=== PATIENT | male | born 1960 | race Caucasian/White ===

== ENCOUNTER → 2024-02-09 | Outpatient (CLI) | payer MEDICARE, BC, SELFPAY ==
[2024-02-09 08:21] LABS: Collection Type, Urine Clean Catch; Squamous Epithelial Cell,Urine 0 /hpf (0-5)
[2024-02-09 08:41] LABS: Basophils % (Auto) 1 % (0-2.5); Eosinophils # (Auto) 0.1 Thou/mm3 (0.0-0.5); Eosinophils % (Auto) 2 % (0-10); Hematocrit 38.4 % (41.0-53.0); Hemoglobin 12.5 g/dL (13.5-16.0); Immature Granulocytes % (Auto) 0 % (0-0); Immature Granulocytes Auto 0.02 Thou/mm3 (0.00-0.00); Lymphocytes # (Auto) 0.6 Thou/mm3 (1.0-4.8); Lymphocytes % (Auto) 11 % (10-50); Mean Corpuscular HGB Conc 32.6 g/dl (31.0-37.0); Mean Corpuscular Hemoglobin 35.8 pg (25.0-35.0); Mean Corpuscular Volume 110 fL (80-100); Monocytes # (Auto) 0.5 Thou/mm3 (0.0-0.8); Monocytes % (Auto) 11 % (0-12); Neutrophils # (Auto) 3.7 Thou/mm3 (1.8-7.7); Neutrophils % (Auto) 75 % (37-80); Nucleated Red Blood Cell % 0 /100 WBC (0); Platelet Count 157 Thou/mm3 (140-440); RDW Standard Deviation 62.5 fL (35.1-43.9); Red Blood Count 3.49 Miln/mm3 (4.50-5.90); White Blood Count 4.9 Thou/mm3 (3.8-10.6)
[2024-02-09 08:43] LABS: Bacteria,Urine Rare; Bilirubin,Urine Negative (Negative); Blood,Urine Trace (Negative); Clarity,Urine Clear (Clear/Hazy); Color,Urine Lt-Yellow (Lt Yel-Yel); Glucose, Urine Negative (Negative); Ketones,Urine Negative (Negative); Leukocyte Esterase,Urine Negative (Negative); Nitrite,Urine Negative (Negative); Protein,Urine 1+ (Neg - Trace); RBC,Urine 2 /hpf (0-3); Specific Gravity,Urine 1.011 (1.001-1.035); Urobilinogen,Urine Negative mg/dL (0.0-1.0); WBC,Urine 1 /hpf (0-5)
[2024-02-09 08:48] LABS: Creatinine,Random Urine 49 mg/dL (30-125); Protein Total, Random Urine 36 mg/dL (1-14)
[2024-02-09 08:52] LABS: Parathyroid Hormone Intact 153.7 pg/ml (18.5-88.0)
[2024-02-09 08:55] LABS: Alanine Aminotransferase 51 U/L (10-49); Albumin/Globulin Ratio 1.7 (1.2-2.2); Alkaline Phosphatase 257 U/L (46-116); Anion Gap 6 (7-16); Aspartate Amino Transferase 35 U/L (0-34); BUN/Creatinine Ratio 29 Ratio (12-20); Bilirubin,Total 1.1 mg/dL (0.3-1.2); Blood Urea Nitrogen 60 mg/dL (9-23); Carbon Dioxide 29.7 mMol/L (20.0-31.0); Cardiac Risk Estimate 2.7 RATIO (4.0-6.7); Chloride 104 mMol/L (98-107); Cholesterol 95 mg/dL (132-200); Creatinine (Component) 2.1 mg/dL (0.6-1.3); Globulin 2.3 gm/dL (2.3-3.5); Glucose 97 mg/dL (74-106); HDL Cholesterol 35 mg/dL (40-60); LDL Cholesterol,Calculated 49 mg/dL (0-130); Osmolality,Calculated 296 (275-295); Potassium 4.7 mMol/L (3.4-5.1); Sodium 140 mMol/L (136-145); Thyroid Stimulating Hormone 7.84 uIU/mL (0.55-4.78); Total Protein 6.3 gm/dL (5.7-8.2); Triglycerides 57 mg/dL (30-150); eGFR 35 See Note
== END | disposition home or self-care (01) ==
PROVIDERS: PCP Internal Medicine; Referring Provider Internal Medicine; Visit Provider Internal Medicine
DX: I12.9 Hypertensive chronic kidney disease with stage 1 through stage 4 chronic kidney disease, or unspecified chronic kidney disease (principal); N18.30 Chronic kidney disease, stage 3 unspecified; E78.5 Hyperlipidemia, unspecified; D57.1 Sickle-cell disease without crisis; E03.9 Hypothyroidism, unspecified
CPT/HCPCS: 36415; 80053; 80061; 81001; 82570; 83036; 83970; 84156; 84443; 85025

== ENCOUNTER → 2024-05-16 | Outpatient (CLI) | payer MEDICARE, BC, SELFPAY ==
[2024-05-16 14:06] LABS: Parathyroid Hormone Intact 154.2 pg/ml (18.5-88.0)
[2024-05-16 14:36] LABS: Albumin, Serum 3.7 gm/dL (3.4-4.8); Anion Gap 10 (7-16); BUN/Creatinine Ratio 30 Ratio (12-20); Blood Urea Nitrogen 70 mg/dL (9-23); Calcium (Corrected) 8.2 mg/dL (8.5-10.1); Carbon Dioxide 27.9 mMol/L (20.0-31.0); Chloride 104 mMol/L (98-107); Creatinine (Component) 2.3 mg/dL (0.6-1.3); Glucose 140 mg/dL (74-106); Osmolality,Calculated 305 (275-295); Phosphorous 3.7 mg/dL (2.4-5.1); Potassium 4.5 mMol/L (3.4-5.1); Sodium 142 mMol/L (136-145); eGFR 31 See Note
== END | disposition home or self-care (01) ==
PROVIDERS: PCP Internal Medicine; Referring Provider Internal Medicine; Visit Provider Internal Medicine
DX: N18.30 Chronic kidney disease, stage 3 unspecified (principal); N25.81 Secondary hyperparathyroidism of renal origin
CPT/HCPCS: 36415; 80069; 83970

== ENCOUNTER 2024-07-18 10:13 | Day surgery (SDC) | payer MEDICARE, BC, SELFPAY ==
--- NOTE | 2024-07-17 09:45 | EKG_ITS ---
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 : 1960 Requested By: Niall Ac Order Number: [id number] Reading MD: Niall Ac Measurements Intervals [place] Rate: 79 P: MI: QRS: 130 QRSD: 118 T: -45 QT: 363 QTc: 418 Interpretive Statements ATRIAL FIBRILLATION MARKED RIGHT AXIS DEVIATION [QRS AXIS > 100] LOW QRS VOLTAGE IN PRECORDIAL LEADS [QRS DEFLECTION < 1.0 mV IN CHEST LEADS] SEPTAL MYOCARDIAL INFARCTION , PROBABLY OLD [40+ ms Q WAVE IN V1/V2] Compared to ECG 04/05/2023 13:39:26 Right-axis deviation now present Myocardial infarct finding now present Indeterminate axis no longer present Intraventricular conduction delay no longer present /store/S0/[id number]
[2024-07-17 10:47] LABS: Basophils % (Auto) 1 % (0-2.5); Eosinophils # (Auto) 0.1 Thou/mm3 (0.0-0.5); Eosinophils % (Auto) 2 % (0-10); Hemoglobin 12.9 g/dL (13.5-16.0); Immature Granulocytes % (Auto) 1 % (0-0); Immature Granulocytes Auto 0.02 Thou/mm3 (0.00-0.00); Lymphocytes # (Auto) 0.5 Thou/mm3 (1.0-4.8); Lymphocytes % (Auto) 12 % (10-50); Mean Corpuscular HGB Conc 33.9 g/dl (31.0-37.0); Mean Corpuscular Hemoglobin 36.6 pg (25.0-35.0); Mean Corpuscular Volume 108 fL (80-100); Monocytes # (Auto) 0.5 Thou/mm3 (0.0-0.8); Monocytes % (Auto) 12 % (0-12); Neutrophils # (Auto) 2.9 Thou/mm3 (1.8-7.7); Neutrophils % (Auto) 72 % (37-80); Nucleated Red Blood Cell % 0 /100 WBC (0); Platelet Count 81 Thou/mm3 (140-440); RDW Standard Deviation 61.3 fL (35.1-43.9); Red Blood Count 3.52 Miln/mm3 (4.50-5.90)
[2024-07-17 10:48] LABS: INR 1.2 (0.9-1.3); Partial Thromboplastin Time 29.3 Seconds (22.0-36.0); Prothrombin Time 13.2 Seconds (9.0-12.2)
[2024-07-17 10:49] LABS: Anion Gap 6 (7-16); BUN/Creatinine Ratio 28 Ratio (12-20); Blood Urea Nitrogen 64 mg/dL (9-23); Calcium 10.4 mg/dL (8.3-10.6); Chloride 107 mMol/L (98-107); Creatinine (Component) 2.3 mg/dL (0.6-1.3); Glucose 127 mg/dL (74-106); Osmolality,Calculated 303 (275-295); Potassium 4.4 mMol/L (3.4-5.1); Sodium 142 mMol/L (136-145); eGFR 31 See Note
[2024-07-18] VITALS (16 sets, daily range): BP systolic 108–127; BP diastolic 65–97; PULSE 60–86; RESP 13–23; TEMP 36.1–36.9; O2SAT 92–98; BMI 32.5
--- NOTE | 2024-07-18 17:22 | ESOP_ITS ---
RE: ROXANNE DICKENS : 1960 DATE OF OPERATION: 07/18/2024 PROCEDURE PERFORMED: 1. Diagnostic left heart cardiac catheterization, selective coronary angiogram, left ventricular angiogram, CPT 69307. 2. Conscious sedation, 1 hour duration. 3. Ultrasound-guided access, right femoral artery. 4. PCI, PTCA stent placement of the distal right coronary artery, placement of drug-eluting stent 3.0 x 26 mm Ry Medtronic drug-eluted stent, preprocedure stenosis 99%, postprocedure stenosis 0%. Preprocedure ABDIEL flow 2, post procedure ABDIEL flow 3, high complexity, CPT 77582. 5. Iliofemoral angiogram followed by AngioSeal deployment. DIAGNOSES: Coronary artery disease, crescendo and class IV angina pectoris, and abnormal nuclear scan. HISTORY AND INDICATIONS: The patient is a 63-year-old male with a history of hypertension, hypercholesterolemia, thrombocytopenia, multiple medical problems, right heart failure, tricuspid valve absent with regurgitation. PCI stent to the LAD more than a year ago, he has recurrent episodes of severe chest pain and minimal activity. Nuclear scan stress test showed inferolateral ischemia. Coronary angiogram was recommended to assess patency of stent and possible stent placement of the right coronary artery. DESCRIPTION OF PROCEDURE: The patient was brought to cardiac catheterization laboratory. He was given 2 mg of Versed and 100 mcg fentanyl for sedation. Right femoral approach was taken. Right femoral artery was cannulated with micropuncture technique. A 6-German sheath was introduced. Subsequently, there was extreme tortuously, change to 6-German destination sheath and long sheath and went on to have coronary angiogram. Right coronary angiogram was performed by FR4 diagnostic catheter. Left heart catheterization was performed by FR4 diagnostic catheter. Left ventricular pressures were measured. Pullback pressure measured LV angiogram performed. Subsequently, a 6-German JL5 diagnostic catheter was used to perform left coronary angiogram. Diagnostic procedure showed following findings: Right coronary artery large and dominant showed proximal segment. Distal right coronary artery showed 99% stenosis with ABDIEL II flow, long lesion. Left coronary system. Left main coronary artery is normal, left anterior descending artery showed a stent in the proximal LAD. Distal left anterior descending artery showed a discrete 90% stenosis unchanged from previous angiogram. Circumflex artery is nondominant, obtuse marginal branch is normal. Distal circumflex artery is 2.5 mm vessel showed diffuse 25 mm length, 80% stenosis. Left ventricular pressure is recorded to be 110/10, aortic pressure of 110/80. No gradient across the aortic valve. Left ventricular angiogram showed evidence of mild global hypokinesia, ejection fraction 45%. Following diagnostic procedure, intervention was undertaken. PCI of the right coronary artery was performed. The patient was given a total of 9000 units of heparin with ACT of 310 to proceed with a PCI. A 6-German FR4 guiding catheter was used to cannulate the right coronary artery. A 0.014 Runthrough guidewire were used to cross the lesion successfully. Predilation lesion performed by 2 mm and 2.5 mm Euphora compliant balloon catheter. Subsequently, stent placement performed by 3.0 x 26 mm Ry Radisys drug-eluted stent was deployed, two inflation was performed at atmospheric pressure. Final angiogram showed widely patent right coronary artery with no residual stenosis. Subsequently, iliofemoral angiogram performed and AngioSeal was deployed successfully. SUMMARY OF FINDINGS: 1. Widely patent stent involving the left anterior descending artery. 2. A 99% stenosis of the right coronary artery, distal RCA underwent successful PCI stent placement with excellent angiographic results. 3. Moderate stenosis of the circumflex artery, distal vessel. 4. Severe stenosis of the distal 90% stenosis. RECOMMENDATIONS: Continue medical management, aspirin and Plavix. The patient was given loading dose of Plavix 300 mg of Keflex, has a low platelet count of 91,000, which will be closely monitored. If he has significant angina pectoris, we may consider a stent placement in the circumflex artery and distal LAD later. DT: 15:01:50 TT: 16:40:00 Ref: [id number] - TID: [id number] MTDD
== END 2024-07-18 17:09 | disposition home or self-care (01) ==
PROVIDERS: PCP Internal Medicine; Referring Provider Internal Medicine Cardiovascular Disease; Visit Provider Internal Medicine Cardiovascular Disease
PROC: (CPT 93458; principal; 2024-07-18 11:30)
DX: I25.118 Atherosclerotic heart disease of native coronary artery with other forms of angina pectoris (principal); E78.00 Pure hypercholesterolemia, unspecified; I11.0 Hypertensive heart disease with heart failure; I50.810 Right heart failure, unspecified; Z01.810 Encounter for preprocedural cardiovascular examination
CPT/HCPCS: 93458; C9600; G0278; 36415; 80048; 85025; 85347; 85610; 85730; 93005; 99152; 99153; A4649; C1725; C1760; C1769; C1874; C1887; C1894; J0171; J0461; J1643; J2250; J2310; J2371; J3010; J3490; Q9967; A9270

== ENCOUNTER → 2024-08-01 | Outpatient (CLI) | payer MEDICARE, BC, SELFPAY ==
--- NOTE | 2024-08-01 09:45 | XR_ITS ---
Examination: CT abdomen and pelvis without contrast. Coronal 3-D reconstructions. Sagittal 2-D reconstructions. Date and time of exam:August 01, 2024 1012 hours Comparison 12/15/2020 INDICATIONS: Generalized abdominal pain beginning one month ago CTDI: vol (mGy): 12.6 DLP: (mGycm): 844 Technique: Axial images of the abdomen have been obtained, 3 mm slice thickness Intravenous contrast material has not been administered. Low dose protocols were performed. One or more of the following dose reduction techniques were used; automated exposure control, adjustment of the mA and/or KV according to patient size, use of iterative reconstruction technique. Findings: Moderate enlargement cardiac contour Trace pericardial effusion Calcified granuloma right lower lobe Cirrhosis, liver nodular in contour Suspicious for 20 mm posterior right lobe liver lesion image 79 Significant splenomegaly No gallstones No pancreatic mass Dilated inferior vena cava Atrophic kidneys with renal parenchymal scar formation Abdominal aortic calcification no aneurysmal dilatation Normal appendix Colonic diverticulosis Transverse prostate dimension 5.1 cm Right hip bipolar hemiarthroplasty Moderate narrowing left hip joint IMPRESSION: Moderate enlargement cardiac contour Cirrhosis Recommend MRI abdomen liver follow-up pre and postcontrast to confirm 20 mm posterior right lobe liver lesion Significant splenomegaly Atrophic kidneys Normal appendix Moderate prostatomegaly
[2024-08-01 11:06] LABS: Collection Type, Urine Clean Catch
[2024-08-01 11:28] LABS: Basophils % (Auto) 1 % (0-2.5); Eosinophils # (Auto) 0.1 Thou/mm3 (0.0-0.5); Eosinophils % (Auto) 2 % (0-10); Hematocrit 39.2 % (41.0-53.0); Hemoglobin 13.1 g/dL (13.5-16.0); Immature Granulocytes % (Auto) 0 % (0-0); Immature Granulocytes Auto 0.01 Thou/mm3 (0.00-0.00); Lymphocytes # (Auto) 0.5 Thou/mm3 (1.0-4.8); Lymphocytes % (Auto) 12 % (10-50); Mean Corpuscular HGB Conc 33.4 g/dl (31.0-37.0); Mean Corpuscular Hemoglobin 36.5 pg (25.0-35.0); Mean Corpuscular Volume 109 fL (80-100); Monocytes # (Auto) 0.5 Thou/mm3 (0.0-0.8); Monocytes % (Auto) 12 % (0-12); Neutrophils # (Auto) 3.3 Thou/mm3 (1.8-7.7); Neutrophils % (Auto) 73 % (37-80); Nucleated Red Blood Cell % 0 /100 WBC (0); Platelet Count 81 Thou/mm3 (140-440); RDW Standard Deviation 59.7 fL (35.1-43.9); Red Blood Count 3.59 Miln/mm3 (4.50-5.90); White Blood Count 4.5 Thou/mm3 (3.8-10.6)
[2024-08-01 11:32] LABS: Bilirubin,Urine Negative (Negative); Blood,Urine Negative (Negative); Clarity,Urine Clear (Clear/Hazy); Color,Urine Lt-Yellow (Lt Yel-Yel); Glucose, Urine Negative (Negative); Ketones,Urine Negative (Negative); Leukocyte Esterase,Urine Negative (Negative); Nitrite,Urine Negative (Negative); Protein,Urine 1+ (Neg - Trace); RBC,Urine 2 /hpf (0-3); Specific Gravity,Urine 1.013 (1.001-1.035); Squamous Epithelial Cell,Urine < 1 /hpf (0-5); Urobilinogen,Urine Negative mg/dL (0.0-1.0); WBC,Urine 1 /hpf (0-5)
[2024-08-01 11:49] LABS: Parathyroid Hormone Intact 124.3 pg/ml (18.5-88.0)
[2024-08-01 11:54] LABS: Alanine Aminotransferase 33 U/L (10-49); Albumin, Serum 4.3 gm/dL (3.4-4.8); Albumin/Globulin Ratio 1.7 (1.2-2.2); Alkaline Phosphatase 180 U/L (46-116); Anion Gap 6 (7-16); Aspartate Amino Transferase 30 U/L (0-34); BUN/Creatinine Ratio 27 Ratio (12-20); Bilirubin,Total 1.8 mg/dL (0.3-1.2); Blood Urea Nitrogen 64 mg/dL (9-23); Calcium 10.6 mg/dL (8.3-10.6); Calcium (Corrected) 10.6 mg/dL (8.5-10.1); Carbon Dioxide 30.3 mMol/L (20.0-31.0); Cardiac Risk Estimate 2.6 RATIO (4.0-6.7); Chloride 105 mMol/L (98-107); Cholesterol 97 mg/dL (132-200); Creatinine (Component) 2.4 mg/dL (0.6-1.3); Free T4 (Free Thyroxine) 1.06 ng/dL (0.89-1.76); Globulin 2.6 gm/dL (2.3-3.5); Glucose 97 mg/dL (74-106); HDL Cholesterol 37 mg/dL (40-60); LDL Cholesterol,Calculated 46 mg/dL (0-130); Osmolality,Calculated 299 (275-295); Phosphorous 3.5 mg/dL (2.4-5.1); Potassium 4.8 mMol/L (3.4-5.1); Sodium 141 mMol/L (136-145); Thyroid Stimulating Hormone 9.55 uIU/mL (0.55-4.78); Total Protein 6.9 gm/dL (5.7-8.2); Triglycerides 71 mg/dL (30-150); Uric Acid 4.4 mg/dL (3.7-9.2); eGFR 29 See Note
[2024-08-01 11:58] LABS: Vitamin B12 584 pg/mL (211-911); Vitamin D 25 Hydroxy Total 31.6 ng/mL (7.3-40.2)
[2024-08-01 12:21] LABS: Creatinine MALB Rnd Ur 71 mg/dL (30-125); Microalbumin Creat Ratio 383 mg/gCrea (<30); Microalbumin, Random Urine 272 mg/L (0-300)
== END | disposition home or self-care (01) ==
LOC: COPL 09:16
PROVIDERS: PCP Internal Medicine Cardiovascular Disease; Referring Provider Internal Medicine; Visit Provider Radiology Diagnostic Radiology
DX: I51.7 Cardiomegaly (principal); K74.60 Unspecified cirrhosis of liver; R16.1 Splenomegaly, not elsewhere classified; K76.9 Liver disease, unspecified; I12.9 Hypertensive chronic kidney disease with stage 1 through stage 4 chronic kidney disease, or unspecified chronic kidney disease; N18.30 Chronic kidney disease, stage 3 unspecified; E78.5 Hyperlipidemia, unspecified; I48.91 Unspecified atrial fibrillation; D75.1 Secondary polycythemia; E03.9 Hypothyroidism, unspecified; N25.81 Secondary hyperparathyroidism of renal origin; D51.9 Vitamin B12 deficiency anemia, unspecified; E55.9 Vitamin D deficiency, unspecified; I25.118 Atherosclerotic heart disease of native coronary artery with other forms of angina pectoris
CPT/HCPCS: 36415; 74176; 80053; 80061; 81001; 82043; 82306; 82570; 82607; 83036; 83970; 84100; 84153; 84439; 84443; 84550; 85025

== ENCOUNTER 2024-08-03 18:46 | Inpatient (IN) | payer MEDICARE, BC, SELFPAY ==
[2024-08-03 19:19] VITALS: PULSE 92; RESP 16; O2SAT 88; BMI 31.4
--- NOTE | 2024-08-03 19:32 | PD.EDSOB ---
ED SOB =RME/HPI General Chief Complaint: Shortness of Breath/Dyspnea Stated Complaint: COUGHING BLOOD Time Seen by Provider: 08/03/24 19:20 Arrival date/time: 08/03/24 18:46 RME / HPI RME / HPI Narrative: Dr. Milner?s Main ED Evaluation: 63yo male with a history of CHF, COPD on 2L/NC PRN, HTN, aFib, recent stent placement [address] Pacheco, on Plavix BIBA from home presents to the ED for a chief complaint of hemoptysis. Patient states he started coughing up dark blood 2 hours ago and his was concerned, so they called 911 to bring him in for evaluation. Patient reports having chronic shortness of breath that is not worse than usual, cough, and congestion. Patient denies any fever, chills, abdominal pain, N/V or any other associated symptoms. He is a former tobacco smoker. He is not on any inhalers or nebulizers at home. He is not on any steroids. Patient is currently on cephalexin for cellulitis to his legs. Related Data Home Medications ?Medication ?Instructions ?Recorded ?Confirmed simvastatin 40 mg tablet 40 mg PO HS ##90 02/11/15 07/18/24 bmhdwa-[id number]-qzvsssc 1 cap PO TID 09/29/18 07/18/24 12,000-38,000-60,000 unit capsule,delayed rel (Creon) allopurinol 300 mg tablet 300 mg PO HS 01/25/20 07/18/24 aspirin 81 mg tablet,delayed 81 mg PO QDAY 01/25/20 07/18/24 release furosemide 40 mg tablet 40 mg PO QDAY 01/25/20 07/18/24 labetalol 200 mg tablet 200 mg PO BID 01/25/20 07/18/24 latanoprost 0.005 % eye drops 1 drp ophthalmic (eye) HS 01/25/20 07/18/24 cinacalcet 90 mg tablet 90 mg PO QDAY 04/06/23 07/18/24 finasteride 5 mg tablet 5 mg PO QDAY 04/06/23 07/18/24 losartan 50 mg tablet 25 mg PO QDAY 04/06/23 07/18/24 thyroid 30 mg tablet 30 mg PO QDAY 04/06/23 07/18/24 calcitriol 0.5 mcg capsule 0.5 mcg PO QDAY 07/18/24 07/18/24 triamcinolone acetonide 0.1 % 1 applic topical BID 07/18/24 07/18/24 topical ointment Previous Rx's ?Medication ?Instructions ?Recorded clopidogrel 75 mg tablet (Plavix) 75 mg PO QDAY #30 tabs 07/18/24 Allergies Allergy/AdvReac Type Severity Reaction Status Date / Time Penicillins Allergy Mild Rash Verified 11/09/23 13:18 Review of Systems Review of Systems Systems Reviewed: All systems reviewed, normal except as documented Past Medical History Past Medical History NEUROLOGIC: Positive Neurological Disorders, Cerebrovascular Accident and Transient Ischemic Attacks (TIA); Negative Seizures CARDIAC: Positive Cardiac Disorders, Atrial Fibrillation, Hypercholesterolemia, Congestive Heart Failure, Edema and Hypertension RESPIRATORY: Positive Chronic Obstructive Pulmonary Disease (COPD), Asthma, Emphysema and Sleep Apnea GASTROINTESTINAL: Positive Gastrointestinal Disorders, Hepatitis, Cirrhosis, Gastrointestinal Bleed and Gastroesophageal Reflux Disease; Negative Colorectal Cancer GENITOURINARY: Positive Genitourinary Disorders and Renal Disease; Negative Prostate Cancer REPRODUCTIVE: Negative Breast Cancer or Testicular Cancer MUSCULOSKELETAL: Positive Musculoskeletal Disorders, Arthritis and Gout; Negative Bone Cancer or Carpal Tunnel Syndrome ENT: Positive Cataracts and Retinal Detachment ENDOCRINE: Positive Hyperthyroidism; Negative Endocrine Disorders, Diabetes Mellitus Type 1 or Diabetes Mellitus Type 2 HEMATOLOGIC: Negative Blood Disorders or Sickle Cell Disease OTHER HISTORY: Positive Hospitalization, Falls, Chicken Pox, Measles and Mumps; Negative Autoimmune Disease, Down Syndrome, Developmental Delay, Shingles, Blood Transfusions, Blood Transfusion Reaction, Anesthesia Reactions, Organ Transplant, Chemotherapy, Radiation Therapy, Hyperbaric Therapy, MRSA, VRSA, Vancomycin-Resistant Enterococci, Human Immunodeficiency Virus (HIV), Rubella (Irish Measles), Pertussis, Clostridium Difficile, Cancer, Breast Cancer, Cervical Cancer, Colorectal Cancer, Lung Cancer, Ovarian Cancer, Prostate Cancer or Testicular Cancer Family History FAMILY HISTORY: Positive Family Psychiatric Problems, Family Cardiac Disorders, Family Cancer and Family Surgery; Negative Family Anesthesia Reaction Surgical History SURGICAL: Positive Coronary Stent (2023), Angiogram (2023), Eye Surgery, Tonsillectomy, Joint Replacement, Open Reduction Internal Fixation and Arthroscopy; Negative Cardiac Surgery, Open Heart Surgery, Coronary Artery Bypass Graft, Valve Replacement, Vascular Surgery, Cardiac Catheterization, Pacemaker, Auto Implanted Cardiovert Defib, Carotid Endarterectomy, Endocrine Surgery, Thyroidectomy, Ear Surgery, Tympanostomy Tube, Nose Surgery, Oral Surgery, Adenoidectomy, Cochlear Implant, Corneal Transplant, Throat Surgery, Abdominal Surgery, Gastric Bypass Surgery, Gastrostomy, Bowel Surgery, Nephrectomy, Transurethral Resection, Amputation, Neurologic Surgery, Brain Shunt, Mastectomy, Lumpectomy, Hysterectomy, Tubal Ligation, Section, Vasectomy or Organ Transplant Social History SMOKING STATUS: Former smoker ED Exam Narrative Physical exam: GENERAL APPEARANCE: AxOx4, generally well-appearing, palmar sized quantity of dark maroon hemoptysis noted in the emesis bag, no acute distress. HEENT: NC, AT. MMM. EOMI, clear conjunctiva, oropharynx clear. NECK: Supple without lymphadenopathy. No stiffness or restricted ROM. HEART: Normal rate and regular rhythm, normal S1/S1, no m/r/g LUNGS: Coarse rhonchi bilaterally. No crackles or wheezes are heard. ABDOMEN: Soft, nontender, nondistended with good bowel sounds heard. BACK: No midline C/T/L spine pain or deformity, No CVAT, no obvious deformity. EXTREMITIES: Without cyanosis, clubbing or edema. MUSCULOSKELETAL: FROM of all major joints, no chest tenderness NEUROLOGICAL: Grossly nonfocal. Alert and oriented, moving all 4 extremities. CN not formally tested but appear grossly intact. Skin: Warm and dry without any rash. Scattered ecchymosis to his BUE. Course Course Course Narrative: CXR is ordered for determining the etiology of hemoptysis. 2045: CTA chest cancelled due to the patient's creatinine being 2.4. CT chest without contrast ordered. 6: Attempted to get ahold of Dr. Santiago without any success. I left him a message. Quality Measures none Orders Category Date Time Status CT Screening NOW Care 08/03/24 19:36 Active EKG (ED ONLY) *Do not use* NOW Care 08/03/24 19:[address] chest wo con Stat Exams 08/03/24 20:46 Completed EKG (ED Only) Stat Exams 08/03/24 19:36 Ordered XR chest 1V Stat Exams 08/03/24 19:36 Completed CBC Stat Lab 08/03/24 19:46 Completed CMP [Comprehensive Metabolic Panel] Stat Lab 08/03/24 19:46 Completed Hemoglobin and Hematocrit Stat Lab 08/03/24 23:18 Completed Partial Thromboplastin Time Stat Lab 08/03/24 19:46 Completed Prothrombin Time with INR Stat Lab 08/03/24 19:46 Completed Sodium Chloride 0.9% 1000 ml [Ns] 1,000 ml Med 08/03/24 19:32 Discontinued IV 999 mls/hr cefTRIAXone/D5w 1gm IV premix [Rocephin/D5w 1gm IV Med 08/03/24 23:00 Discontinued premix] 1 gm in 50 ml IV X1 Vital Signs Vital signs: Vital Signs Temperature 99.5 F 08/03/24 19:35 Blood Pressure 131/89 H 08/03/24 19:35 Pulse Oximetry (%) 91 L 08/03/24 19:35 Shortness of Breath / Dyspnea MDM Narrative MDM Narrative:: Scribe Attestation: 08/03/24 Tabatha Berg am scribing for and in the presence of Dr. Milner. Patient data External records reviewed:: [facility] previous records (Per chart review, patient was seen here on 11/09/23 for epistaxis.) Clinical information provided by:: patient Social determinants that could affect healthcare access:: substance use (former tobacco smoker) Patient has the following chronic illnesses:: CHF, COPD, HTN, aFib How is presenting disease/condition affected by chronic disease/condition?: exacerbated by Evaluation data The following diagnostics were reviewed and interpreted by me:: lab results, radiology exam(s) and EKG tracing(s) Lab and/or radiology exams considered but not ordered:: none Interpretation Summary: WBC count is normal, HnH is 11.6/33.1 (which is decreased from previous which was 13.1/39.2 2 days ago), PT is 1.5, INR and PTT are normal, Creatinine is 2.4 (which is chronic), according to my interpretation. Repeat HnH is 12.0/35.8. EKG done at 1960, aFib, rate of 86, normal intervals, no acute ST or T wave changes, according to my interpretation. [place] [facility] Report Signed Patient: ROXANNE DICKENS [facility]. Record#: [id number] Birthdate: 1960 Age/Sex: 63 / M Location: [facility] Attending Dr: Ordering Physician: Joshua Milner MD Date of Service: 08/03/24 Procedure(s): XR chest 1V Accession Number(s): [id number] cc: Joshua Milner MD; Jay Collado MD~ Examination: AP chest single view TECHNIQUE: AP portable upright chest single view Date time:: August 03, 2024 1953 hours INDICATIONS: Chest pain beginning 2 days ago. FINDINGS: Early CHF Moderate enlargement left ventricle. Prominent vascular congestion with early septal edema in the lung robledo Moderate osteopenia IMPRESSION: Early CHF Dictated By: Jay Collado MD Signed By: <Electronically signed by Jay Collado MD in OV> 08/03/242002 [place] [facility] Report Signed Patient: ROXANNE DICKENS Record#: [id number] Birthdate: 1960 Age/Sex: 63 / M Location: [facility] Attending Dr: Ordering Physician: Joshua Milner MD Date of Service: 08/03/24 Procedure(s): CT chest wo con Accession Number(s): [id number] cc: Joshua Milner MD; Jay Collado MD~ Examination: CT chest, without intravenous contrast. Sagittal and coronal 2-D reconstructions. Exam date and time: August 03, 2024 2132 hours Comparison 12/15/2020 INDICATIONS: Hemoptysis today CTDI:vol (mGy) 19.2 DLP: (mGycm) 772 Technique: Multiple 3.0 mm axial sections of the chest to been obtained. Bone and lung density settings are obtained. Sagittal and coronal 2-D reconstructions have been obtained. Low dose protocols were performed. One or more of the following dose reduction techniques were used; automated exposure control, adjustment of the mA and/or KV according to patient size, use of iterative reconstruction technique. Findings: No thoracic aortic aneurysmal dilatation Moderate enlargement cardiac contour with small pericardial effusion no more normal Soft opacities throughout the right upper lobe consistent with pneumonia with small nodular densities Soft nodular opacities also in the right mid and lower lung zone as well as left base No pulmonary edema although moderate vascular congestion Cirrhosis, mildly prominent spleen Contracted gallbladder No pancreatic mass Dilated inferior vena cava IMPRESSION: Fairly diffuse right lung and left base pneumonia Mild heart failure with significant enlargement in cardiac contour Cirrhosis Prominently dilated inferior vena cava seen with heart failure Dictated By: Jay Collado MD Signed By: <Electronically signed by Jay Collado MD in OV> 08/03/24 9761 Medications / Prescriptions Medications or Prescriptions considered but not ordered:: none Medication administrations:: Medication Administration History Discontinued Medications Sodium Chloride (Ns) 1,000 mls @ 999 mls/hr IV .Q1H1M ONE Stop: 08/03/24 20:32 Last Infusion: 08/03/24 20:55 Dose: Infused Documented By: Admin: 08/03/24 19:54 Dose: 999 mls/hr Documented By: DT Ceftriaxone Sodium/Dextrose (Rocephin/D5w 1gm Iv Premix) 1 gm in 50 mls @ 100 mls/hr IV X1 ONE Stop: 08/03/24 23:29 Last Infusion: 08/03/24 23:45 Dose: Infused Documented By: Admin: 08/03/24 23:11 Dose: 100 mls/hr Documented By: DT see above Consultations Consultation(s) initiated? (list below): Yes Consultation #1 (Physician, Specialty, Details): Discussed case with Dr. Mota from cardiology regarding consultation. Discussed patients ED course, exam findings, labs, and radiology results. States to admit the patient for observation. Time: 01:41 Consultation #2 (Physician, Specialty, Details): Discussed case with Dr. Rosenbaum from Hospitalist service regarding admission. Discussed patients ED course, exam findings, labs, and radiology results. The Hospitalist agrees to accept the patient for admission. Time: 01:47 Diagnosis Shortness of Breath Differential Diagnosis: pulmonary embolism and other (hemoptysis, pulmonary malignancy) Most likely diagnosis given after review of the tests above:: see clinical impression below Admission Indicated Admission indicated?: indicated Admission Request Was there a request for admission?: Yes Admission Attestation Admission request attestation: Discussed case with [] from Hospitalist service regarding admission. Discussed patients ED course, exam findings, labs, and radiology results. The Hospitalist [agrees,declines] to accept the patient for admission. Disposition Plan Disposition Plan: Admit Discharge Plan Plan Patient Disposition: Admit Acute Care w/in Hospital Prescriptions/Referrals Prescriptions/Med Rec: No Action simvastatin 40 MG tablet 40 mg PO HS Qty: 90 Creon 12,000-38,000 -60,000 unit Capsule,Delayed Release(Dr/Ec) 1 cap PO TID furosemide 40 mg tablet 40 mg PO QDAY latanoprost 0.005 % drops 1 drp OPHTHALMIC (EYE) HS Rx Instructions: Right eye at bedtime labetalol 200 mg tablet 200 mg PO BID Patient Comments: TK 1 T PO BID aspirin 81 mg Tablet,Delayed Release (Dr/Ec) 81 mg PO QDAY allopurinol 300 mg tablet 300 mg PO HS Patient Comments: TK 1 T PO QD IN THE MORNING losartan 50 mg Tablet 25 mg PO QDAY thyroid 30 mg Tablet 30 mg PO QDAY finasteride 5 mg Tablet 5 mg PO QDAY cinacalcet 90 mg Tablet 90 mg PO QDAY triamcinolone acetonide 0.1 % ointment 1 applic TOPICAL BID Patient Comments: APPLY TOPICALLY TO THE SKIN TWICE DAILY NEEDED calcitriol 0.5 mcg capsule 0.5 mcg PO QDAY clopidogrel [Plavix] 75 mg tablet 75 mg PO QDAY Qty: 30 5RF Referrals: Dorie Abraham MD [Primary Care Provider] - In 1 week Problem List Clinical Impression: Hemoptysis Patient/Caregiver Discharge Instructions Print Language: Bulgarian Stand Alone Forms: Jenn Award Info., Patient Portal Info Letter
[2024-08-03 19:35] VITALS: BP 131/89; TEMP 37.5; O2SAT 91
--- NOTE | 2024-08-03 19:36 | XR_ITS ---
Examination: AP chest single view TECHNIQUE: AP portable upright chest single view Date time:: August 03, 2024 1953 hours INDICATIONS: Chest pain beginning 2 days ago. FINDINGS: Early CHF Moderate enlargement left ventricle. Prominent vascular congestion with early septal edema in the lung robledo Moderate osteopenia IMPRESSION: Early CHF
--- NOTE | 2024-08-03 19:36 | EKG_ITS ---
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: : 1960 Requested By: Joshua Milner Order Number: [id number] Reading MD: Joshua Milner Measurements Intervals [place] Rate: 86 P: TN: QRS: 139 QRSD: 112 T: -13 QT: 338 QTc: 405 Interpretive Statements ATRIAL FIBRILLATION WITH ABERRANT CONDUCTION OR VENTRICULAR PREMATURE COMPLEXES PATTERN CONSISTENT WITH PULMONARY DISEASE INCOMPLETE RIGHT BUNDLE BRANCH BLOCK [90+ ms QRS DURATION, TERMINAL R IN V1/V2, 40+ ms S IN I/aVL/V4/V5/V6] POSSIBLE RIGHT VENTRICULAR HYPERTROPHY [SOME/ALL OF: PROMINENT R IN V1, LATE TRANSITION, RAD, ALFONSO, SSS] SEPTAL MYOCARDIAL INFARCTION , OF INDETERMINATE AGE [40+ ms Q WAVE IN V1/V2] Compared to ECG 07/17/2024 10:15:27 Ventricular premature complex(es) now present Aberrant conduction of supraventricular beat(s) now present Incomplete right bundle-branch block now present Right-axis deviation no longer present Myocardial infarct finding still present /store/S0/[id number]/ecg/[id number].pdf
[2024-08-03 19:53] LABS: Basophils % (Auto) 1 % (0-2.5); Eosinophils # (Auto) 0.1 Thou/mm3 (0.0-0.5); Eosinophils % (Auto) 3 % (0-10); Hematocrit 33.1 % (41.0-53.0); Hemoglobin 11.6 g/dL (13.5-16.0); Immature Granulocytes % (Auto) 0 % (0-0); Immature Granulocytes Auto 0.01 Thou/mm3 (0.00-0.00); Lymphocytes # (Auto) 0.6 Thou/mm3 (1.0-4.8); Lymphocytes % (Auto) 12 % (10-50); Mean Corpuscular Hemoglobin 37.1 pg (25.0-35.0); Mean Corpuscular Volume 106 fL (80-100); Monocytes # (Auto) 0.7 Thou/mm3 (0.0-0.8); Monocytes % (Auto) 15 % (0-12); Neutrophils # (Auto) 3.1 Thou/mm3 (1.8-7.7); Neutrophils % (Auto) 70 % (37-80); Nucleated Red Blood Cell % 0 /100 WBC (0); Platelet Count 84 Thou/mm3 (140-440); RDW Standard Deviation 59.1 fL (35.1-43.9); Red Blood Count 3.13 Miln/mm3 (4.50-5.90); White Blood Count 4.5 Thou/mm3 (3.8-10.6)
[2024-08-03] MEDS: SODIUM CHLORIDE 0.9% 1000 ML 1,000 ML 999 ML IV (19:54)
[2024-08-03 20:07] LABS: INR 1.3 (0.9-1.3); Partial Thromboplastin Time 27.6 Seconds (22.0-36.0); Prothrombin Time 13.5 Seconds (9.0-12.2)
[2024-08-03 20:11] LABS: Alanine Aminotransferase 39 U/L (10-49); Albumin/Globulin Ratio 1.7 (1.2-2.2); Alkaline Phosphatase 170 U/L (46-116); Anion Gap 8 (7-16); Aspartate Amino Transferase 43 U/L (0-34); BUN/Creatinine Ratio 26 Ratio (12-20); Blood Urea Nitrogen 62 mg/dL (9-23); Calcium 10.2 mg/dL (8.3-10.6); Calcium (Corrected) 10.2 mg/dL (8.5-10.1); Carbon Dioxide 25.7 mMol/L (20.0-31.0); Chloride 105 mMol/L (98-107); Creatinine (Component) 2.4 mg/dL (0.6-1.3); Estimated Creatinine Clearance 41.2 mL/min (>60); Globulin 2.3 gm/dL (2.3-3.5); Glucose 115 mg/dL (74-106); Osmolality,Calculated 296 (275-295); Potassium 4.7 mMol/L (3.4-5.1); Sodium 139 mMol/L (136-145); Total Protein 6.3 gm/dL (5.7-8.2); eGFR 29 See Note
--- NOTE | 2024-08-03 20:46 | XR_ITS ---
Examination: CT chest, without intravenous contrast. Sagittal and coronal 2-D reconstructions. Exam date and time: August 03, 2024 2132 hours Comparison 12/15/2020 INDICATIONS: Hemoptysis today CTDI:vol (mGy) 19.2 DLP: (mGycm) 772 Technique: Multiple 3.0 mm axial sections of the chest to been obtained. Bone and lung density settings are obtained. Sagittal and coronal 2-D reconstructions have been obtained. Low dose protocols were performed. One or more of the following dose reduction techniques were used; automated exposure control, adjustment of the mA and/or KV according to patient size, use of iterative reconstruction technique. Findings: No thoracic aortic aneurysmal dilatation Moderate enlargement cardiac contour with small pericardial effusion no more normal Soft opacities throughout the right upper lobe consistent with pneumonia with small nodular densities Soft nodular opacities also in the right mid and lower lung zone as well as left base No pulmonary edema although moderate vascular congestion Cirrhosis, mildly prominent spleen Contracted gallbladder No pancreatic mass Dilated inferior vena cava IMPRESSION: Fairly diffuse right lung and left base pneumonia Mild heart failure with significant enlargement in cardiac contour Cirrhosis Prominently dilated inferior vena cava seen with heart failure
[2024-08-03 22:11] VITALS: BP 140/80; PULSE 70; RESP 27; TEMP 37.2; O2SAT 94
[2024-08-03] MEDS: cefTRIAXone/D5w 1gm IV premix 1 GM/50 ML BAG IV (23:11)
[2024-08-03 23:45] LABS: Hematocrit 35.8 % (41.0-53.0)
[2024-08-03 23:54] VITALS: BP 141/99; PULSE 76; RESP 21; O2SAT 96
[2024-08-04] VITALS (18 sets, daily range): BP systolic 102–150; BP diastolic 71–99; PULSE 73–90; RESP 16–30; TEMP 36.7–37.2; O2SAT 90–96
--- NOTE | 2024-08-04 02:02 | PD.HHHP ---
Documentation for date of: 08/04/24 HPI - Hospitalist History of Present Illness History of Present Illness: Hemoptysis History of present illness: A 63-year-old male presented to the ER with the chief complaint of coughing up blood. The patient described sudden onset of hemoptysis that began this afternoon. He stated the blood was fresh and red. He also c/o chronic baseline shortness of breath due to COPD (uses oxygen as needed), but no acute worsening. Patient denied chest pain, fever, nausea, vomiting. He reported a stent placement on July 18 without post-procedural complications and last took Plavix and aspirin on night. He has not taken any of his home medications since then. He came to the ER due to concern over new onset of coughing blood. The patient has a history of HTN, hepatitis C, hyperlipidemia, glaucoma, hypothyroidism, A-fib (s/p Watchman), CVA, COPD, and cirrhosis. Surgical history includes tonsillectomy, bilateral ankle surgeries, RLE embolectomy, meniscus surgery, cataract and retina repairs, Watchman device placement, and total hip replacement. Current medications include Triamcinolone, Clopidogrel, [place] Thyroid, Calcitriol, Aspirin, Creon, Cinacalcet, Latanoprost, Magnesium, Losartan, Lasix, Simvastatin, Allopurinol, and Labetalol. Social history includes former tobacco use and no alcohol consumption. Functional status: ambulatory, uses home oxygen. In the ER, vital signs recorded as temp 99.5 F, HR 70 bpm, RR 27, BP 131/89 mmHg. Labs revealed WBC 4.5, hemoglobin 11.6->12 (previously 13.1), platelets 84, INR 1.3, Na 139, K 4.7, Cl 105, BUN 62, creatinine 2.4, glucose 115. CT demonstrated fairly diffuse right lung and left base pneumonia, mild heart failure with significant cardiac enlargement, cirrhosis, and a prominently dilated IVC consistent with heart failure. Admit for observation. Review of Systems Review of Systems Narrative Review of Systems: A 14 point review of systems was assessed and negative except for that per HPI Past Medical History Past Medical History NEUROLOGIC: Positive Neurological Disorders, Cerebrovascular Accident and Transient Ischemic Attacks (TIA); Negative Seizures CARDIAC: Positive Cardiac Disorders (heart failure, afib, stent), Atrial Fibrillation, Hypercholesterolemia, Congestive Heart Failure, Edema and Hypertension RESPIRATORY: Positive Chronic Obstructive Pulmonary Disease (COPD), Asthma (COPD), Emphysema and Sleep Apnea GASTROINTESTINAL: Positive Gastrointestinal Disorders, Hepatitis, Cirrhosis, Gastrointestinal Bleed and Gastroesophageal Reflux Disease; Negative Colorectal Cancer GENITOURINARY: Positive Genitourinary Disorders and Renal Disease; Negative Prostate Cancer REPRODUCTIVE: Negative Breast Cancer or Testicular Cancer MUSCULOSKELETAL: Positive Musculoskeletal Disorders, Arthritis and Gout; Negative Bone Cancer or Carpal Tunnel Syndrome ENT: Positive Cataracts and Retinal Detachment ENDOCRINE: Positive Hyperthyroidism; Negative Endocrine Disorders, Diabetes Mellitus Type 1 or Diabetes Mellitus Type 2 HEMATOLOGIC: Negative Blood Disorders or Sickle Cell Disease OTHER HISTORY: Positive Hospitalization, Falls, Chicken Pox, Measles and Mumps; Negative Autoimmune Disease, Down Syndrome, Developmental Delay, Shingles, Blood Transfusions, Blood Transfusion Reaction, Anesthesia Reactions, Organ Transplant, Chemotherapy, Radiation Therapy, Hyperbaric Therapy, MRSA, VRSA, Vancomycin-Resistant Enterococci, Human Immunodeficiency Virus (HIV), Rubella ([place] Measles), Pertussis, Clostridium Difficile, Cancer, Breast Cancer, Cervical Cancer, Colorectal Cancer, Lung Cancer, Ovarian Cancer, Prostate Cancer or Testicular Cancer Family History FAMILY HISTORY: Positive Family Psychiatric Problems, Family Cardiac Disorders, Family Cancer and Family Surgery; Negative Family Anesthesia Reaction Surgical History SURGICAL: Positive Coronary Stent (2023), Angiogram (2023), Eye Surgery, Tonsillectomy, Joint Replacement, Open Reduction Internal Fixation and Arthroscopy; Negative Cardiac Surgery, Open Heart Surgery, Coronary Artery Bypass Graft, Valve Replacement, Vascular Surgery, Cardiac Catheterization, Pacemaker, Auto Implanted Cardiovert Defib, Carotid Endarterectomy, Endocrine Surgery, Thyroidectomy, Ear Surgery, Tympanostomy Tube, Nose Surgery, Oral Surgery, Adenoidectomy, Cochlear Implant, Corneal Transplant, Throat Surgery, Abdominal Surgery, Gastric Bypass Surgery, Gastrostomy, Bowel Surgery, Nephrectomy, Transurethral Resection, Amputation, Neurologic Surgery, Brain Shunt, Mastectomy, Lumpectomy, Hysterectomy, Tubal Ligation, Section, Vasectomy or Organ Transplant Social History SMOKING STATUS: Former smoker Meds Home Medications and Allergies Home Medications ?Medication ?Instructions ?Recorded ?Confirmed ?Type simvastatin 40 mg tablet 40 mg PO HS ##90 02/11/15 07/18/24 History cxegwp-cnsugpcq-hsgjpmy 1 cap PO TID 09/29/18 07/18/24 History 12,000-38,000-60,000 unit capsule,delayed rel (Creon) allopurinol 300 mg tablet 300 mg PO HS 01/25/20 07/18/24 History aspirin 81 mg tablet,delayed 81 mg PO QDAY 01/25/20 07/18/24 History release furosemide 40 mg tablet 40 mg PO QDAY 01/25/20 07/18/24 History labetalol 200 mg tablet 200 mg PO BID 01/25/20 07/18/24 History latanoprost 0.005 % eye drops 1 drp ophthalmic (eye) HS 01/25/20 07/18/24 History cinacalcet 90 mg tablet 90 mg PO QDAY 04/06/23 07/18/24 History finasteride 5 mg tablet 5 mg PO QDAY 04/06/23 07/18/24 History losartan 50 mg tablet 25 mg PO QDAY 04/06/23 07/18/24 History thyroid 30 mg tablet 30 mg PO QDAY 04/06/23 07/18/24 History calcitriol 0.5 mcg capsule 0.5 mcg PO QDAY 07/18/24 07/18/24 History triamcinolone acetonide 0.1 % 1 applic topical BID 07/18/24 07/18/24 History topical ointment Allergies Allergy/AdvReac Type Severity Reaction Status Date / Time Penicillins Allergy Mild Rash Verified 11/09/23 13:18 Exam Vital Signs Temp Pulse Resp BP Pulse Ox O2 Del Method 98.9 F 76 21 H 141/99 H 96 Nasal Cannula 08/03/24 22:11 08/03/24 23:54 08/03/24 23:54 08/03/24 23:54 08/03/24 23:54 08/03/24 23:54 Narrative Constitutional: Male, in no apparent distress. Eyes: Extraocular movements intact. No ptosis. PERRL. Neck: Supple, trachea midline. No thyromegaly. Lungs: Clear and good breath sounds equally. No wheezing. No rhonchi. CV: S1, S2. Irregular rate and rhythm. GI: Soft, nontender. No HSM. Musculoskeletal: No cyanosis, clubbing. BLE swelling. Neuro: No focal deficit. No sensory deficit. Alert and oriented x3. Psychiatric: In a good mood. No signs of depression and is nonfocal. Skin: Warm and dry. No acute lesions. Results - Hospitalist Labs Diagrams: 08/03/24 23:18 08/03/24 19:46 Labs: Short CBC 08/03/24 08/03/24 Range/Units 19:46 23:18 WBC 4.5 (3.8-10.6) Thou/mm3 Hgb 11.6 L 12.0 L (13.5-16.0) g/dL Hct 33.1 L 35.8 L (41.0-53.0) % Plt Count 84 L (140-440) Thou/mm3 BMP 08/03/24 19:46 Sodium 139 Potassium 4.7 Chloride 105 Carbon Dioxide 25.7 BUN 62 H Creatinine 2.4 H Glucose 115 H Calcium 10.2 Liver Function 08/03/24 Range/Units 19:46 Total Bilirubin 1.0 D (0.3-1.2) mg/dL AST 43 H (0-34) U/L ALT 39 (10-49) U/L Alkaline Phosphatase 170 H (46-116) U/L Albumin 4.0 (3.4-4.8) gm/dL Assessment & Plan -Hospitalist Additional Assessment #Acute Hemoptysis Assessment: New onset hemoptysis; described as bright red blood. CT chest shows bilateral pneumonia, history of antiplatelet use (Plavix, ASA); thrombocytopenia (Plt 84); INR 1.3; no evidence of malignancy or PE on imaging; stable hemoglobin (11.6 ->12) Plan: - Hold antiplatelet agents (Clopidogrel, ASA) now, await cardiology recommendation - Monitor hemoglobin - Serial vitals and respiratory assessments for clinical stability - Continue supplemental oxygen as needed #Pneumonia Assessment: CT chest showing diffuse right lung and left base consolidation; no fever; mildly elevated RR; WBC within normal limits; immunocompromised host (cirrhosis, recent stent placement) Plan: - Initiate empiric IV antibiotics: ceftriaxone + azithromycin - Continue oxygen therapy to maintain SpO2 > 92% #Thrombocytopenia Assessment: Platelets 84; likely multifactorial ? chronic liver disease (cirrhosis), medication effect (ASA/Plavix), possible infection-related Plan: - Monitor platelet count - Hold ASA and Plavix temporarily #Heart Failure, EF 45% Assessment: CT showing significant cardiomegaly and dilated IVC; history of CVA, Watchman placement; likely chronic with mild pulmonary congestion Plan: - Continue home Lasix - Monitor daily weights, I/Os - Sodium-restricted diet #Cirrhosis Assessment: Known history; imaging confirms cirrhotic morphology; associated thrombocytopenia; elevated BUN/Cr concerning for hepatorenal physiology Plan: - Monitor LFTs, ammonia, INR, and renal function #Chronic Kidney Disease (around Stage G3B->4) Assessment: Cr 2.4 (baseline), BUN 62; possibly volume responsive vs hepatorenal; not on SGLT2 inhibitor Plan: - Monitor renal function daily - Hold nephrotoxic agents - Calcitriol - PCP is Dr. Abraham #Atrial Fibrillation (s/p Watchman) Assessment: History of AF with left atrial appendage occlusion; not currently anticoagulated Plan: - No current indication for anticoagulation post-Watchman unless additional thromboembolic risk factors present - Monitor for arrhythmias during hospitalization - Continue rate control meds as indicated #Hypothyroidism Assessment: TSH 9.55, free T4 1.06 Plan: - Continue thyroid pill #Hyperparathyroidism Assessment: Secondary Plan: - Sensipar Quality Measures Quality Measures none
[2024-08-04] MEDS: AZITHROMYCIN INJ 500 MG in SODIUM CHLORIDE 0.9% 250 ML 250 ML 250 MG IV ×2 (03:00→20:24)
[2024-08-04] MEDS: ZOLPIDEM 5 MG TABLET PO (04:01)
[2024-08-04 05:26] LABS: Basophils % (Auto) 0 % (0-2.5); Eosinophils # (Auto) 0.1 Thou/mm3 (0.0-0.5); Eosinophils % (Auto) 1 % (0-10); Hemoglobin 11.9 g/dL (13.5-16.0); Immature Granulocytes % (Auto) 0 % (0-0); Immature Granulocytes Auto 0.03 Thou/mm3 (0.00-0.00); Lymphocytes # (Auto) 0.4 Thou/mm3 (1.0-4.8); Lymphocytes % (Auto) 6 % (10-50); Mean Corpuscular Hemoglobin 36.4 pg (25.0-35.0); Mean Corpuscular Volume 107 fL (80-100); Monocytes # (Auto) 0.8 Thou/mm3 (0.0-0.8); Monocytes % (Auto) 10 % (0-12); Neutrophils # (Auto) 6.4 Thou/mm3 (1.8-7.7); Neutrophils % (Auto) 82 % (37-80); Nucleated Red Blood Cell % 0 /100 WBC (0); Platelet Count 83 Thou/mm3 (140-440); RDW Standard Deviation 57.5 fL (35.1-43.9); Red Blood Count 3.27 Miln/mm3 (4.50-5.90); White Blood Count 7.8 Thou/mm3 (3.8-10.6)
[2024-08-04 05:34] LABS: Anion Gap 10 (7-16); BUN/Creatinine Ratio 29 Ratio (12-20); Blood Urea Nitrogen 66 mg/dL (9-23); Calcium 9.6 mg/dL (8.3-10.6); Carbon Dioxide 24.5 mMol/L (20.0-31.0); Chloride 107 mMol/L (98-107); Creatinine (Component) 2.3 mg/dL (0.6-1.3); Glucose 97 mg/dL (74-106); Osmolality,Calculated 300 (275-295); Potassium 4.1 mMol/L (3.4-5.1); Sodium 141 mMol/L (136-145); eGFR 31 See Note
[2024-08-04] MEDS: Furosemide 40 MG TABLET PO (09:38)
[2024-08-04] MEDS: LOSARTAN POTASSIUM 25 MG TABLET PO (09:38)
[2024-08-04] MEDS: CINACALCET HCL 30 MG TABLET (NON-FORM) 90 MG PO (09:39)
[2024-08-04] MEDS: CALCITRIOL 0.25 mCg CAPSULE 0.5 MCG PO (09:40)
[2024-08-04] MEDS: FINASTERIDE 5 MG TABLET PO (09:41)
[2024-08-04] MEDS: cefTRIAXone/D5w 1gm IV premix 1 GM/50 ML BAG IV (09:42)
[2024-08-04] MEDS: LABETALOL 100 MG TABLET 200 MG PO (09:53)
--- NOTE | 2024-08-04 10:28 | PC.NURSE ---
PATIENT WITH NO COMPLAINTS AT THIS TIME. PATIENT REQUESTING TO REST WITH LIGHT OFF. CALL LIGHT WITHIN REACH.
--- NOTE | 2024-08-04 10:44 | ESPR_ITS ---
Documentation for date of: 08/04/24 Subjective Subjective Interval history: Overnight admission, no acute events noted. Seen and examined at bedside in ED and patient continues to have episodes of hemoptysis but hemoglobin has remained stable, denies hematemesis, blood in stools, hematuria, epistaxis but does endorse some gum bleeding after brushing teeth. Spoke to cardiology and given that patient is at high risk for stent thrombosis recommended to restart aspirin and plavix with close monitoring of hemoglobin and can hold if concern for significant bleeding. Otherwise, blood pressure and heart rate stable, on 1 L NC saturating 92%. Denies fever, chills, sore throat, worsening cough, sick contacts. Exam Vital Signs Temp Pulse Resp BP Pulse Ox O2 Del Method O2 Flow Rate 98.6 F 90 16 144/90 H 96 Room Air 1 08/04/24 05:59 08/04/24 09:55 08/04/24 09:55 08/04/24 09:55 08/04/24 09:55 08/04/24 09:55 08/04/24 05:59 FiO2 96 08/04/24 09:55 Narrative Exam General: AOx3, no acute distress, able to speak full sentences HEENT: bloody mucous on chin, NC/AT, mucous membranes moist, bilateral sclera anicteric Cardiovascular: regular rate and rhythm, S1/S2 present, no murmurs appreciated Pulmonary: clear to auscultation bilaterally, no rales/rhonchi/wheezes Abdominal: soft, non-tender, non-distended, no rebound/guarding, normal bowel sounds present Musculoskeletal: normal ROM, no peripheral edema Skin: chronic venous stasis changes, trace bilateral lower extremity edema Neuro: CN II-XII intact, no focal deficits Objective Labs 08/04/24 04:36 08/04/24 04:36 Labs: Laboratory Results - last 24 hr 08/03/24 08/03/24 08/04/24 19:46 23:18 04:36 WBC 4.5 7.8 D RBC 3.13 L 3.27 L Hgb 11.6 L 12.0 L 11.9 L Hct 33.1 L 35.8 L 35.0 L MCV 106 H 107 H MCH 37.1 H 36.4 H MCHC 35.0 34.0 RDW Std Deviation 59.1 H 57.5 H Plt Count 84 L 83 L Neut % (Auto) 70 82 H Lymph % (Auto) 12 6 L [place] % (Auto) 15 H 10 Eos % (Auto) 3 1 Baso % (Auto) 1 0 Neut # (Auto) 3.1 6.4 Lymph # (Auto) 0.6 L 0.4 L [place] # (Auto) 0.7 0.8 Eos # (Auto) 0.1 0.1 Baso # (Auto) 0.0 0.0 Immature Gran # (Auto) 0.01 H 0.03 H Absolute Nucleated RBC 0.00 0.00 Immature Gran % 0 0 Nucleated RBC % 0 0 PT 13.5 H INR 1.3 APTT 27.6 Sodium 139 141 Potassium 4.7 4.1 D Chloride 105 107 Carbon Dioxide 25.7 24.5 Anion Gap 8 10 BUN 62 H 66 H Creatinine 2.4 H 2.3 H Estim Creat Clear Calc 41.2 L 43.0 L eGFR 29 L 31 L BUN/Creatinine Ratio 26 H 29 H Glucose 115 H 97 Calculated Osmolality 296 H 300 H Calcium 10.2 9.6 Corrected Calcium 10.2 H Total Bilirubin 1.0 D AST 43 H ALT 39 Alkaline Phosphatase 170 H Total Protein 6.3 Albumin 4.0 Globulin 2.3 Albumin/Globulin Ratio 1.7 Quality Measures Quality Measures none Assessment & Plan Assessment Current Active Medications: Generic Name Dose Route Start Last Admin Trade Name Freq PRN Reason Stop Dose Admin Aspirin 81 mg 08/04/24 10:45 Aspirin Ec 81 Mg [place] PO 09/03/24 10:44 QDAY JM Atorvastatin Calcium 20 mg 08/04/24 21:00 Atorvastatin Calcium 20 Mg Tablet PO 09/03/24 20:59 [facility] Protocol Calcitriol 0.5 mcg 08/04/24 09:00 08/04/24 09:40 Calcitriol 0.25 Mcg Capsule PO 09/03/24 08:59 0.5 mcg QDAY JM Administration Cinacalcet 90 mg 08/04/24 09:00 08/04/24 09:39 Cinacalcet Hcl 30 Mg Tablet (Non-Form) PO 09/03/24 08:59 90 mg QDAY JM Administration Clopidogrel Bisulfate 75 mg 08/04/24 10:45 Clopidogrel Bisulfate 75 Mg Tablet PO 09/03/24 10:44 QDAY JM Finasteride 5 mg 08/04/24 09:00 08/04/24 09:41 Finasteride 5 Mg Tablet PO 09/03/24 08:59 5 mg QDAY JM Administration Furosemide 40 mg 08/04/24 09:00 08/04/24 09:38 Furosemide 40 Mg Tablet PO 09/03/24 08:59 40 mg QDAY JM Administration Ceftriaxone Sodium/Dextrose 1 gm in 50 mls @ 100 mls/hr 08/04/24 09:00 08/04/24 10:18 Rocephin/D5w 1gm Iv Premix IV 08/11/24 08:59 Infused QDAY JM Infusion Azithromycin 500 mg/ Sodium 250 mls @ 250 mls/hr 08/04/24 02:15 Chloride IV 08/11/24 02:14 QDAY JM Labetalol HCl 200 mg 08/04/24 09:00 08/04/24 09:53 Labetalol 100 Mg Tablet PO 09/03/24 08:59 200 mg QDAY JM Administration Losartan Potassium 25 mg 08/04/24 09:00 08/04/24 09:38 Losartan Potassium 25 Mg Tablet PO 09/03/24 08:59 25 mg QDAY JM Administration Ondansetron HCl 4 mg 08/04/24 03:47 Ondansetron Inj 2 Mg/Ml Inj 2 Ml IV 09/03/24 03:46 Q6HR PRN NAUSEA OR VOMITING Protocol Thyroid 30 mg 08/04/24 09:00 Thyroid 30 Mg Tablet PO 09/03/24 08:59 QDAY JM Plan Augustin Rodarte is a 63-year-old male with a past medical history of A-fib status post Watchman device, CAD status post stents (06/2024), CHF, CVA, COPD, cirrhosis, history of HCV, hypothyroidism, hypertension, hyperlipidemia, and glaucoma who presented on 08/04 for acute onset hemoptysis s/p CAD a few weeks ago on aspirin and Plavix. #Hemoptysis likely secondary to pneumonia in the setting of aspirin and Plavix use #Pneumonia likely secondary to gram-negative organisms as demonstrated on CT chest #CAD s/p stent 06/2024 on aspirin and plavix Acute onset hemoptysis. Patient has also had stents placed couple years ago and was on Plavix at that time and was noted to have complications related to bleeding as well. States he coughed up about 2 tablespoons of blood but denies blood in stool, hematuria, hematemesis, epistaxis but does endorse some bleeding in gums when brushing teeth. Otherwise, hemoglobin stable at 11.9, platelets 83, INR 1.3. ? Cardiology consulted, appreciate recommendations ? Restarted aspirin and Plavix per recommendations given risk of stent thrombosis ? Monitor hemoglobin and other signs of significant bleeding, otherwise continue as above - Continue ceftriaxone and azithromycin #Thrombocytopenia Platelets 84; likely multifactorial ? chronic liver disease (cirrhosis), medication effect (ASA/Plavix), possible infection-related ? Monitor platelet count #History of CHF CT showing significant cardiomegaly and dilated IVC; history of CVA, Watchman placement; likely chronic with mild pulmonary congestion No recent echo on file. ? Continue home Lasix 40 mg p.o. daily ? Monitor daily weights, I/Os ? Sodium-restricted diet #Cirrhosis Known history; imaging confirms cirrhotic morphology; associated thrombocytopenia; elevated BUN/Cr concerning for hepatorenal physiology ? Monitor LFTs, ammonia, INR, and renal function #Chronic kidney disease (around Stage G3B->4) Cr 2.3 (baseline 2.0-2.1), BUN 62; possibly volume responsive vs hepatorenal; not on SGLT2 inhibitor ? Monitor renal function daily ? Hold nephrotoxic agents ? Calcitriol ? PCP is Dr. Abraham #Atrial Fibrillation (s/p Watchman) History of AF with left atrial appendage occlusion; not currently anticoagulated ? No current indication for anticoagulation post-Watchman unless additional thromboembolic risk factors present ? Monitor for arrhythmias during hospitalization ? Continue rate control meds as indicated #Hypothyroidism TSH 9.55, free T4 1.06 ? Continue thyroid pill #Hyperparathyroidism Secondary ? Cinacalcet 90 mg p.o. daily Hospital management: Disposition: hemoptysis on ASA and plavix Diet: cardiac Lines: PIV DVT prophylaxis: plavix CODE STATUS: full code ----- Plan discussed with attending physician Dr. Florencio Carreno MD PGY-1 Internal Medicine Attending Provider Attestation/Addendum I have discussed and was present for the essential components of the history, physical examination, diagnosis, and treatment plan with the resident. I agree with the patient's care as documented by the resident and amended herein by me. Coy Matias DO. Patient seen and evaluated this AM. Vital signs stable, patient afebrile in the emergency department. No further episodes of hemoptysis noted. Hemoglobin has been stable, cardiology consulted, will restart aspirin and Plavix as well as other home medications as appropriate. Patient will also be continued on ceftriaxone azithromycin for likely Pneumonia with gram-negative organisms, will also order CPAP nightly. Continue to monitor closely [place]. Although this document has been carefully reviewed, there may still be some phonetic and other typographical errors. These errors are purely grammatical due to imperfections in the software program and should not be construed in any way to compromise the substance of the patient's medical care during this visit.
[2024-08-04] MEDS: CLOPIDOGREL BISULFATE 75 MG TABLET PO (11:55)
[2024-08-04] MEDS: THYROID 30 MG TABLET PO (11:55)
[2024-08-04] MEDS: ASPIRIN EC 81 MG TABEC PO (11:55)
--- NOTE | 2024-08-04 12:03 | PD.RESCONSUL ---
HPI Data of Consult Requesting Physician: Sanya Rosenbaum MD Admitting Provider: Sanya Rosenbaum MD Attending Provider: Sanya Rosenbaum MD Primary Care Provider: Dorie Abraham MD Consult Narrative History of present illness: This is a 63-year-old male with PMHx of HTN, HLD, CAD s/p PCI 07/18/24, A-fib s/p watchman, thrombocytopenia, CHF, tricuspid valve absent with regurg hypothyroidism, CVA, COPD, cirrhosis, hepatitis C, presenting to ED with complaint of coughing up blood. Reports acute episode of coughing up about 1 cup of fresh/right red blood that started the afternoon, prior to admission. States he felt like he needed to clear his throat but suddenly felt need to cough something from his throat. Denies severe cough prior, nausea, vomiting or retching, prior or after the episode. Has not coughed since that incident. Denies REDDY, fall, trauma, worsening dizziness, lightheadeness, productive cough, vomiting, or dark stool or hematuria. Denies fever, chills, or chest pain, abdominal pain, N/V/D/C, or urinary symptoms. He uses oxygen at home PRN for sob due to severely damaged tricuspid valve, CHF, and COPD. Denies needing more oxygen over the last few days. States he has been told he is not a candidate for valve replacement. Additionally, he had TIA followed by CVA in 2019 with residual gait disturbance, dizziness and slurred speech. States he mostly ambulates independently, without using a cane. On 07/18/2024 he underwent successful PCI stent placement for 99% stenosed RCA and 90% and has been on ASPIRIN and PLAVIX since. Estimated EF 45% from 07/18/2024. He had previous PCI sten ini . At that time, he complained of chest pain which appeared to have resolved after stenting. Currently asymptomatic without chest pain or shortness of breath. States he is taking his ASPIRIN and PLAVIX daily, as prescribed. On ED arrival he was afebrile, HR 70, BP 131/89, RR 27. Initial labs showed WBC 4.5, Hgb 11.6 >12 (baseline 13), PLT 84 (baseline around 100). Coag panel showed INR 1.3, PT 13.5, PTT 27.5. CHEM panel significant for CR 2.4 (baseline 2.1), BUN 62, GFR 29, corrected calcium 10.2, ALP 170, normal electrolytes. Abdominal CT showed moderate enlarged cardiac silhouette, cirrhosis, splenomegaly, atrophic kidneys, moderate prostamegaly. CXR suggested early CHF with moderate osteopenia. Chest CT showed diffuse right/left lung base pneumonia, mild CHF, cirrhosis, prominently dilated IVC with heart failure. He was started on CEFTRIAXONE, home statin, ASPIRIN, and PLAVIX. Patient also continued on FUROSEMIDE 40 mg daily and LABETALOL 200 mg daily. PMHx: as above. PSHx: PIC Stent 07/18/24 and 03/2023, Hip replacement 03/2022, Willem retina 03/2023, tonsillectomy, bilateral ankle surgeries, RLE embolectomy, meniscus surgery, cataract and retina repairs, Watchman device placement, and total hip replacement. Meds: Triamcinolone, Clopidogrel, [place] Thyroid, Calcitriol, Aspirin, Creon, Cinacalcet, Latanoprost, Magnesium, Losartan, Lasix, Simvastatin, Allopurinol, and Labetalol ALL: Penicillins rash FHx: cardiac disease in father. SHx: former smoker, denies alcohol or drug use. At this time, low suspicion for sever bleed. Hgb and PLT relatively stable, no significant coag abnormalities, vitals are stable as well. Given recent PCI stent, recommended continue ASPIRIN and PLAVIX, transfuse if hemoglobin declined. Will consider holding ANTICOAGULANTS if hemoglobin declines drastically. However at this time, the risk of clotting from discontinuing ANTICOAGULANT is higher than the risk of severe bleed. Recommended further workup for hemoptysis. cc:: cc: Sanya Rosenbaum MD Review of Systems Review of Systems Narrative Review of Systems: 12 point system review negative except for above mentioned. Exam Vital Signs Temp Pulse Resp BP Pulse Ox O2 Del Method O2 Flow Rate 98.6 F 90 16 121/79 92 L Room Air 1 08/04/24 05:59 08/04/24 11:06 08/04/24 11:06 08/04/24 11:06 08/04/24 11:06 08/04/24 11:06 08/04/24 05:59 FiO2 96 08/04/24 09:55 Narrative Exam GENERAL Normal appearing adult male, NAD, satting well on 2L NC HEENT NCAT.?MEGAN. Oral mucosa is moist. Patent Nares NECK Supple, nontender, no thyromegaly, no meningismus, no JVD, no step offs CHEST RRR, no m/g/r CTAB, no w/r/r. Symmetrical chest rise. No intercostal subcostal retraction Atraumatic, nontender, no crepitus, symmetrical expansion. ABDOMEN Soft, flat, nontender. No guarding/rebound tenderness/masses. Bowel sounds presents EXTREMITIES 2+ eugenia LE edema with chronic venous statis dermitis No popliteal tenderness eugenia, or assymetrical LE swelling on exam. SKIN Warm and dry, no jaundice/rashes. NEUROMUSCULAR No lumbar or midline, no CVA, no paraspinal muscle spasm or tenderness. Moves all 4 extremities well, with full ROM and good CSM. CHEATHAM x4, CN II-XII grossly intact. No focal neurologic deficits. PSYCHIATRY Normal mood and affect, cooperative, no SI or HI or hallucinations. Results Labs 08/06/24 05:07 08/06/24 05:07 Labs: Short CBC 08/03/24 08/03/24 08/04/24 Range/Units 19:46 23:18 04:36 WBC 4.5 7.8 D (3.8-10.6) Thou/mm3 Hgb 11.6 L 12.0 L 11.9 L (13.5-16.0) g/dL Hct 33.1 L 35.8 L 35.0 L (41.0-53.0) % Plt Count 84 L 83 L (140-440) Thou/mm3 BMP 08/03/24 08/04/24 19:46 04:36 Sodium 139 141 Potassium 4.7 4.1 D Chloride 105 107 Carbon Dioxide 25.7 24.5 BUN 62 H 66 H Creatinine 2.4 H 2.3 H Glucose 115 H 97 Calcium 10.2 9.6 Liver Function 08/03/24 Range/Units 19:46 Total Bilirubin 1.0 D (0.3-1.2) mg/dL AST 43 H (0-34) U/L ALT 39 (10-49) U/L Alkaline Phosphatase 170 H (46-116) U/L Albumin 4.0 (3.4-4.8) gm/dL Quality Measures Quality Measures none Medications Home Medications and Allergies Home Medications ?Medication ?Instructions ?Recorded ?Confirmed ?Type simvastatin 40 mg tablet 40 mg PO HS ##90 02/11/15 07/18/24 History nvcspj-gjftikue-eovlvum 1 cap PO TID 09/29/18 07/18/24 History 12,000-38,000-60,000 unit capsule,delayed rel (Creon) allopurinol 300 mg tablet 300 mg PO HS 01/25/20 07/18/24 History aspirin 81 mg tablet,delayed 81 mg PO QDAY 01/25/20 07/18/24 History release furosemide 40 mg tablet 40 mg PO QDAY 01/25/20 07/18/24 History labetalol 200 mg tablet 200 mg PO BID 01/25/20 07/18/24 History latanoprost 0.005 % eye drops 1 drp ophthalmic (eye) HS 01/25/20 07/18/24 History cinacalcet 90 mg tablet 90 mg PO QDAY 04/06/23 07/18/24 History finasteride 5 mg tablet 5 mg PO QDAY 04/06/23 07/18/24 History losartan 50 mg tablet 25 mg PO QDAY 04/06/23 07/18/24 History thyroid 30 mg tablet 30 mg PO QDAY 04/06/23 07/18/24 History calcitriol 0.5 mcg capsule 0.5 mcg PO QDAY 07/18/24 07/18/24 History triamcinolone acetonide 0.1 % 1 applic topical BID 07/18/24 07/18/24 History topical ointment Allergies Allergy/AdvReac Type Severity Reaction Status Date / Time Penicillins Allergy Mild Rash Verified 11/09/23 13:18 Visit Medications Aspirin (Aspirin Ec 81 Mg Tabec) 81 mg PO QDAY [facility] Stop: 09/03/24 10:44 Last Admin: 08/04/24 11:55 Dose: 81 mg Atorvastatin Calcium (Atorvastatin Calcium 20 Mg Tablet) 20 mg PO [facility]; Protocol Stop: 09/03/24 20:59 Calcitriol (Calcitriol 0.25 Mcg Capsule) 0.5 mcg PO QDAY [facility] Stop: 09/03/24 08:59 Last Admin: 08/04/24 09:40 Dose: 0.5 mcg Cinacalcet (Cinacalcet Hcl 30 Mg Tablet (Non-Form)) 90 mg PO QDAY [facility] Stop: 09/03/24 08:59 Last Admin: 08/04/24 09:39 Dose: 90 mg Clopidogrel Bisulfate (Clopidogrel Bisulfate 75 Mg Tablet) 75 mg PO QDAY JM Stop: 09/03/24 10:44 Last Admin: 08/04/24 11:55 Dose: 75 mg Finasteride (Finasteride 5 Mg Tablet) 5 mg PO QDAY JM Stop: 09/03/24 08:59 Last Admin: 08/04/24 09:41 Dose: 5 mg Furosemide (Furosemide 40 Mg Tablet) 40 mg PO QDAY JM Stop: 09/03/24 08:59 Last Admin: 08/04/24 09:38 Dose: 40 mg Ceftriaxone Sodium/Dextrose (Rocephin/D5w 1gm Iv Premix) 1 gm in 50 mls @ 100 mls/hr IV QDAY JM Stop: 08/11/24 08:59 Last Infusion: 08/04/24 10:18 Dose: Infused Azithromycin 500 mg/ Sodium (Chloride) 250 mls @ 250 mls/hr IV QDAY JM Stop: 08/11/24 02:14 Labetalol HCl (Labetalol 100 Mg Tablet) 200 mg PO QDAY [facility] Stop: 09/03/24 08:59 Last Admin: 08/04/24 09:53 Dose: 200 mg Losartan Potassium (Losartan Potassium 25 Mg Tablet) 25 mg PO QDAY JM Stop: 09/03/24 08:59 Last Admin: 08/04/24 09:38 Dose: 25 mg Ondansetron HCl (Ondansetron Inj 2 Mg/Ml Inj 2 Ml) 4 mg IV Q6HR PRN; Protocol PRN Reason: NAUSEA OR VOMITING Stop: 09/03/24 03:46 Thyroid (Thyroid 30 Mg Tablet) 30 mg PO QDAY [facility] Stop: 09/03/24 08:59 Last Admin: 08/04/24 11:55 Dose: 30 mg Discontinued Medications Sodium Chloride (Ns) 1,000 mls @ 999 mls/hr IV .Q1H1M ONE Stop: 08/03/24 20:32 Last Infusion: 08/03/24 20:55 Dose: Infused Ceftriaxone Sodium/Dextrose (Rocephin/D5w 1gm Iv Premix) 1 gm in 50 mls @ 100 mls/hr IV X1 ONE Stop: 08/03/24 23:29 Last Infusion: 08/03/24 23:45 Dose: Infused Azithromycin 500 mg/ Sodium (Chloride) 250 mls @ 250 mls/hr IV X1 ONE Stop: 08/04/24 03:29 Last Infusion: 08/04/24 04:00 Dose: Infused Zolpidem Tartrate (Zolpidem 5 Mg Tablet) 5 mg PO X1 ONE Stop: 08/04/24 03:48 Last Admin: 08/04/24 04:01 Dose: 5 mg Assessment & Plan Plan This is a 63-year-old male with PMHx of HTN, HLD, CAD s/p PCI 07/18/24, A-fib s/p watchman, thrombocytopenia, CHF, tricuspid valve absent with regurg hypothyroidism, CVA, COPD, cirrhosis, hepatitis C, presenting to ED with complaint of coughing up blood. Acute Hemoptysis CAD, PCI stent 06/2024 and 03/2023 Chronic thrombocytopenea Chronic anemia Cardiology consulted for continuing PLAVIX/ASA therapy. At this time, hemoptysis appears to be resolved, Hgb stable, PLT at baseline. No evidence of severe bleed. High risk for stent clotting given recent PCI stent. Denies chest pain, sob, active bleed. ? Recommended continuing PLAVIX/ASA ? Transfuse if Hgb continues to decline ? Will consider holding anticoag if Hgb drastically declines, below 9 or bleeding uncontrolled. ? Workup for hemoptysis per primary team. Atrial Fibrillation (s/p Watchman) S/p left Hypothyroidism HTN, HLD Severe tricuspid valve degeneration COPD HR 90, TSH 9.55, free T4 1.06, TG 97, LDL 46, HDL 37 On home 2-3L oxygen PRN for chronic tricuspid degeneration, CHF and COPD Reports no increase in oxygen demand. No obvious source of bleed including GI bleed. Low suspension for PE, HR wnl, no increase in oxygen demand, no signs of DVT on exam Asymptomatic without chest pain or shortness of breath or dizziness. ? Continue LABETALOL 200 mg QD ? Continue LOSARTAN 25 mg q. day ? Continue ATORVASTATIN 20 mg HS ? Continue thyroid 30 mg QDAY ? Consider PFT to r/o PE if hemoptysis persists, tachycardic or dyspnic, avoid contrast CT in setting of CKD. CHF Most recent EF 45% from 06/2024 during cath labs. ? Continue home LASIX 40 mg Pneumonia Thrombocytopenia Heart Failure, EF 45% Cirrhosis Chronic Kidney Disease (around Stage G3B->4) Hyperparathyroidism Management of rest of the medical conditions as per primary team and other consultants. Thank you for the consult and allowing me to participate in the care of the patient. Cardiology will continue to follow. Thank you for the opportunity to participate in the patient's care. Case was discussed with attending, Dr. Jiménez. Valerie Mar DO PGYI Attending Provider Attestation/Addendum I have personally seen and examined the patient separately on the above date of service and discussed the plan of care with the resident. I reviewed the resident Dr. Valerie Mar consultation progress note and agree with the resident findings and plan in the note above and have also edited the documentation to reflect my findings and plan. 63-year-old male with a past medical history of CAD status post PCI to LAD in March 2023 - 3.5 x 20 mm JAVIER stent in proximal LAD, recent PCI to RCA with 3.0 x 26 mm [place] JAVIER stent, history of paroxysmal atrial fibrillation status post watchman device secondary to his increased risk of bleeding, CKD stage III, essential hypertension, hyperlipidemia, cirrhosis with history of hepatitis C thrombocytopenia, degenerated tricuspid valve with severe open TR, right heart failure along with at least moderate PAH presented to the emergency department for further evaluation of hemoptysis or coughing up of blood. Patient recently had a PCI as noted above to the RCA with a 3.0 x 20 mm Ry JAVIER stent for severe CAD and he already had history of LAD stent in March 2023. He is on dual antiplatelet started on aspirin 81 mg once daily and Plavix 75 mg once daily. Patient does have a history of bleeding with dual antiplatelets or any kind of anticoagulation is apparently very sensitive. Patient did have and recent PCI on 07/18/2024 and is less than 1 month since the stent placement. Cardiac the GI team was consulted for further recommendations regarding dual antiplatelets. Assessment and plan: 1. Hemoptysis 2. CAD s/p PCI to LAD and RCA with last stent in July 18, 2024 3. Atrial fibrillation status post Watchman 4. Degenerated tricuspid valve with severe open TR 5. Right heart failure 6. Increase tendency to bleed 7. Essential hypertension 8. Hyperlipidemia 9. Thrombocytopenia 10. Degenerative tricuspid valve with severe open TR 11. Moderate PAH 12. Cirrhosis and history of hepatitis C. Patient presented with possible hemoptysis and cardiology was consulted for further recommendation regarding the dual antiplatelet therapy patient is on aspirin and Plavix and these increased risk of bleeding. Discussed with the primary team and the patient's PCI was only performed on 07/18/2024 to the RCA and recommend him not to stop any antiplatelets including aspirin and Plavix and the hemoglobin appears to be stable at baseline between 11 and 11.5. No new episodes of hemoptysis since arrival. There is no evidence of any severe bleeding and hemoglobin continues to be stable in the last 2-3 blood draws. There is a high incidence of was stent thrombosis if antiplatelet to be stopped for patient and hence recommend to continue it. If the hemoglobin drops close to 3 g and Hb is less than 9 then will need to aggressively transfuse the patient and then discontinue that dual antiplatelets at that point of time. Patient does have a history of severe open tricuspid regurgitation mostly secondary to tricuspid valve degeneration as noted in the previous chart by his primary associate professor of archaeology Dr. Mayer. Patient does have pulmonary hypertension at least with moderate. Echo was reordered to evaluate LV function as well as the RV function as has any regional wall motion abnormalities in the also the PAH. Continue home dose of Lasix for now. Strict input output Daily weights and 2 g sodium diet. Patient does have history of paroxysmal atrial fibrillation for which he is not on anticoagulation because of the severe anemia and bleeding risk. Chads Vascor is elevated indicated here. EF slightly low at 45% on the last echocardiogram but patient does have right heart failure. Continue with diuresis for now. Will Patient also has some shortness of breath and is being treated with for possible pneumonia. Kb Jiménez M.D. Interventional Cardiology
--- NOTE | 2024-08-04 17:30 | PC.NURSE ---
PATIENT RESTING WITH NO COMPLAINTS AT THIS TIME. FAMILY AT BEDSIDE.
[2024-08-04] MEDS: ATORVASTATIN CALCIUM 20 MG TABLET PO (20:23)
--- NOTE | 2024-08-04 23:32 | PC.NURSE ---
Report given to floor RN Valdez.
[2024-08-05] VITALS (12 sets, daily range): BP systolic 125–129; BP diastolic 73–89; PULSE 64–124; RESP 19–26; TEMP 36.2–36.8; O2SAT 92–94; BMI 30.4
[2024-08-05 06:10] LABS: Basophils % (Auto) 0 % (0-2.5); Eosinophils # (Auto) 0.1 Thou/mm3 (0.0-0.5); Eosinophils % (Auto) 1 % (0-10); Hematocrit 34.6 % (41.0-53.0); Hemoglobin 11.7 g/dL (13.5-16.0); Immature Granulocytes % (Auto) 1 % (0-0); Immature Granulocytes Auto 0.07 Thou/mm3 (0.00-0.00); Lymphocytes # (Auto) 0.5 Thou/mm3 (1.0-4.8); Lymphocytes % (Auto) 4 % (10-50); Mean Corpuscular HGB Conc 33.8 g/dl (31.0-37.0); Mean Corpuscular Hemoglobin 36.8 pg (25.0-35.0); Mean Corpuscular Volume 109 fL (80-100); Monocytes # (Auto) 1.1 Thou/mm3 (0.0-0.8); Monocytes % (Auto) 10 % (0-12); Neutrophils # (Auto) 9.8 Thou/mm3 (1.8-7.7); Neutrophils % (Auto) 85 % (37-80); Nucleated Red Blood Cell % 0 /100 WBC (0); RDW Standard Deviation 60.9 fL (35.1-43.9); Red Blood Count 3.18 Miln/mm3 (4.50-5.90); White Blood Count 11.6 Thou/mm3 (3.8-10.6)
[2024-08-05 06:12] LABS: Platelet Count 72 Thou/mm3 (140-440)
[2024-08-05 06:39] LABS: Anion Gap 10 (7-16); BUN/Creatinine Ratio 30 Ratio (12-20); Blood Urea Nitrogen 64 mg/dL (9-23); Calcium 9.7 mg/dL (8.3-10.6); Carbon Dioxide 23.2 mMol/L (20.0-31.0); Chloride 105 mMol/L (98-107); Creatinine (Component) 2.1 mg/dL (0.6-1.3); Estimated Creatinine Clearance 46.4 mL/min (>60); Glucose 108 mg/dL (74-106); Magnesium 1.6 mg/dL (1.6-2.6); Osmolality,Calculated 294 (275-295); Phosphorous 3.8 mg/dL (2.4-5.1); Potassium 4.3 mMol/L (3.4-5.1); Sodium 138 mMol/L (136-145); eGFR 35 See Note
[2024-08-05 06:57] LABS: Slide Review Platelets confirmed
[2024-08-05] MEDS: ONDANSETRON INJ 2 MG/ML INJ 2 ML 4 MG IV (09:54)
[2024-08-05] MEDS: LABETALOL 100 MG TABLET 200 MG PO (09:55)
[2024-08-05] MEDS: THYROID 30 MG TABLET PO (09:55)
[2024-08-05] MEDS: CINACALCET HCL 30 MG TABLET (NON-FORM) 90 MG PO (09:55)
[2024-08-05] MEDS: ASPIRIN EC 81 MG TABEC PO (09:55)
[2024-08-05] MEDS: CLOPIDOGREL BISULFATE 75 MG TABLET PO (09:55)
[2024-08-05] MEDS: FINASTERIDE 5 MG TABLET PO (09:55)
[2024-08-05] MEDS: Furosemide 40 MG TABLET PO (09:55)
[2024-08-05] MEDS: cefTRIAXone/D5w 1gm IV premix 1 GM/50 ML BAG IV (09:56)
[2024-08-05] MEDS: LOSARTAN POTASSIUM 25 MG TABLET PO (09:56)
[2024-08-05] MEDS: CALCITRIOL 0.25 mCg CAPSULE 0.5 MCG PO (11:25)
--- NOTE | 2024-08-05 13:21 | PD.RESPRO ---
Documentation for date of: 08/05/24 Subjective Subjective Interval history: Overnight, no acute events reported. Patient states that he has not had an appetite. She also is very nauseous, and sick to his stomach, and something coughing. However, patient denies any hemoptysis. Patient states that he generally has a low tolerance for blood thinners, but Plavix is the best hold other blood thinners that he has tried. Patient recently had a stent 2 weeks ago and is important that patient stays on dual platelet therapy. Patient's white count slightly elevated at 11.6, however creatinine is improving, last creatinine this morning was 2.1. Continue to wear CPAP at night and monitor patient's H&H. Exam Vital Signs Temp Pulse Resp BP Pulse Ox O2 Del Method O2 Flow Rate 97.2 F 82 20 127/73 93 L Nasal Cannula 2 08/05/24 04:00 08/05/24 09:56 08/05/24 04:00 08/05/24 09:56 08/05/24 04:00 08/05/24 04:00 08/05/24 04:00 FiO2 96 08/04/24 09:55 Narrative Exam General Appearance: Pt in mild acute distress laying in bed. HEENT: NC/AT, no scleral icterus, no conjunctival pallor, MMM Lungs: CTAB, no wheezes or crackles appreciated CVS: RRR, S1/S2 heard, no murmurs or rubs appreciated ABD: Soft, non-tender, non-distended, BS + in all 4 quadrants EXT: no deformity/edema/lesions/cyanosis/clubbing, radial pulses 2+ BL, DP pulses 2 + BL SKIN: Chronic venous stasis changes, trace bilateral lower extremity edema Neuro: A&O x 3. No gross neurological deficits. Motor and sensory grossly intact in B/L UL and LL. Psych: Appropriate mood and affect Objective Labs 08/05/24 04:20 08/05/24 04:20 Labs: Laboratory Results - last 24 hr 08/05/24 04:20 WBC 11.6 H D RBC 3.18 L Hgb 11.7 L Hct 34.6 L MCV 109 H MCH 36.8 H MCHC 33.8 RDW Std Deviation 60.9 H Plt Count 72 L Neut % (Auto) 85 H Lymph % (Auto) 4 L [place]er % (Auto) 10 Eos % (Auto) 1 Baso % (Auto) 0 Neut # (Auto) 9.8 H Lymph # (Auto) 0.5 L [place] # (Auto) 1.1 H Eos # (Auto) 0.1 Baso # (Auto) 0.0 Immature Gran # (Auto) 0.07 H Absolute Nucleated RBC 0.00 Immature Gran % 1 H Nucleated RBC % 0 Sodium 138 Potassium 4.3 Chloride 105 Carbon Dioxide 23.2 Anion Gap 10 BUN 64 H Creatinine 2.1 H Estim Creat Clear Calc 46.4 L eGFR 35 L BUN/Creatinine Ratio 30 H Glucose 108 H Calculated Osmolality 294 Calcium 9.7 Phosphorus 3.8 Magnesium 1.6 Misc Test Result Platelets confirmed Quality Measures Quality Measures none Assessment & Plan Assessment Current Active Medications: Generic Name Dose Route Start Last Admin Trade Name Freq PRN Reason Stop Dose Admin Aspirin 81 mg 08/04/24 10:45 08/05/24 09:55 Aspirin Ec 81 Mg Tabec PO 09/03/24 10:44 81 mg QDAY JM Administration Atorvastatin Calcium 20 mg 08/04/24 21:00 08/04/24 20:23 Atorvastatin Calcium 20 Mg Tablet PO 09/03/24 20:59 20 mg HS JM Administration Protocol Calcitriol 0.5 mcg 08/04/24 09:00 08/05/24 11:25 Calcitriol 0.25 Mcg Capsule PO 09/03/24 08:59 0.5 mcg QDAY JM Administration Cinacalcet 90 mg 08/04/24 09:00 08/05/24 09:55 Cinacalcet Hcl 30 Mg Tablet (Non-Form) PO 09/03/24 08:59 90 mg QDAY JM Administration Clopidogrel Bisulfate 75 mg 08/04/24 10:45 08/05/24 09:55 Clopidogrel Bisulfate 75 Mg Tablet PO 09/03/24 10:44 75 mg QDAY JM Administration Finasteride 5 mg 08/04/24 09:00 08/05/24 09:55 Finasteride 5 Mg Tablet PO 09/03/24 08:59 5 mg QDAY JM Administration Furosemide 40 mg 08/04/24 09:00 08/05/24 09:55 Furosemide 40 Mg Tablet PO 09/03/24 08:59 40 mg QDAY JM Administration Ceftriaxone Sodium/Dextrose 1 gm in 50 mls @ 100 mls/hr 08/04/24 09:00 08/05/24 09:56 Rocephin/D5w 1gm Iv Premix IV 08/11/24 08:59 100 mls/hr QDAY JM Administration Azithromycin 500 mg/ Sodium 250 mls @ 250 mls/hr 08/05/24 21:00 Chloride IV 08/12/24 20:59 HS JM Labetalol HCl 200 mg 08/04/24 09:00 08/05/24 09:55 Labetalol 100 Mg Tablet PO 09/03/24 08:59 200 mg QDAY JM Administration Losartan Potassium 25 mg 08/04/24 09:00 08/05/24 09:56 Losartan Potassium 25 Mg Tablet PO 09/03/24 08:59 25 mg QDAY JM Administration Ondansetron HCl 4 mg 08/04/24 03:47 08/05/24 09:54 Ondansetron Inj 2 Mg/Ml Inj 2 Ml IV 09/03/24 03:46 4 mg Q6HR PRN Administration NAUSEA OR VOMITING Protocol Thyroid 30 mg 08/04/24 09:00 08/05/24 09:55 Thyroid 30 Mg Tablet PO 09/03/24 08:59 30 mg QDAY JM Administration Plan Augustin Rodarte is a 63-year-old male with a past medical history of A-fib status post Watchman device, CAD status post stents (06/2024), CHF, CVA, COPD, cirrhosis, history of HCV, hypothyroidism, hypertension, hyperlipidemia, and glaucoma who presented on 08/04 for acute onset hemoptysis s/p CAD a few weeks ago on aspirin and Plavix. #Hemoptysis likely secondary to pneumonia in the setting of aspirin and Plavix use #Pneumonia likely secondary to gram-negative organisms as demonstrated on CT chest #CAD s/p stent 06/2024 on aspirin and plavix Acute onset hemoptysis. Patient has also had stents placed couple years ago and was on Plavix at that time and was noted to have complications related to bleeding as well. States he coughed up about 2 tablespoons of blood but denies blood in stool, hematuria, hematemesis, epistaxis but does endorse some bleeding in gums when brushing teeth. Otherwise, hemoglobin stable at 11.9, platelets 83, INR 1.3. ? Cardiology consulted, appreciate recommendations ? Restarted aspirin and Plavix per recommendations given risk of stent thrombosis ? Monitor hemoglobin and other signs of significant bleeding, otherwise continue as above - Continue ceftriaxone and azithromycin #Thrombocytopenia Platelets 84; likely multifactorial ? chronic liver disease (cirrhosis), medication effect (ASA/Plavix), possible infection-related ? Monitor platelet count #History of CHF CT showing significant cardiomegaly and dilated IVC; history of CVA, Watchman placement; likely chronic with mild pulmonary congestion No recent echo on file. ? Continue home Lasix 40 mg p.o. daily ? Monitor daily weights, I/Os ? Sodium-restricted diet - CPAP at night #Cirrhosis Known history; imaging confirms cirrhotic morphology; associated thrombocytopenia; elevated BUN/Cr concerning for hepatorenal physiology ? Monitor LFTs, ammonia, INR, and renal function #Chronic kidney disease (around Stage G3B->4)?stable Cr 2.3 (baseline 2.0-2.1), BUN 62; possibly volume responsive vs hepatorenal; not on SGLT2 inhibitor ? Monitor renal function daily ? Hold nephrotoxic agents ? Calcitriol ? PCP is Dr. Abraham #Atrial Fibrillation (s/p Watchman) History of AF with left atrial appendage occlusion; not currently anticoagulated ? No current indication for anticoagulation post-Watchman unless additional thromboembolic risk factors present ? Monitor for arrhythmias during hospitalization ? Continue rate control meds as indicated #Hypothyroidism TSH 9.55, free T4 1.06 ? Continue thyroid pill #Hyperparathyroidism Secondary ? Cinacalcet 90 mg p.o. daily Hospital management: Disposition: hemoptysis on ASA and plavix Diet: cardiac Lines: PIV DVT prophylaxis: plavix CODE STATUS: full code Patient's plan and care discussed with my attending, Dr. Florencio Balbuena MD PGY-2 Attending Provider Attestation/Addendum I have discussed and was present for the essential components of the history, physical examination, diagnosis, and treatment plan with the resident. I agree with the patient's care as documented by the resident and amended herein by me. Coy Matias DO. Patient seen and evaluated this AM. No acute events overnight, vital signs stable, patient afebrile, patient on 2 L nasal cannula, SpO2 93%. I/O 420/500. WBC increased to 11 today, platelets noted to be 7 to, hemoglobin 12, BUN 64 and creatinine has down trended to 2.1 which is just above the patient's baseline. No more episodes of hemoptysis since admission, hemoptysis likely secondary to pulmonary infection in setting of aspirin and Plavix use due to recent stent placement which will he will need to be on for approximately 90 more days per cardiology. Patient also has thrombocytopenia likely secondary to liver cirrhosis however we will continue to monitor. Will continue the patient's p.o. Lasix, BP medications as his blood pressure can tolerate, aspirin and Plavix was continued, patient also on broad-spectrum antibiotics, ceftriaxone and azithromycin for pneumonia, will continue to monitor closely, cardiology consulted appreciate recommendations. Although this document has been carefully reviewed, there may still be some phonetic and other typographical errors. These errors are purely grammatical due to imperfections in the software program and should not be construed in any way to compromise the substance of the patient's medical care during this visit.
[2024-08-05] MEDS: ATORVASTATIN CALCIUM 20 MG TABLET PO (21:01)
[2024-08-05] MEDS: AZITHROMYCIN INJ 500 MG in SODIUM CHLORIDE 0.9% 250 ML 250 ML 250 MG IV (21:01)
[2024-08-06] VITALS (22 sets, daily range): BP systolic 113–136; BP diastolic 73–90; PULSE 86–139; RESP 9–31; TEMP 36.5–36.7; O2SAT 89–95
[2024-08-06 06:56] LABS: Basophils % (Auto) 0 % (0-2.5); Eosinophils # (Auto) 0.1 Thou/mm3 (0.0-0.5); Eosinophils % (Auto) 1 % (0-10); Hematocrit 34.9 % (41.0-53.0); Immature Granulocytes % (Auto) 1 % (0-0); Immature Granulocytes Auto 0.05 Thou/mm3 (0.00-0.00); Lymphocytes # (Auto) 0.6 Thou/mm3 (1.0-4.8); Lymphocytes % (Auto) 6 % (10-50); Mean Corpuscular HGB Conc 34.4 g/dl (31.0-37.0); Mean Corpuscular Hemoglobin 36.7 pg (25.0-35.0); Mean Corpuscular Volume 107 fL (80-100); Monocytes # (Auto) 0.9 Thou/mm3 (0.0-0.8); Monocytes % (Auto) 9 % (0-12); Neutrophils # (Auto) 8.4 Thou/mm3 (1.8-7.7); Neutrophils % (Auto) 83 % (37-80); Nucleated Red Blood Cell % 0 /100 WBC (0); RDW Standard Deviation 59.9 fL (35.1-43.9); Red Blood Count 3.27 Miln/mm3 (4.50-5.90); White Blood Count 10.1 Thou/mm3 (3.8-10.6)
[2024-08-06 06:57] LABS: Platelet Count 74 Thou/mm3 (140-440)
[2024-08-06 07:03] LABS: Anion Gap 9 (7-16); BUN/Creatinine Ratio 31 Ratio (12-20); Blood Urea Nitrogen 74 mg/dL (9-23); Calcium 9.9 mg/dL (8.3-10.6); Chloride 102 mMol/L (98-107); Creatinine (Component) 2.4 mg/dL (0.6-1.3); Estimated Creatinine Clearance 40.6 mL/min (>60); Glucose 97 mg/dL (74-106); Magnesium 1.7 mg/dL (1.6-2.6); Osmolality,Calculated 293 (275-295); Phosphorous 4.7 mg/dL (2.4-5.1); Potassium 4.7 mMol/L (3.4-5.1); Sodium 136 mMol/L (136-145); eGFR 29 See Note
[2024-08-06 08:20] LABS: Slide Review Platelets confirmed
--- NOTE | 2024-08-06 08:44 | ECHO_ITS ---
Transthoracic Echo Report Ht (in): 74 Wt (lb): 237 Exam Location: Echo Lab Status: Inpatient Engineering Geologist: Catrina Boles Indications: Procedure Performed: BP: 127 / 85 HR: 86 Technical Quality: Very technically difficult study MEASUREMENTS (Male / Female) Normal Values 2D ECHO LV Diastolic Diameter PLAX 4.3 cm 4.2 - 5.9 / 3.9 - 5.3 cm LV Systolic Diameter PLAX 3.4 cm IVS Diastolic Thickness 1.0 cm 0.6 - 1.0 / 0.6 - 0.9 cm LVPW Diastolic Thickness 1.2 cm 0.6 - 1.0 / 0.6 - 0.9 cm LV Relative Wall Thickness 0.5 LVOT Diameter 1.9 cm Aortic Root Diameter 3.5 cm LA Systolic Diameter LX 4.0 cm 3.0 - 4.0 / 2.7 - 3.8 cm DOPPLER AV Peak Velocity 174.5 cm/s AV Peak Gradient 12.2 mmHg AV Mean Gradient 7.0 mmHg AV Velocity Time Integral 40.9 cm LVOT Peak Velocity 121.5 cm/s LVOT Peak Gradient 5.9 mmHg LVOT Velocity Time Integral 26.4 cm LVOT Cardiac Index 2690.2 cm?/min?m? AV Area Cont Eq vti 1.8 cm? AV Area Cont Eq pk 2.0 cm? MV Area PHT 6.3 cm? MR Peak Velocity 271.0 cm/s MR Peak Gradient 29.4 mmHg Mitral E Point Velocity 93.6 cm/s LV E' Lateral Velocity 9.9 cm/s Mitral E to LV E' Lateral Ratio 9.5 LV E' Septal Velocity 7.5 cm/s Mitral E to LV E' Septal Ratio 12.5 TR Peak Velocity 279.3 cm/s TR Peak Gradient 31.2 mmHg PV Peak Velocity 88.2 cm/s PV Peak Gradient 3.1 mmHg FINDINGS Left Ventricle Normal left ventricular size and systolic function with no obvious regional wall motion abnormalities. Mild LVH. The ejection fraction is visually estimated at 55-60%. Right Ventricle The right ventricular systolic function is severely decreased. The estimated right ventricular systolic pressure, 55 mmHg. RAP 15. Left Atrium The left atrium is normal by two-dimensional, color flow and Doppler imaging with no structural abnormalities, no thrombus formation present. Right Atrium The right atrial cavity size is severely increased. Atrial Septum The interatrial septum appears flattened in systole and diastole consistent with right ventricular pressure and volume overload. Aorta The aorta is normal by two-dimensional, color flow and Doppler interrogation. Mitral Valve The mitral valve is normal by two-dimensional, color flow and Doppler interrogation. There is mild mitral valve regurgitation, stenosis or prolapse. Aortic Valve The aortic valve is trileaflet and normal by two-dimensional, color flow and Doppler interrogation. There is no significant aortic valve regurgitation. Tricuspid Valve Mild thickening of the tricuspid valve leaflets. There is moderate tricuspid regurgitation. Pulmonic Valve Mild pulmonic valve regurgitation. Vessels Dilated inferior vena cava with poor inspiration collapse consistent with elevated right atrial pressure. Pericardium There is small pericardial effusion. CONCLUSIONS Indication: CHF. Normal LV function with estimated EF of 35 to 60%. LV size appears to be smaller due to the dilated RV. Severe open TR with massive right atrial dilatation which impinges on the left atrium too. Dilated RV with moderate to severe RV systolic dysfunction. Estimated RVSP 55 mmHg.. RVSP underestimated because of severe open TR and patient mostly has severe PAH. Etiology unclear Flat septum in both systole and diastole consistent with right ventricular pressure and volume overload. Dilated IVC with poor inspiration collapse consistent with elevated right atrial pressure. There is small pericardial effusion without tamponade. Mild MR. Mild thickening of the TV. Mild PI. Kb Jiménez (Electronically Signed) Final Date: 06 Aug 2024 18:58
[2024-08-06] MEDS: LABETALOL 100 MG TABLET 200 MG PO (09:02)
[2024-08-06] MEDS: FUROSEMIDE INJ 10 MG/ML 4ML VIAL 40 MG IVP (09:02)
[2024-08-06] MEDS: CLOPIDOGREL BISULFATE 75 MG TABLET PO (09:02)
[2024-08-06] MEDS: LOSARTAN POTASSIUM 25 MG TABLET PO (09:02)
[2024-08-06] MEDS: FINASTERIDE 5 MG TABLET PO (09:02)
[2024-08-06] MEDS: CALCITRIOL 0.25 mCg CAPSULE 0.5 MCG PO (09:02)
[2024-08-06] MEDS: ASPIRIN EC 81 MG TABEC PO (09:02)
[2024-08-06] MEDS: cefTRIAXone/D5w 1gm IV premix 1 GM/50 ML BAG IV (09:03)
--- NOTE | 2024-08-06 09:28 | PC.SS ---
Patient Augustin Mcduffie is a 63 Year old male admitted for Hemoptysis. SS met with patient at bedside to discuss discharge plan and verify demographic information. Patient reports he lives at home with his , Xochitl Mcduffie who he reports is his surrogate decision maker [phone]. Patient reports he utilizes home 02 as needed on 2L. Patient utilizes a cane as needed as well as has a FWW. Patient's PCP is Venkat Oshea. 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 Choice of pharmacy is [facility] At time of discharge patient reports he will return back home. patient's will provide transportation. Next of kin: , Xochitl Mcduffie Discharge plan: Home
[2024-08-06] MEDS: THYROID 30 MG TABLET PO (10:18)
[2024-08-06] MEDS: CINACALCET HCL 30 MG TABLET (NON-FORM) 90 MG PO (10:18)
--- NOTE | 2024-08-06 10:34 | PC.SS ---
SS follow up note; Patient is on 4L of 02. Creatinine being monitored. Patient will discharge home when medically cleared.
[2024-08-06 14:43] LABS: Cocci Serology, IgM Negative (Negative)
--- NOTE | 2024-08-06 16:52 | PD.RESPRO ---
Documentation for date of: 08/06/24 Subjective Subjective Interval history: Patient continues to have slight hemoptysis and sputum culture Gram stain was sent. Patient continues to be on 4 L oxygen and may need oxygen at discharge. Patient requested to be able to shower and get up from his chair. Creatinine did worsen to 2.4 today. We will continue with Lasix IV 40 daily and antibiotics and dual antiplatelet therapy. Otherwise all other labs unremarkable, and vital signs are stable. All questions asked and answered. Exam Vital Signs Temp Pulse Resp BP Pulse Ox O2 Del Method O2 Flow Rate 98.1 F 86 20 127/87 H 94 L Nasal Cannula 5 08/06/24 12:00 08/06/24 12:00 08/06/24 12:00 08/06/24 12:00 08/06/24 12:00 08/06/24 12:00 08/06/24 12:00 FiO2 30 08/05/24 23:29 Narrative Exam General Appearance: Pt in mild acute distress laying in bed. HEENT: NC/AT, no scleral icterus, no conjunctival pallor, MMM Lungs: CTAB, no wheezes or crackles appreciated CVS: RRR, S1/S2 heard, no murmurs or rubs appreciated ABD: Soft, non-tender, non-distended, BS + in all 4 quadrants EXT: no deformity/edema/lesions/cyanosis/clubbing, radial pulses 2+ BL, DP pulses 2 + BL SKIN: Chronic venous stasis changes, trace bilateral lower extremity edema Neuro: A&O x 3. No gross neurological deficits. Motor and sensory grossly intact in B/L UL and LL. Psych: Appropriate mood and affect Objective Labs 08/06/24 05:07 08/06/24 05:07 Labs: Laboratory Results - last 24 hr 08/06/24 08/06/24 05:07 11:07 WBC 10.1 RBC 3.27 L Hgb 12.0 L Hct 34.9 L MCV 107 H MCH 36.7 H MCHC 34.4 RDW Std Deviation 59.9 H Plt Count 74 L Neut % (Auto) 83 H Lymph % (Auto) 6 L King[place]isher % (Auto) 9 Eos % (Auto) 1 Baso % (Auto) 0 Neut # (Auto) 8.4 H Lymph # (Auto) 0.6 L [place]isher # (Auto) 0.9 H Eos # (Auto) 0.1 Baso # (Auto) 0.0 Immature Gran # (Auto) 0.05 H Absolute Nucleated RBC 0.00 Immature Gran % 1 H Nucleated RBC % 0 Sodium 136 Potassium 4.7 Chloride 102 Carbon Dioxide 25.0 Anion Gap 9 BUN 74 H Creatinine 2.4 H Estim Creat Clear Calc 40.6 L eGFR 29 L BUN/Creatinine Ratio 31 H Glucose 97 Calculated Osmolality 293 Calcium 9.9 Phosphorus 4.7 Magnesium 1.7 Coccidioides IgM Ab Negative Misc Test Result Platelets confirmed Quality Measures Quality Measures none Assessment & Plan Assessment Current Active Medications: Generic Name Dose Route Start Last Admin Trade Name Freq PRN Reason Stop Dose Admin Aspirin 81 mg 08/04/24 10:45 08/06/24 09:02 Aspirin Ec 81 Mg Tabec PO 09/03/24 10:44 81 mg QDAY JM Administration Atorvastatin Calcium 20 mg 08/04/24 21:00 08/05/24 21:01 Atorvastatin Calcium 20 Mg Tablet PO 09/03/24 20:59 20 mg HS JM Administration Protocol Calcitriol 0.5 mcg 08/04/24 09:00 08/06/24 09:02 Calcitriol 0.25 Mcg Capsule PO 09/03/24 08:59 0.5 mcg QDAY JM Administration Cinacalcet 90 mg 08/04/24 09:00 08/06/24 10:18 Cinacalcet Hcl 30 Mg Tablet (Non-Form) PO 09/03/24 08:59 90 mg QDAY JM Administration Clopidogrel Bisulfate 75 mg 08/04/24 10:45 08/06/24 09:02 Clopidogrel Bisulfate 75 Mg Tablet PO 09/03/24 10:44 75 mg QDAY JM Administration Finasteride 5 mg 08/04/24 09:00 08/06/24 09:02 Finasteride 5 Mg Tablet PO 09/03/24 08:59 5 mg QDAY JM Administration Furosemide 40 mg 08/06/24 09:00 08/06/24 09:02 Furosemide Inj 10 Mg/Ml 4ml Vial IVP 09/05/24 08:59 40 mg QDAY JM Administration Ceftriaxone Sodium/Dextrose 1 gm in 50 mls @ 100 mls/hr 08/04/24 09:00 08/06/24 09:03 Rocephin/D5w 1gm Iv Premix IV 08/11/24 08:59 100 mls/hr QDAY JM Administration Azithromycin 500 mg/ Sodium 250 mls @ 250 mls/hr 08/05/24 21:00 08/05/24 21:01 Chloride IV 08/12/24 20:59 250 mls/hr HS JM Administration Labetalol HCl 200 mg 08/04/24 09:00 08/06/24 09:02 Labetalol 100 Mg Tablet PO 09/03/24 08:59 200 mg QDAY JM Administration Losartan Potassium 25 mg 08/04/24 09:00 08/06/24 09:02 Losartan Potassium 25 Mg Tablet PO 09/03/24 08:59 25 mg QDAY JM Administration Ondansetron HCl 4 mg 08/04/24 03:47 08/05/24 09:54 Ondansetron Inj 2 Mg/Ml Inj 2 Ml IV 09/03/24 03:46 4 mg Q6HR PRN Administration NAUSEA OR VOMITING Protocol Thyroid 30 mg 08/04/24 09:00 08/06/24 10:18 Thyroid 30 Mg Tablet PO 09/03/24 08:59 30 mg QDAY JM Administration Plan Augustin Rodarte is a 63-year-old male with a past medical history of A-fib status post Watchman device, CAD status post stents (06/2024), CHF, CVA, COPD, cirrhosis, history of HCV, hypothyroidism, hypertension, hyperlipidemia, and glaucoma who presented on 08/04 for acute onset hemoptysis s/p CAD a few weeks ago on aspirin and Plavix. #Hemoptysis likely secondary to pneumonia in the setting of aspirin and Plavix use #Pneumonia likely secondary to gram-negative organisms as demonstrated on CT chest #CAD s/p stent 06/2024 on aspirin and plavix Acute onset hemoptysis. Patient has also had stents placed couple years ago and was on Plavix at that time and was noted to have complications related to bleeding as well. States he coughed up about 2 tablespoons of blood but denies blood in stool, hematuria, hematemesis, epistaxis but does endorse some bleeding in gums when brushing teeth. Otherwise, hemoglobin stable at 11.9, platelets 83, INR 1.3. ? Cardiology consulted, appreciate recommendations ? Restarted aspirin and Plavix per recommendations given risk of stent thrombosis ? Monitor hemoglobin and other signs of significant bleeding, otherwise continue as above - Continue ceftriaxone and azithromycin #Thrombocytopenia Platelets 84; likely multifactorial ? chronic liver disease (cirrhosis), medication effect (ASA/Plavix), possible infection-related ? Monitor platelet count #History of CHF CT showing significant cardiomegaly and dilated IVC; history of CVA, Watchman placement; likely chronic with mild pulmonary congestion No recent echo on file. ? Will increase patient's home Lasix 40 mg p.o. daily to IV Lasix ? Monitor daily weights, I/Os ? Sodium-restricted diet - CPAP at night #Cirrhosis Known history; imaging confirms cirrhotic morphology; associated thrombocytopenia; elevated BUN/Cr concerning for hepatorenal physiology ? Monitor LFTs, ammonia, INR, and renal function #Chronic kidney disease (around Stage G3B->4)?worsening Cr 2.3 (baseline 2.0-2.1), BUN 62; possibly volume responsive vs hepatorenal; not on SGLT2 inhibitor ? Monitor renal function daily ? Hold nephrotoxic agents ? Calcitriol ? PCP is Dr. Abraham #Atrial Fibrillation (s/p Watchman) History of AF with left atrial appendage occlusion; not currently anticoagulated ? No current indication for anticoagulation post-Watchman unless additional thromboembolic risk factors present ? Monitor for arrhythmias during hospitalization ? Continue rate control meds as indicated #Hypothyroidism TSH 9.55, free T4 1.06 ? Continue thyroid pill #Hyperparathyroidism Secondary ? Cinacalcet 90 mg p.o. daily Hospital management: Disposition: hemoptysis on ASA and plavix Diet: cardiac Lines: PIV DVT prophylaxis: plavix CODE STATUS: full code Patient's plan and care discussed with my attending, Dr. Florencio Balbuena MD PGY-2 Attending Provider Attestation/Addendum I have discussed and was present for the essential components of the history, physical examination, diagnosis, and treatment plan with the resident. I agree with the patient's care as documented by the resident and amended herein by me. Coy Matias DO. Although this document has been carefully reviewed, there may still be some phonetic and other typographical errors. These errors are purely grammatical due to imperfections in the software program and should not be construed in any way to compromise the substance of the patient's medical care during this visit.
--- NOTE | 2024-08-06 17:55 | ESPR_ITS ---
Documentation for date of: 08/06/24 Subjective Subjective Interval history: No acute overnight events. Examined at bedside. Complains of generalized body ache. Denies fever, chills, headaches, chest pain, sob, cough, GI or urinary symptoms. Afebrile, HR 99, BP 136/73, RR 22. Hgb 12.0 and stable, PLT 74 and relatively stable, no leukocytosis. As such, bump in CR 2.4, BUN 74. Will continue with LASIX 40 mg and anticoagulations given low risk of active bleed at this time. Exam Vital Signs Temp Pulse Resp BP Pulse Ox O2 Del Method O2 Flow Rate 97.9 F 99 22 H 136/73 H 93 L Nasal Cannula 5 08/06/24 16:00 08/06/24 16:00 08/06/24 16:00 08/06/24 16:00 08/06/24 16:00 08/06/24 16:00 08/06/24 16:00 FiO2 30 08/06/24 16:00 Narrative Exam GENERAL * Normal appearing adult male, NAD, satting well on 2L NCHEENT * NCAT.?MEGAN. Oral mucosa is moist. Patent Nares NECK * Supple, nontender, no thyromegaly, no meningismus, no JVD, no step offs CHEST * RRR, no m/g/r * CTAB, no w/r/r. Symmetrical chest rise. No intercostal subcostal retraction * Atraumatic, nontender, no crepitus, symmetrical expansion. ABDOMEN * Soft, flat, nontender. No guarding/rebound tenderness/masses. * Bowel sounds presents EXTREMITIES * 1+ eugenia LE edema with chronic venous statis dermitis * No popliteal tenderness eugenia, or assymetrical LE swelling on exam. SKIN * Warm and dry, no jaundice/rashes. NEUROMUSCULAR * No lumbar or midline, no CVA, no paraspinal muscle spasm or tenderness. * Moves all 4 extremities well, with full ROM and good CSM. * CHEATHAM x4, CN II-XII grossly intact. * No focal neurologic deficits. PSYCHIATRY * Normal mood and affect, cooperative, no SI or HI or hallucinations. Objective Labs 08/06/24 05:07 08/06/24 05:07 Labs: Laboratory Results - last 24 hr 08/06/24 08/06/24 05:07 11:07 WBC 10.1 RBC 3.27 L Hgb 12.0 L Hct 34.9 L MCV 107 H MCH 36.7 H MCHC 34.4 RDW Std Deviation 59.9 H Plt Count 74 L Neut % (Auto) 83 H Lymph % (Auto) 6 L [place]ster % (Auto) 9 Eos % (Auto) 1 Baso % (Auto) 0 Neut # (Auto) 8.4 H Lymph # (Auto) 0.6 L [place] # (Auto) 0.9 H Eos # (Auto) 0.1 Baso # (Auto) 0.0 Immature Gran # (Auto) 0.05 H Absolute Nucleated RBC 0.00 Immature Gran % 1 H Nucleated RBC % 0 Sodium 136 Potassium 4.7 Chloride 102 Carbon Dioxide 25.0 Anion Gap 9 BUN 74 H Creatinine 2.4 H Estim Creat Clear Calc 40.6 L eGFR 29 L BUN/Creatinine Ratio 31 H Glucose 97 Calculated Osmolality 293 Calcium 9.9 Phosphorus 4.7 Magnesium 1.7 Coccidioides IgM Ab Negative Misc Test Result Platelets confirmed Quality Measures Quality Measures none Assessment & Plan Assessment Current Active Medications: Generic Name Dose Route Start Last Admin Trade Name Freq PRN Reason Stop Dose Admin Aspirin 81 mg 08/04/24 10:45 08/06/24 09:02 Aspirin Ec 81 Mg Tabec PO 09/03/24 10:44 81 mg QDAY JM Administration Atorvastatin Calcium 20 mg 08/04/24 21:00 08/05/24 21:01 Atorvastatin Calcium 20 Mg Tablet PO 09/03/24 20:59 20 mg HS JM Administration Protocol Calcitriol 0.5 mcg 08/04/24 09:00 08/06/24 09:02 Calcitriol 0.25 Mcg Capsule PO 09/03/24 08:59 0.5 mcg QDAY JM Administration Cinacalcet 90 mg 08/04/24 09:00 08/06/24 10:18 Cinacalcet Hcl 30 Mg Tablet (Non-Form) PO 09/03/24 08:59 90 mg QDAY JM Administration Clopidogrel Bisulfate 75 mg 08/04/24 10:45 08/06/24 09:02 Clopidogrel Bisulfate 75 Mg Tablet PO 09/03/24 10:44 75 mg QDAY JM Administration Finasteride 5 mg 08/04/24 09:00 08/06/24 09:02 Finasteride 5 Mg Tablet PO 09/03/24 08:59 5 mg QDAY JM Administration Furosemide 40 mg 08/06/24 09:00 08/06/24 09:02 Furosemide Inj 10 Mg/Ml 4ml Vial IVP 09/05/24 08:59 40 mg QDAY JM Administration Ceftriaxone Sodium/Dextrose 1 gm in 50 mls @ 100 mls/hr 08/04/24 09:00 08/06/24 09:03 Rocephin/D5w 1gm Iv Premix IV 08/11/24 08:59 100 mls/hr QDAY JM Administration Azithromycin 500 mg/ Sodium 250 mls @ 250 mls/hr 08/05/24 21:00 08/05/24 21:01 Chloride IV 08/12/24 20:59 250 mls/hr HS JM Administration Labetalol HCl 200 mg 08/04/24 09:00 08/06/24 09:02 Labetalol 100 Mg Tablet PO 09/03/24 08:59 200 mg QDAY JM Administration Losartan Potassium 25 mg 08/04/24 09:00 08/06/24 09:02 Losartan Potassium 25 Mg Tablet PO 09/03/24 08:59 25 mg QDAY JM Administration Ondansetron HCl 4 mg 08/04/24 03:47 08/05/24 09:54 Ondansetron Inj 2 Mg/Ml Inj 2 Ml IV 09/03/24 03:46 4 mg Q6HR PRN Administration NAUSEA OR VOMITING Protocol Thyroid 30 mg 08/04/24 09:00 08/06/24 10:18 Thyroid 30 Mg Tablet PO 09/03/24 08:59 30 mg QDAY JM Administration Plan This is a 63-year-old male with PMHx of HTN, HLD, CAD s/p PCI 07/18/24, A-fib s/p watchman, thrombocytopenia, CHF, tricuspid valve absent with regurg hypothyroidism, CVA, COPD, cirrhosis, hepatitis C, presenting to ED with complaint of coughing up blood. Acute Hemoptysis CAD, PCI stent 06/2024 and 03/2023 Chronic thrombocytopenea Chronic anemia Cardiology consulted for continuing PLAVIX/ASA therapy. At this time, hemoptysis appears to be resolved, Hgb stable, PLT at baseline. No evidence of severe bleed. High risk for stent clotting given recent PCI stent. Denies chest pain, sob, active bleed. ? Recommended continuing PLAVIX/ASA ? Transfuse if Hgb continues to decline ? Will consider holding anticoag if Hgb drastically declines, below 9 or bleeding uncontrolled. ? Workup for hemoptysis per primary team. CHF CXR and CT showed severe cardiomegaly. ECHO Findings: * Normal LV function with estimated EF of 55 to 60%. LV size appears to be smaller due to the dilated RV. * Severe open TR with massive right atrial dilatation which impinges on the left atrium too. * Dilated RV with moderate to severe RV systolic dysfunction. Estimated RVSP 55 mmHg. * RVSP underestimated because of severe open TR and patient mostly has severe PAH. Etiology unclear * Flat septum in both systole and diastole consistent with right ventricular pressure and volume overload. * Dilated IVC with poor inspiration collapse consistent with elevated right atrial pressure. * There is small pericardial effusion without tamponade. Mild MR. Mild thickening of the TV. Mild PI. ? Continue home LASIX 40 mg Atrial Fibrillation (s/p Watchman) S/p left Hypothyroidism HTN, HLD Severe tricuspid valve degeneration COPD HR 90, TSH 9.55, free T4 1.06, TG 97, LDL 46, HDL 37 On home 2-3L oxygen PRN for chronic tricuspid degeneration, CHF and COPD Reports no increase in oxygen demand. No obvious source of bleed including GI bleed. Low suspension for PE, HR wnl, no increase in oxygen demand, no signs of DVT on exam Asymptomatic without chest pain or shortness of breath or dizziness. ? Continue LABETALOL 200 mg QD ? Continue LOSARTAN 25 mg q. day ? Continue ATORVASTATIN 20 mg HS ? Continue thyroid 30 mg QDAY ? Consider PFT to r/o PE if hemoptysis persists, tachycardic or dyspnic, avoid contrast CT in setting of CKD. Pneumonia Thrombocytopenia Heart Failure, EF 45% Cirrhosis Chronic Kidney Disease (around Stage G3B->4) Hyperparathyroidism ? Cocci IgM negative, pending IgG Management of rest of the medical conditions as per primary team and other consultants. Thank you for the consult and allowing me to participate in the care of the patient. Cardiology will continue to follow. Case was discussed with attending, Dr. Jiménez. Valerie Mar, DO PGYI Attending Provider Attestation/Addendum I have personally seen and examined the patient separately on the above date of service and discussed the plan of care with the resident. I reviewed the resident Dr. Valerie Mar consultation progress note and agree with the resident findings and plan in the note above and have also edited the documentation to reflect my findings and plan. 63-year-old male with a past medical history of CAD status post PCI to LAD in March 2023 - 3.5 x 20 mm JAVIER stent in proximal LAD, recent PCI to RCA with 3.0 x 26 mm Ry JAVIER stent, history of paroxysmal atrial fibrillation status post watchman device secondary to his increased risk of bleeding, CKD stage III, essential hypertension, hyperlipidemia, cirrhosis with history of hepatitis C thrombocytopenia, degenerated tricuspid valve with severe open TR, right heart failure along with at least moderate PAH presented to the emergency department for further evaluation of hemoptysis or coughing up of blood. Patient recently had a PCI as noted above to the RCA with a 3.0 x 20 mm Ry JAVIER stent for severe CAD and he already had history of LAD stent in March 2023. He is on dual antiplatelet started on aspirin 81 mg once daily and Plavix 75 mg once daily. Patient does have a history of bleeding with dual antiplatelets or any kind of anticoagulation is apparently very sensitive. Patient did have and recent PCI on 07/18/2024 and is less than 1 month since the stent placement. Cardiac the GI team was consulted for further recommendations regarding dual antiplatelets. Assessment and plan: 1. Hemoptysis 2. CAD s/p PCI to LAD and RCA with last stent in July 18, 2024 3. Atrial fibrillation status post Watchman 4. Degenerated tricuspid valve with severe open TR 5. Right heart failure 6. Increase tendency to bleed 7. Essential hypertension 8. Hyperlipidemia 9. Thrombocytopenia 10. Degenerative tricuspid valve with severe open TR 11. Moderate PAH 12. Cirrhosis and history of hepatitis C. Patient presented with possible hemoptysis and cardiology was consulted for further recommendation regarding the dual antiplatelet therapy patient is on aspirin and Plavix and these increased risk of bleeding. Discussed with the primary team and the patient's PCI was only performed on 07/18/2024 to the RCA and recommend him not to stop any antiplatelets including aspirin and Plavix and the hemoglobin appears to be stable at baseline between 11 and 11.5. No new episodes of hemoptysis since arrival. There is no evidence of any severe bleeding and hemoglobin continues to be stable in the last 2-3 blood draws. There is a high incidence of was stent thrombosis if antiplatelet to be stopped for patient and hence recommend to continue it. If the hemoglobin drops close to 3 g and Hb is less than 9 then will need to aggressively transfuse the patient and then discontinue that dual antiplatelets at that point of time. -08/07/24 - patient hemoglobin continues to be stable around 12. Continue aspirin and Plavix for now for at least 1 month of dual antiplatelets and can be switched to Plavix only later point of time patient still continues to have any more procedures change in hemoglobin level. Echocardiogram is ordered?still awaiting the results. Mild recent BUN/creatinine of 74 and 2.41 recommend to hold the Lasix for now. 6 improved recommend elevation 2 g sodium diet given his history of heart failure. Continue to monitor renal function. Patient does have a history of severe open tricuspid regurgitation mostly secondary to tricuspid valve degeneration as noted in the previous chart by his primary rodent control worker Dr. Mayer. Patient does have pulmonary hypertension at least with moderate. Echo was reordered to evaluate LV function as well as the RV function as has any regional wall motion abnormalities in the also the PAH. On Lasix at home. Strict input output Daily weights and 2 g sodium diet. Patient does have history of paroxysmal atrial fibrillation for which he is not on anticoagulation because of the severe anemia and bleeding risk. Chads Vascor is elevated indicated here. EF slightly low at 45% on the last echocardiogram but patient does have right heart failure. Continue with diuresis for now. Will Patient also has some shortness of breath and is being treated with for possible pneumonia. Kb Jiménez M.D. Interventional Cardiology.
[2024-08-06] MEDS: AZITHROMYCIN INJ 500 MG in SODIUM CHLORIDE 0.9% 250 ML 250 ML 250 MG IV (20:24)
[2024-08-06] MEDS: ATORVASTATIN CALCIUM 20 MG TABLET PO (20:24)
[2024-08-06] MEDS: MELATONIN 3 MG TABLET 6 MG PO (23:02)
[2024-08-07] VITALS (14 sets, daily range): BP systolic 110–126; BP diastolic 79–96; PULSE 70–148; RESP 16–25; TEMP 36.3–36.6; O2SAT 90–99; BMI 30.2
[2024-08-07] MEDS: IPRATROPIUM RT 0.5 MG/ 2.5 ML NEBU INH ×3 (00:43→22:53)
[2024-08-07] MEDS: METOPROLOL TARTRATE INJ 1 MG/ML AMP 5 ML 2.5 MG IVP ×2 (02:39→06:12)
[2024-08-07 06:33] LABS: Magnesium 1.8 mg/dL (1.6-2.6)
[2024-08-07 08:10] LABS: Basophils % (Auto) 0 % (0-2.5); Eosinophils # (Auto) 0.1 Thou/mm3 (0.0-0.5); Eosinophils % (Auto) 2 % (0-10); Hematocrit 33.4 % (41.0-53.0); Hemoglobin 11.5 g/dL (13.5-16.0); Immature Granulocytes % (Auto) 0 % (0-0); Immature Granulocytes Auto 0.02 Thou/mm3 (0.00-0.00); Lymphocytes # (Auto) 0.3 Thou/mm3 (1.0-4.8); Lymphocytes % (Auto) 4 % (10-50); Mean Corpuscular HGB Conc 34.4 g/dl (31.0-37.0); Mean Corpuscular Hemoglobin 36.6 pg (25.0-35.0); Mean Corpuscular Volume 106 fL (80-100); Monocytes % (Auto) 14 % (0-12); Neutrophils # (Auto) 6.1 Thou/mm3 (1.8-7.7); Neutrophils % (Auto) 80 % (37-80); Nucleated Red Blood Cell % 0 /100 WBC (0); Platelet Count 86 Thou/mm3 (140-440); RDW Standard Deviation 59.1 fL (35.1-43.9); Red Blood Count 3.14 Miln/mm3 (4.50-5.90); White Blood Count 7.6 Thou/mm3 (3.8-10.6)
[2024-08-07] MEDS: LABETALOL 100 MG TABLET 200 MG PO (08:10)
[2024-08-07] MEDS: LOSARTAN POTASSIUM 25 MG TABLET PO (08:11)
[2024-08-07] MEDS: CALCITRIOL 0.25 mCg CAPSULE 0.5 MCG PO (08:11)
[2024-08-07] MEDS: CINACALCET HCL 30 MG TABLET (NON-FORM) 90 MG PO (08:12)
[2024-08-07] MEDS: cefTRIAXone/D5w 1gm IV premix 1 GM/50 ML BAG IV (08:13)
[2024-08-07] MEDS: FINASTERIDE 5 MG TABLET PO (08:14)
[2024-08-07] MEDS: FUROSEMIDE INJ 10 MG/ML 4ML VIAL 40 MG IVP (08:14)
[2024-08-07 08:48] LABS: Alanine Aminotransferase 40 U/L (10-49); Albumin, Serum 3.7 gm/dL (3.4-4.8); Albumin/Globulin Ratio 1.5 (1.2-2.2); Alkaline Phosphatase 181 U/L (46-116); Anion Gap 13 (7-16); Aspartate Amino Transferase 33 U/L (0-34); BUN/Creatinine Ratio 32 Ratio (12-20); Bilirubin,Total 1.5 mg/dL (0.3-1.2); Blood Urea Nitrogen 89 mg/dL (9-23); Calcium 9.8 mg/dL (8.3-10.6); Carbon Dioxide 20.6 mMol/L (20.0-31.0); Chloride 101 mMol/L (98-107); Creatinine (Component) 2.8 mg/dL (0.6-1.3); Estimated Creatinine Clearance 34.7 mL/min (>60); Globulin 2.5 gm/dL (2.3-3.5); Glucose 103 mg/dL (74-106); Osmolality,Calculated 297 (275-295); Potassium 5.1 mMol/L (3.4-5.1); Sodium 135 mMol/L (136-145); Total Protein 6.2 gm/dL (5.7-8.2); eGFR 24 See Note
[2024-08-07] MEDS: Magnesium Sulfate 4 GM Ivpb 4 GM/50 ML BAG IV (09:18)
[2024-08-07] MEDS: THYROID 30 MG TABLET PO (09:18)
[2024-08-07] MEDS: ASPIRIN EC 81 MG TABEC PO (09:19)
--- NOTE | 2024-08-07 10:15 | EKG_ITS ---
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 : 1960 Requested By: Rony Ku Order Number: [id number] Reading MD: Rony Ku Measurements Intervals [place] Rate: 90 P: 70 CT: 221 QRS: 134 QRSD: 126 T: 101 QT: 331 QTc: 407 Interpretive Statements SINUS RHYTHM WITH FIRST DEGREE AV BLOCK WITH FREQUENT SUPRAVENTRICULAR PREMATURE COMPLEXES MARKED RIGHT AXIS DEVIATION SEPTAL MYOCARDIAL INFARCTION , PROBABLY OLD Compared to ECG 08/03/2024 19:59:24 First degree AV block now present Right-axis deviation now present Atrial fibrillation no longer present Ventricular premature complex(es) no longer present Aberrant conduction of supraventricular beat(s) no longer present Incomplete right bundle-branch block no longer present Myocardial infarct finding still present /store/S0/[id number]
--- NOTE | 2024-08-07 10:27 | XR_ITS ---
Examination: CT left lower extremity, without contrast. 2-D sagittal reconstructions. 2-D coronal reconstructions. 3-D reconstructions. Date and time of exam:August 08, 2019 5:11 AM INDICATIONS: Left leg swelling and pain redness today CTDI: vol (mGy):9.71 DLP: (mGycm):779 Technique: Multiple 1.25 mm axial sections of the left lower extremity without intravenous contrast have been obtained. 2-D sagittal and coronal reconstructions have been obtained. 3-D reconstructions have been obtained. Low dose protocols were performed. One or more of the following dose reduction techniques were used; automated exposure control, adjustment of the mA and/or KV according to patient size, use of iterative reconstruction technique. Findings: Advanced knee tricompartment osteoarthritis Large complex knee effusion No radha cortical bone destruction Edema and fluid in the subcutaneous tissues surrounding the lower leg although no localized abscess No cortical bone destruction IMPRESSION: Large complex knee effusion, consider septic arthritis The knee joint is amenable to fluoroscopically guided aspiration for culture and sensitivity as clinically warranted
[2024-08-07 11:18] LABS: Uric Acid 5.3 mg/dL (3.7-9.2)
--- NOTE | 2024-08-07 11:18 | ESPR_ITS ---
<Statement entered by Jerilyn Balbuena MD - 08/07/24 16:56> Patient seen and examined at bedside. Overnight, patient's heart rate noted to be elevated in the 140s, with concern of A-fib with RVR and endorsed heart palpitations throughout the night. EKG showed heart rate of 90 and a rhythm of sinus versus bundle branch block. Patient's creatinine also increased from 2.4- 2.8. In addition, patient was complaining of tenderness to left knee, and warm to touch. A CT of left lower extremity showed large complex effusion, and will order IR guided aspiration to rule out septic arthritis. Patient will continue to be on aspirin Plavix, and Lasix twice daily. Will also order PT. I discussed with and supervised the internal medicine specialist physician who took care of this patient. I personally saw and examined the patient and discussed the assessment and plan with the entire medicine team, including my attending Dr. Matias, I agree with most of the assessment and plan as documented below Jerilyn Balbuena M.D. PGY-2 Disclaimer: Despite multiple revisions, due to the dictation software being used, the document bellow may not be free of grammatical errors including phonetic/typographic errors. However, this does not deter from our commitment to providing health care in the patient's best interest in mind. Documentation for date of: 08/07/24 Subjective Subjective Interval history: No acute overnight events noted but heart rate noted to be elevated in the 130s and EKG showed HR 90 and appears to be sinus vs bundle branch block pattern and endorses palpitations. However, already noted to have Watchman device. States that he now has acute onset, significant left knee pain and CT showed a large, complex effusion for which order placed for IR-guided aspiration. Uric acid negative. Restarted home latanoprost. Otherwise, other vital signs stable, hemoglobin stable (denies additional episodes of hemoptysis), creatinine increased from 2.4 to 2.8, total bilirubin 1.5. Spoke to patient regarding risks and benefits of clopidogrel given recent stent placement as he was refusing clopidogrel during the day. He agreed to continue with taking clopidogrel and will continue to monitor for major signs fo bleeding. Will also order physical therapy given LLE has made it difficult to ambulate. Exam Vital Signs Temp Pulse Resp BP Pulse Ox O2 Del Method O2 Flow Rate 97.7 F 120 H 19 113/83 91 L Nasal Cannula 5 08/07/24 08:00 08/07/24 08:14 08/07/24 08:00 08/07/24 08:14 08/07/24 08:00 08/07/24 08:00 08/07/24 08:00 FiO2 30 08/06/24 20:00 Narrative Exam General: AOx3, mild distress, able to speak full sentences HEENT: NC/AT, mucous membranes moist, bilateral sclera anicteric Cardiovascular: regular rate and rhythm, S1/S2 present, no murmurs appreciated Pulmonary: clear to auscultation bilaterally, no rales/rhonchi/wheezes Abdominal: soft, non-tender, non-distended, no rebound/guarding, normal bowel sounds present Musculoskeletal: limited ROM of LLE, LLE warmer to touch than RLE Skin: warm and dry, intact, no rashes Neuro: CN II-XII intact, no focal deficits Objective Labs 08/07/24 05:28 08/07/24 05:18 Labs: Laboratory Results - last 24 hr 08/06/24 08/07/24 08/07/24 11:07 05:18 05:28 WBC 7.6 RBC 3.14 L Hgb 11.5 L Hct 33.4 L MCV 106 H MCH 36.6 H MCHC 34.4 RDW Std Deviation 59.1 H Plt Count 86 L Neut % (Auto) 80 Lymph % (Auto) 4 L Will % (Auto) 14 H Eos % (Auto) 2 Baso % (Auto) 0 Neut # (Auto) 6.1 Lymph # (Auto) 0.3 L Will # (Auto) 1.0 H Eos # (Auto) 0.1 Baso # (Auto) 0.0 Immature Gran # (Auto) 0.02 H Absolute Nucleated RBC 0.00 Immature Gran % 0 Nucleated RBC % 0 Sodium 135 L Potassium 5.1 Chloride 101 Carbon Dioxide 20.6 Anion Gap 13 BUN 89 H Creatinine 2.8 H Estim Creat Clear Calc 34.7 L eGFR 24 L BUN/Creatinine Ratio 32 H Glucose 103 Calculated Osmolality 297 H Uric Acid 5.3 Calcium 9.8 Corrected Calcium 10.0 Phosphorus 5.0 Magnesium 1.8 Total Bilirubin 1.5 H AST 33 ALT 40 Alkaline Phosphatase 181 H Total Protein 6.2 Albumin 3.7 Globulin 2.5 Albumin/Globulin Ratio 1.5 Coccidioides IgM Ab Negative Quality Measures Quality Measures none Assessment & Plan Assessment Current Active Medications: Generic Name Dose Route Start Last Admin Trade Name Surya PRN Reason Stop Dose Admin Aspirin 81 mg 08/04/24 10:45 08/07/24 09:19 Aspirin Ec 81 Mg Tabec PO 09/03/24 10:44 81 mg QDAY JM Administration Atorvastatin Calcium 20 mg 08/04/24 21:00 08/06/24 20:24 Atorvastatin Calcium 20 Mg Tablet PO 09/03/24 20:59 20 mg HS JM Administration Protocol Calcitriol 0.5 mcg 08/04/24 09:00 08/07/24 08:11 Calcitriol 0.25 Mcg Capsule PO 09/03/24 08:59 0.5 mcg QDAY JM Administration Cinacalcet 90 mg 08/04/24 09:00 08/07/24 08:12 Cinacalcet Hcl 30 Mg Tablet (Non-Form) PO 09/03/24 08:59 90 mg QDAY JM Administration Clopidogrel Bisulfate 75 mg 08/04/24 10:45 08/06/24 09:02 Clopidogrel Bisulfate 75 Mg Tablet PO 09/03/24 10:44 75 mg QDAY JM Administration Finasteride 5 mg 08/04/24 09:00 08/07/24 08:14 Finasteride 5 Mg Tablet PO 09/03/24 08:59 5 mg QDAY JM Administration Furosemide 40 mg 08/07/24 09:00 08/07/24 08:33 Furosemide Inj 10 Mg/Ml 4ml Vial IVP 09/06/24 08:59 Not Given BID JM Ceftriaxone Sodium/Dextrose 1 gm in 50 mls @ 100 mls/hr 08/04/24 09:00 08/07/24 08:13 Rocephin/D5w 1gm Iv Premix IV 08/11/24 08:59 100 mls/hr QDAY JM Administration Azithromycin 500 mg/ Sodium 250 mls @ 250 mls/hr 08/05/24 21:00 08/06/24 20:24 Chloride IV 08/12/24 20:59 250 mls/hr HS JM Administration Magnesium Sulfate 4 gm in 50 mls @ 12.5 mls/hr 08/07/24 08:24 08/07/24 09:18 Magnesium Sulfate Ivpb IV 08/07/24 12:23 12.5 mls/hr X1 ONE Administration Ipratropium [place] 0.5 mg 08/07/24 06:19 08/07/24 07:14 Ipratropium Rt 0.5 Mg/ 2.5 Ml Nebu INH 09/06/24 06:18 0.5 mg Q6HR PRN Administration SHORTNESS OF BREATH Labetalol HCl 200 mg 08/04/24 09:00 08/07/24 08:10 Labetalol 100 Mg Tablet PO 09/03/24 08:59 200 mg QDAY JM Administration Losartan Potassium 25 mg 08/04/24 09:00 08/07/24 08:11 Losartan Potassium 25 Mg Tablet PO 09/03/24 08:59 25 mg QDAY JM Administration Melatonin 6 mg 08/06/24 22:44 08/06/24 23:02 Melatonin 3 Mg Tablet PO 09/06/24 20:59 6 mg HS PRN Administration insomnia Ondansetron HCl 4 mg 08/04/24 03:47 08/05/24 09:54 Ondansetron Inj 2 Mg/Ml Inj 2 Ml IV 09/03/24 03:46 4 mg Q6HR PRN Administration NAUSEA OR VOMITING Protocol Thyroid 30 mg 08/04/24 09:00 08/07/24 09:18 Thyroid 30 Mg Tablet PO 09/03/24 08:59 30 mg QDAY JM Administration Plan Augustin Rodarte is a 63-year-old male with a past medical history of A-fib status post Watchman device, CAD status post stents (06/2024), CHF, CVA, COPD, cirrhosis, history of HCV, hypothyroidism, hypertension, hyperlipidemia, and glaucoma who presented on 08/04 for acute onset hemoptysis s/p CAD a few weeks ago on aspirin and Plavix. #Hemoptysis likely secondary to pneumonia in the setting of aspirin and Plavix use #Pneumonia likely secondary to gram-negative organisms as demonstrated on CT chest #CAD s/p stent 06/2024 on aspirin and plavix Acute onset hemoptysis. Patient has also had stents placed couple years ago and was on Plavix at that time and was noted to have complications related to bleeding as well. States he coughed up about 2 tablespoons of blood but denies blood in stool, hematuria, hematemesis, epistaxis but does endorse some bleeding in gums when brushing teeth. Otherwise, hemoglobin stable at 11.9, platelets 83, INR 1.3. ? Cardiology consulted, appreciate recommendations ? Restarted aspirin and Plavix per recommendations given risk of stent thrombosis ? Monitor hemoglobin and other signs of significant bleeding, otherwise continue as above ? Continue ceftriaxone and azithromycin #Left lower extremity pain #Complex effusion, hemarthrosis vs septic joint CT left lower extremity showed large complex knee effusion No fevers, chills, or leukocytosis so septic joint unlikely. Has been on ASA and plavix and previously on eliquis, with known complications with Plavix and suspect hemarthrosis. ? IR-guided joint aspiration ordered ? Physical therapy ordered as pain affecting ambulation #Thrombocytopenia Platelets 84; likely multifactorial ? chronic liver disease (cirrhosis), medication effect (ASA/Plavix), possible infection-related ? Monitor platelet count #History of CHF #? Cardiorenal syndrome Given imaging and echo findings of congestion, suspect possible cardiorenal syndrome and was net fluid positive overnight CT showing significant cardiomegaly and dilated IVC; history of CVA, Watchman placement; likely chronic with mild pulmonary congestion Echo 08/06/2024: EF 55-60%, severe open TR with massive right atrial dilatation impinging on left atrium Dilated RV with moderate to severe RV systolic dysfunction, RVSP 55 mmHg (may be underestimated due to severe TR) Flat septum during systole and diastole Dilated IVC with poor inspiration collapse, small pericardial effusion without tamponade ? Will increase patient's home Lasix 40 mg p.o. daily to IV Lasix BID ? Monitor daily weights, I/Os ? Sodium-restricted diet ? CPAP at night #Chronic kidney disease (around Stage G3B -> 4), worsening Cr 2.3 (baseline 2.0-2.1), BUN 62; possibly volume responsive vs hepatorenal; not on SGLT2 inhibitor ? Monitor renal function daily ? Hold nephrotoxic agents ? Calcitriol ? PCP is Dr. Abraham #Atrial fibrillation (s/p Watchman) History of AF with left atrial appendage occlusion; not currently anticoagulated. Noted to have HR 130s overnight 08/07. ? No current indication for anticoagulation post-Watchman unless additional thromboembolic risk factors present ? Monitor for arrhythmias during hospitalization ? Continue rate control meds as indicated #Cirrhosis Known history; imaging confirms cirrhotic morphology; associated thrombocytopenia; elevated BUN/Cr concerning for hepatorenal physiology ? Monitor LFTs, ammonia, INR, and renal function #Hypothyroidism TSH 9.55, free T4 1.06 ? Continue thyroid pill #Hyperparathyroidism ? Cinacalcet 90 mg p.o. daily #Glaucoma ? Latanoprost eye drops Hospital management: Disposition: hemoptysis on ASA and plavix Diet: cardiac Lines: PIV DVT prophylaxis: plavix CODE STATUS: full code ----- Plan discussed with attending physician Dr. Matias and senior resident physician Dr. Sree Carreno MD PGY-1 Internal Medicine Attending Provider Attestation/Addendum I have discussed and was present for the essential components of the history, physical examination, diagnosis, and treatment plan with the resident. I agree with the patient's care as documented by the resident and amended herein by me. Coy Matias, DO. Patient seen and evaluated this AM. No acute events overnight, patient a bit tachycardia this morning with a pulse of 120 however did improve, patient on nasal cannula 2 L, SpO2 99%, I/O20 100/900, patient's 106 kg today. Subjectively the patient states he feels awful mostly revolving around his left knee pain which he states always hurts with a dose of Plavix. Significant labs included potassium 5.1, creatinine did uptrend today to 2.8. Demonstrating normal LV function with estimated EF of 55 to 60% with severe open TR with massive right atrial dilation, dilated RV with moderate to severe RV systolic dysfunction. Estimated RVSP 55 which is likely underestimated because of severe open TR, patient most likely has severe PAH per report. The patient also stated this morning he will be refusing his Plavix Patient 8 patient admitted for pneumonia and KIMBERLY, will continue ceftriaxone and azithromycin for now, replete electrolytes as needed, I will also double up on the patient's Lasix today, 40 mg IV twice daily considering the patient was net positive overnight on his UOP. Cardiology is consulted, appreciate recommendations. Although this document has been carefully reviewed, there may still be some phonetic and other typographical errors. These errors are purely grammatical due to imperfections in the software program and should not be construed in any way to compromise the substance of the patient's medical care during this visit.
[2024-08-07] MEDS: CLOPIDOGREL BISULFATE 75 MG TABLET PO (12:35)
[2024-08-07] MEDS: ONDANSETRON INJ 2 MG/ML INJ 2 ML 4 MG IV (12:38)
[2024-08-07 14:11] LABS: Cocci Serology, IgG Negative (Negative)
--- NOTE | 2024-08-07 15:59 | ESPR_ITS ---
<Statement entered by Niall Mayer MD - 08/10/24 07:52> Patient examined evaluated patient has known to have history of CAD stent placement recently will require aspirin Plavix though has had some mopped assist we can reduce the dosage for a few days but cannot stop completely he developed prerenal azotemia we will continue to hold the diuretics for now monitor renal function closely might have to hydrate him as well. Evaluate the patient with PGY [address]. Khoury agree with the treatment plan recommendation as documented. Documentation for date of: 08/07/24 Subjective Subjective Interval history: patient was examined bedside this mornig , no acute overnight events . he needs to continue plavix and aspirin for first 30 days , then he can do plavix ever other day for 90 days then he can be switched to Aspirin only. continue losartan and DC lasis . once discharged he can start his oral home lasix. Exam Vital Signs Temp Pulse Resp BP Pulse Ox O2 Del Method O2 Flow Rate 97.5 F 90 17 110/79 92 L Nasal Cannula 5 08/07/24 12:00 08/07/24 12:00 08/07/24 12:00 08/07/24 12:00 08/07/24 12:00 08/07/24 12:00 08/07/24 12:00 FiO2 30 08/06/24 20:00 Narrative Exam GENERAL: Comfortable adult seen resting comfortably in hospital bed, no acute distress, on 6L of O2 via NC HEENT: Normocephalic, atraumatic. Pupils are equal and reactive. Oral mucosa is moist. NECK: Supple, nontender, no JVD CHEST: Symmetrical, atraumatic and with equal expansion ,Nontender on palpation CARDIOVASCULAR: Heart regular rhythm & rate. S1/S2. no murmur or gallop rub or extra beats. LUNGS: Clear to auscultation bilaterally with symmetrical chest rise. No laboring tachypnea or wheezing. No intercostal subcostal retraction. No rales and no rhonchi. ABDOMEN: Soft, flat, nontender to palpation, no guarding or rebound tenderness. Active and normal bowel sounds. EXTREMITIES:Moves all 4 extremities,1+ eugenia LE edema with chronic venous statis dermitis SKIN: Warm and dry, no jaundice or rashes noted. NEURO: Patient is AO x 3, Cranial nerves II through XII grossly intact. There is no focal neurologic deficits noted. PSYCHIATRIC: Patient is in normal mood, cooperative, no SI or HI or hallucinations. Objective Labs 08/07/24 05:28 08/07/24 05:18 Labs: Laboratory Results - last 24 hr 08/06/24 08/07/24 08/07/24 11:07 05:18 05:28 WBC 7.6 RBC 3.14 L Hgb 11.5 L Hct 33.4 L MCV 106 H MCH 36.6 H MCHC 34.4 RDW Std Deviation 59.1 H Plt Count 86 L Neut % (Auto) 80 Lymph % (Auto) 4 L [place] % (Auto) 14 H Eos % (Auto) 2 Baso % (Auto) 0 Neut # (Auto) 6.1 Lymph # (Auto) 0.3 L [place] # (Auto) 1.0 H Eos # (Auto) 0.1 Baso # (Auto) 0.0 Immature Gran # (Auto) 0.02 H Absolute Nucleated RBC 0.00 Immature Gran % 0 Nucleated RBC % 0 Sodium 135 L Potassium 5.1 Chloride 101 Carbon Dioxide 20.6 Anion Gap 13 BUN 89 H Creatinine 2.8 H Estim Creat Clear Calc 34.7 L eGFR 24 L BUN/Creatinine Ratio 32 H Glucose 103 Calculated Osmolality 297 H Uric Acid 5.3 Calcium 9.8 Corrected Calcium 10.0 Phosphorus 5.0 Magnesium 1.8 Total Bilirubin 1.5 H AST 33 ALT 40 Alkaline Phosphatase 181 H Total Protein 6.2 Albumin 3.7 Globulin 2.5 Albumin/Globulin Ratio 1.5 Coccidioides IgG Ab Negative Quality Measures Quality Measures none Assessment & Plan Assessment Current Active Medications: Generic Name Dose Route Start Last Admin Trade Name Surya PRN Reason Stop Dose Admin Aspirin 81 mg 08/04/24 10:45 08/07/24 09:19 Aspirin Ec 81 Mg Tabec PO 09/03/24 10:44 81 mg QDAY JM Administration Atorvastatin Calcium 20 mg 08/04/24 21:00 08/06/24 20:24 Atorvastatin Calcium 20 Mg Tablet PO 09/03/24 20:59 20 mg HS JM Administration Protocol Calcitriol 0.5 mcg 08/04/24 09:00 08/07/24 08:11 Calcitriol 0.25 Mcg Capsule PO 09/03/24 08:59 0.5 mcg QDAY JM Administration Cinacalcet 90 mg 08/04/24 09:00 08/07/24 08:12 Cinacalcet Hcl 30 Mg Tablet (Non-Form) PO 09/03/24 08:59 90 mg QDAY JM Administration Clopidogrel Bisulfate 75 mg 08/04/24 10:45 08/07/24 12:35 Clopidogrel Bisulfate 75 Mg Tablet PO 09/03/24 10:44 75 mg QDAY JM Administration Finasteride 5 mg 08/04/24 09:00 08/07/24 08:14 Finasteride 5 Mg Tablet PO 09/03/24 08:59 5 mg QDAY JM Administration Furosemide 40 mg 08/07/24 09:00 08/07/24 08:33 Furosemide Inj 10 Mg/Ml 4ml Vial IVP 09/06/24 08:59 Not Given BID JM Ceftriaxone Sodium/Dextrose 1 gm in 50 mls @ 100 mls/hr 08/04/24 09:00 08/07/24 08:13 Rocephin/D5w 1gm Iv Premix IV 08/11/24 08:59 100 mls/hr QDAY JM Administration Azithromycin 500 mg/ Sodium 250 mls @ 250 mls/hr 08/05/24 21:00 08/06/24 20:24 Chloride IV 08/12/24 20:59 250 mls/hr HS JM Administration Ipratropium [place] 0.5 mg 08/07/24 06:19 08/07/24 07:14 Ipratropium Rt 0.5 Mg/ 2.5 Ml Nebu INH 09/06/24 06:18 0.5 mg Q6HR PRN Administration SHORTNESS OF BREATH Labetalol HCl 200 mg 08/04/24 09:00 08/07/24 08:10 Labetalol 100 Mg Tablet PO 09/03/24 08:59 200 mg QDAY JM Administration Losartan Potassium 25 mg 08/04/24 09:00 08/07/24 08:11 Losartan Potassium 25 Mg Tablet PO 09/03/24 08:59 25 mg QDAY JM Administration Melatonin 6 mg 08/06/24 22:44 08/06/24 23:02 Melatonin 3 Mg Tablet PO 09/06/24 20:59 6 mg HS PRN Administration insomnia Ondansetron HCl 4 mg 08/04/24 03:47 08/07/24 12:38 Ondansetron Inj 2 Mg/Ml Inj 2 Ml IV 09/03/24 03:46 4 mg Q6HR PRN Administration NAUSEA OR VOMITING Protocol Thyroid 30 mg 08/04/24 09:00 08/07/24 09:18 Thyroid 30 Mg Tablet PO 09/03/24 08:59 30 mg QDAY JM Administration Plan This is a 63-year-old male with PMHx of HTN, HLD, CAD s/p PCI 07/18/24, A-fib s/p watchman, thrombocytopenia, CHF, tricuspid valve absent with regurg hypothyroidism, CVA, COPD, cirrhosis, hepatitis C, presenting to ED with complaint of coughing up blood. He is on dual antiplatelet started on aspirin 81 mg once daily and Plavix 75 mg once daily. Patient does have a history of bleeding with dual antiplatelets or any kind of anticoagulation is apparently very sensitive. Patient did have and recent PCI on 07/18/2024 and is less than 1 month since the stent placement. Cardiology consulted for recommendation for dual anti platelet . Acute Hemoptysis CAD, PCI stent 06/2024 and 03/2023 Chronic thrombocytopenea Chronic anemia Cardiology consulted for continuing PLAVIX/ASA therapy. At this time, hemoptysis appears to be resolved, Hgb stable, PLT at baseline. No evidence of severe bleed. High risk for stent clotting given recent PCI stent. Denies chest pain, sob, active bleed. ? Recommended continuing PLAVIX/ASA ? Transfuse if Hgb continues to decline ? Will consider holding anticoag if Hgb drastically declines, below 9 or bleeding uncontrolled. ? Workup for hemoptysis per primary team. -08/07/24 - patient hemoglobin continues to be stable around 11- 12. no acute overnight events . he needs to continue plavix and aspirin for first 30 days , then he can do plavix ever other day for 90 days then he can be switched to Aspirin only. CHF (55 to 60%.) CXR and CT showed severe cardiomegaly. ECHO Findings: Normal LV function with estimated EF of 55 to 60%. LV size appears to be smaller due to the dilated RV.Severe open TR with massive right atrial dilatation which impinges on the left atrium too,Dilated RV with moderate to severe RV systolic dysfunction. Estimated RVSP 55 mmHg,RVSP underestimated because of severe open TR and patient mostly has severe PAH. Etiology unclear,Flat septum in both systole and diastole consistent with right ventricular pressure and volume overload,Dilated IVC with poor inspiration collapse consistent with elevated right atrial pressure. There is small pericardial effusion without tamponade. Mild MR. Mild thickening of the TV. Mild PI. 08/07/2024-Discontinue lasix 40 iv BID . continue losartan , once discharged he can start his oral home lasix. Atrial Fibrillation (s/p Watchman) S/p left Hypothyroidism HTN, HLD Severe tricuspid valve degeneration COPD HR 90, TSH 9.55, free T4 1.06, TG 97, LDL 46, HDL 37 On home 2-3L oxygen PRN for chronic tricuspid degeneration, CHF and COPD Reports no increase in oxygen demand. No obvious source of bleed including GI bleed. Low suspension for PE, HR wnl, no increase in oxygen demand, no signs of DVT on exam Asymptomatic without chest pain or shortness of breath or dizziness. ? Continue LABETALOL 200 mg QD ? Continue LOSARTAN 25 mg q. day ? Continue ATORVASTATIN 20 mg HS ? Continue thyroid 30 mg QDAY ? Consider PFT to r/o PE if hemoptysis persists, tachycardic or dyspnic, avoid contrast CT in setting of CKD. Management of rest of the medical conditions as per primary team Pneumonia Thrombocytopenia Cirrhosis Chronic Kidney Disease (around Stage G3B->4) Hyperparathyroidism ? Cocci IgM negative, pending IgG Case was discussed with attending, Dr. Moreno Khoury MD, PGY-3
--- NOTE | 2024-08-07 20:55 | PC.NURSE ---
Contacted Dr Richter to let her know that the patient called me into the room because he coughed up about a quarter size mucus ball that is mixed with mucus and bright red. The patient also requested to have something to help him break up the stuff in his chest. Cough medication order given. Will continue to monitor.
[2024-08-07] MEDS: guaiFENesin ER 600 MG TABCR PO (21:59)
[2024-08-07] MEDS: MELATONIN 3 MG TABLET 6 MG PO (21:59)
[2024-08-07] MEDS: ATORVASTATIN CALCIUM 20 MG TABLET PO (21:59)
[2024-08-07] MEDS: AZITHROMYCIN INJ 500 MG in SODIUM CHLORIDE 0.9% 250 ML 250 ML 250 MG IV (21:59)
--- NOTE | 2024-08-07 22:58 | PC.NURSE ---
spoke to RT Cristiane that pt was wheezing that you could here from the door. RT stated that she was going to give a breathing tx.
[2024-08-08] VITALS (17 sets, daily range): BP systolic 110–155; BP diastolic 72–88; PULSE 65–141; RESP 19–31; TEMP 36.4–36.9; O2SAT 87–96; BMI 31.8
--- NOTE | 2024-08-08 | XR_ITS ---
Examination: IR fluoroscopically guided left knee joint aspiration with imaging guidance Fluoroscopy AP left knee single view INDICATIONS: Swelling redness and pain involving the knee 5 days. Exam date and time: August 08, 2024 1204 hours Informed consent provided. Technique: A timeout was completed verifying correct patient, procedure, site, positioning. The patient was placed in supine position appropriate for the steroid injection The patient's site was prepped and draped in sterile fashion 5 cc 1% lidocaine administered locally for anesthesia. Sterile drape applied, maximum barrier sterile technique. Utilizing fluoroscopic guidance, 23-gauge needle placed in the knee joint 5 cc turbid yellowish fluid withdrawn The patient was in satisfactory and stable condition on completion of the procedure Attending radiologist was present for the entire procedure Estimated blood loss 0 cc. Impression: Successful fluoroscopically guided left knee joint aspiration with imaging guidance Fluoroscopy 0.1 minute Radiation dose 0.13 milligray 1 spot fluoroscopic AP left knee films .
[2024-08-08] MEDS: LEVALBUTEROL RT 1.25 MG/0.5 ML NEBU INH ×3 (02:13→19:43)
[2024-08-08] MEDS: SODIUM CHLORIDE RT SOL 0.9% 3 ML NEBU INH ×3 (02:13→19:43)
--- NOTE | 2024-08-08 02:14 | EKG_ITS ---
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 : 1960 Requested By: Kim Richter Order Number: [id number] Reading MD: Kim Richter Measurements Intervals [place] Rate: 133 P: [place]: QRS: 131 QRSD: 117 T: -30 QT: 299 QTc: 445 Interpretive Statements ATRIAL FIBRILLATION WITH RAPID VENTRICULAR RESPONSE WITH ABERRANT CONDUCTION OR VENTRICULAR PREMATURE COMPLEXES PATTERN CONSISTENT WITH PULMONARY DISEASE INCOMPLETE RIGHT BUNDLE BRANCH BLOCK POSSIBLE RIGHT VENTRICULAR HYPERTROPHY SEPTAL MYOCARDIAL INFARCTION , OF INDETERMINATE AGE Compared to ECG 08/07/2024 10:32:30 Ventricular premature complex(es) now present Aberrant conduction of supraventricular beat(s) now present Incomplete right bundle-branch block now present Sinus rhythm no longer present First degree AV block no longer present Right-axis deviation no longer present Myocardial infarct finding still present /store/S0/[id number].pdf
--- NOTE | 2024-08-08 02:14 | XR_ITS ---
Examination: AP chest single view TECHNIQUE: AP portable upright chest single view Date and time: August 08, 2024 0232 hours Comparison August 03, 2024 INDICATIONS: Shortness of breath today. FINDINGS: Significant bibasilar pneumonia Mild enlargement cardiac contour with prominent vascular congestion including central vascular engorgement IMPRESSION: Bibasilar pneumonia Mild heart failure
[2024-08-08 02:25] LABS: Lactate (Lactic Acid) 0.7 mMol/L (0.4-2.0)
[2024-08-08 02:29] LABS: Basophils % (Auto) 0 % (0-2.5); Eosinophils # (Auto) 0.2 Thou/mm3 (0.0-0.5); Eosinophils % (Auto) 3 % (0-10); Hematocrit 33.9 % (41.0-53.0); Hemoglobin 11.5 g/dL (13.5-16.0); Immature Granulocytes % (Auto) 1 % (0-0); Immature Granulocytes Auto 0.03 Thou/mm3 (0.00-0.00); Lymphocytes # (Auto) 0.3 Thou/mm3 (1.0-4.8); Lymphocytes % (Auto) 5 % (10-50); Mean Corpuscular HGB Conc 33.9 g/dl (31.0-37.0); Mean Corpuscular Hemoglobin 36.4 pg (25.0-35.0); Mean Corpuscular Volume 107 fL (80-100); Monocytes % (Auto) 15 % (0-12); Neutrophils # (Auto) 4.8 Thou/mm3 (1.8-7.7); Neutrophils % (Auto) 75 % (37-80); Nucleated Red Blood Cell % 0 /100 WBC (0); Platelet Count 96 Thou/mm3 (140-440); RDW Standard Deviation 59.6 fL (35.1-43.9); Red Blood Count 3.16 Miln/mm3 (4.50-5.90); White Blood Count 6.3 Thou/mm3 (3.8-10.6)
--- NOTE | 2024-08-08 02:33 | PD.RESEVENT ---
Documentation for date of: 08/08/24 Event Note Event Note: Rapid Response Room: 273 Time: 2:00 AM Reason for Call: Desaturating to 88% oxygen on NC Patient presentation: Sitting in bed, coughing, agitated, short of breath, AOx3. Complained of anxiety, generalized pain, worsening cough. Assessment: RR called after patient desaturated to 88% on 5 L nasal cannula. At bedside blood pressure 117/82, tachycardia 121, tachypneic 29, afebrile. Sepsis alert was also called. Patient was transitioned to oxy mask at 7 L. Due to history of COPD, saturation goal kept between 88 to 92%. He was saturating at 92% on 7 L oxy mask by the end of the rapid. On physical exam, lungs were clear to auscultation with no wheezing. RT at bedside stated that he had just received breathing treatment approximately 2 hours ago which had resolved the wheezing. Normal S1-S2, tachycardic rate, regular rhythm on CVS exam. No lower extremity edema. No chest pain. Stat EKG showed patient to be in A-fib with rate 133, QTc 445. AHRF secondary to COPD exacerbation versus PE--follow-up on chest x-ray, continue DuoNebs, IV methylprednisone 40 mg. D-dimer ordered to rule out PE. Patient was given IV metoprolol 2.5 mg after EKG showed A-fib with rate of 133. New orders: CBC, CMP, blood cultures, chest x-ray, scheduled DuoNebs, IV metoprolol 2.5 mg, lactic acid, D-dimer, IV methylprednisone 40 mg x 1. Patient was discussed with the attending, Dr. Thompson. Kim Richter, PGY-1
[2024-08-08] MEDS: MethylPREDNISolone SOD SUCC 62.5 MG/ML 2ML VIAL 40 MG IVP (02:39)
[2024-08-08] MEDS: ZOLPIDEM 5 MG TABLET 2.5 MG PO (02:40)
[2024-08-08] MEDS: METOPROLOL TARTRATE INJ 1 MG/ML AMP 5 ML 2.5 MG IVP (02:42)
[2024-08-08 02:53] LABS: D-Dimer 692 ng/mL (<600)
[2024-08-08 03:07] LABS: Alanine Aminotransferase 48 U/L (10-49); Albumin, Serum 3.7 gm/dL (3.4-4.8); Albumin/Globulin Ratio 1.4 (1.2-2.2); Alkaline Phosphatase 191 U/L (46-116); Anion Gap 10 (7-16); Aspartate Amino Transferase 41 U/L (0-34); BUN/Creatinine Ratio 34 Ratio (12-20); Bilirubin,Total 1.3 mg/dL (0.3-1.2); Blood Urea Nitrogen 100 mg/dL (9-23); Calcium 10.2 mg/dL (8.3-10.6); Calcium (Corrected) 10.4 mg/dL (8.5-10.1); Chloride 100 mMol/L (98-107); Creatinine (Component) 2.9 mg/dL (0.6-1.3); Estimated Creatinine Clearance 33.5 mL/min (>60); Globulin 2.7 gm/dL (2.3-3.5); Glucose 108 mg/dL (74-106); Magnesium 2.3 mg/dL (1.6-2.6); Osmolality,Calculated 300 (275-295); Potassium 5.4 mMol/L (3.4-5.1); Sodium 134 mMol/L (136-145); Total Protein 6.4 gm/dL (5.7-8.2); eGFR 23 See Note
--- NOTE | 2024-08-08 05:31 | XR_ITS ---
Examination: Nuclear medicine ventilatory and perfusion scan Date and time: August 08, 2024, 1359 hours INDICATIONS: Coughing up blood chest pain shortness of breath today TECHNIQUE AND FINDINGS: Ventilation scan 44 mCi technetium 99m DTPA aerosol Perfusion study 4.0 mCi technetium 99m MAA administered intravenously Markedly heterogeneous abnormal ventilation No pulmonary perfusion mismatch IMPRESSION: Low probability pulmonary artery emboli
[2024-08-08] MEDS: SOD POLYSTYRENE SULFON SUSP 15 GM/60 ML BTL 30 GM PO ×2 (07:17→21:32)
[2024-08-08] MEDS: DEXTROSE 50%-WATER INJ 50 ML SYRINGE IV ×2 (07:39→15:35)
[2024-08-08] MEDS: INSULIN HUM REGULAR 1 UNIT/0.01 ML (PER UNIT) 5 UNIT IV (07:39)
[2024-08-08] MEDS: CINACALCET HCL 30 MG TABLET (NON-FORM) 90 MG PO (09:14)
[2024-08-08] MEDS: CALCITRIOL 0.25 mCg CAPSULE 0.5 MCG PO (09:14)
--- NOTE | 2024-08-08 09:14 | XR_ITS ---
Examination: Retroperitoneal ultrasound, complete Technique: Multiple high resolution grayscale images of the retroperitoneum obtained, including kidneys and bladder. Exam date and time:August 08, 2024 0935 hours INDICATIONS: Bilateral flank pain beginning one week ago FINDINGS: Right kidney 10.3 cm cortex 2.2 cm 23 mm upper pole cyst 14 mm midpole cyst Left kidney 13.2 cm cortex 1.9 cm Moderate bilateral renal parenchymal scar formation No bladder mass or bladder calculi Bladder prevoid volume 282 cc IMPRESSION: Benign right renal cyst Moderate bilateral renal parenchymal scar formation No hydronephrosis
[2024-08-08] MEDS: PATIROMER CALCIUM 8.4 GM PACKET (NON-FORM) PO ×2 (09:15→15:47)
[2024-08-08] MEDS: cefTRIAXone/D5w 1gm IV premix 1 GM/50 ML BAG IV (09:15)
[2024-08-08] MEDS: LABETALOL 100 MG TABLET 200 MG PO (09:15)
[2024-08-08] MEDS: CLOPIDOGREL BISULFATE 75 MG TABLET PO (09:15)
[2024-08-08] MEDS: FINASTERIDE 5 MG TABLET PO (09:15)
[2024-08-08] MEDS: ENOXAPARIN SOD INJ 40 MG/0.4 ML SYRINGE SC (09:21)
[2024-08-08] MEDS: ASPIRIN EC 81 MG TABEC PO (09:57)
[2024-08-08] MEDS: METOPROLOL TARTRATE INJ 1 MG/ML AMP 5 ML 5 MG IVP (09:58)
[2024-08-08] MEDS: THYROID 30 MG TABLET PO (10:07)
--- NOTE | 2024-08-08 10:08 | ESPR_ITS ---
Documentation for date of: 08/08/24 Subjective Subjective Interval history: Overnight patient noted to experience shortness of breath and tachycardic and EKG again obtained and showed atrial fibrillation with RVR with HR 130s. He was given metoprolol tartrate 2.5 mg IV x1 and another dose of 5 mg IV x1. D-dimer elevated at 700 and V/Q scan ordered. Seen and examined at bedside and patient endorses feeling more short of breath compared to prior and palpitations. Left lower extremity pain remains but has not worsened, pending IR arthrocentesis. Given insulin and dextrose as well as Kayexalate and Veltassa for K 5.4, nephrology consulted given worsening renal function. Exam Vital Signs Temp Pulse Resp BP Pulse Ox O2 Del Method O2 Flow Rate 97.9 F 121 H 23 H 119/88 H 95 BiPAP 5 08/08/24 08:00 08/08/24 09:58 08/08/24 08:00 08/08/24 09:58 08/08/24 08:00 08/08/24 08:00 08/08/24 06:32 FiO2 60 08/08/24 04:36 Narrative Exam General: AOx3, mild distress, able to speak full sentences HEENT: NC/AT, mucous membranes moist, bilateral sclera anicteric Cardiovascular: regular rate and rhythm, S1/S2 present, no murmurs appreciated Pulmonary: clear to auscultation bilaterally, no rales/rhonchi/wheezes Abdominal: soft, non-tender, non-distended, no rebound/guarding, normal bowel sounds present Musculoskeletal: limited ROM of LLE, LLE warmer to touch than RLE Skin: warm and dry, intact, no rashes Neuro: CN II-XII intact, no focal deficits Objective Labs 08/09/24 05:21 08/09/24 05:21 Labs: Laboratory Results - last 24 hr 08/06/24 08/07/24 08/08/24 11:07 05:18 02:16 WBC 6.3 RBC 3.16 L Hgb 11.5 L Hct 33.9 L MCV 107 H MCH 36.4 H MCHC 33.9 RDW Std Deviation 59.6 H Plt Count 96 L Neut % (Auto) 75 Lymph % (Auto) 5 L [place]eman % (Auto) 15 H Eos % (Auto) 3 Baso % (Auto) 0 Neut # (Auto) 4.8 Lymph # (Auto) 0.3 L [place]eman # (Auto) 1.0 H Eos # (Auto) 0.2 Baso # (Auto) 0.0 Immature Gran # (Auto) 0.03 H Absolute Nucleated RBC 0.00 Immature Gran % 1 H Nucleated RBC % 0 D-Dimer 692 H Sodium 134 L Potassium 5.4 H Chloride 100 Carbon Dioxide 24.0 Anion Gap 10 BUN 100 H Creatinine 2.9 H Estim Creat Clear Calc 33.5 L eGFR 23 L BUN/Creatinine Ratio 34 H Glucose 108 H Calculated Osmolality 300 H Lactic Acid 0.7 Uric Acid 5.3 Calcium 10.2 Corrected Calcium 10.4 H Magnesium 2.3 Total Bilirubin 1.3 H AST 41 H ALT 48 Alkaline Phosphatase 191 H Total Protein 6.4 Albumin 3.7 Globulin 2.7 Albumin/Globulin Ratio 1.4 Coccidioides IgG Ab Negative Quality Measures Quality Measures none Assessment & Plan Assessment Current Active Medications: Generic Name Dose Route Start Last Admin Trade Name Freq PRN Reason Stop Dose Admin Aspirin 81 mg 08/04/24 10:45 08/08/24 09:57 Aspirin Ec 81 Mg Tabec PO 09/03/24 10:44 81 mg QDAY JM Administration Atorvastatin Calcium 20 mg 08/04/24 21:00 08/07/24 21:59 Atorvastatin Calcium 20 Mg Tablet PO 09/03/24 20:59 20 mg HS JM Administration Protocol Calcitriol 0.5 mcg 08/04/24 09:00 08/08/24 09:14 Calcitriol 0.25 Mcg Capsule PO 09/03/24 08:59 0.5 mcg QDAY JM Administration Cinacalcet 90 mg 08/04/24 09:00 08/08/24 09:14 Cinacalcet Hcl 30 Mg Tablet (Non-Form) PO 09/03/24 08:59 90 mg QDAY JM Administration Clopidogrel Bisulfate 75 mg 08/04/24 10:45 08/08/24 09:15 Clopidogrel Bisulfate 75 Mg Tablet PO 09/03/24 10:44 75 mg QDAY JM Administration Dextrose 25 ml 08/08/24 05:29 Dextrose 50%-Water Inj 50 Ml Syringe IV 09/07/24 05:28 Q15MIN PRN BG 50-70 responsive npo pt Dextrose 50 ml 08/08/24 05:29 Dextrose 50%-Water Inj 50 Ml Syringe IV 09/07/24 05:28 Q15MIN PRN BG <50 OR BG <70 & pt unresponsive Enoxaparin Sodium 40 mg 08/08/24 09:00 08/08/24 09:21 Enoxaparin Sod Inj 40 Mg/0.4 Ml Syringe SC 08/22/24 08:59 40 mg QDAY JM Administration Finasteride 5 mg 08/04/24 09:00 08/08/24 09:15 Finasteride 5 Mg Tablet PO 09/03/24 08:59 5 mg QDAY JM Administration Glucagon 1 mg 08/08/24 05:29 Glucagon Inj 1 Mg Vial IM Q15MIN PRN BG <70, and no IV access Guaifenesin 600 mg 08/07/24 20:55 08/07/24 21:59 Guaifenesin Er 600 Mg Tabcr PO 09/06/24 20:59 600 mg BID PRN Administration COUGH OR CONGESTION Ceftriaxone Sodium/Dextrose 1 gm in 50 mls @ 100 mls/hr 08/04/24 09:00 08/08/24 09:15 Rocephin/D5w 1gm Iv Premix IV 08/11/24 08:59 100 mls/hr QDAY JM Administration Azithromycin 500 mg/ Sodium 250 mls @ 250 mls/hr 08/05/24 21:00 08/07/24 21:59 Chloride IV 08/12/24 20:59 250 mls/hr HS JM Administration Ipratropium Hay 0.5 mg 08/07/24 06:19 08/07/24 22:53 Ipratropium Rt 0.5 Mg/ 2.5 Ml Nebu INH 09/06/24 06:18 0.5 mg Q6HR PRN Administration SHORTNESS OF BREATH Labetalol HCl 200 mg 08/04/24 09:00 08/08/24 09:15 Labetalol 100 Mg Tablet PO 09/03/24 08:59 200 mg QDAY JM Administration Latanoprost 1 drop 08/07/24 21:00 08/08/24 06:44 Latanoprost Op Marilyn 0.005% 2.5 Ml Btl RIGHT EYE 09/06/24 20:59 Not Given HS JM Levalbuterol HCl 1.25 mg 08/08/24 10:00 Levalbuterol Rt 1.25 Mg/0.5 Ml Nebu INH 09/07/24 09:59 Q6H JM Losartan Potassium 25 mg 08/04/24 09:00 08/08/24 09:18 Losartan Potassium 25 Mg Tablet PO 09/03/24 08:59 Not Given QDAY JM Melatonin 6 mg 08/06/24 22:44 08/07/24 21:59 Melatonin 3 Mg Tablet PO 09/06/24 20:59 6 mg HS PRN Administration insomnia Ondansetron HCl 4 mg 08/04/24 03:47 08/07/24 12:38 Ondansetron Inj 2 Mg/Ml Inj 2 Ml IV 09/03/24 03:46 4 mg Q6HR PRN Administration NAUSEA OR VOMITING Protocol Sodium Chloride 3 ml 08/08/24 02:11 Sodium Chloride Rt Marilyn 0.9% 3 Ml Nebu INH 09/07/24 02:10 PRN PRN SOLN Thyroid 30 mg 08/08/24 09:15 08/08/24 10:07 Thyroid 30 Mg Tablet PO 09/07/24 09:14 30 mg DAILY@0630 [facility] Administration Plan Augustin Rodarte is a 63-year-old male with a past medical history of A-fib status post Watchman device, CAD status post stents (06/2024), CHF, CVA, COPD, cirrhosis, history of HCV, hypothyroidism, hypertension, hyperlipidemia, and glaucoma who presented on 08/04 for acute onset hemoptysis s/p CAD a few weeks ago on aspirin and Plavix. #Hemoptysis likely secondary to pneumonia in the setting of aspirin and Plavix use #CAD s/p stent 06/2024 on aspirin and plavix Acute onset hemoptysis. Patient has also had stents placed couple years ago and was on Plavix at that time and was noted to have complications related to bleeding as well. States he coughed up about 2 tablespoons of blood but denies blood in stool, hematuria, hematemesis, epistaxis but does endorse some bleeding in gums when brushing teeth. Otherwise, hemoglobin stable at 11.9, platelets 83, INR 1.3. ? Cardiology consulted, appreciate recommendations ? Restarted aspirin and Plavix per recommendations given risk of stent thrombosis ? Monitor hemoglobin and other signs of significant bleeding, otherwise continue as above #PE rule-out Atrial fibrillation in setting of hemoptysis and shortness of breath. ? Follow-up V/Q scan (given acute on chronic kidney injury/disease) #Acute on chronic kidney disease (around Stage G3B -> 4), worsening #Hyperkalemia, worsening #Hypercalcemia #Hyperphosphatemia Admitted with Cr 2.3 (baseline 2.0-2.1), BUN 62; possibly volume responsive vs hepatorenal; not on SGLT2 inhibitor Renal US 08/08: benign right renal cyst, moderate bilateral parenchymal scarring, no hydronephrosis ? Nephrology consulted, appreciate recommendations ? Received IV insulin with dextrose as well as Veltassa and Kayexalate ? Monitor renal function daily ? Hold nephrotoxic agents ? Calcitriol ? PCP is Dr. Abraham #Atrial fibrillation (s/p Watchman) History of AF with left atrial appendage occlusion; not currently anticoagulated. Noted to have HR 130s overnight 08/07. 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 Suspect component of dehydration due to overdiuresis to be contributor to tachycardia in addition to acute on chronic kidney disease. ? No current indication for anticoagulation post-Watchman unless additional thromboembolic risk factors present ? Metoprolol succinate 50 mg twice daily ? 1 L NS at 100 cc/h ? Discontinued home labetalol ? K > 4 and Mg > 2 #Left lower extremity pain #Complex effusion, hemarthrosis vs septic joint CT left lower extremity showed large complex knee effusion No fevers, chills, or leukocytosis so septic joint unlikely. Has been on ASA and plavix and previously on eliquis, with known complications with Plavix and suspect hemarthrosis. ? IR-guided joint aspiration ordered ? Physical therapy ordered as pain affecting ambulation #Pneumonia likely secondary to gram-negative organisms as demonstrated on CT chest Sputum culture 08/06: negative Blood culture: 08/08: pending ? 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 Cardiorenal syndrome Given imaging and echo findings of congestion, suspect possible cardiorenal syndrome and was net fluid positive overnight CT showing significant cardiomegaly and dilated IVC; history of CVA, Watchman placement; likely chronic with mild pulmonary congestion Echo 08/06/2024: EF 55-60%, severe open TR with massive right atrial dilatation impinging on left atrium Dilated RV with moderate to severe RV systolic dysfunction, RVSP 55 mmHg (may be underestimated due to severe TR) Flat septum during systole and diastole Dilated IVC with poor inspiration collapse, small pericardial effusion without tamponade ? Lasix DC'd, monitor daily weights, I/Os, sodium-restricted diet ? Aspirin 81 mg daily, atorvastatin 20 mg daily ? CPAP at night #Cirrhosis #Thrombocytopenia Known history; imaging confirms cirrhotic morphology; associated thrombocytopenia; elevated BUN/Cr concerning for hepatorenal physiology Platelets 84; likely multifactorial ? chronic liver disease (cirrhosis), medication effect (ASA/Plavix), possible infection-related ? Monitor LFTs, ammonia, INR, and platelet count #History of COPD ? Duonebs discontinued due to tachycardia/a-fib #History of CVA ? Aspirin, plavix, and statin as above #Hypothyroidism TSH 9.55, free T4 1.06 ? Continue thyroid pill #Hyperparathyroidism ? Cinacalcet 90 mg p.o. daily #Glaucoma ? Latanoprost eye drops Hospital management: Disposition: hemoptysis on ASA and plavix Diet: cardiac Lines: PIV DVT prophylaxis: plavix CODE STATUS: full code ----- Plan discussed with attending physician Dr. Heart and senior resident physician Dr. Sree Carreno MD PGY-1 Internal Medicine Attending Provider Attestation/Addendum I reviewed labs, imaging, EKG, home medications and prior available records. Face to face evaluation was performed by me. I have personally examined the patient and discussed assessment and plan with the IM team. I reviewed the resident note and agree with the plan with exceptions as below. Hemoptysis Extensive right-sided pneumonia Coronary artery disease KIMBERLY on CKD Left knee effusion HFpEF Cardiac cirrhosis Hemoptysis is likely in the setting of pneumonia/pulmonary edema on top of use of dual antiplatelet therapy and thrombocytopenia Continue IV ceftriaxone/azithromycin Continue aspirin and Plavix per cardiology recommendations Continue IV Lasix Status post IR guided arthrocentesis of the left knee Monitor kidney function Avoid nephrotoxins. Renally dosed medications
[2024-08-08 10:31] LABS: Sodium,Urine Random < 15.0 mMol/L (20.0-110.0)
--- NOTE | 2024-08-08 11:17 | PC.SS ---
SS follow up note; Renal functions being monitored. Patient will discharge home when medically cleared.
--- NOTE | 2024-08-08 12:22 | PC.PT ---
Per RN, patient has been on and off of BiPAP and is not stable to work with PT today due to patient is desaturating with movement. Will re-attempt PT eval at another time when patient's O2 is more stable.
[2024-08-08 14:06] LABS: Source,Synovial Fluid KNEE
[2024-08-08 14:07] LABS: Synovial Fluid Appearance Hazy; Synovial Fluid Color Yellow; Synovial Fluid Mononuclear 13 %; Synovial Fluid Polynuclear 87 %; Synovial Fluid RBC 2000 /cmm; Synovial Fluid WBC 10120 /cmm
[2024-08-08 14:13] LABS: Albumin, Serum 3.8 gm/dL (3.4-4.8); Anion Gap 10 (7-16); BUN/Creatinine Ratio 39 Ratio (12-20); Calcium 10.2 mg/dL (8.3-10.6); Calcium (Corrected) 10.4 mg/dL (8.5-10.1); Carbon Dioxide 26.2 mMol/L (20.0-31.0); Chloride 99 mMol/L (98-107); Creatinine (Component) 2.8 mg/dL (0.6-1.3); Estimated Creatinine Clearance 35.5 mL/min (>60); Glucose 154 mg/dL (74-106); Osmolality,Calculated 307 (275-295); Phosphorous 6.1 mg/dL (2.4-5.1); Potassium 5.7 mMol/L (3.4-5.1); Sodium 135 mMol/L (136-145); eGFR 24 See Note
[2024-08-08 14:20] LABS: Blood Urea Nitrogen 108 mg/dL (9-23)
--- NOTE | 2024-08-08 14:20 | PD.RESCONSUL ---
HPI Data of Consult Consult date: 08/08/24 Requesting Physician: Torsten Matias DO Admitting Provider: Sanya Rosenbaum MD Attending Provider: Torsten Matias DO Primary Care Provider: Dorie Abraham MD Consult Narrative Reason for consult: Worsening KIMBERLY on CKD History of present illness: 63-year-old male with PMHx significant for history of HTN, hepatitis C, hyperlipidemia, glaucoma, hypothyroidism, A-fib (s/p Watchman), CVA, COPD, and cirrhosis presented to the ER with the chief complaint of coughing up blood. The patient described sudden onset of hemoptysis, the blood was fresh and red. He also c/o chronic baseline shortness of breath due to COPD (uses oxygen as needed), but no acute worsening. Patient denied chest pain, fever, nausea, vomiting. He reported a stent placement on July 18 without post-procedural complications and last took Plavix and aspirin on night. He has not taken any of his home medications since then. He came to the ER due to concern over new onset of coughing blood. In the ER, vital signs recorded as temp 99.5 F, HR 70 bpm, RR 27, BP 131/89 mmHg. Labs revealed WBC 4.5, hemoglobin 11.6->12 (previously 13.1), platelets 84, INR 1.3, Na 139, K 4.7, Cl 105, BUN 62, creatinine 2.4, glucose 115. CT demonstrated fairly diffuse right lung and left base pneumonia, mild heart failure with significant cardiac enlargement, cirrhosis, and a prominently dilated IVC consistent with heart failure. Patient being treated for pneumonia with mopped assist, continuing aspirin and Plavix due to recent stent. During course of hospitalization, patient noted to have KIMBERLY on CKD, which has progressed. Nephrology consulted for management of worsening KIMBERLY on CKD. Sodium 134, potassium 5.4, bicarb 24.0, BUN 100, creatinine 2.9, EGFR 23. Renal ultrasound showed benign right renal cyst, moderate bilateral parenchymal scarring, urine sodium under 15. Microalbumin creatinine ratio 383. Patient seen and examined at bedside, resting comfortably. Endorses some pain in his knee, denies dysuria, urinary retention/frequency, fever, chills, shortness of breath, chest pain. Will monitor closely. cc:: cc: Torsten Matias DO Review of Systems Review of Systems Systems Reviewed: All systems reviewed, normal except as documented Exam Vital Signs Temp Pulse Resp BP Pulse Ox O2 Del Method O2 Flow Rate 97.9 F 121 H 23 H 119/88 H 95 BiPAP 5 08/08/24 08:00 08/08/24 09:58 08/08/24 08:00 08/08/24 09:58 08/08/24 08:00 08/08/24 08:00 08/08/24 06:32 FiO2 60 08/08/24 04:36 Narrative Exam PE: Gen: Well-developed and well-nourished. HEENT: NCAT, PERRLA, EOMI, MMM, anicteric conjunctivae. CVS: normal S1 and S2. RRR. No M/R/G. Resp: CTA B/L. No rhonchi, rales, crackles or wheezing. Abd: soft, non-tender, non-distended. MSK: Good ROM in BUE & BLE. No rash. Left knee mildly swollen, tender. 1+ bilateral lower extremity edema, with stasis dermatitis. Neuro: CN II-XII grossly intact. Strength 5/5 in BUE & BLE. Alert and oriented x3. Psych: appropriate mood and affect. Results Labs 08/12/24 07:52 08/12/24 07:52 Labs: Short CBC 08/08/24 Range/Units 02:16 WBC 6.3 (3.8-10.6) Thou/mm3 Hgb 11.5 L (13.5-16.0) g/dL Hct 33.9 L (41.0-53.0) % Plt Count 96 L (140-440) Thou/mm3 BMP 08/08/24 02:16 Sodium 134 L Potassium 5.4 H Chloride 100 Carbon Dioxide 24.0 BUN 100 H Creatinine 2.9 H Glucose 108 H Calcium 10.2 Liver Function 08/08/24 Range/Units 02:16 Total Bilirubin 1.3 H (0.3-1.2) mg/dL AST 41 H (0-34) U/L ALT 48 (10-49) U/L Alkaline Phosphatase 191 H (46-116) U/L Albumin 3.7 (3.4-4.8) gm/dL Quality Measures Quality Measures VTE prophylaxis Medications Home Medications and Allergies Home Medications ?Medication ?Instructions ?Recorded ?Confirmed ?Type simvastatin 40 mg tablet 40 mg PO HS ##90 02/11/15 08/08/24 History [id number] 1 cap PO TID 09/29/18 08/08/24 History 12,000-38,000-60,000 unit capsule,delayed rel (Creon) allopurinol 300 mg tablet 300 mg PO HS 01/25/20 08/08/24 History aspirin 81 mg tablet,delayed 81 mg PO QDAY 01/25/20 08/08/24 History release furosemide 40 mg tablet 40 mg PO Q12H 01/25/20 08/08/24 History Held on 08/11/24. Instructions: Resume on 08/25/24. labetalol 200 mg tablet 200 mg PO BID 01/25/20 08/08/24 History Held on 08/11/24. Instructions: Resume on 08/25/24. latanoprost 0.005 % eye drops 1 drp Both eyes HS 01/25/20 08/08/24 History cinacalcet 90 mg tablet 90 mg PO QDAY 04/06/23 08/08/24 History losartan 50 mg tablet 25 mg PO QDAY 04/06/23 08/08/24 History thyroid 30 mg tablet 30 mg PO QDAY 04/06/23 08/08/24 History calcitriol 0.5 mcg capsule 0.5 mcg PO QDAY 07/18/24 08/08/24 History Held on 08/11/24. Instructions: Resume on 08/25/24. triamcinolone acetonide 0.1 % 1 applic topical BID 07/18/24 08/08/24 History topical ointment magnesium carb,citrate,oxide 250 mg PO TUTHSA 08/08/24 08/08/24 History (Magnesium Complex) Allergies Allergy/AdvReac Type Severity Reaction Status Date / Time Penicillins Allergy Mild Rash Verified 11/09/23 13:18 Visit Medications Aspirin (Aspirin Ec 81 Mg Tabec) 81 mg PO QDAY JM Stop: 09/03/24 10:44 Last Admin: 08/08/24 09:57 Dose: 81 mg Atorvastatin Calcium (Atorvastatin Calcium 20 Mg Tablet) 20 mg PO HS JM; Protocol Stop: 09/03/24 20:59 Last Admin: 08/07/24 21:59 Dose: 20 mg Calcitriol (Calcitriol 0.25 Mcg Capsule) 0.5 mcg PO QDAY JM Stop: 09/03/24 08:59 Last Admin: 08/08/24 09:14 Dose: 0.5 mcg Cinacalcet (Cinacalcet Hcl 30 Mg Tablet (Non-Form)) 90 mg PO QDAY JM Stop: 09/03/24 08:59 Last Admin: 08/08/24 09:14 Dose: 90 mg Clopidogrel Bisulfate (Clopidogrel Bisulfate 75 Mg Tablet) 75 mg PO QDAY [facility] Stop: 09/03/24 10:44 Last Admin: 08/08/24 09:15 Dose: 75 mg Dextrose (Dextrose 50%-Water Inj 50 Ml Syringe) 25 ml IV Q15MIN PRN PRN Reason: BG 50-70 responsive npo pt Stop: 09/07/24 05:28 Dextrose (Dextrose 50%-Water Inj 50 Ml Syringe) 50 ml IV Q15MIN PRN PRN Reason: BG <50 OR BG <70 & pt unresponsive Stop: 09/07/24 05:28 Enoxaparin Sodium (Enoxaparin Sod Inj 40 Mg/0.4 Ml Syringe) 40 mg SC QDAY [facility] Stop: 08/22/24 08:59 Last Admin: 08/08/24 09:21 Dose: 40 mg Finasteride (Finasteride 5 Mg Tablet) 5 mg PO QDAY [facility] Stop: 09/03/24 08:59 Last Admin: 08/08/24 09:15 Dose: 5 mg Glucagon (Glucagon Inj 1 Mg Vial) 1 mg IM Q15MIN PRN PRN Reason: BG <70, and no IV access Guaifenesin (Guaifenesin Er 600 Mg Tabcr) 600 mg PO BID PRN PRN Reason: COUGH OR CONGESTION Stop: 09/06/24 20:59 Last Admin: 08/07/24 21:59 Dose: 600 mg Ceftriaxone Sodium/Dextrose (Rocephin/D5w 1gm Iv Premix) 1 gm in 50 mls @ 100 mls/hr IV QDAY JM Stop: 08/11/24 08:59 Last Admin: 08/08/24 09:15 Dose: 100 mls/hr Azithromycin 500 mg/ Sodium (Chloride) 250 mls @ 250 mls/hr IV HS [facility] Stop: 08/12/24 20:59 Last Admin: 08/07/24 21:59 Dose: 250 mls/hr Sodium Chloride (Ns) 1,000 mls @ 100 mls/hr IV .Q10H ONE Stop: 08/08/24 23:26 Ipratropium [place] (Ipratropium Rt 0.5 Mg/ 2.5 Ml Nebu) 0.5 mg INH Q6HR PRN PRN Reason: SHORTNESS OF BREATH Stop: 09/06/24 06:18 Last Admin: 08/07/24 22:53 Dose: 0.5 mg Latanoprost (Latanoprost Op Marilyn 0.005% 2.5 Ml Btl) 1 drop RIGHT EYE HS [facility] Stop: 09/06/24 20:59 Last Admin: 08/08/24 06:44 Dose: Not Given Levalbuterol HCl (Levalbuterol Rt 1.25 Mg/0.5 Ml Nebu) 1.25 mg INH Q6HRRT [facility] Stop: 09/07/24 12:59 Losartan Potassium (Losartan Potassium 25 Mg Tablet) 25 mg PO QDAY [facility] Stop: 09/03/24 08:59 Last Admin: 08/08/24 09:18 Dose: Not Given Melatonin (Melatonin 3 Mg Tablet) 6 mg PO HS PRN PRN Reason: insomnia Stop: 09/06/24 20:59 Last Admin: 08/07/24 21:59 Dose: 6 mg Metoprolol Succinate (Metoprolol Succinate Xl 25 Mg Tabcr) 50 mg PO BID [facility] Stop: 09/07/24 20:59 Ondansetron HCl (Ondansetron Inj 2 Mg/Ml Inj 2 Ml) 4 mg IV Q6HR PRN; Protocol PRN Reason: NAUSEA OR VOMITING Stop: 09/03/24 03:46 Last Admin: 08/07/24 12:38 Dose: 4 mg Sodium Chloride (Sodium Chloride Rt Marilyn 0.9% 3 Ml Nebu) 3 ml INH PRN PRN PRN Reason: SOLN Stop: 09/07/24 02:10 Thyroid (Thyroid 30 Mg Tablet) 30 mg PO DAILY@0630 [facility] Stop: 09/07/24 09:14 Last Admin: 08/08/24 10:07 Dose: 30 mg Discontinued Medications Albuterol/Ipratropium (Albuterol/Ipratropium (Duoneb) Rt Marilyn 3 Ml Nebu) 3 ml INH Q4HRRT [facility] Stop: 09/07/24 02:59 Dextrose (Dextrose 50%-Water Inj 50 Ml Syringe) 50 ml IV X1 ONE Stop: 08/08/24 07:27 Last Admin: 08/08/24 07:39 Dose: 50 ml Furosemide (Furosemide 40 Mg Tablet) 40 mg PO QDAY [facility] Stop: 09/03/24 08:59 Last Admin: 08/05/24 09:55 Dose: 40 mg Furosemide (Furosemide Inj 10 Mg/Ml 4ml Vial) 40 mg IVP QDAY JM Stop: 09/05/24 08:59 Last Admin: 08/07/24 08:14 Dose: 40 mg Furosemide (Furosemide Inj 10 Mg/Ml Vial 2 Ml) 20 mg IV X1 ONE Stop: 08/06/24 08:43 Last Admin: 08/06/24 08:56 Dose: Not Given Furosemide (Furosemide Inj 10 Mg/Ml 4ml Vial) 40 mg IVP BID JM Stop: 09/06/24 08:59 Last Admin: 08/07/24 08:33 Dose: Not Given Sodium Chloride (Ns) 1,000 mls @ 999 mls/hr IV .Q1H1M ONE Stop: 08/03/24 20:32 Last Infusion: 08/03/24 20:55 Dose: Infused Ceftriaxone Sodium/Dextrose (Rocephin/D5w 1gm Iv Premix) 1 gm in 50 mls @ 100 mls/hr IV X1 ONE Stop: 08/03/24 23:29 Last Infusion: 08/03/24 23:45 Dose: Infused Azithromycin 500 mg/ Sodium (Chloride) 250 mls @ 250 mls/hr IV X1 ONE Stop: 08/04/24 03:29 Last Infusion: 08/04/24 04:00 Dose: Infused Azithromycin 500 mg/ Sodium (Chloride) 250 mls @ 250 mls/hr IV X1 ONE Stop: 08/04/24 21:59 Last Infusion: 08/04/24 21:24 Dose: Infused Magnesium Sulfate (Magnesium Sulfate Ivpb) 4 gm in 50 mls @ 12.5 mls/hr IV X1 ONE Stop: 08/07/24 12:23 Last Admin: 08/07/24 09:18 Dose: 12.5 mls/hr Insulin Human Regular (Insulin Hum Regular 1 Unit/0.01 Ml (Per Unit)) 5 unit IV X1 ONE Stop: 08/08/24 05:30 Last Admin: 08/08/24 07:39 Dose: 5 unit Ipratropium [place] (Ipratropium Rt 0.5 Mg/ 2.5 Ml Nebu) 0.5 mg INH X1 ONE Stop: 08/06/24 23:59 Last Admin: 08/07/24 00:43 Dose: 0.5 mg Labetalol HCl (Labetalol 100 Mg Tablet) 200 mg PO QDAY JM Stop: 09/03/24 08:59 Last Admin: 08/08/24 09:15 Dose: 200 mg Latanoprost (Latanoprost Op Marilyn 0.005% 2.5 Ml Btl) 0 drop RIGHT EYE X1 ONE Stop: 08/07/24 12:01 Last Admin: 08/07/24 16:25 Dose: Not Given Levalbuterol HCl (Levalbuterol Rt 1.25 Mg/0.5 Ml Nebu) 1.25 mg INH X1 ONE Stop: 08/08/24 02:05 Last Admin: 08/08/24 02:13 Dose: 1.25 mg Levalbuterol HCl (Levalbuterol Rt 1.25 Mg/0.5 Ml Nebu) 1.25 mg INH Q8HRRT [facility] Stop: 09/07/24 02:14 Levalbuterol HCl (Levalbuterol Rt 1.25 Mg/0.5 Ml Nebu) 1.25 mg INH Q4H [facility] Stop: 09/07/24 02:14 Last Admin: 08/08/24 06:29 Dose: 1.25 mg Levalbuterol HCl (Levalbuterol Rt 1.25 Mg/0.5 Ml Nebu) 1.25 mg INH Q6H [facility] Stop: 09/07/24 09:59 Methylprednisolone Sodium Succinate (Methylprednisolone Sod Succ 62.5 Mg/Ml 2ml Vial) 40 mg IVP X1 ONE Stop: 08/08/24 02:11 Last Admin: 08/08/24 02:39 Dose: 40 mg Metoprolol Tartrate (Metoprolol Tartrate Inj 1 Mg/Ml Amp 5 Ml) 2.5 mg IVP X1 ONE Stop: 08/07/24 02:24 Last Admin: 08/07/24 02:39 Dose: 2.5 mg Metoprolol Tartrate (Metoprolol Tartrate Inj 1 Mg/Ml Amp 5 Ml) 2.5 mg IVP X1 ONE Stop: 08/07/24 06:00 Last Admin: 08/07/24 06:12 Dose: 2.5 mg Metoprolol Tartrate (Metoprolol Tartrate Inj 1 Mg/Ml Amp 5 Ml) 5 mg IVP X1 ONE Stop: 08/08/24 02:13 Metoprolol Tartrate (Metoprolol Tartrate Inj 1 Mg/Ml Amp 5 Ml) 2.5 mg IVP X1 ONE Stop: 08/08/24 02:25 Last Admin: 08/08/24 02:42 Dose: 2.5 mg Metoprolol Tartrate (Metoprolol Tartrate Inj 1 Mg/Ml Amp 5 Ml) 5 mg IVP X1 ONE Stop: 08/08/24 09:34 Last Admin: 08/08/24 09:58 Dose: 5 mg Patiromer (Patiromer Calcium 8.4 Gm Packet (Non-Form)) 8.4 gm PO X1 ONE Stop: 08/08/24 08:28 Last Admin: 08/08/24 09:15 Dose: 8.4 gm Sodium Chloride (Sodium Chloride Rt 10% 15 Ml Nebu) 5 ml INH X1 ONE Stop: 08/06/24 08:36 Last Admin: 08/06/24 11:23 Dose: Not Given Sodium Chloride (Sodium Chloride Rt Marilyn 0.9% 3 Ml Nebu) 3 ml INH PRN PRN PRN Reason: SOLN Stop: 09/07/24 02:03 Last Admin: 08/08/24 06:29 Dose: 3 ml Sodium Polystyrene Sulfonate (Sod Polystyrene Sulfon Susp 15 Gm/60 Ml Btl) 30 gm PO X1 ONE Stop: 08/08/24 05:30 Last Admin: 08/08/24 07:17 Dose: 30 gm Thyroid (Thyroid 30 Mg Tablet) 30 mg PO QDAY JM Stop: 09/03/24 08:59 Last Admin: 08/08/24 10:07 Dose: Not Given Zolpidem Tartrate (Zolpidem 5 Mg Tablet) 5 mg PO X1 ONE Stop: 08/04/24 03:48 Last Admin: 08/04/24 04:01 Dose: 5 mg Zolpidem Tartrate (Zolpidem 5 Mg Tablet) 2.5 mg PO HS ONE Stop: 08/08/24 02:23 Last Admin: 08/08/24 02:40 Dose: 2.5 mg Assessment & Plan Plan Augustin Rodarte is a 63-year-old male with a past medical history of A-fib status post Watchman device, CAD status post stents (06/2024), CHF, CVA, COPD, cirrhosis, history of HCV, hypothyroidism, hypertension, hyperlipidemia, and glaucoma who presented on 08/04 for acute onset hemoptysis s/p CAD a few weeks ago on aspirin and Plavix. #Chronic kidney disease (around Stage G3B -> 4), worsening Admitted with Cr 2.3 (baseline 2.0-2.1), BUN 62; possibly volume responsive vs hepatorenal; not on SGLT2 inhibitor. Kidney function has continued to worsen Renal US 08/08: benign right renal cyst, moderate bilateral parenchymal scarring, no hydronephrosis. Urine sodium 115, urine albumin creatinine ratio 383. - Monitor renal function daily - Hold nephrotoxic agents - Calcitriol - Strict I's and O's #Hemoptysis likely secondary to pneumonia in the setting of aspirin and Plavix use #CAD s/p stent 06/2024 on aspirin and plavix #Atrial fibrillation (s/p Watchman) #Left lower extremity pain #Complex effusion, hemarthrosis vs septic joint #Pneumonia likely secondary to gram-negative organisms as demonstrated on CT chest #History of CHF #? Cardiorenal syndrome #Thrombocytopenia #Cirrhosis #Hypothyroidism #Hyperparathyroidism #Glaucoma Management as per the primary team. Diet: cardiac Lines: PIV DVT prophylaxis: plavix CODE STATUS: full code Thank you for allowing us precipitate in the care of this patient. Plan of care discussed with attending Dr. Abraham. Augustin Ramos MD PGY?1 Attending Provider Attestation/Addendum Patient seen and examined with resident physician Dr. Jacobs. Note reviewed, agree with findings and recommendations. patient currently seen in telemetry. Worsened to creatinine. Hold diuretics. Continue with gentle IV fluids. Dr. Serrato will be covering for me. Thank you Dr. Matias for allowing me to participate in the care of Mr. Rodarte
--- NOTE | 2024-08-08 14:52 | ESPR_ITS ---
<Statement entered by Niall Mayer MD - 08/10/24 07:55> I personally examined evaluated the patient in the telemetry floor patient remains renal azotemia dehydration requiring careful hydration monitor renal function no further bleeding episodes will continue the Plavix for now and monitor the patient for any cardiac symptoms. Agree with the treatment plan recommendation as documented with PGY 3 Documentation for date of: 08/08/24 Subjective Subjective Interval history: patient was examined bedside this afternoon ,he had rapid respone at night for hypoxia .started him on Metoprolol 50 BID and 1L of NS @ 100 ml/hr , pending v/q scan . Discontinued his home labatelol Exam Vital Signs Temp Pulse Resp BP Pulse Ox O2 Del Method O2 Flow Rate 97.9 F 121 H 23 H 119/88 H 95 BiPAP 5 08/08/24 08:00 08/08/24 09:58 08/08/24 08:00 08/08/24 09:58 08/08/24 08:00 08/08/24 08:00 08/08/24 06:32 FiO2 60 08/08/24 04:36 Narrative Exam GENERAL: Comfortable adult seen resting comfortably in hospital bed, no acute distress, on 6L of O2 via NC HEENT: Normocephalic, atraumatic. Pupils are equal and reactive. Oral mucosa is moist. NECK: Supple, nontender, no JVD CHEST: Symmetrical, atraumatic and with equal expansion ,Nontender on palpation CARDIOVASCULAR: Heart regular rhythm & rate. S1/S2. no murmur or gallop rub or extra beats. LUNGS: Clear to auscultation bilaterally with symmetrical chest rise. No laboring tachypnea or wheezing. No intercostal subcostal retraction. No rales and no rhonchi. ABDOMEN: Soft, flat, nontender to palpation, no guarding or rebound tenderness. Active and normal bowel sounds. EXTREMITIES:Moves all 4 extremities,1+ eugenia LE edema with chronic venous statis dermitis SKIN: Warm and dry, no jaundice or rashes noted. NEURO: Patient is AO x 3, Cranial nerves II through XII grossly intact. There is no focal neurologic deficits noted. PSYCHIATRIC: Patient is in normal mood, cooperative, no SI or HI or hallucinations. Objective Labs 08/08/24 02:16 08/08/24 13:45 Labs: Laboratory Results - last 24 hr 08/08/24 08/08/24 08/08/24 02:16 10:03 12:51 WBC 6.3 RBC 3.16 L Hgb 11.5 L Hct 33.9 L MCV 107 H MCH 36.4 H MCHC 33.9 RDW Std Deviation 59.6 H Plt Count 96 L Neut % (Auto) 75 Lymph % (Auto) 5 L [facility] % (Auto) 15 H Eos % (Auto) 3 Baso % (Auto) 0 Neut # (Auto) 4.8 Lymph # (Auto) 0.3 L [facility] # (Auto) 1.0 H Eos # (Auto) 0.2 Baso # (Auto) 0.0 Immature Gran # (Auto) 0.03 H Absolute Nucleated RBC 0.00 Immature Gran % 1 H Nucleated RBC % 0 D-Dimer 692 H Sodium 134 L Potassium 5.4 H Chloride 100 Carbon Dioxide 24.0 Anion Gap 10 BUN 100 H Creatinine 2.9 H Estim Creat Clear Calc 33.5 L eGFR 23 L BUN/Creatinine Ratio 34 H Glucose 108 H Calculated Osmolality 300 H Lactic Acid 0.7 Calcium 10.2 Corrected Calcium 10.4 H Phosphorus Magnesium 2.3 Total Bilirubin 1.3 H AST 41 H ALT 48 Alkaline Phosphatase 191 H Total Protein 6.4 Albumin 3.7 Globulin 2.7 Albumin/Globulin Ratio 1.4 Ur Random Sodium < 15.0 L Synovial Source KNEE Synovial Color Yellow Synovial Appearance Hazy Synovial WBC 63006 Synovial RBC 2000 Synov Polynuclear WBCs 87 Synov Mononuclear WBCs 13 08/08/24 13:45 WBC RBC Hgb Hct MCV MCH MCHC RDW Std Deviation Plt Count Neut % (Auto) Lymph % (Auto) [facility] % (Auto) Eos % (Auto) Baso % (Auto) Neut # (Auto) Lymph # (Auto) [facility] # (Auto) Eos # (Auto) Baso # (Auto) Immature Gran # (Auto) Absolute Nucleated RBC Immature Gran % Nucleated RBC % D-Dimer Sodium 135 L Potassium 5.7 H Chloride 99 Carbon Dioxide 26.2 Anion Gap 10 BUN 108 H* Creatinine 2.8 H Estim Creat Clear Calc 35.5 L eGFR 24 L BUN/Creatinine Ratio 39 H Glucose 154 H Calculated Osmolality 307 H Lactic Acid Calcium 10.2 Corrected Calcium 10.4 H Phosphorus 6.1 H Magnesium Total Bilirubin AST ALT Alkaline Phosphatase Total Protein Albumin 3.8 Globulin Albumin/Globulin Ratio Ur Random Sodium Synovial Source Synovial Color Synovial Appearance Synovial WBC Synovial RBC Synov Polynuclear WBCs Synov Mononuclear WBCs Quality Measures Quality Measures VTE prophylaxis Assessment & Plan Assessment Current Active Medications: Generic Name Dose Route Start Last Admin Trade Name Freq PRN Reason Stop Dose Admin Aspirin 81 mg 08/04/24 10:45 08/08/24 09:57 Aspirin Ec 81 Mg Tabec PO 09/03/24 10:44 81 mg QDAY JM Administration Atorvastatin Calcium 20 mg 08/04/24 21:00 08/07/24 21:59 Atorvastatin Calcium 20 Mg Tablet PO 09/03/24 20:59 20 mg HS JM Administration Protocol Calcitriol 0.5 mcg 08/04/24 09:00 08/08/24 09:14 Calcitriol 0.25 Mcg Capsule PO 09/03/24 08:59 0.5 mcg QDAY JM Administration Cinacalcet 90 mg 08/04/24 09:00 08/08/24 09:14 Cinacalcet Hcl 30 Mg Tablet (Non-Form) PO 09/03/24 08:59 90 mg QDAY JM Administration Clopidogrel Bisulfate 75 mg 08/04/24 10:45 08/08/24 09:15 Clopidogrel Bisulfate 75 Mg Tablet PO 09/03/24 10:44 75 mg QDAY JM Administration Dextrose 25 ml 08/08/24 05:29 Dextrose 50%-Water Inj 50 Ml Syringe IV 09/07/24 05:28 Q15MIN PRN BG 50-70 responsive npo pt Dextrose 50 ml 08/08/24 05:29 Dextrose 50%-Water Inj 50 Ml Syringe IV 09/07/24 05:28 Q15MIN PRN BG <50 OR BG <70 & pt unresponsive Enoxaparin Sodium 40 mg 08/08/24 09:00 08/08/24 09:21 Enoxaparin Sod Inj 40 Mg/0.4 Ml Syringe SC 08/22/24 08:59 40 mg QDAY JM Administration Finasteride 5 mg 08/04/24 09:00 08/08/24 09:15 Finasteride 5 Mg Tablet PO 09/03/24 08:59 5 mg QDAY JM Administration Glucagon 1 mg 08/08/24 05:29 Glucagon Inj 1 Mg Vial IM Q15MIN PRN BG <70, and no IV access Guaifenesin 600 mg 08/07/24 20:55 08/07/24 21:59 Guaifenesin Er 600 Mg Tabcr PO 09/06/24 20:59 600 mg BID PRN Administration COUGH OR CONGESTION Ceftriaxone Sodium/Dextrose 1 gm in 50 mls @ 100 mls/hr 08/04/24 09:00 08/08/24 09:15 Rocephin/D5w 1gm Iv Premix IV 08/11/24 08:59 100 mls/hr QDAY JM Administration Azithromycin 500 mg/ Sodium 250 mls @ 250 mls/hr 08/05/24 21:00 08/07/24 21:59 Chloride IV 08/12/24 20:59 250 mls/hr HS MJ Administration Sodium Chloride 1,000 mls @ 100 mls/hr 08/08/24 13:27 Ns IV 08/08/24 23:26 .Q10H ONE Ipratropium [place] 0.5 mg 08/07/24 06:19 08/07/24 22:53 Ipratropium Rt 0.5 Mg/ 2.5 Ml Nebu INH 09/06/24 06:18 0.5 mg Q6HR PRN Administration SHORTNESS OF BREATH Latanoprost 1 drop 08/07/24 21:00 08/08/24 06:44 Latanoprost Op Marilyn 0.005% 2.5 Ml Btl RIGHT EYE 09/06/24 20:59 Not Given HS JM Levalbuterol HCl 1.25 mg 08/08/24 13:00 08/08/24 14:49 Levalbuterol Rt 1.25 Mg/0.5 Ml Nebu INH 09/07/24 12:59 Not Given Q6HRRT JM Losartan Potassium 25 mg 08/04/24 09:00 08/08/24 09:18 Losartan Potassium 25 Mg Tablet PO 09/03/24 08:59 Not Given QDAY JM Melatonin 6 mg 08/06/24 22:44 08/07/24 21:59 Melatonin 3 Mg Tablet PO 09/06/24 20:59 6 mg HS PRN Administration insomnia Metoprolol Succinate 50 mg 08/08/24 21:00 Metoprolol Succinate Xl 25 Mg Tabcr PO 09/07/24 20:59 BID JM Ondansetron HCl 4 mg 08/04/24 03:47 08/07/24 12:38 Ondansetron Inj 2 Mg/Ml Inj 2 Ml IV 09/03/24 03:46 4 mg Q6HR PRN Administration NAUSEA OR VOMITING Protocol Sodium Chloride 3 ml 08/08/24 02:11 Sodium Chloride Rt Marilyn 0.9% 3 Ml Nebu INH 09/07/24 02:10 PRN PRN SOLN Thyroid 30 mg 08/08/24 09:15 08/08/24 10:07 Thyroid 30 Mg Tablet PO 09/07/24 09:14 30 mg DAILY@0630 JM Administration Plan This is a 63-year-old male with PMHx of HTN, HLD, CAD s/p PCI 07/18/24, A-fib s/p watchman, thrombocytopenia, CHF, tricuspid valve absent with regurg hypothyroidism, CVA, COPD, cirrhosis, hepatitis C, presenting to ED with complaint of coughing up blood. He is on dual antiplatelet started on aspirin 81 mg once daily and Plavix 75 mg once daily. Patient does have a history of bleeding with dual antiplatelets or any kind of anticoagulation is apparently very sensitive. Patient did have and recent PCI on 07/18/2024 and is less than 1 month since the stent placement. Cardiology consulted for recommendation for dual anti platelet . Acute Hemoptysis CAD, PCI stent 06/2024 and 03/2023 Chronic thrombocytopenea Chronic anemia Cardiology consulted for continuing PLAVIX/ASA therapy. At this time, hemoptysis appears to be resolved, Hgb stable, PLT at baseline. No evidence of severe bleed. High risk for stent clotting given recent PCI stent. Denies chest pain, sob, active bleed. ? Recommended continuing PLAVIX/ASA ? Transfuse if Hgb continues to decline ? Will consider holding anticoag if Hgb drastically declines, below 9 or bleeding uncontrolled. ? Workup for hemoptysis per primary team. -08/07/24 - patient hemoglobin continues to be stable around 11- 12. no acute overnight events . he needs to continue plavix and aspirin for first 30 days , then he can do plavix ever other day for 90 days then he can be switched to Aspirin only. -08/08/2024: his hemoglobin today is 11.5, discontinued home labetalol and started on metoprolol and 1L of fluids@100 ml/hr , his tachycardia could be secondary to his dehydration . he had V/Q scan today pending results. he needs to continue plavix and aspirin for first 30 days , then he can do plavix ever other day for 90 days then he can be switched to Aspirin only. CHF (55 to 60%.) CXR and CT showed severe cardiomegaly. ECHO Findings: Normal LV function with estimated EF of 55 to 60%. LV size appears to be smaller due to the dilated RV.Severe open TR with massive right atrial dilatation which impinges on the left atrium too,Dilated RV with moderate to severe RV systolic dysfunction. Estimated RVSP 55 mmHg,RVSP underestimated because of severe open TR and patient mostly has severe PAH. Etiology unclear,Flat septum in both systole and diastole consistent with right ventricular pressure and volume overload,Dilated IVC with poor inspiration collapse consistent with elevated right atrial pressure. There is small pericardial effusion without tamponade. Mild MR. Mild thickening of the TV. Mild PI. 08/07/2024-Discontinue lasix 40 iv BID . continue losartan , once discharged he can start his oral home lasix. 08/08/2024: discontinue lasix and labetalol and started on metoprolol. Atrial Fibrillation (s/p Watchman) S/p left Hypothyroidism HTN, HLD Severe tricuspid valve degeneration COPD HR 90, TSH 9.55, free T4 1.06, TG 97, LDL 46, HDL 37 On home 2-3L oxygen PRN for chronic tricuspid degeneration, CHF and COPD Reports no increase in oxygen demand. No obvious source of bleed including GI bleed. Low suspension for PE, HR wnl, no increase in oxygen demand, no signs of DVT on exam Asymptomatic without chest pain or shortness of breath or dizziness. ? Continue LABETALOL 200 mg QD(discontinued ) ? Continue LOSARTAN 25 mg q. day ? Continue ATORVASTATIN 20 mg HS ? Continue thyroid 30 mg QDAY Management of rest of the medical conditions as per primary team Pneumonia Thrombocytopenia Cirrhosis Chronic Kidney Disease (around Stage G3B->4) Hyperparathyroidism Case was discussed with attending, Dr. Moreno Khoury MD, PGY-3
[2024-08-08] MEDS: INSULIN HUM REGULAR 1 UNIT/0.01 ML (PER UNIT) 10 UNIT IV (15:35)
[2024-08-08] MEDS: SODIUM CHLORIDE 0.9% 1000 ML 1,000 ML 100 ML IV (15:47)
[2024-08-08 20:23] LABS: Anion Gap 8 (7-16); BUN/Creatinine Ratio 37 Ratio (12-20); Blood Urea Nitrogen 97 mg/dL (9-23); Calcium 10.6 mg/dL (8.3-10.6); Carbon Dioxide 25.5 mMol/L (20.0-31.0); Chloride 98 mMol/L (98-107); Creatinine (Component) 2.6 mg/dL (0.6-1.3); Estimated Creatinine Clearance 38.2 mL/min (>60); Glucose 170 mg/dL (74-106); Osmolality,Calculated 296 (275-295); Potassium 5.3 mMol/L (3.4-5.1); Sodium 131 mMol/L (136-145); eGFR 27 See Note
[2024-08-08] MEDS: LATANOPROST OP SOL 0.005% 2.5 ML BTL 1 DROP RIGHT EYE (21:00)
[2024-08-08] MEDS: METOPROLOL SUCCINATE XL 25 MG TABCR 50 MG PO (21:33)
[2024-08-08] MEDS: AZITHROMYCIN INJ 500 MG in SODIUM CHLORIDE 0.9% 250 ML 250 ML 250 MG IV (21:33)
[2024-08-08] MEDS: ATORVASTATIN CALCIUM 20 MG TABLET PO (21:33)
--- NOTE | 2024-08-08 23:38 | PC.NURSE ---
MD Richter made aware that patient has not had a BM in 4 days.
[2024-08-09] VITALS (16 sets, daily range): BP systolic 109–138; BP diastolic 73–93; PULSE 62–101; RESP 12–31; TEMP 36.2–36.8; O2SAT 91–99; BMI 32.1
[2024-08-09] MEDS: SENNA TABLET 1 TAB PO ×2 (00:01→09:12)
[2024-08-09] MEDS: THYROID 30 MG TABLET PO (06:08)
[2024-08-09 06:17] LABS: Basophils % (Auto) 0 % (0-2.5); Eosinophils % (Auto) 0 % (0-10); Hemoglobin 10.8 g/dL (13.5-16.0); Immature Granulocytes % (Auto) 1 % (0-0); Immature Granulocytes Auto 0.03 Thou/mm3 (0.00-0.00); Lymphocytes # (Auto) 0.2 Thou/mm3 (1.0-4.8); Lymphocytes % (Auto) 3 % (10-50); Mean Corpuscular HGB Conc 33.8 g/dl (31.0-37.0); Mean Corpuscular Hemoglobin 36.2 pg (25.0-35.0); Mean Corpuscular Volume 107 fL (80-100); Monocytes # (Auto) 0.6 Thou/mm3 (0.0-0.8); Monocytes % (Auto) 11 % (0-12); Neutrophils # (Auto) 4.5 Thou/mm3 (1.8-7.7); Neutrophils % (Auto) 86 % (37-80); Nucleated Red Blood Cell % 0 /100 WBC (0); Platelet Count 108 Thou/mm3 (140-440); RDW Standard Deviation 57.8 fL (35.1-43.9); Red Blood Count 2.98 Miln/mm3 (4.50-5.90); White Blood Count 5.2 Thou/mm3 (3.8-10.6)
[2024-08-09 06:38] LABS: Alanine Aminotransferase 55 U/L (10-49); Albumin, Serum 3.4 gm/dL (3.4-4.8); Albumin/Globulin Ratio 1.4 (1.2-2.2); Alkaline Phosphatase 179 U/L (46-116); Anion Gap 12 (7-16); Aspartate Amino Transferase 49 U/L (0-34); BUN/Creatinine Ratio 45 Ratio (12-20); Bilirubin,Total 0.7 mg/dL (0.3-1.2); Calcium 10.2 mg/dL (8.3-10.6); Calcium (Corrected) 10.7 mg/dL (8.5-10.1); Carbon Dioxide 25.4 mMol/L (20.0-31.0); Chloride 101 mMol/L (98-107); Creatinine (Component) 2.6 mg/dL (0.6-1.3); Estimated Creatinine Clearance 38.4 mL/min (>60); Globulin 2.5 gm/dL (2.3-3.5); Glucose 137 mg/dL (74-106); Magnesium 2.2 mg/dL (1.6-2.6); Osmolality,Calculated 314 (275-295); Phosphorous 6.2 mg/dL (2.4-5.1); Potassium 5.1 mMol/L (3.4-5.1); Sodium 138 mMol/L (136-145); Total Protein 5.9 gm/dL (5.7-8.2); eGFR 27 See Note
[2024-08-09 06:50] LABS: Blood Urea Nitrogen 117 mg/dL (9-23)
[2024-08-09] MEDS: LEVALBUTEROL RT 1.25 MG/0.5 ML NEBU INH ×3 (06:58→18:20)
[2024-08-09] MEDS: SODIUM CHLORIDE RT SOL 0.9% 3 ML NEBU INH ×2 (06:59→13:10)
[2024-08-09] MEDS: ENOXAPARIN SOD INJ 40 MG/0.4 ML SYRINGE SC (09:11)
[2024-08-09] MEDS: cefTRIAXone/D5w 1gm IV premix 1 GM/50 ML BAG IV (09:11)
[2024-08-09] MEDS: METOPROLOL SUCCINATE XL 25 MG TABCR 50 MG PO ×2 (09:11→21:05)
[2024-08-09] MEDS: SODIUM CHLORIDE 0.9% 1000 ML 1,000 ML 100 ML IV (09:11)
[2024-08-09] MEDS: ASPIRIN EC 81 MG TABEC PO (09:12)
[2024-08-09] MEDS: LOSARTAN POTASSIUM 25 MG TABLET PO (09:12)
[2024-08-09] MEDS: CLOPIDOGREL BISULFATE 75 MG TABLET PO (09:13)
[2024-08-09] MEDS: CINACALCET HCL 30 MG TABLET (NON-FORM) 90 MG PO (09:13)
[2024-08-09] MEDS: FINASTERIDE 5 MG TABLET PO (09:13)
--- NOTE | 2024-08-09 09:13 | ESPR_ITS ---
Documentation for date of: 08/09/24 Subjective Subjective Interval history: No acute overnight events noted. Seen and examined at bedside patient states that his left lower extremity pain is improved after arthrocentesis. Heart rate noted to be improved after changes made yesterday, denies any palpitations. However, states that he is slightly short of breath after eating and will continue with supplemental oxygen. States he has not had a bowel movement since 08/04 and will start a regimen for him. Will receive another liter of IVF per nephrology recommendations. Exam Vital Signs Temp Pulse Resp BP Pulse Ox O2 Del Method O2 Flow Rate 97.4 F 62 22 H 109/75 98 Mechanical Ventilation 8 08/09/24 08:00 08/09/24 08:00 08/09/24 08:00 08/09/24 08:00 08/09/24 08:00 08/09/24 08:00 08/09/24 08:00 FiO2 60 08/09/24 08:00 Narrative Exam General: AOx3, mild distress, able to speak full sentences HEENT: NC/AT, mucous membranes moist, bilateral sclera anicteric Cardiovascular: regular rate and rhythm, S1/S2 present, no murmurs appreciated Pulmonary: clear to auscultation bilaterally, no rales/rhonchi/wheezes Abdominal: soft, non-tender, non-distended, no rebound/guarding, normal bowel sounds present Musculoskeletal: limited ROM of LLE, LLE warmer to touch than RLE Skin: warm and dry, intact, no rashes Neuro: CN II-XII intact, no focal deficits Objective Labs 08/10/24 04:28 08/10/24 04:28 Labs: Laboratory Results - last 24 hr 08/08/24 08/08/24 08/08/24 10:03 12:51 13:45 WBC RBC Hgb Hct MCV MCH MCHC RDW Std Deviation Plt Count Neut % (Auto) Lymph % (Auto) [place] % (Auto) Eos % (Auto) Baso % (Auto) Neut # (Auto) Lymph # (Auto) [place] # (Auto) Eos # (Auto) Baso # (Auto) Immature Gran # (Auto) Absolute Nucleated RBC Immature Gran % Nucleated RBC % Sodium 135 L Potassium 5.7 H Chloride 99 Carbon Dioxide 26.2 Anion Gap 10 BUN 108 H* Creatinine 2.8 H Estim Creat Clear Calc 35.5 L eGFR 24 L BUN/Creatinine Ratio 39 H Glucose 154 H Calculated Osmolality 307 H Calcium 10.2 Corrected Calcium 10.4 H Phosphorus 6.1 H Magnesium Total Bilirubin AST ALT Alkaline Phosphatase Total Protein Albumin 3.8 Globulin Albumin/Globulin Ratio Ur Random Sodium < 15.0 L Synovial Source KNEE Synovial Color Yellow Synovial Appearance Hazy Synovial WBC 70392 Synovial RBC 2000 Synov Polynuclear WBCs 87 Synov Mononuclear WBCs 13 08/08/24 08/09/24 19:41 05:21 WBC 5.2 RBC 2.98 L Hgb 10.8 L Hct 32.0 L MCV 107 H MCH 36.2 H MCHC 33.8 RDW Std Deviation 57.8 H Plt Count 108 L Neut % (Auto) 86 H Lymph % (Auto) 3 L [place] % (Auto) 11 Eos % (Auto) 0 Baso % (Auto) 0 Neut # (Auto) 4.5 Lymph # (Auto) 0.2 L [place] # (Auto) 0.6 Eos # (Auto) 0.0 Baso # (Auto) 0.0 Immature Gran # (Auto) 0.03 H Absolute Nucleated RBC 0.00 Immature Gran % 1 H Nucleated RBC % 0 Sodium 131 L 138 Potassium 5.3 H 5.1 Chloride 98 101 Carbon Dioxide 25.5 25.4 Anion Gap 8 12 BUN 97 H 117 H* Creatinine 2.6 H 2.6 H Estim Creat Clear Calc 38.2 L 38.4 L eGFR 27 L 27 L BUN/Creatinine Ratio 37 H 45 H Glucose 170 H 137 H Calculated Osmolality 296 H 314 H Calcium 10.6 10.2 Corrected Calcium 10.7 H Phosphorus 6.2 H Magnesium 2.2 Total Bilirubin 0.7 D AST 49 H ALT 55 H Alkaline Phosphatase 179 H Total Protein 5.9 Albumin 3.4 Globulin 2.5 Albumin/Globulin Ratio 1.4 Ur Random Sodium Synovial Source Synovial Color Synovial Appearance Synovial WBC Synovial RBC Synov Polynuclear WBCs Synov Mononuclear WBCs Quality Measures Quality Measures VTE prophylaxis Assessment & Plan Assessment Current Active Medications: Generic Name Dose Route Start Last Admin Trade Name Freq PRN Reason Stop Dose Admin Aspirin 81 mg 08/04/24 10:45 08/08/24 09:57 Aspirin Ec 81 Mg Tabec PO 09/03/24 10:44 81 mg QDAY JM Administration Atorvastatin Calcium 20 mg 08/04/24 21:00 08/08/24 21:33 Atorvastatin Calcium 20 Mg Tablet PO 09/03/24 20:59 20 mg HS JM Administration Protocol Calcitriol 0.5 mcg 08/04/24 09:00 08/08/24 09:14 Calcitriol 0.25 Mcg Capsule PO 09/03/24 08:59 0.5 mcg QDAY JM Administration Cinacalcet 90 mg 08/04/24 09:00 08/08/24 09:14 Cinacalcet Hcl 30 Mg Tablet (Non-Form) PO 09/03/24 08:59 90 mg QDAY JM Administration Clopidogrel Bisulfate 75 mg 08/04/24 10:45 08/08/24 09:15 Clopidogrel Bisulfate 75 Mg Tablet PO 09/03/24 10:44 75 mg QDAY JM Administration Dextrose 25 ml 08/08/24 05:29 Dextrose 50%-Water Inj 50 Ml Syringe IV 09/07/24 05:28 Q15MIN PRN BG 50-70 responsive npo pt Dextrose 50 ml 08/08/24 05:29 Dextrose 50%-Water Inj 50 Ml Syringe IV 09/07/24 05:28 Q15MIN PRN BG <50 OR BG <70 & pt unresponsive Enoxaparin Sodium 40 mg 08/08/24 09:00 08/08/24 09:21 Enoxaparin Sod Inj 40 Mg/0.4 Ml Syringe SC 08/22/24 08:59 40 mg QDAY JM Administration Finasteride 5 mg 08/04/24 09:00 08/08/24 09:15 Finasteride 5 Mg Tablet PO 09/03/24 08:59 5 mg QDAY JM Administration Glucagon 1 mg 08/08/24 05:29 Glucagon Inj 1 Mg Vial IM Q15MIN PRN BG <70, and no IV access Guaifenesin 600 mg 08/07/24 20:55 08/07/24 21:59 Guaifenesin Er 600 Mg Tabcr PO 09/06/24 20:59 600 mg BID PRN Administration COUGH OR CONGESTION Ceftriaxone Sodium/Dextrose 1 gm in 50 mls @ 100 mls/hr 08/04/24 09:00 08/08/24 09:15 Rocephin/D5w 1gm Iv Premix IV 08/11/24 08:59 100 mls/hr QDAY JM Administration Azithromycin 500 mg/ Sodium 250 mls @ 250 mls/hr 08/05/24 21:00 08/08/24 21:33 Chloride IV 08/12/24 20:59 250 mls/hr HS JM Administration Sodium Chloride 1,000 mls @ 100 mls/hr 08/09/24 09:03 Ns IV 08/09/24 19:02 .Q10H ONE Ipratropium [place] 0.5 mg 08/07/24 06:19 08/07/24 22:53 Ipratropium Rt 0.5 Mg/ 2.5 Ml Nebu INH 09/06/24 06:18 0.5 mg Q6HR PRN Administration SHORTNESS OF BREATH Lactulose 20 gm 08/09/24 09:15 Lactulose Syrup 20 Gm/30 Ml Udc PO 09/08/24 09:14 BID JM Protocol Latanoprost 1 drop 08/07/24 21:00 08/08/24 21:00 Latanoprost Op Marilyn 0.005% 2.5 Ml Btl RIGHT EYE 09/06/24 20:59 1 drop HS JM Administration Levalbuterol HCl 1.25 mg 08/08/24 13:00 08/09/24 06:58 Levalbuterol Rt 1.25 Mg/0.5 Ml Nebu INH 09/07/24 12:59 1.25 mg Q6HRRT JM Administration Losartan Potassium 25 mg 08/04/24 09:00 08/08/24 09:18 Losartan Potassium 25 Mg Tablet PO 09/03/24 08:59 Not Given QDAY JM Melatonin 6 mg 08/06/24 22:44 08/07/24 21:59 Melatonin 3 Mg Tablet PO 09/06/24 20:59 6 mg HS PRN Administration insomnia Metoprolol Succinate 50 mg 08/08/24 21:00 08/08/24 21:33 Metoprolol Succinate Xl 25 Mg Tabcr PO 09/07/24 20:59 50 mg BID JM Administration Ondansetron HCl 4 mg 08/04/24 03:47 08/07/24 12:38 Ondansetron Inj 2 Mg/Ml Inj 2 Ml IV 09/03/24 03:46 4 mg Q6HR PRN Administration NAUSEA OR VOMITING Protocol Sennosides 1 tab 08/08/24 23:40 08/09/24 00:01 Senna Tablet PO 09/07/24 23:39 1 tab QDAY JM Administration Protocol Sodium Chloride 3 ml 08/08/24 02:11 08/09/24 06:59 Sodium Chloride Rt Marilyn 0.9% 3 Ml Nebu INH 09/07/24 02:10 3 ml PRN PRN Administration SOLN Thyroid 30 mg 08/08/24 09:15 08/09/24 06:08 Thyroid 30 Mg Tablet PO 09/07/24 09:14 30 mg DAILY@0630 REPLACED BY [facility] Administration Plan Augustin Rodarte is a 63-year-old male with a past medical history of A-fib status post Watchman device, CAD status post stents (06/2024), CHF, CVA, COPD, cirrhosis, history of HCV, hypothyroidism, hypertension, hyperlipidemia, and glaucoma who presented on 08/04 for acute onset hemoptysis s/p CAD a few weeks ago on aspirin and Plavix. #Hemoptysis likely secondary to pneumonia in the setting of aspirin and Plavix use #CAD s/p stent 06/2024 on aspirin and plavix Acute onset hemoptysis. Patient has also had stents placed couple years ago and was on Plavix at that time and was noted to have complications related to bleeding as well. States he coughed up about 2 tablespoons of blood but denies blood in stool, hematuria, hematemesis, epistaxis but does endorse some bleeding in gums when brushing teeth. Otherwise, hemoglobin stable at 11.9, platelets 83, INR 1.3. ? Cardiology consulted, appreciate recommendations ? Restarted aspirin and Plavix per recommendations given risk of stent thrombosis ? Monitor hemoglobin and other signs of significant bleeding, otherwise continue as above #Acute on chronic kidney disease (around Stage G3B -> 4), worsening #Hyperkalemia, improving #Hypercalcemia #Hyperphosphatemia Admitted with Cr 2.3 (baseline 2.0-2.1), BUN 62; possibly volume responsive vs hepatorenal; not on SGLT2 inhibitor Renal US 08/08: benign right renal cyst, moderate bilateral parenchymal scarring, no hydronephrosis ? Nephrology consulted, appreciate recommendations ? Received IV insulin with dextrose as well as [place] and Kayexalate ? 1 L NS at 100 cc/h ? Hold nephrotoxic agents #Atrial fibrillation (s/p Watchman) History of AF with left atrial appendage occlusion; not currently anticoagulated. Noted to have HR 130s overnight 08/07. Will need to continue aspirin and Plavix daily for 30 days or at least until he can follow-up with his flaker tender outpatient. Suspect component of dehydration due to overdiuresis to be contributor to tachycardia in addition to acute on chronic kidney disease. ? No current indication for anticoagulation post-Watchman unless additional thromboembolic risk factors present ? Metoprolol succinate 50 mg twice daily ? Discontinued home labetalol ? K > 4 and Mg > 2 #Left lower extremity pain #Complex effusion, hemarthrosis vs septic joint CT left lower extremity showed large complex knee effusion No fevers, chills, or leukocytosis so septic joint unlikely. Has been on ASA and plavix and previously on eliquis, with known complications with Plavix and suspect hemarthrosis. Status-post IR-guided joint aspiration: 10,000 WBC, 2000 RBC, hazy yellow color ? 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 Cardiorenal syndrome Given imaging and echo findings of congestion, suspect possible cardiorenal syndrome and was net fluid positive overnight CT showing significant cardiomegaly and dilated IVC; history of CVA, Watchman placement; likely chronic with mild pulmonary congestion Echo 08/06/2024: EF 55-60%, severe open TR with massive right atrial dilatation impinging on left atrium Dilated RV with moderate to severe RV systolic dysfunction, RVSP 55 mmHg (may be underestimated due to severe TR) Flat septum during systole and diastole Dilated IVC with poor inspiration collapse, small pericardial effusion without tamponade ? Lasix DC'd, monitor daily weights, I/Os, sodium-restricted diet ? Aspirin 81 mg daily, atorvastatin 20 mg daily ? CPAP at night #Constipation ? Lactulose 20 g PO BID #Pneumonia likely secondary to gram-negative organisms as demonstrated on CT chest Sputum culture 08/06: negative Blood culture: 08/08: pending ? Continue ceftriaxone (08/04-) and azithromycin (08/04-) #Pulmonary embolism, ruled-out Atrial fibrillation in setting of hemoptysis and shortness of breath. V/Q scan: low probability of PE #Cirrhosis #Thrombocytopenia Known history; imaging confirms cirrhotic morphology; associated thrombocytopenia; elevated BUN/Cr concerning for hepatorenal physiology Platelets 84; likely multifactorial ? chronic liver disease (cirrhosis), medication effect (ASA/Plavix), possible infection-related ? Monitor LFTs, ammonia, INR, and platelet count #History of COPD ? Duonebs discontinued due to tachycardia/a-fib #History of CVA ? Aspirin, plavix, and statin as above #Hypothyroidism TSH 9.55, free T4 1.06 ? Continue thyroid pill #Hyperparathyroidism ? Cinacalcet 90 mg p.o. daily #Glaucoma ? Latanoprost eye drops Hospital management: Disposition: hemoptysis on ASA and plavix, worsening renal function Diet: cardiac Lines: PIV DVT prophylaxis: plavix CODE STATUS: full code ----- Plan discussed with attending physician Dr. Heart and senior resident physician Dr. Sree Carreno MD PGY-1 Internal Medicine Attending Provider Attestation/Addendum I reviewed labs, imaging, EKG, home medications and prior available records. Face to face evaluation was performed by me. I have personally examined the patient and discussed assessment and plan with the IM team. I reviewed the resident note and agree with the plan with exceptions as below. Hemoptysis Extensive right-sided pneumonia Coronary artery disease KIMBERLY on CKD Left knee effusion HFpEF Cardiac cirrhosis Hemoptysis is likely in the setting of pneumonia/pulmonary edema on top of use of dual antiplatelet therapy and thrombocytopenia Continue IV ceftriaxone/azithromycin Continue aspirin and Plavix per cardiology recommendations Held Lasix. Started gentle hydration. Monitor kidney function Status post IR guided arthrocentesis of the left knee: The fluid appears inflammatory in etiology. Follow-up culture Avoid nephrotoxins. Renally dosed medications PT recommended SNF
[2024-08-09] MEDS: LACTULOSE SYRUP 20 GM/30 ML UDC PO (09:15)
[2024-08-09] MEDS: CALCITRIOL 0.25 mCg CAPSULE 0.5 MCG PO (09:15)
--- NOTE | 2024-08-09 13:05 | ESPR_ITS ---
Documentation for date of: 08/09/24 Subjective Subjective Interval history: 63-year-old male with PMHx significant for history of HTN, hepatitis C, hyperlipidemia, glaucoma, hypothyroidism, A-fib (s/p Watchman), CVA, COPD, and cirrhosis presented to the ER with the chief complaint of coughing up blood. The patient described sudden onset of hemoptysis, the blood was fresh and red. He also c/o chronic baseline shortness of breath due to COPD (uses oxygen as needed), but no acute worsening. Patient denied chest pain, fever, nausea, vomiting. He reported a stent placement on July 18 without post-procedural complications and last took Plavix and aspirin on night. He has not taken any of his home medications since then. He came to the ER due to concern over new onset of coughing blood. In the ER, vital signs recorded as temp 99.5 F, HR 70 bpm, RR 27, BP 131/89 mmHg. Labs revealed WBC 4.5, hemoglobin 11.6->12 (previously 13.1), platelets 84, INR 1.3, Na 139, K 4.7, Cl 105, BUN 62, creatinine 2.4, glucose 115. CT demonstrated fairly diffuse right lung and left base pneumonia, mild heart failure with significant cardiac enlargement, cirrhosis, and a prominently dilated IVC consistent with heart failure. Patient being treated for pneumonia with mopped assist, continuing aspirin and Plavix due to recent stent. During course of hospitalization, patient noted to have KIMBERLY on CKD, which has progressed. Nephrology consulted for management of worsening KIMBERLY on CKD. Sodium 134, potassium 5.4, bicarb 24.0, BUN 100, creatinine 2.9, EGFR 23. Renal ultrasound showed benign right renal cyst, moderate bilateral parenchymal scarring, urine sodium under 15. Microalbumin creatinine ratio 383. Patient seen and examined at bedside, resting comfortably. Endorses some pain in his knee, denies dysuria, urinary retention/frequency, fever, chills, shortness of breath, chest pain. Will monitor closely. 08/09/2024: Patient seen examined at bedside, resting comfortably. Patient is wearing BiPAP. Patient reports no difficulty urinating, denies fever, chills, chest pain, nausea, vomiting, hematochezia. WBC 5.2, hemoglobin 10.8, sodium 138, potassium 5.1, bicarb 25.4, BUN 117, creatinine 2.1, EGFR 27. Phosphorus 6.2. In setting of disproportionately high BUN, low hemoglobin with hemoptysis, will get stool guaiac to eval for GI bleed. Patient reports constipation, ordered lactulose. Will give 1 L fluid slowly. Exam Vital Signs Temp Pulse Resp BP Pulse Ox O2 Del Method O2 Flow Rate 97.5 F 89 24 H 109/79 98 Mechanical Ventilation 8 08/09/24 12:00 08/09/24 12:00 08/09/24 12:00 08/09/24 12:00 08/09/24 12:00 08/09/24 12:00 08/09/24 12:00 FiO2 60 08/09/24 12:00 Narrative Exam PE: Gen: Well-developed and well-nourished. HEENT: NCAT, PERRLA, EOMI, MMM, anicteric conjunctivae. CVS: normal S1 and S2. RRR. No M/R/G. Resp: CTA B/L. No rhonchi, rales, crackles or wheezing. Abd: soft, non-tender, non-distended. MSK: Good ROM in BUE & BLE. No rash. Left knee mildly swollen, tender. 1+ bilateral lower extremity edema, with stasis dermatitis. Neuro: CN II-XII grossly intact. Strength 5/5 in BUE & BLE. Alert and oriented x3. Psych: appropriate mood and affect. Objective Labs 08/12/24 07:52 08/12/24 07:52 Labs: Laboratory Results - last 24 hr 08/08/24 08/08/24 08/08/24 12:51 13:45 19:41 WBC RBC Hgb Hct MCV MCH MCHC RDW Std Deviation Plt Count Neut % (Auto) Lymph % (Auto) [place] % (Auto) Eos % (Auto) Baso % (Auto) Neut # (Auto) Lymph # (Auto) [place] # (Auto) Eos # (Auto) Baso # (Auto) Immature Gran # (Auto) Absolute Nucleated RBC Immature Gran % Nucleated RBC % Sodium 135 L 131 L Potassium 5.7 H 5.3 H Chloride 99 98 Carbon Dioxide 26.2 25.5 Anion Gap 10 8 BUN 108 H* 97 H Creatinine 2.8 H 2.6 H Estim Creat Clear Calc 35.5 L 38.2 L eGFR 24 L 27 L BUN/Creatinine Ratio 39 H 37 H Glucose 154 H 170 H Calculated Osmolality 307 H 296 H Calcium 10.2 10.6 Corrected Calcium 10.4 H Phosphorus 6.1 H Magnesium Total Bilirubin AST ALT Alkaline Phosphatase Total Protein Albumin 3.8 Globulin Albumin/Globulin Ratio Synovial Source KNEE Synovial Color Yellow Synovial Appearance Hazy Synovial WBC 57576 Synovial RBC 2000 Synov Polynuclear WBCs 87 Synov Mononuclear WBCs 13 08/09/24 05:21 WBC 5.2 RBC 2.98 L Hgb 10.8 L Hct 32.0 L MCV 107 H MCH 36.2 H MCHC 33.8 RDW Std Deviation 57.8 H Plt Count 108 L Neut % (Auto) 86 H Lymph % (Auto) 3 L [place] % (Auto) 11 Eos % (Auto) 0 Baso % (Auto) 0 Neut # (Auto) 4.5 Lymph # (Auto) 0.2 L [place] # (Auto) 0.6 Eos # (Auto) 0.0 Baso # (Auto) 0.0 Immature Gran # (Auto) 0.03 H Absolute Nucleated RBC 0.00 Immature Gran % 1 H Nucleated RBC % 0 Sodium 138 Potassium 5.1 Chloride 101 Carbon Dioxide 25.4 Anion Gap 12 BUN 117 H* Creatinine 2.6 H Estim Creat Clear Calc 38.4 L eGFR 27 L BUN/Creatinine Ratio 45 H Glucose 137 H Calculated Osmolality 314 H Calcium 10.2 Corrected Calcium 10.7 H Phosphorus 6.2 H Magnesium 2.2 Total Bilirubin 0.7 D AST 49 H ALT 55 H Alkaline Phosphatase 179 H Total Protein 5.9 Albumin 3.4 Globulin 2.5 Albumin/Globulin Ratio 1.4 Synovial Source Synovial Color Synovial Appearance Synovial WBC Synovial RBC Synov Polynuclear WBCs Synov Mononuclear WBCs Quality Measures Quality Measures VTE prophylaxis Assessment & Plan Assessment Current Active Medications: Generic Name Dose Route Start Last Admin Trade Name Freq PRN Reason Stop Dose Admin Aspirin 81 mg 08/04/24 10:45 08/09/24 09:12 Aspirin Ec 81 Mg Tabec PO 09/03/24 10:44 81 mg QDAY JM Administration Atorvastatin Calcium 20 mg 08/04/24 21:00 08/08/24 21:33 Atorvastatin Calcium 20 Mg Tablet PO 09/03/24 20:59 20 mg HS JM Administration Protocol Calcitriol 0.5 mcg 08/04/24 09:00 08/09/24 09:15 Calcitriol 0.25 Mcg Capsule PO 09/03/24 08:59 0.5 mcg QDAY JM Administration Cinacalcet 90 mg 08/04/24 09:00 08/09/24 09:13 Cinacalcet Hcl 30 Mg Tablet (Non-Form) PO 09/03/24 08:59 90 mg QDAY JM Administration Clopidogrel Bisulfate 75 mg 08/04/24 10:45 08/09/24 09:13 Clopidogrel Bisulfate 75 Mg Tablet PO 09/03/24 10:44 75 mg QDAY JM Administration Dextrose 25 ml 08/08/24 05:29 Dextrose 50%-Water Inj 50 Ml Syringe IV 09/07/24 05:28 Q15MIN PRN BG 50-70 responsive npo pt Dextrose 50 ml 08/08/24 05:29 Dextrose 50%-Water Inj 50 Ml Syringe IV 09/07/24 05:28 Q15MIN PRN BG <50 OR BG <70 & pt unresponsive Enoxaparin Sodium 40 mg 08/08/24 09:00 08/09/24 09:11 Enoxaparin Sod Inj 40 Mg/0.4 Ml Syringe SC 08/22/24 08:59 40 mg QDAY JM Administration Finasteride 5 mg 08/04/24 09:00 08/09/24 09:13 Finasteride 5 Mg Tablet PO 09/03/24 08:59 5 mg QDAY JM Administration Glucagon 1 mg 08/08/24 05:29 Glucagon Inj 1 Mg Vial IM Q15MIN PRN BG <70, and no IV access Guaifenesin 600 mg 08/07/24 20:55 08/07/24 21:59 Guaifenesin Er 600 Mg Tabcr PO 09/06/24 20:59 600 mg BID PRN Administration COUGH OR CONGESTION Ceftriaxone Sodium/Dextrose 1 gm in 50 mls @ 100 mls/hr 08/04/24 09:00 08/09/24 09:11 Rocephin/D5w 1gm Iv Premix IV 08/11/24 08:59 100 mls/hr QDAY JM Administration Azithromycin 500 mg/ Sodium 250 mls @ 250 mls/hr 08/05/24 21:00 08/08/24 21:33 Chloride IV 08/12/24 20:59 250 mls/hr HS JM Administration Sodium Chloride 1,000 mls @ 100 mls/hr 08/09/24 09:03 08/09/24 09:11 Ns IV 08/09/24 19:02 100 mls/hr .Q10H ONE Administration Ipratropium [place] 0.5 mg 08/07/24 06:19 08/07/24 22:53 Ipratropium Rt 0.5 Mg/ 2.5 Ml Nebu INH 09/06/24 06:18 0.5 mg Q6HR PRN Administration SHORTNESS OF BREATH Lactulose 20 gm 08/09/24 09:15 08/09/24 09:15 Lactulose Syrup 20 Gm/30 Ml Udc PO 09/08/24 09:14 20 gm BID JM Administration Protocol Latanoprost 1 drop 08/07/24 21:00 08/08/24 21:00 Latanoprost Op Marilyn 0.005% 2.5 Ml Btl RIGHT EYE 09/06/24 20:59 1 drop HS JM Administration Levalbuterol HCl 1.25 mg 08/08/24 13:00 08/09/24 06:58 Levalbuterol Rt 1.25 Mg/0.5 Ml Nebu INH 09/07/24 12:59 1.25 mg Q6HRRT JM Administration Losartan Potassium 25 mg 08/04/24 09:00 08/09/24 09:12 Losartan Potassium 25 Mg Tablet PO 09/03/24 08:59 25 mg QDAY JM Administration Melatonin 6 mg 08/06/24 22:44 08/07/24 21:59 Melatonin 3 Mg Tablet PO 09/06/24 20:59 6 mg HS PRN Administration insomnia Metoprolol Succinate 50 mg 08/08/24 21:00 08/09/24 09:11 Metoprolol Succinate Xl 25 Mg Tabcr PO 09/07/24 20:59 50 mg BID JM Administration Ondansetron HCl 4 mg 08/04/24 03:47 08/07/24 12:38 Ondansetron Inj 2 Mg/Ml Inj 2 Ml IV 09/03/24 03:46 4 mg Q6HR PRN Administration NAUSEA OR VOMITING Protocol Sennosides 1 tab 08/08/24 23:40 08/09/24 09:12 Senna Tablet PO 09/07/24 23:39 1 tab QDAY JM Administration Protocol Sodium Chloride 3 ml 08/08/24 02:11 08/09/24 06:59 Sodium Chloride Rt Marilyn 0.9% 3 Ml Nebu INH 09/07/24 02:10 3 ml PRN PRN Administration SOLN Thyroid 30 mg 08/08/24 09:15 08/09/24 06:08 Thyroid 30 Mg Tablet PO 09/07/24 09:14 30 mg DAILY@0630 [facility] Administration Plan Augustin Rodarte is a 63-year-old male with a past medical history of A-fib status post Watchman device, CAD status post stents (06/2024), CHF, CVA, COPD, cirrhosis, history of HCV, hypothyroidism, hypertension, hyperlipidemia, and glaucoma who presented on 08/04 for acute onset hemoptysis s/p CAD a few weeks ago on aspirin and Plavix. #Chronic kidney disease (around Stage G3B -> 4), worsening Admitted with Cr 2.3 (baseline 2.0-2.1), BUN 62; possibly volume responsive vs hepatorenal; not on SGLT2 inhibitor. Kidney function has continued to worsen Renal US 08/08: benign right renal cyst, moderate bilateral parenchymal scarring, no hydronephrosis. Urine sodium 115, urine albumin creatinine ratio 383. Patient BUN is disproportionately elevated, BUN 117, creatinine 2.1, EGFR 27. Concern for GI bleed. - Monitor renal function daily - Hold nephrotoxic agents - Calcitriol - Strict I's and O's - Stool guaiac ordered, follow-up - IVF: Normal saline at 100 mL/h x 1 L #Constipation Patient reports no bowel movement in several days. - Lactulose 20 mg p.o. twice daily #Hemoptysis likely secondary to pneumonia in the setting of aspirin and Plavix use #CAD s/p stent 06/2024 on aspirin and plavix #Atrial fibrillation (s/p Watchman) #Left lower extremity pain #Complex effusion, hemarthrosis vs septic joint #Pneumonia likely secondary to gram-negative organisms as demonstrated on CT chest #History of CHF #? Cardiorenal syndrome #Thrombocytopenia #Cirrhosis #Hypothyroidism #Hyperparathyroidism #Glaucoma Management as per the primary team. Diet: cardiac Lines: PIV DVT prophylaxis: plavix CODE STATUS: full code Thank you for allowing us precipitate in the care of this patient. Plan of care discussed with attending Dr. Abraham. Augustin Ramos MD PGY?1 Attending Provider Attestation/Addendum Patient seen and examined with resident physician Dr. Jacobs. Note reviewed, agree with findings and recommendations. patient currently seen in telemetry. Still with the BUN and creatinine elevation. Hold off on diuretics. Encourage p.o. fluids. Dr Serrato will be covering for me
--- NOTE | 2024-08-09 13:47 | PC.PT ---
Patient is safe to perform a stand pivot transfer to a bedside commode with a FWW and 1 staff assist. RN made aware.
--- NOTE | 2024-08-09 14:13 | ESPR_ITS ---
<Statement entered by Niall Mayer MD - 08/10/24 07:45> I personally examined the patient evaluate the patient patient appears to be stable however he is having constipation being hydrated BUN is still elevated patient was quite dehydrated prerenal azotemia continue hydration also monitor renal function closely as far as bleeding is concerned appears to be improved not have any significant mopped assist we will continue the Plavix. Evaluated patient with resident physician PGY 3 and agree with the treatment plan recommendation as documented Documentation for date of: 08/09/24 Subjective Subjective Interval history: Patient examined bedside this afternoon. He was complaining of constipation. no acute overnight event . Exam Vital Signs Temp Pulse Resp BP Pulse Ox O2 Del Method O2 Flow Rate 97.5 F 83 26 H 109/79 92 L Mechanical Ventilation 4 08/09/24 12:00 08/09/24 13:13 08/09/24 13:13 08/09/24 12:00 08/09/24 13:13 08/09/24 12:00 08/09/24 13:13 FiO2 60 08/09/24 12:00 Narrative Exam GENERAL: Comfortable adult seen resting comfortably in hospital bed, no acute distress, on 6L of O2 via NC HEENT: Normocephalic, atraumatic. Pupils are equal and reactive. Oral mucosa is moist. NECK: Supple, nontender, no JVD CHEST: Symmetrical, atraumatic and with equal expansion ,Nontender on palpation CARDIOVASCULAR: Heart regular rhythm & rate. S1/S2. no murmur or gallop rub or extra beats. LUNGS: Clear to auscultation bilaterally with symmetrical chest rise. No laboring tachypnea or wheezing. No intercostal subcostal retraction. No rales and no rhonchi. ABDOMEN: Soft, flat, nontender to palpation, no guarding or rebound tenderness. Active and normal bowel sounds. EXTREMITIES:Moves all 4 extremities,1+ eugenia LE edema with chronic venous statis dermitis SKIN: Warm and dry, no jaundice or rashes noted. NEURO: Patient is AO x 3, Cranial nerves II through XII grossly intact. There is no focal neurologic deficits noted. PSYCHIATRIC: Patient is in normal mood, cooperative, no SI or HI or hallucinations. Objective Labs 08/09/24 05:21 08/09/24 05:21 Labs: Laboratory Results - last 24 hr 08/08/24 08/08/24 08/09/24 13:45 19:41 05:21 WBC 5.2 RBC 2.98 L Hgb 10.8 L Hct 32.0 L MCV 107 H MCH 36.2 H MCHC 33.8 RDW Std Deviation 57.8 H Plt Count 108 L Neut % (Auto) 86 H Lymph % (Auto) 3 L [place] % (Auto) 11 Eos % (Auto) 0 Baso % (Auto) 0 Neut # (Auto) 4.5 Lymph # (Auto) 0.2 L [place] # (Auto) 0.6 Eos # (Auto) 0.0 Baso # (Auto) 0.0 Immature Gran # (Auto) 0.03 H Absolute Nucleated RBC 0.00 Immature Gran % 1 H Nucleated RBC % 0 Sodium 135 L 131 L 138 Potassium 5.7 H 5.3 H 5.1 Chloride 99 98 101 Carbon Dioxide 26.2 25.5 25.4 Anion Gap 10 8 12 BUN 108 H* 97 H 117 H* Creatinine 2.8 H 2.6 H 2.6 H Estim Creat Clear Calc 35.5 L 38.2 L 38.4 L eGFR 24 L 27 L 27 L BUN/Creatinine Ratio 39 H 37 H 45 H Glucose 154 H 170 H 137 H Calculated Osmolality 307 H 296 H 314 H Calcium 10.2 10.6 10.2 Corrected Calcium 10.4 H 10.7 H Phosphorus 6.1 H 6.2 H Magnesium 2.2 Total Bilirubin 0.7 D AST 49 H ALT 55 H Alkaline Phosphatase 179 H Total Protein 5.9 Albumin 3.8 3.4 Globulin 2.5 Albumin/Globulin Ratio 1.4 Quality Measures Quality Measures VTE prophylaxis Assessment & Plan Assessment Current Active Medications: Generic Name Dose Route Start Last Admin Trade Name Freq PRN Reason Stop Dose Admin Aspirin 81 mg 08/04/24 10:45 08/09/24 09:12 Aspirin Ec 81 Mg Tabec PO 09/03/24 10:44 81 mg QDAY JM Administration Atorvastatin Calcium 20 mg 08/04/24 21:00 08/08/24 21:33 Atorvastatin Calcium 20 Mg Tablet PO 09/03/24 20:59 20 mg HS JM Administration Protocol Calcitriol 0.5 mcg 08/04/24 09:00 08/09/24 09:15 Calcitriol 0.25 Mcg Capsule PO 09/03/24 08:59 0.5 mcg QDAY JM Administration Cinacalcet 90 mg 08/04/24 09:00 08/09/24 09:13 Cinacalcet Hcl 30 Mg Tablet (Non-Form) PO 09/03/24 08:59 90 mg QDAY JM Administration Clopidogrel Bisulfate 75 mg 08/04/24 10:45 08/09/24 09:13 Clopidogrel Bisulfate 75 Mg Tablet PO 09/03/24 10:44 75 mg QDAY JM Administration Dextrose 25 ml 08/08/24 05:29 Dextrose 50%-Water Inj 50 Ml Syringe IV 09/07/24 05:28 Q15MIN PRN BG 50-70 responsive npo pt Dextrose 50 ml 08/08/24 05:29 Dextrose 50%-Water Inj 50 Ml Syringe IV 09/07/24 05:28 Q15MIN PRN BG <50 OR BG <70 & pt unresponsive Enoxaparin Sodium 40 mg 08/08/24 09:00 08/09/24 09:11 Enoxaparin Sod Inj 40 Mg/0.4 Ml Syringe SC 08/22/24 08:59 40 mg QDAY JM Administration Finasteride 5 mg 08/04/24 09:00 08/09/24 09:13 Finasteride 5 Mg Tablet PO 09/03/24 08:59 5 mg QDAY JM Administration Glucagon 1 mg 08/08/24 05:29 Glucagon Inj 1 Mg Vial IM Q15MIN PRN BG <70, and no IV access Guaifenesin 600 mg 08/07/24 20:55 08/07/24 21:59 Guaifenesin Er 600 Mg Tabcr PO 09/06/24 20:59 600 mg BID PRN Administration COUGH OR CONGESTION Ceftriaxone Sodium/Dextrose 1 gm in 50 mls @ 100 mls/hr 08/04/24 09:00 08/09/24 09:11 Rocephin/D5w 1gm Iv Premix IV 08/11/24 08:59 100 mls/hr QDAY JM Administration Azithromycin 500 mg/ Sodium 250 mls @ 250 mls/hr 08/05/24 21:00 08/08/24 21:33 Chloride IV 08/12/24 20:59 250 mls/hr HS JM Administration Sodium Chloride 1,000 mls @ 100 mls/hr 08/09/24 09:03 08/09/24 09:11 Ns IV 08/09/24 19:02 100 mls/hr .Q10H ONE Administration Ipratropium [place] 0.5 mg 08/07/24 06:19 08/07/24 22:53 Ipratropium Rt 0.5 Mg/ 2.5 Ml Nebu INH 09/06/24 06:18 0.5 mg Q6HR PRN Administration SHORTNESS OF BREATH Lactulose 20 gm 08/09/24 09:15 08/09/24 09:15 Lactulose Syrup 20 Gm/30 Ml Udc PO 09/08/24 09:14 20 gm BID JM Administration Protocol Latanoprost 1 drop 08/07/24 21:00 08/08/24 21:00 Latanoprost Op Marilyn 0.005% 2.5 Ml Btl RIGHT EYE 09/06/24 20:59 1 drop HS JM Administration Levalbuterol HCl 1.25 mg 08/08/24 13:00 08/09/24 13:10 Levalbuterol Rt 1.25 Mg/0.5 Ml Nebu INH 09/07/24 12:59 1.25 mg Q6HRRT JM Administration Losartan Potassium 25 mg 08/04/24 09:00 08/09/24 09:12 Losartan Potassium 25 Mg Tablet PO 09/03/24 08:59 25 mg QDAY JM Administration Melatonin 6 mg 08/06/24 22:44 08/07/24 21:59 Melatonin 3 Mg Tablet PO 09/06/24 20:59 6 mg HS PRN Administration insomnia Metoprolol Succinate 50 mg 08/08/24 21:00 08/09/24 09:11 Metoprolol Succinate Xl 25 Mg Tabcr PO 09/07/24 20:59 50 mg BID JM Administration Ondansetron HCl 4 mg 08/04/24 03:47 08/07/24 12:38 Ondansetron Inj 2 Mg/Ml Inj 2 Ml IV 09/03/24 03:46 4 mg Q6HR PRN Administration NAUSEA OR VOMITING Protocol Sennosides 1 tab 08/08/24 23:40 08/09/24 09:12 Senna Tablet PO 09/07/24 23:39 1 tab QDAY JM Administration Protocol Sodium Chloride 3 ml 08/08/24 02:11 08/09/24 13:10 Sodium Chloride Rt Marilyn 0.9% 3 Ml Nebu INH 09/07/24 02:10 3 ml PRN PRN Administration SOLN Thyroid 30 mg 08/08/24 09:15 08/09/24 06:08 Thyroid 30 Mg Tablet PO 09/07/24 09:14 30 mg DAILY@0630 [facility] Administration Plan This is a 63-year-old male with PMHx of HTN, HLD, CAD s/p PCI 07/18/24, A-fib s/p watchman, thrombocytopenia, CHF, tricuspid valve absent with regurg hypothyroidism, CVA, COPD, cirrhosis, hepatitis C, presenting to ED with complaint of coughing up blood. He is on dual antiplatelet started on aspirin 81 mg once daily and Plavix 75 mg once daily. Patient does have a history of bleeding with dual antiplatelets or any kind of anticoagulation is apparently very sensitive. Patient did have and recent PCI on 07/18/2024 and is less than 1 month since the stent placement. Cardiology consulted for recommendation for dual anti platelet . Acute Hemoptysis CAD, PCI stent 06/2024 and 03/2023 Chronic thrombocytopenea Chronic anemia Cardiology consulted for continuing PLAVIX/ASA therapy. At this time, hemoptysis appears to be resolved, Hgb stable, PLT at baseline. No evidence of severe bleed. High risk for stent clotting given recent PCI stent. Denies chest pain, sob, active bleed. ? Recommended continuing PLAVIX/ASA ? Transfuse if Hgb continues to decline ? Will consider holding anticoag if Hgb drastically declines, below 9 or bleeding uncontrolled. ? Workup for hemoptysis per primary team. -08/07/24 - patient hemoglobin continues to be stable around 11- 12. no acute overnight events . he needs to continue plavix and aspirin for first 30 days , then he can do plavix ever other day for 90 days then he can be switched to Aspirin only. -08/08/2024: his hemoglobin today is 11.5, discontinued home labetalol and started on metoprolol and 1L of fluids@100 ml/hr , his tachycardia could be secondary to his dehydration . he had V/Q scan today pending results. he needs to continue plavix and aspirin for first 30 days , then he can do plavix ever other day for 90 days then he can be switched to Aspirin only. -08/09/2024: V/ q scan was negative ,he needs to continue plavix and aspirin for first 30 days , then he can do plavix ever other day for 90 days then he can be switched to Aspirin only. CHF (55 to 60%.) CXR and CT showed severe cardiomegaly. ECHO Findings: Normal LV function with estimated EF of 55 to 60%. LV size appears to be smaller due to the dilated RV.Severe open TR with massive right atrial dilatation which impinges on the left atrium too,Dilated RV with moderate to severe RV systolic dysfunction. Estimated RVSP 55 mmHg,RVSP underestimated because of severe open TR and patient mostly has severe PAH. Etiology unclear,Flat septum in both systole and diastole consistent with right ventricular pressure and volume overload,Dilated IVC with poor inspiration collapse consistent with elevated right atrial pressure. There is small pericardial effusion without tamponade. Mild MR. Mild thickening of the TV. Mild PI. 08/07/2024-Discontinue lasix 40 iv BID . continue losartan , once discharged he can start his oral home lasix. 08/08/2024: Continue Metoprolol , he is receiving fluid Ns @100 ml/hr . He was complaining of constipation and receeived sodium polystyrene x1. Atrial Fibrillation (s/p Watchman) S/p left Hypothyroidism HTN, HLD Severe tricuspid valve degeneration COPD HR 90, TSH 9.55, free T4 1.06, TG 97, LDL 46, HDL 37 On home 2-3L oxygen PRN for chronic tricuspid degeneration, CHF and COPD Reports no increase in oxygen demand. No obvious source of bleed including GI bleed. Low suspension for PE, HR wnl, no increase in oxygen demand, no signs of DVT on exam Asymptomatic without chest pain or shortness of breath or dizziness. ? Continue LABETALOL 200 mg QD(discontinued ) ? Continue LOSARTAN 25 mg q. day ? Continue ATORVASTATIN 20 mg HS ? Continue thyroid 30 mg QDAY Management of rest of the medical conditions as per primary team Pneumonia Thrombocytopenia Cirrhosis Chronic Kidney Disease (around Stage G3B->4) Hyperparathyroidism Case was discussed with attending, Dr. Moreno Khoury MD, PGY-3
[2024-08-09] MEDS: IPRATROPIUM RT 0.5 MG/ 2.5 ML NEBU INH ×2 (15:59→18:20)
--- NOTE | 2024-08-09 19:10 | PC.NURSE ---
per MD Carmona hold the lactulose tonight
--- NOTE | 2024-08-09 19:10 | PC.NURSE ---
MD Carmona notified that patient feels really bloated and constipated. Stomach looks distended and he has not had a BM in 5 days even after being given lactulose and senna in the AM. said he will order a medication
[2024-08-09] MEDS: bisacodyL 10 MG SUPP PR (19:22)
[2024-08-09] MEDS: SIMETHICONE 80 MG CHEW PO (19:22)
[2024-08-09] MEDS: AZITHROMYCIN INJ 500 MG in SODIUM CHLORIDE 0.9% 250 ML 250 ML 250 MG IV (21:06)
[2024-08-09] MEDS: ATORVASTATIN CALCIUM 20 MG TABLET PO (21:06)
[2024-08-09] MEDS: LATANOPROST OP SOL 0.005% 2.5 ML BTL 1 DROP RIGHT EYE (21:06)
[2024-08-10] VITALS (15 sets, daily range): BP systolic 123–133; BP diastolic 73–99; PULSE 75–122; RESP 20–30; TEMP 36.3–36.9; O2SAT 92–94; BMI 19.8
[2024-08-10] MEDS: IPRATROPIUM RT 0.5 MG/ 2.5 ML NEBU INH ×3 (00:50→12:55)
[2024-08-10] MEDS: LEVALBUTEROL RT 1.25 MG/0.5 ML NEBU INH ×4 (00:50→18:33)
--- NOTE | 2024-08-10 02:39 | PC.NURSE ---
MD Carmona notified that patient's HR is 110s-120s.
[2024-08-10] MEDS: METOPROLOL SUCCINATE XL 25 MG TABCR PO (03:22)
[2024-08-10] MEDS: THYROID 30 MG TABLET PO (05:54)
[2024-08-10 06:22] LABS: Basophils % (Auto) 0 % (0-2.5); Eosinophils # (Auto) 0.2 Thou/mm3 (0.0-0.5); Eosinophils % (Auto) 2 % (0-10); Hematocrit 40.2 % (41.0-53.0); Hemoglobin 13.4 g/dL (13.5-16.0); Immature Granulocytes % (Auto) 1 % (0-0); Immature Granulocytes Auto 0.06 Thou/mm3 (0.00-0.00); Lymphocytes # (Auto) 0.3 Thou/mm3 (1.0-4.8); Lymphocytes % (Auto) 3 % (10-50); Mean Corpuscular HGB Conc 33.3 g/dl (31.0-37.0); Mean Corpuscular Hemoglobin 36.2 pg (25.0-35.0); Mean Corpuscular Volume 109 fL (80-100); Monocytes # (Auto) 1.4 Thou/mm3 (0.0-0.8); Monocytes % (Auto) 13 % (0-12); Neutrophils # (Auto) 8.1 Thou/mm3 (1.8-7.7); Neutrophils % (Auto) 80 % (37-80); Nucleated Red Blood Cell % 0 /100 WBC (0); Platelet Count 145 Thou/mm3 (140-440); RDW Standard Deviation 60.7 fL (35.1-43.9); White Blood Count 10.1 Thou/mm3 (3.8-10.6)
[2024-08-10 06:59] LABS: Alanine Aminotransferase 66 U/L (10-49); Albumin, Serum 3.7 gm/dL (3.4-4.8); Albumin/Globulin Ratio 1.4 (1.2-2.2); Alkaline Phosphatase 205 U/L (46-116); Anion Gap 13 (7-16); Aspartate Amino Transferase 61 U/L (0-34); BUN/Creatinine Ratio 53 Ratio (12-20); Bilirubin,Total 0.8 mg/dL (0.3-1.2); Calcium 10.6 mg/dL (8.3-10.6); Calcium (Corrected) 10.8 mg/dL (8.5-10.1); Carbon Dioxide 23.4 mMol/L (20.0-31.0); Chloride 102 mMol/L (98-107); Creatinine (Component) 2.3 mg/dL (0.6-1.3); Estimated Creatinine Clearance 32.2 mL/min (>60); Globulin 2.6 gm/dL (2.3-3.5); Glucose 92 mg/dL (74-106); Magnesium 2.2 mg/dL (1.6-2.6); Osmolality,Calculated 314 (275-295); Phosphorous 5.7 mg/dL (2.4-5.1); Potassium 4.2 mMol/L (3.4-5.1); Sodium 138 mMol/L (136-145); Total Protein 6.3 gm/dL (5.7-8.2); eGFR 31 See Note
[2024-08-10 07:01] LABS: Blood Urea Nitrogen 122 mg/dL (9-23)
[2024-08-10] MEDS: ENOXAPARIN SOD INJ 40 MG/0.4 ML SYRINGE SC (08:12)
[2024-08-10] MEDS: LACTULOSE SYRUP 20 GM/30 ML UDC PO ×2 (08:12→20:47)
[2024-08-10] MEDS: CINACALCET HCL 30 MG TABLET (NON-FORM) 90 MG PO (08:13)
[2024-08-10] MEDS: cefTRIAXone/D5w 1gm IV premix 1 GM/50 ML BAG IV (08:14)
[2024-08-10] MEDS: FINASTERIDE 5 MG TABLET PO (08:14)
[2024-08-10] MEDS: METOPROLOL SUCCINATE XL 25 MG TABCR 50 MG PO ×2 (08:14→20:47)
[2024-08-10] MEDS: CLOPIDOGREL BISULFATE 75 MG TABLET PO (08:15)
[2024-08-10] MEDS: ASPIRIN EC 81 MG TABEC PO (08:15)
[2024-08-10] MEDS: LOSARTAN POTASSIUM 25 MG TABLET PO (08:15)
[2024-08-10] MEDS: SENNA TABLET 1 TAB PO (08:15)
--- NOTE | 2024-08-10 09:49 | XR_ITS ---
Examination: AP chest single view Technique one AP portable upright chest single view Date and time: August 10, 2024 0959 hours Comparison August 08, 2024 INDICATIONS: Shortness of breath today. FINDINGS: Opacity left base consistent with pneumonia Mild enlargement cardiac contour No pulmonary edema IMPRESSION: Pneumonia left base with possible left pleural fluid
--- NOTE | 2024-08-10 09:50 | XR_ITS ---
Examination: Abdomen sonogram, complete Date and time of exam: August 10, 2024 1014 hours INDICATIONS: Severe abdominal pain vomiting blood this week with elevated liver function tests on laboratory examination today. Technique: Multiple real-time grayscale transabdominal sonographic images of the abdomen have been obtained. Findings: Thickened gallbladder wall 0.4 cm no stones Common bile duct 0.5 cm Pancreatic head 3.2 cm Aorta not enlarged Liver 20.2 cm irregular contour dilated hepatic veins dilated IVC seen with heart failure Thrombus is noted in the proximal inferior vena cava 3.0 x 2.2 cm Normal hepatopedal portal venous flow Right kidney 11.2 cm renal cortex 1.0 cm Multiple benign cysts Left kidney 11.1 cm renal cortex 1.6 cm Moderate renal parenchymal scar formation Bilateral renal calculi Suspicious for 2.5 x 2.3 cm solid mass left kidney Spleen 16.2 cm IMPRESSION: Borderline thickening gallbladder wall 0.4 cm, consider HIDA scan or MRCP follow-up Hepatomegaly Suspicious for thrombus in the inferior vena cava, recommend CT scan abdomen pelvis post intravenous contrast follow-up with delayed venous images Bilateral renal calculi Recommend MRI abdomen kidneys follow-up pre and postcontrast to confirm solid mass left kidney
--- NOTE | 2024-08-10 10:35 | PD.RESPRO ---
Documentation for date of: 08/10/24 Subjective Subjective Interval history: No acute overnight events noted. Seen and examined at bedside and patient states he developed epigastric abdominal pain overnight. He did have 1 very small BM and so he was given saline enema in the morning noted to have multiple large BMs with resolution of abdominal discomfort. Given increasing LFTs and ALP, obtained abdominal ultrasound that showed borderline thickening gallbladder wall, hepatomegaly, and suspicion for thrombus in IVC. However, discussed images with cardiology and thrombus is too high for an IVC filter and will further evaluate with duplex US of lower extremities. If extensive thrombi seen, will consider placing IVC filter. Exam Vital Signs Temp Pulse Resp BP Pulse Ox O2 Del Method O2 Flow Rate 98.0 F 122 H 24 H 133/73 H 94 L Nasal Cannula 12 08/10/24 08:00 08/10/24 08:15 08/10/24 08:00 08/10/24 08:15 08/10/24 08:00 08/10/24 08:00 08/10/24 08:00 FiO2 60 08/09/24 12:00 Narrative Exam General: AOx3, mild distress, able to speak full sentences HEENT: NC/AT, mucous membranes moist, bilateral sclera anicteric Cardiovascular: regular rate and rhythm, S1/S2 present, no murmurs appreciated Pulmonary: clear to auscultation bilaterally, no rales/rhonchi/wheezes Abdominal: obese, tympanitic, tender in all quadrants, soft, no rebound/guarding, normal bowel sounds present Musculoskeletal: improved LLE ROM, no edema noted Skin: warm and dry, intact, no rashes Neuro: CN II-XII intact, no focal deficits Objective Labs 08/11/24 05:58 08/11/24 05:58 Labs: Laboratory Results - last 24 hr 08/10/24 04:28 WBC 10.1 D RBC 3.70 L Hgb 13.4 L D Hct 40.2 L MCV 109 H MCH 36.2 H MCHC 33.3 RDW Std Deviation 60.7 H Plt Count 145 D Neut % (Auto) 80 Lymph % (Auto) 3 L [place] % (Auto) 13 H Eos % (Auto) 2 Baso % (Auto) 0 Neut # (Auto) 8.1 H Lymph # (Auto) 0.3 L [place] # (Auto) 1.4 H Eos # (Auto) 0.2 Baso # (Auto) 0.0 Immature Gran # (Auto) 0.06 H Absolute Nucleated RBC 0.00 Immature Gran % 1 H Nucleated RBC % 0 Sodium 138 Potassium 4.2 D Chloride 102 Carbon Dioxide 23.4 Anion Gap 13 BUN 122 H* Creatinine 2.3 H Estim Creat Clear Calc 32.2 L eGFR 31 L BUN/Creatinine Ratio 53 H Glucose 92 Calculated Osmolality 314 H Calcium 10.6 Corrected Calcium 10.8 H Phosphorus 5.7 H Magnesium 2.2 Total Bilirubin 0.8 AST 61 H ALT 66 H Alkaline Phosphatase 205 H D Total Protein 6.3 Albumin 3.7 Globulin 2.6 Albumin/Globulin Ratio 1.4 Quality Measures Quality Measures VTE prophylaxis Assessment & Plan Assessment Current Active Medications: Generic Name Dose Route Start Last Admin Trade Name Freq PRN Reason Stop Dose Admin Aspirin 81 mg 08/04/24 10:45 08/10/24 08:15 Aspirin Ec 81 Mg Tabec PO 09/03/24 10:44 81 mg QDAY JM Administration Atorvastatin Calcium 20 mg 08/04/24 21:00 08/09/24 21:06 Atorvastatin Calcium 20 Mg Tablet PO 09/03/24 20:59 20 mg HS JM Administration Protocol Calcitriol 0.5 mcg 08/04/24 09:00 08/09/24 09:15 Calcitriol 0.25 Mcg Capsule PO 09/03/24 08:59 0.5 mcg QDAY JM Administration Cinacalcet 90 mg 08/04/24 09:00 08/10/24 08:13 Cinacalcet Hcl 30 Mg Tablet (Non-Form) PO 09/03/24 08:59 90 mg QDAY JM Administration Clopidogrel Bisulfate 75 mg 08/04/24 10:45 08/10/24 08:15 Clopidogrel Bisulfate 75 Mg Tablet PO 09/03/24 10:44 75 mg QDAY JM Administration Dextrose 25 ml 08/08/24 05:29 Dextrose 50%-Water Inj 50 Ml Syringe IV 09/07/24 05:28 Q15MIN PRN BG 50-70 responsive npo pt Dextrose 50 ml 08/08/24 05:29 Dextrose 50%-Water Inj 50 Ml Syringe IV 09/07/24 05:28 Q15MIN PRN BG <50 OR BG <70 & pt unresponsive Enoxaparin Sodium 40 mg 08/08/24 09:00 08/10/24 08:12 Enoxaparin Sod Inj 40 Mg/0.4 Ml Syringe SC 08/22/24 08:59 40 mg QDAY JM Administration Finasteride 5 mg 08/04/24 09:00 08/10/24 08:14 Finasteride 5 Mg Tablet PO 09/03/24 08:59 5 mg QDAY JM Administration Glucagon 1 mg 08/08/24 05:29 Glucagon Inj 1 Mg Vial IM Q15MIN PRN BG <70, and no IV access Guaifenesin 600 mg 08/07/24 20:55 08/07/24 21:59 Guaifenesin Er 600 Mg Tabcr PO 09/06/24 20:59 600 mg BID PRN Administration COUGH OR CONGESTION Ceftriaxone Sodium/Dextrose 1 gm in 50 mls @ 100 mls/hr 08/04/24 09:00 08/10/24 08:14 Rocephin/D5w 1gm Iv Premix IV 08/11/24 08:59 100 mls/hr QDAY JM Administration Azithromycin 500 mg/ Sodium 250 mls @ 250 mls/hr 08/05/24 21:00 08/09/24 21:06 Chloride IV 08/12/24 20:59 250 mls/hr HS JM Administration Ipratropium [place] 0.5 mg 08/07/24 06:19 08/10/24 06:38 Ipratropium Rt 0.5 Mg/ 2.5 Ml Nebu INH 09/06/24 06:18 0.5 mg Q6HR PRN Administration SHORTNESS OF BREATH Lactulose 20 gm 08/09/24 09:15 08/10/24 08:12 Lactulose Syrup 20 Gm/30 Ml Udc PO 09/08/24 09:14 20 gm BID JM Administration Protocol Latanoprost 1 drop 08/07/24 21:00 08/09/24 21:06 Latanoprost Op Marilyn 0.005% 2.5 Ml Btl RIGHT EYE 09/06/24 20:59 1 drop HS JM Administration Levalbuterol HCl 1.25 mg 08/08/24 13:00 08/10/24 06:39 Levalbuterol Rt 1.25 Mg/0.5 Ml Nebu INH 09/07/24 12:59 1.25 mg Q6HRRT JM Administration Losartan Potassium 25 mg 08/04/24 09:00 08/10/24 08:15 Losartan Potassium 25 Mg Tablet PO 09/03/24 08:59 25 mg QDAY JM Administration Melatonin 6 mg 08/06/24 22:44 08/07/24 21:59 Melatonin 3 Mg Tablet PO 09/06/24 20:59 6 mg HS PRN Administration insomnia Metoprolol Succinate 50 mg 08/08/24 21:00 08/10/24 08:14 Metoprolol Succinate Xl 25 Mg Tabcr PO 09/07/24 20:59 50 mg BID JM Administration Ondansetron HCl 4 mg 08/04/24 03:47 08/07/24 12:38 Ondansetron Inj 2 Mg/Ml Inj 2 Ml IV 09/03/24 03:46 4 mg Q6HR PRN Administration NAUSEA OR VOMITING Protocol Sennosides 1 tab 08/08/24 23:40 08/10/24 08:15 Senna Tablet PO 09/07/24 23:39 1 tab QDAY JM Administration Protocol Sodium Chloride 3 ml 08/08/24 02:11 08/09/24 13:10 Sodium Chloride Rt Marilyn 0.9% 3 Ml Nebu INH 09/07/24 02:10 3 ml PRN PRN Administration SOLN Thyroid 30 mg 08/08/24 09:15 08/10/24 05:54 Thyroid 30 Mg Tablet PO 09/07/24 09:14 30 mg DAILY@0630 JM Administration Plan Augustin Rodarte is a 63-year-old male with a past medical history of A-fib status post Watchman device, CAD status post stents (06/2024), CHF, CVA, COPD, cirrhosis, history of HCV, hypothyroidism, hypertension, hyperlipidemia, and glaucoma who presented on 08/04 for acute onset hemoptysis s/p CAD a few weeks ago on aspirin and Plavix. #? Thrombus in IVC Given increasing LFTs and ALP, obtained abdominal ultrasound that showed borderline thickening gallbladder wall, hepatomegaly, and suspicion for thrombus in IVC. However, discussed images with cardiology and thrombus is too high for an IVC filter and will further evaluate with duplex US of lower extremities. If extensive thrombi seen, will consider placing IVC filter. CT A/P deferred at this time given renal function. ? Follow-up US bilateral lower extremities ? 500 cc LR bolus #Acute on chronic kidney disease (around Stage G3B -> 4), worsening #Hyperkalemia, improving #Hypercalcemia #Hyperphosphatemia Admitted with Cr 2.3 (baseline 2.0-2.1), BUN 62; possibly volume responsive vs hepatorenal; not on SGLT2 inhibitor Renal US 08/08: benign right renal cyst, moderate bilateral parenchymal scarring, no hydronephrosis ? Nephrology consulted, appreciate recommendations ? Hold nephrotoxic agents #Hemoptysis likely secondary to pneumonia in the setting of aspirin and Plavix use #CAD s/p stent 06/2024 on aspirin and plavix Acute onset hemoptysis. Patient has also had stents placed couple years ago and was on Plavix at that time and was noted to have complications related to bleeding as well. States he coughed up about 2 tablespoons of blood but denies blood in stool, hematuria, hematemesis, epistaxis but does endorse some bleeding in gums when brushing teeth. Otherwise, hemoglobin stable at 11.9, platelets 83, INR 1.3. ? Cardiology consulted, appreciate recommendations ? Restarted aspirin and Plavix per recommendations given risk of stent thrombosis ? Monitor hemoglobin and other signs of significant bleeding, otherwise continue as above #Atrial fibrillation (s/p Watchman) History of AF with left atrial appendage occlusion; not currently anticoagulated. Noted to have HR 130s overnight 08/07. 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 Suspect component of dehydration due to overdiuresis to be contributor to tachycardia in addition to acute on chronic kidney disease. ? No current indication for anticoagulation post-Watchman unless additional thromboembolic risk factors present ? Metoprolol succinate 50 mg twice daily ? Discontinued home labetalol ? K > 4 and Mg > 2 #Left lower extremity pain #Complex effusion, hemarthrosis vs septic joint CT left lower extremity showed large complex knee effusion No fevers, chills, or leukocytosis so septic joint unlikely. Has been on ASA and plavix and previously on eliquis, with known complications with Plavix and suspect hemarthrosis. Status-post IR-guided joint aspiration: 10,000 WBC, 2000 RBC, hazy yellow color ? 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 Cardiorenal syndrome Given imaging and echo findings of congestion, suspect possible cardiorenal syndrome and was net fluid positive overnight CT showing significant cardiomegaly and dilated IVC; history of CVA, Watchman placement; likely chronic with mild pulmonary congestion Echo 08/06/2024: EF 55-60%, severe open TR with massive right atrial dilatation impinging on left atrium Dilated RV with moderate to severe RV systolic dysfunction, RVSP 55 mmHg (may be underestimated due to severe TR) Flat septum during systole and diastole Dilated IVC with poor inspiration collapse, small pericardial effusion without tamponade ? Lasix DC'd, monitor daily weights, I/Os, sodium-restricted diet ? Aspirin 81 mg daily, plavix, atorvastatin 20 mg daily ? CPAP at night #Pneumonia likely secondary to gram-negative organisms as demonstrated on CT chest Sputum culture 08/06: negative Blood culture: 08/08: pending ? Continue ceftriaxone (08/04-) and azithromycin (08/04-) #Cirrhosis #Thrombocytopenia #Transaminitis #Elevated ALP Known history; imaging confirms cirrhotic morphology; associated thrombocytopenia; elevated BUN/Cr concerning for hepatorenal physiology Platelets 84; likely multifactorial ? chronic liver disease (cirrhosis), medication effect (ASA/Plavix), possible infection-related Given increasing LFTs and ALP, obtained abdominal ultrasound that showed borderline thickening gallbladder wall, hepatomegaly, and suspicion for thrombus in IVC ? Monitor LFTs, ammonia, INR, and platelet count #History of COPD ? Duonebs discontinued due to tachycardia/a-fib #History of CVA ? Aspirin, plavix, and statin as above #Hypothyroidism TSH 9.55, free T4 1.06 ? Continue thyroid pill #Hyperparathyroidism ? Cinacalcet 90 mg p.o. daily #Glaucoma ? Latanoprost eye drops #Pulmonary embolism, ruled-out Atrial fibrillation in setting of hemoptysis and shortness of breath. V/Q scan: low probability of PE #Constipation, resolved Hospital management: Disposition: hemoptysis on ASA and plavix, worsening renal function Diet: cardiac Lines: PIV DVT prophylaxis: plavix CODE STATUS: full code ----- Plan discussed with attending physician Dr. Una Carreno MD PGY-1 Internal Medicine Attending Provider Attestation/Addendum I reviewed labs, imaging, EKG, home medications and prior available records. Face to face evaluation was performed by me. I have personally examined the patient and discussed assessment and plan with the IM team. I reviewed the resident note and agree with the plan with exceptions as below. Acute hypoxic respiratory failure Hemoptysis Extensive right-sided pneumonia Coronary artery disease KIMBERLY on CKD Left knee effusion HFpEF Transaminitis Oxygen needs increased to 10 L. Ordered chest x-ray that showed right-sided pneumonia. Ordered liver ultrasound that showed possible inferior vena cava thrombus. Discussed with cardiology: Too high for a filter but may order lower extremity ultrasound to rule out DVT Hemoptysis is likely in the setting of pneumonia/pulmonary edema on top of use of dual antiplatelet therapy and thrombocytopenia Continue IV ceftriaxone/azithromycin Continue aspirin and Plavix per cardiology recommendations Held Lasix. Monitor kidney function Status post IR guided arthrocentesis of the left knee: The fluid appears inflammatory in etiology. Follow-up culture Avoid nephrotoxins. Renally dosed medications PT recommended SNF
--- NOTE | 2024-08-10 10:51 | PC.SS ---
SS follow up note; Patient's kidney functions are worsening, patient will return back home when medically cleared.
[2024-08-10 11:37] LABS: Hepatitis A Antibody IgM Non Reactive (Non React); Hepatitis B Surface Antigen Non Reactive (Non React); Hepatitis C Antibody Reactive (Non React)
--- NOTE | 2024-08-10 12:03 | ESPR_ITS ---
<Statement entered by Niall Mayer MD - 08/10/24 19:32> I personally evaluated examined patient was complex multiple medical problems of having constipation abdominal discomfort abdominal ultrasound showed evidence of extensive findings especially considering of the right hip radiating patient is hide IVC is quite dilated and there is suspicion of a small thrombus like structure the proximal IVC distal IVC is clear patient remember the patient's right heart pressures are quite high 25 minutes patient surprised to see a small compensated patient has no evidence of pulmonary embolism by VQ scan I will get a lower extremity venous duplex scan to see the source of his thrombus with extensive DVT may consider IVC placement. Patient since the past could not tolerate Eliquis. Patient has been having trouble just taking Plavix following recent stent placement. Patient cannot stop Plavix at least on the 2 months. Continue medical management no need for any CT scan of the abdomen or chest contrast will not add any fatty chart changer. Noted small 2 x 2 cm possible mass in the left kidney again incidental finding no hematuria no issues this can be addressed later. The patient present physician agree with treatment plan recommendation as documented by Documentation for date of: 08/10/24 Subjective Subjective Interval history: Pt examined bedside this afternoon , US abdomen showed Suspicious for thrombus in the inferior vena cava, patient doesn't need CT scan because of less clinical significance and Inferior mathieu is mod dilated due to TR . he has contraindication for anticoagulation because of risk of bleeding , since V/q scan was negative recommend to do venous doppler of B/l legs. continue to hold diuritics , he receied 500 cc of fluids today. Exam Vital Signs Temp Pulse Resp BP Pulse Ox O2 Del Method O2 Flow Rate 98.0 F 122 H 24 H 133/73 H 94 L Nasal Cannula 12 08/10/24 08:00 08/10/24 08:15 08/10/24 08:00 08/10/24 08:15 08/10/24 08:00 08/10/24 08:00 08/10/24 08:00 FiO2 60 08/09/24 12:00 Narrative Exam GENERAL: Comfortable adult seen resting comfortably in hospital bed, no acute distress, on 6L of O2 via NC HEENT: Normocephalic, atraumatic. Pupils are equal and reactive. Oral mucosa is moist. NECK: Supple, nontender, no JVD CHEST: Symmetrical, atraumatic and with equal expansion ,Nontender on palpation CARDIOVASCULAR: Heart regular rhythm & rate. S1/S2. no murmur or gallop rub or extra beats. LUNGS: Clear to auscultation bilaterally with symmetrical chest rise. No laboring tachypnea or wheezing. No intercostal subcostal retraction. No rales and no rhonchi. ABDOMEN: Soft, flat, nontender to palpation, no guarding or rebound tenderness. Active and normal bowel sounds. EXTREMITIES:Moves all 4 extremities,1+ eugenia LE edema with chronic venous statis dermitis SKIN: Warm and dry, no jaundice or rashes noted. NEURO: Patient is AO x 3, Cranial nerves II through XII grossly intact. There is no focal neurologic deficits noted. PSYCHIATRIC: Patient is in normal mood, cooperative, no SI or HI or hallucinations. Objective Labs 08/10/24 04:28 08/10/24 04:28 Labs: Laboratory Results - last 24 hr 08/10/24 04:28 WBC 10.1 D RBC 3.70 L Hgb 13.4 L D Hct 40.2 L MCV 109 H MCH 36.2 H MCHC 33.3 RDW Std Deviation 60.7 H Plt Count 145 D Neut % (Auto) 80 Lymph % (Auto) 3 L [place] % (Auto) 13 H Eos % (Auto) 2 Baso % (Auto) 0 Neut # (Auto) 8.1 H Lymph # (Auto) 0.3 L [place] # (Auto) 1.4 H Eos # (Auto) 0.2 Baso # (Auto) 0.0 Immature Gran # (Auto) 0.06 H Absolute Nucleated RBC 0.00 Immature Gran % 1 H Nucleated RBC % 0 Sodium 138 Potassium 4.2 D Chloride 102 Carbon Dioxide 23.4 Anion Gap 13 BUN 122 H* Creatinine 2.3 H Estim Creat Clear Calc 32.2 L eGFR 31 L BUN/Creatinine Ratio 53 H Glucose 92 Calculated Osmolality 314 H Calcium 10.6 Corrected Calcium 10.8 H Phosphorus 5.7 H Magnesium 2.2 Total Bilirubin 0.8 AST 61 H ALT 66 H Alkaline Phosphatase 205 H D Total Protein 6.3 Albumin 3.7 Globulin 2.6 Albumin/Globulin Ratio 1.4 Hepatitis A IgM Ab Non Reactive Hep Bs Antigen Non Reactive Hepatitis C Antibody Reactive A Quality Measures Quality Measures VTE prophylaxis Assessment & Plan Assessment Current Active Medications: Generic Name Dose Route Start Last Admin Trade Name Freq PRN Reason Stop Dose Admin Aspirin 81 mg 08/04/24 10:45 08/10/24 08:15 Aspirin Ec 81 Mg Tabec PO 09/03/24 10:44 81 mg QDAY JM Administration Atorvastatin Calcium 20 mg 08/04/24 21:00 08/09/24 21:06 Atorvastatin Calcium 20 Mg Tablet PO 09/03/24 20:59 20 mg HS JM Administration Protocol Calcitriol 0.5 mcg 08/04/24 09:00 08/09/24 09:15 Calcitriol 0.25 Mcg Capsule PO 09/03/24 08:59 0.5 mcg QDAY JM Administration Cinacalcet 90 mg 08/04/24 09:00 08/10/24 08:13 Cinacalcet Hcl 30 Mg Tablet (Non-Form) PO 09/03/24 08:59 90 mg QDAY JM Administration Clopidogrel Bisulfate 75 mg 08/04/24 10:45 08/10/24 08:15 Clopidogrel Bisulfate 75 Mg Tablet PO 09/03/24 10:44 75 mg QDAY JM Administration Dextrose 25 ml 08/08/24 05:29 Dextrose 50%-Water Inj 50 Ml Syringe IV 09/07/24 05:28 Q15MIN PRN BG 50-70 responsive npo pt Dextrose 50 ml 08/08/24 05:29 Dextrose 50%-Water Inj 50 Ml Syringe IV 09/07/24 05:28 Q15MIN PRN BG <50 OR BG <70 & pt unresponsive Enoxaparin Sodium 40 mg 08/08/24 09:00 08/10/24 08:12 Enoxaparin Sod Inj 40 Mg/0.4 Ml Syringe SC 08/22/24 08:59 40 mg QDAY JM Administration Finasteride 5 mg 08/04/24 09:00 08/10/24 08:14 Finasteride 5 Mg Tablet PO 09/03/24 08:59 5 mg QDAY JM Administration Glucagon 1 mg 08/08/24 05:29 Glucagon Inj 1 Mg Vial IM Q15MIN PRN BG <70, and no IV access Guaifenesin 600 mg 08/07/24 20:55 08/07/24 21:59 Guaifenesin Er 600 Mg Tabcr PO 09/06/24 20:59 600 mg BID PRN Administration COUGH OR CONGESTION Ceftriaxone Sodium/Dextrose 1 gm in 50 mls @ 100 mls/hr 08/04/24 09:00 08/10/24 08:14 Rocephin/D5w 1gm Iv Premix IV 08/11/24 08:59 100 mls/hr QDAY JM Administration Azithromycin 500 mg/ Sodium 250 mls @ 250 mls/hr 08/05/24 21:00 08/09/24 21:06 Chloride IV 08/12/24 20:59 250 mls/hr HS JM Administration Ipratropium [place] 0.5 mg 08/07/24 06:19 08/10/24 06:38 Ipratropium Rt 0.5 Mg/ 2.5 Ml Nebu INH 09/06/24 06:18 0.5 mg Q6HR PRN Administration SHORTNESS OF BREATH Lactulose 20 gm 08/09/24 09:15 08/10/24 08:12 Lactulose Syrup 20 Gm/30 Ml Udc PO 09/08/24 09:14 20 gm BID JM Administration Protocol Latanoprost 1 drop 08/07/24 21:00 08/09/24 21:06 Latanoprost Op Marilyn 0.005% 2.5 Ml Btl RIGHT EYE 09/06/24 20:59 1 drop HS JM Administration Levalbuterol HCl 1.25 mg 08/08/24 13:00 08/10/24 06:39 Levalbuterol Rt 1.25 Mg/0.5 Ml Nebu INH 09/07/24 12:59 1.25 mg Q6HRRT JM Administration Losartan Potassium 25 mg 08/04/24 09:00 08/10/24 08:15 Losartan Potassium 25 Mg Tablet PO 09/03/24 08:59 25 mg QDAY JM Administration Melatonin 6 mg 08/06/24 22:44 08/07/24 21:59 Melatonin 3 Mg Tablet PO 09/06/24 20:59 6 mg HS PRN Administration insomnia Metoprolol Succinate 50 mg 08/08/24 21:00 08/10/24 08:14 Metoprolol Succinate Xl 25 Mg Tabcr PO 09/07/24 20:59 50 mg BID JM Administration Ondansetron HCl 4 mg 08/04/24 03:47 08/07/24 12:38 Ondansetron Inj 2 Mg/Ml Inj 2 Ml IV 09/03/24 03:46 4 mg Q6HR PRN Administration NAUSEA OR VOMITING Protocol Sennosides 1 tab 08/08/24 23:40 08/10/24 08:15 Senna Tablet PO 09/07/24 23:39 1 tab QDAY JM Administration Protocol Sodium Chloride 3 ml 08/08/24 02:11 08/09/24 13:10 Sodium Chloride Rt Marilyn 0.9% 3 Ml Nebu INH 09/07/24 02:10 3 ml PRN PRN Administration SOLN Thyroid 30 mg 08/08/24 09:15 08/10/24 05:54 Thyroid 30 Mg Tablet PO 09/07/24 09:14 30 mg DAILY@0630 JM Administration Plan This is a 63-year-old male with PMHx of HTN, HLD, CAD s/p PCI 07/18/24, A-fib s/p watchman, thrombocytopenia, CHF, tricuspid valve absent with regurg hypothyroidism, CVA, COPD, cirrhosis, hepatitis C, presenting to ED with complaint of coughing up blood. He is on dual antiplatelet started on aspirin 81 mg once daily and Plavix 75 mg once daily. Patient does have a history of bleeding with dual antiplatelets or any kind of anticoagulation is apparently very sensitive. Patient did have and recent PCI on 07/18/2024 and is less than 1 month since the stent placement. Cardiology consulted for recommendation for dual anti platelet . Acute Hemoptysis CAD, PCI stent 06/2024 and 03/2023 Chronic thrombocytopenea Chronic anemia Cardiology consulted for continuing PLAVIX/ASA therapy. At this time, hemoptysis appears to be resolved, Hgb stable, PLT at baseline. No evidence of severe bleed. High risk for stent clotting given recent PCI stent. Denies chest pain, sob, active bleed. ? Recommended continuing PLAVIX/ASA ? Transfuse if Hgb continues to decline ? Will consider holding anticoag if Hgb drastically declines, below 9 or bleeding uncontrolled. ? Workup for hemoptysis per primary team. -08/07/24 - patient hemoglobin continues to be stable around 11- 12. no acute overnight events . he needs to continue plavix and aspirin for first 30 days , then he can do plavix ever other day for 90 days then he can be switched to Aspirin only. -08/08/2024: his hemoglobin today is 11.5, discontinued home labetalol and started on metoprolol and 1L of fluids@100 ml/hr , his tachycardia could be secondary to his dehydration . he had V/Q scan today pending results. he needs to continue plavix and aspirin for first 30 days , then he can do plavix ever other day for 90 days then he can be switched to Aspirin only. -08/09/2024: V/ q scan was negative ,he needs to continue plavix and aspirin for first 30 days , then he can do plavix ever other day for 90 days then he can be switched to Aspirin only. -08/10/24: US abdomen showed Suspicious for thrombus in the inferior vena cava, patient doesn't need CT scan because of less clinical significance and Inferior mathieu is mod dilated due to TR . he has contraindication for anticoagulation because of risk of bleeding , since V/q scan was negative recommend to do venous doppler of B/l legs. continue to hold diuritics , he receied 500 cc of fluids today. CHF (55 to 60%.) CXR and CT showed severe cardiomegaly. ECHO Findings: Normal LV function with estimated EF of 55 to 60%. LV size appears to be smaller due to the dilated RV.Severe open TR with massive right atrial dilatation which impinges on the left atrium too,Dilated RV with moderate to severe RV systolic dysfunction. Estimated RVSP 55 mmHg,RVSP underestimated because of severe open TR and patient mostly has severe PAH. Etiology unclear,Flat septum in both systole and diastole consistent with right ventricular pressure and volume overload,Dilated IVC with poor inspiration collapse consistent with elevated right atrial pressure. There is small pericardial effusion without tamponade. Mild MR. Mild thickening of the TV. Mild PI. 08/07/2024-Discontinue lasix 40 iv BID . continue losartan , once discharged he can start his oral home lasix. 08/08/2024: Continue Metoprolol , he is receiving fluid Ns @100 ml/hr . He was complaining of constipation and received sodium polystyrene x1. 08/10/24: continue metoprolol Atrial Fibrillation (s/p Watchman) S/p left Hypothyroidism HTN, HLD Severe tricuspid valve degeneration COPD HR 90, TSH 9.55, free T4 1.06, TG 97, LDL 46, HDL 37 On home 2-3L oxygen PRN for chronic tricuspid degeneration, CHF and COPD Reports no increase in oxygen demand. No obvious source of bleed including GI bleed. Low suspension for PE, HR wnl, no increase in oxygen demand, no signs of DVT on exam Asymptomatic without chest pain or shortness of breath or dizziness. ? Continue LOSARTAN 25 mg q. day ? Continue ATORVASTATIN 20 mg HS ? Continue thyroid 30 mg QDAY Management of rest of the medical conditions as per primary team Pneumonia Thrombocytopenia Cirrhosis Chronic Kidney Disease (around Stage G3B->4) Hyperparathyroidism Case was discussed with attending, Dr. Moreno Khoury MD, PGY-3
[2024-08-10] MEDS: RINGERS LACTATED 1000 ML 500 ML 999 ML IV (13:33)
[2024-08-10 13:48] LABS: Parathyroid Hormone Intact 131.2 pg/ml (18.5-88.0)
[2024-08-10 13:57] LABS: Vitamin D 25 Hydroxy Total 31.7 ng/mL (7.3-40.2)
--- NOTE | 2024-08-10 14:28 | ESPR_ITS ---
RE: ROXANNE DICKENS : 1960 DATE OF SERVICE: 08/10/2024 HISTORY OF PRESENT ILLNESS: Briefly, he is a 63-year-old gentleman with a past medical history significant for hypertension, chronic hepatitis C, hyperlipidemia, liver cirrhosis, stage 3 to 4 CKD with baseline serum creatinine around 1.9, who presented to the hospital on 08/04/2024 due to hemoptysis. The patient has not been eating very well and was noted to have a creatinine level of 2.4. The patient also was found with pneumonia. The patient was hydrated and monitored. The patient also has a history of CAD and had a PCI stent placement for RCA stenosis on 07/18/2024. He maintains good urine output. Creatinine over time has improved and today, creatinine was 2.3 in the morning. The patient maintains a subset good urine output. CURRENT MEDICATIONS: Include 1. Aspirin 81 mg daily. 2. Atorvastatin 20 mg at bedtime. 3. Azithromycin 500 mg IV daily. 4. Plavix 75 mg p.o. daily. 5. Enoxaparin. 6 Finasteride. 7. Lactulose. PHYSICAL EXAMINATION: General: Awake, alert, and oriented. Vital Signs: Blood pressure of 133/73 and heart rate of 122. HEENT: Anicteric sclerae. Normocephalic. Neck: Supple. No JVD. Chest and Lungs: Symmetrical expansion. Clear breath sounds. Cardiac: Without murmur. Abdomen: Soft, nontender, obese. Extremities: 1 to 2+ edema. LABORATORY DATA: Sodium 138, potassium 4.2, chloride 102, CO2 23.4, BUN of 99 creatinine of 2.3, calcium of 10.8. Hemoglobin 13.4, WBC 10,100, platelet count 145,000. ASSESSMENT: 1. Acute kidney injury on chronic kidney disease, most likely secondary to dehydration, now improving. 2. History of coronary artery disease on Plavix and Aspirin. 3. History of chronic hepatitis C and questionable liver cirrhosis. 4. Pneumonia. 5. Elevated calcium level. Rule out primary hyperparathyroidism. Rule out vitamin D intoxication versus familial hypocalciuric hypercalcemia. PLAN: Continue intermittent IV fluid infusion. Continue monitoring kidney function daily. Obtain PTH level. Obtain urine calcium and urine creatinine. I agree with discontinuation of calcitriol and any calcium-based medication. DT: 12:40:43 TT: 14:12:00 Ref: [id number] - TID: [id number] MTDD
[2024-08-10 14:45] LABS: Hepatitis B Core Antibody IgM Non Reactive (Non React)
[2024-08-10 17:20] LABS: Calcium, Random Urine < 5 mg/dL (2-18); Creatinine,Random Urine 59 mg/dL (30-125)
[2024-08-10] MEDS: SODIUM CHLORIDE RT SOL 0.9% 3 ML NEBU INH (18:33)
[2024-08-10] MEDS: ATORVASTATIN CALCIUM 20 MG TABLET PO (20:46)
[2024-08-10] MEDS: AZITHROMYCIN INJ 500 MG in SODIUM CHLORIDE 0.9% 250 ML 250 ML 250 MG IV (20:47)
[2024-08-10] MEDS: LATANOPROST OP SOL 0.005% 2.5 ML BTL 1 DROP RIGHT EYE (21:01)
[2024-08-10 22:13] LABS: OBS Card Lot # 23001; OBS Developer Lot # 23002; OBS Performed By ANDRS3; OBS QC OK? Yes; Occult Blood, Stool Positive (Negative)
[2024-08-11] VITALS (18 sets, daily range): BP systolic 121–141; BP diastolic 71–96; PULSE 77–105; RESP 18–28; TEMP 36.1–36.7; O2SAT 88–94; BMI 32.5
--- NOTE | 2024-08-11 | XR_ITS ---
Examination: Venous duplex lower extremity sonogram, bilateral. Date and time of exam: August 11, 2024 1140 hrs. Indications: Thrombus in the inferior vena cava Ultrasound August 10, 2024 Technique: Multiple sonographic images of the deep venous system have been obtained. B-mode/2-D grayscale imaging of vascular structures and Doppler spectral analysis (waveforms) and color performed Both legs are examined. Findings: Deep venous systems do not demonstrate abnormal echogenicity. All visualized deep veins exhibit compressibility. All visualized deep veins exhibit augmentation. Impression: Negative for deep vein thrombosis
[2024-08-11] MEDS: SODIUM CHLORIDE RT SOL 0.9% 3 ML NEBU INH ×4 (00:23→19:45)
[2024-08-11] MEDS: LEVALBUTEROL RT 1.25 MG/0.5 ML NEBU INH ×4 (00:23→19:45)
[2024-08-11] MEDS: THYROID 30 MG TABLET PO (05:50)
[2024-08-11 06:32] LABS: Basophils % (Auto) 0 % (0-2.5); Eosinophils % (Auto) 0 % (0-10); Hematocrit 37.4 % (41.0-53.0); Hemoglobin 12.7 g/dL (13.5-16.0); Immature Granulocytes % (Auto) 1 % (0-0); Immature Granulocytes Auto 0.07 Thou/mm3 (0.00-0.00); Lymphocytes # (Auto) 0.3 Thou/mm3 (1.0-4.8); Lymphocytes % (Auto) 4 % (10-50); Mean Corpuscular Hemoglobin 36.4 pg (25.0-35.0); Mean Corpuscular Volume 107 fL (80-100); Monocytes # (Auto) 0.7 Thou/mm3 (0.0-0.8); Monocytes % (Auto) 8 % (0-12); Neutrophils # (Auto) 7.2 Thou/mm3 (1.8-7.7); Neutrophils % (Auto) 87 % (37-80); Nucleated Red Blood Cell % 0 /100 WBC (0); Platelet Count 161 Thou/mm3 (140-440); RDW Standard Deviation 59.6 fL (35.1-43.9); Red Blood Count 3.49 Miln/mm3 (4.50-5.90); White Blood Count 8.3 Thou/mm3 (3.8-10.6)
[2024-08-11 07:24] LABS: Alanine Aminotransferase 67 U/L (10-49); Albumin, Serum 3.9 gm/dL (3.4-4.8); Albumin/Globulin Ratio 1.5 (1.2-2.2); Alkaline Phosphatase 199 U/L (46-116); Anion Gap 13 (7-16); Aspartate Amino Transferase 52 U/L (0-34); BUN/Creatinine Ratio 59 Ratio (12-20); Bilirubin,Total 0.7 mg/dL (0.3-1.2); Calcium 10.5 mg/dL (8.3-10.6); Calcium (Corrected) 10.6 mg/dL (8.5-10.1); Carbon Dioxide 24.3 mMol/L (20.0-31.0); Chloride 103 mMol/L (98-107); Creatinine (Component) 2.2 mg/dL (0.6-1.3); Estimated Creatinine Clearance 45.8 mL/min (>60); Globulin 2.6 gm/dL (2.3-3.5); Glucose 120 mg/dL (74-106); Magnesium 2.1 mg/dL (1.6-2.6); Osmolality,Calculated 321 (275-295); Phosphorous 6.6 mg/dL (2.4-5.1); Potassium 4.6 mMol/L (3.4-5.1); Sodium 140 mMol/L (136-145); Total Protein 6.5 gm/dL (5.7-8.2); eGFR 33 See Note
[2024-08-11 07:52] LABS: Blood Urea Nitrogen 129 mg/dL (9-23)
[2024-08-11] MEDS: LOSARTAN POTASSIUM 25 MG TABLET PO (08:11)
[2024-08-11] MEDS: SENNA TABLET 1 TAB PO (08:12)
[2024-08-11] MEDS: CLOPIDOGREL BISULFATE 75 MG TABLET PO (08:12)
[2024-08-11] MEDS: ASPIRIN EC 81 MG TABEC PO (08:12)
[2024-08-11] MEDS: ENOXAPARIN SOD INJ 40 MG/0.4 ML SYRINGE SC (08:13)
[2024-08-11] MEDS: METOPROLOL SUCCINATE XL 25 MG TABCR 50 MG PO ×2 (08:16→21:37)
[2024-08-11] MEDS: FINASTERIDE 5 MG TABLET PO (08:16)
--- NOTE | 2024-08-11 09:30 | ESPR_ITS ---
Documentation for date of: 08/11/24 Subjective Subjective Interval history: No acute overnight events noted. Seen and examined at bedside and patient continues to endorse some abdominal pain but did resolve previously with enema. Encouraged him to sit in his chair or walk as he can tolerate. CBC stable, BUN continues to increase from 122 to 129, creatinine improving from 2.3 to 2.2. LFTs and alk phos also improving. Abdominal ultrasound showed suspicion for thrombus in IVC and spoke to cardiology and will further evaluate with duplex of lower extremities, which was negative. Exam Vital Signs Temp Pulse Resp BP Pulse Ox O2 Del Method O2 Flow Rate 98.0 F 82 25 H 121/95 H 93 L Oxy Mask 15 08/11/24 04:00 08/11/24 08:38 08/11/24 08:38 08/11/24 08:16 08/11/24 08:38 08/11/24 04:00 08/11/24 06:18 FiO2 50 08/11/24 08:38 Narrative Exam General: AOx3, mild distress, able to speak full sentences HEENT: NC/AT, mucous membranes moist, bilateral sclera anicteric Cardiovascular: regular rate and rhythm, S1/S2 present, no murmurs appreciated Pulmonary: on CPAP, clear to auscultation bilaterally, no rales/rhonchi/wheezes Abdominal: obese, tympanitic, soft, no rebound/guarding, normal bowel sounds present Musculoskeletal: improved LLE ROM, no edema noted Skin: warm and dry, intact, no rashes Neuro: CN II-XII intact, no focal deficits Objective Labs 08/11/24 05:58 08/11/24 05:58 Labs: Laboratory Results - last 24 hr 08/10/24 08/10/24 08/10/24 04:28 13:10 16:02 WBC RBC Hgb Hct MCV MCH MCHC RDW Std Deviation Plt Count Neut % (Auto) Lymph % (Auto) [place] % (Auto) Eos % (Auto) Baso % (Auto) Neut # (Auto) Lymph # (Auto) [place] # (Auto) Eos # (Auto) Baso # (Auto) Immature Gran # (Auto) Absolute Nucleated RBC Immature Gran % Nucleated RBC % Sodium Potassium Chloride Carbon Dioxide Anion Gap BUN Creatinine Estim Creat Clear Calc eGFR BUN/Creatinine Ratio Glucose Calculated Osmolality Calcium Corrected Calcium Phosphorus Magnesium Total Bilirubin AST ALT Alkaline Phosphatase Total Protein Albumin Globulin Albumin/Globulin Ratio 25-OH Vitamin D Total 31.7 PTH Intact 131.2 H Ur Random Creatinine 59 Ur Random Calcium < 5 Stool Occult Blood Hepatitis A IgM Ab Non Reactive Hep Bs Antigen Non Reactive Hep B Core IgM Ab Non Reactive Hepatitis C Antibody Reactive A 08/10/24 08/11/24 19:43 05:58 WBC 8.3 RBC 3.49 L Hgb 12.7 L Hct 37.4 L MCV 107 H MCH 36.4 H MCHC 34.0 RDW Std Deviation 59.6 H Plt Count 161 Neut % (Auto) 87 H Lymph % (Auto) 4 L [place] % (Auto) 8 Eos % (Auto) 0 Baso % (Auto) 0 Neut # (Auto) 7.2 Lymph # (Auto) 0.3 L [place] # (Auto) 0.7 Eos # (Auto) 0.0 Baso # (Auto) 0.0 Immature Gran # (Auto) 0.07 H Absolute Nucleated RBC 0.00 Immature Gran % 1 H Nucleated RBC % 0 Sodium 140 Potassium 4.6 Chloride 103 Carbon Dioxide 24.3 Anion Gap 13 BUN 129 H* Creatinine 2.2 H Estim Creat Clear Calc 45.8 L eGFR 33 L BUN/Creatinine Ratio 59 H Glucose 120 H Calculated Osmolality 321 H Calcium 10.5 Corrected Calcium 10.6 H Phosphorus 6.6 H Magnesium 2.1 Total Bilirubin 0.7 AST 52 H ALT 67 H Alkaline Phosphatase 199 H Total Protein 6.5 Albumin 3.9 Globulin 2.6 Albumin/Globulin Ratio 1.5 25-OH Vitamin D Total PTH Intact Ur Random Creatinine Ur Random Calcium Stool Occult Blood Positive A Hepatitis A IgM Ab Hep Bs Antigen Hep B Core IgM Ab Hepatitis C Antibody Quality Measures Quality Measures VTE prophylaxis Assessment & Plan Assessment Current Active Medications: Generic Name Dose Route Start Last Admin Trade Name Freq PRN Reason Stop Dose Admin Aspirin 81 mg 08/04/24 10:45 08/11/24 08:12 Aspirin Ec 81 Mg Tabec PO 09/03/24 10:44 81 mg QDAY JM Administration Atorvastatin Calcium 20 mg 08/04/24 21:00 08/10/24 20:46 Atorvastatin Calcium 20 Mg Tablet PO 09/03/24 20:59 20 mg HS JM Administration Protocol Azithromycin 500 mg 08/11/24 21:00 Azithromycin 250 Mg Tablet PO 08/12/24 20:59 HS JM Calcitriol 0.5 mcg 08/04/24 09:00 05/15/25 09:15 Calcitriol 0.25 Mcg Capsule PO 09/03/24 08:59 0.5 mcg QDAY JM Administration Cinacalcet 90 mg 08/04/24 09:00 08/10/24 08:13 Cinacalcet Hcl 30 Mg Tablet (Non-Form) PO 09/03/24 08:59 90 mg QDAY JM Administration Clopidogrel Bisulfate 75 mg 08/04/24 10:45 08/11/24 08:12 Clopidogrel Bisulfate 75 Mg Tablet PO 09/03/24 10:44 75 mg QDAY JM Administration Dextrose 25 ml 08/08/24 05:29 Dextrose 50%-Water Inj 50 Ml Syringe IV 09/07/24 05:28 Q15MIN PRN BG 50-70 responsive npo pt Dextrose 50 ml 08/08/24 05:29 Dextrose 50%-Water Inj 50 Ml Syringe IV 09/07/24 05:28 Q15MIN PRN BG <50 OR BG <70 & pt unresponsive Enoxaparin Sodium 40 mg 08/08/24 09:00 08/11/24 08:13 Enoxaparin Sod Inj 40 Mg/0.4 Ml Syringe SC 08/22/24 08:59 40 mg QDAY JM Administration Finasteride 5 mg 08/04/24 09:00 08/11/24 08:16 Finasteride 5 Mg Tablet PO 09/03/24 08:59 5 mg QDAY JM Administration Glucagon 1 mg 08/08/24 05:29 Glucagon Inj 1 Mg Vial IM Q15MIN PRN BG <70, and no IV access Guaifenesin 600 mg 08/07/24 20:55 08/07/24 21:59 Guaifenesin Er 600 Mg Tabcr PO 09/06/24 20:59 600 mg BID PRN Administration COUGH OR CONGESTION Lactated Ringer's 500 mls @ 999 mls/hr 08/11/24 09:24 Lactated Ringers IV 08/11/24 09:54 .Q31M ONE Ipratropium [place] 0.5 mg 08/07/24 06:19 08/10/24 12:55 Ipratropium Rt 0.5 Mg/ 2.5 Ml Nebu INH 09/06/24 06:18 0.5 mg Q6HR PRN Administration SHORTNESS OF BREATH Lactulose 20 gm 08/09/24 09:15 08/10/24 20:47 Lactulose Syrup 20 Gm/30 Ml Udc PO 09/08/24 09:14 20 gm BID JM Administration Protocol Latanoprost 1 drop 08/07/24 21:00 08/10/24 21:01 Latanoprost Op Marilyn 0.005% 2.5 Ml Btl RIGHT EYE 09/06/24 20:59 1 drop HS JM Administration Levalbuterol HCl 1.25 mg 08/08/24 13:00 08/11/24 06:18 Levalbuterol Rt 1.25 Mg/0.5 Ml Nebu INH 09/07/24 12:59 1.25 mg Q6HRRT JM Administration Losartan Potassium 25 mg 08/04/24 09:00 08/11/24 08:11 Losartan Potassium 25 Mg Tablet PO 09/03/24 08:59 25 mg QDAY JM Administration Melatonin 6 mg 08/06/24 22:44 08/07/24 21:59 Melatonin 3 Mg Tablet PO 09/06/24 20:59 6 mg HS PRN Administration insomnia Metoprolol Succinate 50 mg 08/08/24 21:00 08/11/24 08:16 Metoprolol Succinate Xl 25 Mg Tabcr PO 09/07/24 20:59 50 mg BID JM Administration Ondansetron HCl 4 mg 08/04/24 03:47 08/07/24 12:38 Ondansetron Inj 2 Mg/Ml Inj 2 Ml IV 09/03/24 03:46 4 mg Q6HR PRN Administration NAUSEA OR VOMITING Protocol Sennosides 1 tab 08/08/24 23:40 08/11/24 08:12 Senna Tablet PO 09/07/24 23:39 1 tab QDAY JM Administration Protocol Sodium Chloride 3 ml 08/08/24 02:11 08/11/24 06:18 Sodium Chloride Rt Marilyn 0.9% 3 Ml Nebu INH 09/07/24 02:10 3 ml PRN PRN Administration SOLN Thyroid 30 mg 08/08/24 09:15 08/11/24 05:50 Thyroid 30 Mg Tablet PO 09/07/24 09:14 30 mg DAILY@0630 JM Administration Plan Augustin Rodarte is a 63-year-old male with a past medical history of A-fib status post Watchman device, CAD status post stents (06/2024), CHF, CVA, COPD, cirrhosis, history of HCV, hypothyroidism, hypertension, hyperlipidemia, and glaucoma who presented on 08/04 for acute onset hemoptysis s/p CAD a few weeks ago on aspirin and Plavix. #? Thrombus in IVC Given increasing LFTs and ALP, obtained abdominal ultrasound that showed borderline thickening gallbladder wall, hepatomegaly, and suspicion for thrombus in IVC. However, discussed images with cardiology and thrombus is too high for an IVC filter and will further evaluate with duplex US of lower extremities. If extensive thrombi seen, will consider placing IVC filter. CT A/P deferred at this time given renal function. ? US bilateral lower extremities negative ? 500 cc LR bolus #Acute on chronic kidney disease (around Stage G3B -> 4), improving #Hyperkalemia, resolved #Hypercalcemia #Hyperphosphatemia Admitted with Cr 2.3 (baseline 2.0-2.1), BUN 62; possibly volume responsive vs hepatorenal; not on SGLT2 inhibitor Renal US 08/08: benign right renal cyst, moderate bilateral parenchymal scarring, no hydronephrosis PTH elevated at 131, calcium elevated at 10.6 -> suggests primary hyperparathyroidism ? Nephrology consulted, appreciate recommendations ? Hold nephrotoxic agents ? 500 cc LR bolus #Hemoptysis likely secondary to pneumonia in the setting of aspirin and Plavix use #CAD s/p stent 06/2024 on aspirin and plavix Acute onset hemoptysis. Patient has also had stents placed couple years ago and was on Plavix at that time and was noted to have complications related to bleeding as well. States he coughed up about 2 tablespoons of blood but denies blood in stool, hematuria, hematemesis, epistaxis but does endorse some bleeding in gums when brushing teeth. Otherwise, hemoglobin stable at 11.9, platelets 83, INR 1.3. ? Cardiology consulted, appreciate recommendations ? Restarted aspirin and Plavix per recommendations given risk of stent thrombosis ? Monitor hemoglobin and other signs of significant bleeding, otherwise continue as above #Atrial fibrillation (s/p Watchman) History of AF with left atrial appendage occlusion; not currently anticoagulated. Noted to have HR 130s overnight 08/07. 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 Suspect component of dehydration due to overdiuresis to be contributor to tachycardia in addition to acute on chronic kidney disease. No current indication for anticoagulation post-Watchman unless additional thromboembolic risk factors present. ? Metoprolol succinate 50 mg twice daily ? Discontinued home labetalol ? K > 4 and Mg > 2 #Left lower extremity pain #Complex effusion, hemarthrosis vs septic joint CT left lower extremity showed large complex knee effusion No fevers, chills, or leukocytosis so septic joint unlikely. Has been on ASA and plavix and previously on eliquis, with known complications with Plavix and suspect hemarthrosis. Status-post IR-guided joint aspiration: 10,000 WBC, 2000 RBC, hazy yellow color ? 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 Lasix DC'd, monitor daily weights, I/Os, sodium-restricted diet ? Aspirin 81 mg daily, plavix, atorvastatin 20 mg daily ? CPAP at night #Pneumonia likely secondary to gram-negative organisms as demonstrated on CT chest Sputum culture 08/06: negative Blood culture: 08/08: pending ? Continue ceftriaxone (08/04-) and azithromycin (08/04-) #Cirrhosis #Thrombocytopenia #Transaminitis #Elevated ALP Known history; imaging confirms cirrhotic morphology; associated thrombocytopenia; elevated BUN/Cr concerning for hepatorenal physiology Platelets 84; likely multifactorial ? chronic liver disease (cirrhosis), medication effect (ASA/Plavix), possible infection-related Given increasing LFTs and ALP, obtained abdominal ultrasound that showed borderline thickening gallbladder wall, hepatomegaly, and suspicion for thrombus in IVC ? Monitor LFTs, ammonia, INR, and platelet count #History of COPD ? Duonebs discontinued due to tachycardia/a-fib #History of CVA ? Aspirin, plavix, and statin as above #Hypothyroidism TSH 9.55, free T4 1.06 ? Continue thyroid pill #Hyperparathyroidism ? Cinacalcet 90 mg p.o. daily #Glaucoma ? Latanoprost eye drops #Pulmonary embolism, ruled-out Atrial fibrillation in setting of hemoptysis and shortness of breath. V/Q scan: low probability of PE #Constipation, resolved Hospital management: Disposition: hemoptysis on ASA and plavix, pending duplex bilateral LE Diet: cardiac Lines: PIV DVT prophylaxis: plavix CODE STATUS: full code ----- Plan discussed with attending physician Dr. Una Carreno MD PGY-1 Internal Medicine Attending Provider Attestation/Addendum I reviewed labs, imaging, EKG, home medications and prior available records. Face to face evaluation was performed by me. I have personally examined the patient and discussed assessment and plan with the IM team. I reviewed the resident note and agree with the plan with exceptions as below. Acute hypoxic respiratory failure Hemoptysis Extensive right-sided pneumonia Coronary artery disease KIMBERLY on CKD Left knee effusion HFpEF Transaminitis Oxygen requirements improved but then went back to 10 L Ordered liver ultrasound that showed possible inferior vena cava thrombus. Discussed with cardiology: Too high for a filter but may order lower extremity ultrasound to rule out DVT. The ultrasound showed no acute DVT Discussed goals of care with the patient given the recurrence of the hypoxemia which is likely from the cough/mucus: Patient wants DNR/DNI. He is interested in going home with hospice. Discussed with social worker delinquency prevention. Discussed with cardiology: Will talk to the patient prior to finalizing the decision Hemoptysis is likely in the setting of pneumonia/pulmonary edema on top of use of dual antiplatelet therapy and thrombocytopenia Continue antibiotics for the pneumonia Continue aspirin and Plavix per cardiology recommendations Held Lasix. Monitor kidney function Status post IR guided arthrocentesis of the left knee: The fluid appears inflammatory in etiology. Follow-up culture Avoid nephrotoxins. Renally dosed medications PT recommended SNF however patient wants to go home
[2024-08-11] MEDS: RINGERS LACTATED 1000 ML 500 ML 999 ML IV (09:52)
[2024-08-11] MEDS: CINACALCET HCL 30 MG TABLET (NON-FORM) 90 MG PO (09:53)
--- NOTE | 2024-08-11 11:43 | ESPR_ITS ---
<Statement entered by Niall Mayer MD - 08/14/24 08:25> I personally examined evaluated the patient again is feeling little better does not complain of any chest pain shortness of breath but is depressed and oxygenation improving we will continue to monitor oxygenation closely possibly give antidepressant medications as well anticoagulation will be continued but probably reduce the Plavix dosage to every other day because of bleeding issues agree with the treatment plan recommendation as documented by Dr. Walsh PGY 2 Documentation for date of: 08/11/24 Subjective Subjective Interval history: Patient was seen and examined at bedside. No acute overnight events. CT of abdomen pelvis with contrast was canceled yesterday. Pending ultrasound of bilateral lower extremities. Continue home aspirin atorvastatin clopidogrel. Exam Vital Signs Temp Pulse Resp BP Pulse Ox O2 Del Method O2 Flow Rate 96.9 F 82 25 H 121/95 H 93 L Oxy Mask 15 08/11/24 08:00 08/11/24 08:38 08/11/24 08:38 08/11/24 08:16 08/11/24 08:38 08/11/24 08:00 08/11/24 08:00 FiO2 50 08/11/24 08:38 Narrative Exam Gen: Well-developed and well-nourished male. HEENT: NCAT, PERRLA, EOMI, MMM, anicteric conjunctivae. CVS: normal S1 and S2. RRR. No M/R/G. Resp: CTA B/L. No rhonchi, rales, crackles or wheezing. Abd: soft, non-tender, non-distended. BS+ in all 4 quadrants. MSK: Good ROM in BUE & BLE. No edema or rash. Multiple bruises over BUE and BLE. Neuro: CN II-XII grossly intact. Strength 5/5 in BUE & BLE. Alert and oriented x3. Psych: appropriate mood and affect. Objective Labs 08/11/24 05:58 08/11/24 05:58 Labs: Laboratory Results - last 24 hr 08/10/24 08/10/24 08/10/24 04:28 13:10 16:02 WBC RBC Hgb Hct MCV MCH MCHC RDW Std Deviation Plt Count Neut % (Auto) Lymph % (Auto) [place] % (Auto) Eos % (Auto) Baso % (Auto) Neut # (Auto) Lymph # (Auto) [place] # (Auto) Eos # (Auto) Baso # (Auto) Immature Gran # (Auto) Absolute Nucleated RBC Immature Gran % Nucleated RBC % Sodium Potassium Chloride Carbon Dioxide Anion Gap BUN Creatinine Estim Creat Clear Calc eGFR BUN/Creatinine Ratio Glucose Calculated Osmolality Calcium Corrected Calcium Phosphorus Magnesium Total Bilirubin AST ALT Alkaline Phosphatase Total Protein Albumin Globulin Albumin/Globulin Ratio 25-OH Vitamin D Total 31.7 PTH Intact 131.2 H Ur Random Creatinine 59 Ur Random Calcium < 5 Stool Occult Blood Hep B Core IgM Ab Non Reactive 08/10/24 08/11/24 19:43 05:58 WBC 8.3 RBC 3.49 L Hgb 12.7 L Hct 37.4 L MCV 107 H MCH 36.4 H MCHC 34.0 RDW Std Deviation 59.6 H Plt Count 161 Neut % (Auto) 87 H Lymph % (Auto) 4 L [place] % (Auto) 8 Eos % (Auto) 0 Baso % (Auto) 0 Neut # (Auto) 7.2 Lymph # (Auto) 0.3 L [place] # (Auto) 0.7 Eos # (Auto) 0.0 Baso # (Auto) 0.0 Immature Gran # (Auto) 0.07 H Absolute Nucleated RBC 0.00 Immature Gran % 1 H Nucleated RBC % 0 Sodium 140 Potassium 4.6 Chloride 103 Carbon Dioxide 24.3 Anion Gap 13 BUN 129 H* Creatinine 2.2 H Estim Creat Clear Calc 45.8 L eGFR 33 L BUN/Creatinine Ratio 59 H Glucose 120 H Calculated Osmolality 321 H Calcium 10.5 Corrected Calcium 10.6 H Phosphorus 6.6 H Magnesium 2.1 Total Bilirubin 0.7 AST 52 H ALT 67 H Alkaline Phosphatase 199 H Total Protein 6.5 Albumin 3.9 Globulin 2.6 Albumin/Globulin Ratio 1.5 25-OH Vitamin D Total PTH Intact Ur Random Creatinine Ur Random Calcium Stool Occult Blood Positive A Hep B Core IgM Ab Quality Measures Quality Measures VTE prophylaxis Assessment & Plan Assessment Current Active Medications: Generic Name Dose Route Start Last Admin Trade Name Freq PRN Reason Stop Dose Admin Aspirin 81 mg 08/04/24 10:45 08/11/24 08:12 Aspirin Ec 81 Mg Tabec PO 09/03/24 10:44 81 mg QDAY JM Administration Atorvastatin Calcium 20 mg 08/04/24 21:00 08/10/24 20:46 Atorvastatin Calcium 20 Mg Tablet PO 09/03/24 20:59 20 mg HS JM Administration Protocol Azithromycin 500 mg 08/11/24 21:00 Azithromycin 250 Mg Tablet PO 08/12/24 20:59 HS JM Calcitriol 0.5 mcg 08/04/24 09:00 08/09/24 09:15 Calcitriol 0.25 Mcg Capsule PO 09/03/24 08:59 0.5 mcg QDAY JM Administration Cinacalcet 90 mg 08/04/24 09:00 08/11/24 09:53 Cinacalcet Hcl 30 Mg Tablet (Non-Form) PO 09/03/24 08:59 90 mg QDAY JM Administration Clopidogrel Bisulfate 75 mg 08/04/24 10:45 08/11/24 08:12 Clopidogrel Bisulfate 75 Mg Tablet PO 09/03/24 10:44 75 mg QDAY JM Administration Dextrose 25 ml 08/08/24 05:29 Dextrose 50%-Water Inj 50 Ml Syringe IV 09/07/24 05:28 Q15MIN PRN BG 50-70 responsive npo pt Dextrose 50 ml 08/08/24 05:29 Dextrose 50%-Water Inj 50 Ml Syringe IV 09/07/24 05:28 Q15MIN PRN BG <50 OR BG <70 & pt unresponsive Enoxaparin Sodium 40 mg 08/08/24 09:00 08/11/24 08:13 Enoxaparin Sod Inj 40 Mg/0.4 Ml Syringe SC 08/22/24 08:59 40 mg QDAY JM Administration Finasteride 5 mg 08/04/24 09:00 08/11/24 08:16 Finasteride 5 Mg Tablet PO 09/03/24 08:59 5 mg QDAY JM Administration Glucagon 1 mg 08/08/24 05:29 Glucagon Inj 1 Mg Vial IM Q15MIN PRN BG <70, and no IV access Guaifenesin 600 mg 08/07/24 20:55 08/07/24 21:59 Guaifenesin Er 600 Mg Tabcr PO 09/06/24 20:59 600 mg BID PRN Administration COUGH OR CONGESTION Ipratropium [place] 0.5 mg 08/07/24 06:19 08/10/24 12:55 Ipratropium Rt 0.5 Mg/ 2.5 Ml Nebu INH 09/06/24 06:18 0.5 mg Q6HR PRN Administration SHORTNESS OF BREATH Lactulose 20 gm 08/09/24 09:15 08/11/24 09:45 Lactulose Syrup 20 Gm/30 Ml Udc PO 09/08/24 09:14 Not Given BID JM Protocol Latanoprost 1 drop 08/07/24 21:00 08/10/24 21:01 Latanoprost Op Marilyn 0.005% 2.5 Ml Btl RIGHT EYE 09/06/24 20:59 1 drop HS JM Administration Levalbuterol HCl 1.25 mg 08/08/24 13:00 08/11/24 06:18 Levalbuterol Rt 1.25 Mg/0.5 Ml Nebu INH 09/07/24 12:59 1.25 mg Q6HRRT JM Administration Losartan Potassium 25 mg 08/04/24 09:00 08/11/24 08:11 Losartan Potassium 25 Mg Tablet PO 09/03/24 08:59 25 mg QDAY JM Administration Melatonin 6 mg 08/06/24 22:44 08/07/24 21:59 Melatonin 3 Mg Tablet PO 09/06/24 20:59 6 mg HS PRN Administration insomnia Metoprolol Succinate 50 mg 08/08/24 21:00 08/11/24 08:16 Metoprolol Succinate Xl 25 Mg Tabcr PO 09/07/24 20:59 50 mg BID JM Administration Ondansetron HCl 4 mg 08/04/24 03:47 08/07/24 12:38 Ondansetron Inj 2 Mg/Ml Inj 2 Ml IV 09/03/24 03:46 4 mg Q6HR PRN Administration NAUSEA OR VOMITING Protocol Sennosides 1 tab 08/08/24 23:40 08/11/24 08:12 Senna Tablet PO 09/07/24 23:39 1 tab QDAY JM Administration Protocol Sodium Chloride 3 ml 08/08/24 02:11 08/11/24 06:18 Sodium Chloride Rt Marilyn 0.9% 3 Ml Nebu INH 09/07/24 02:10 3 ml PRN PRN Administration SOLN Thyroid 30 mg 08/08/24 09:15 08/11/24 05:50 Thyroid 30 Mg Tablet PO 09/07/24 09:14 30 mg DAILY@0630 JM Administration Plan This is a 63-year-old male with PMHx of HTN, HLD, CAD s/p PCI 4/23/25, A-fib s/p watchman, thrombocytopenia, CHF, tricuspid valve absent with regurg hypothyroidism, CVA, COPD, cirrhosis, hepatitis C, presenting to ED with complaint of coughing up blood. He is on dual antiplatelet started on aspirin 81 mg once daily and Plavix 75 mg once daily. Patient does have a history of bleeding with dual antiplatelets or any kind of anticoagulation is apparently very sensitive. Patient did have and recent PCI on 07/18/2024 and is less than 1 month since the stent placement. Cardiology consulted for recommendation for dual anti platelet . Acute Hemoptysis. CAD, PCI stent 06/2024 and 03/2023. Chronic thrombocytopenia. Chronic anemia. Cardiology consulted for continuing PLAVIX/ASA therapy. At this time, hemoptysis appears to be resolved, Hgb stable, PLT at baseline. No evidence of severe bleed. High risk for stent clotting given recent PCI stent. Denies chest pain, sob, active bleed. ? Recommended continuing PLAVIX/ASA ? Transfuse if Hgb continues to decline ? Will consider holding anticoag if Hgb drastically declines, below 9 or bleeding uncontrolled. ? Workup for hemoptysis per primary team. -08/07/24 - patient hemoglobin continues to be stable around 11- 12. no acute overnight events . he needs to continue plavix and aspirin for first 30 days , then he can do plavix ever other day for 90 days then he can be switched to Aspirin only. -08/08/2024: his hemoglobin today is 11.5, discontinued home labetalol and started on metoprolol and 1L of fluids@100 ml/hr , his tachycardia could be secondary to his dehydration . he had V/Q scan today pending results. he needs to continue plavix and aspirin for first 30 days , then he can do plavix ever other day for 90 days then he can be switched to Aspirin only. -08/09/2024: V/ q scan was negative ,he needs to continue plavix and aspirin for first 30 days , then he can do plavix ever other day for 90 days then he can be switched to Aspirin only. -08/10/24: US abdomen showed Suspicious for thrombus in the inferior vena cava, patient doesn't need CT scan because of less clinical significance and Inferior mathieu is mod dilated due to TR . he has contraindication for anticoagulation because of risk of bleeding , since V/q scan was negative recommend to do venous doppler of B/l legs. continue to hold diuritics , he receied 500 cc of fluids today. CHF (55 to 60%.). CXR and CT showed severe cardiomegaly. ECHO Findings: Normal LV function with estimated EF of 55 to 60%. LV size appears to be smaller due to the dilated RV.Severe open TR with massive right atrial dilatation which impinges on the left atrium too,Dilated RV with moderate to severe RV systolic dysfunction. Estimated RVSP 55 mmHg,RVSP underestimated because of severe open TR and patient mostly has severe PAH. Etiology unclear,Flat septum in both systole and diastole consistent with right ventricular pressure and volume overload,Dilated IVC with poor inspiration collapse consistent with elevated right atrial pressure. There is small pericardial effusion without tamponade. Mild MR. Mild thickening of the TV. Mild PI. 08/07/2024-Discontinue lasix 40 iv BID . continue losartan , once discharged he can start his oral home lasix. 08/08/2024: Continue Metoprolol , he is receiving fluid Ns @100 ml/hr . He was complaining of constipation and received sodium polystyrene x1. 08/10/24: continue metoprolol. #Atrial Fibrillation (s/p Watchman). #Hypothyroidism. #HTN. #HLD. #Severe tricuspid valve degeneration. #COPD. HR 90, TSH 9.55, free T4 1.06, TG 97, LDL 46, HDL 37 On home 2-3L oxygen PRN for chronic tricuspid degeneration, CHF and COPD Reports no increase in oxygen demand. No obvious source of bleed including GI bleed. Low suspension for PE, HR wnl, no increase in oxygen demand, no signs of DVT on exam Asymptomatic without chest pain or shortness of breath or dizziness. ? Continue LOSARTAN 25 mg q. day. ? Continue ATORVASTATIN 20 mg HS. ? Continue thyroid 30 mg QDAY. Management of rest of the medical conditions as per primary team. Pneumonia Thrombocytopenia Cirrhosis Chronic Kidney Disease (around Stage G3B->4) Hyperparathyroidism Case was discussed with attending, Dr. Mayer. Nico Holt MD, PGY 2. Disclaimer: This note was dictated by speech recognition. Minor errors in instructor ballroom dancing may be present due to voice recognition software.
--- NOTE | 2024-08-11 14:52 | ESDS_ITS ---
Planned Discharge Date 08/11/24 DS: Providers Provider Date of admission: 08/06/24 08:02 Primary care physician: Dorie Abraham MD Admitting Provider: Sanya Rosenbaum MD Attending Provider on Admission: Robert Heart MD Consults: 08/04/24 08:50 Consult to Cardiology Routine Comment: Consulting Provider: Kb Jiménez Instructions: Stent placed 06/2024 on ASA/plavix but now held given presenting with hemoptysis. 08/07/24 15:44 Referral Physical Therapy Routine Comment: Physician Instructions: 08/08/24 08:29 Consult to Nephrology Routine Comment: Consulting Provider: Dorie Abraham Attending Provider on DC: Faustino Carreno MD Discharging Provider: Faustino Carreno MD DS: Diagnosis Problem List Completed Was Problem List Reviewed/Reconciled?: Yes Hospital Course Hospital Course Hospital course: Augustin Rodarte is a 63-year-old male with a past medical history of A-fib status post Watchman device, CAD status post stents (06/2024), CHF, CVA, COPD, cirrhosis, history of HCV, hypothyroidism, hypertension, hyperlipidemia, and glaucoma who presented on 08/04 for acute onset hemoptysis s/p CAD a few weeks ago on aspirin and Plavix. He denied any hematemesis, melena, hematochezia, hematuria, or epistaxis but did note some bleeding when brushing his teeth. Otherwise, hemoglobin on admission was 11.6 and remained stable throughout hospi talization. He did endorse some additional episodes of hemoptysis but were not severe. Thus, after speaking with cardiology, decision was made to continue aspirin and plavix given significant risk of post-stent thrombosis. He has a history of tricuspid valve endocarditis and per echo reading showed severe, open tricuspid regurgitation and right atrial dilatation. In setting of being net positive with fluids, lasix dosage was increased but led to decreased renal function. Suspect that at baseline his venous system is congested due to above findings and after daily, intermittent IVF boluses and holding lasix, both creatinine and GFR improved but BUN continued to increase. Suspect to be due to possible dehydration; GI bleed was on differential but hemoglobin remained stable and no hematochezia or melena during hospitalization. Noted to go into a-fib with RVR though he has a known history and is status-post Watchman. Home labetalol discontinued and started on metoprolol succinate 50 mg twice daily and heart rate improved. Additionally, experienced left lower extremity pain in the knee and underwent IR guided joint aspiration that showed 10,000 WBC, 2000 RBC which indicated inflammatory arthritis but not septic arthritis and unlikely hemarthrosis. Due to increased LFTs, ALP and T. bili, abdominal ultrasound was obtained that incidentally showed suspicion for thrombus in IVC. Per cardio recommendations, Doppler ultrasound of lower extremities were obtained to see if extensive thrombi present. Doppler was negative and thus no indication for IVC filter. Diagnoses during admission: #? 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 #History of CAD #Pneumonia likely secondary to gram-negative organisms as demonstrated on CT chest #Cirrhosis #Thrombocytopenia #Transaminitis #Elevated ALP #History of COPD #History of CVA #Hypothyroidism #Hyperparathyroidism #Glaucoma #Constipation, resolved Discharge instructions: ? Stop taking labetolol and start taking metoprolol succinate 50 mg twice per day, at least until you follow-up with your carton lettering machine operator, Dr. Mayer ? Stop taking lasix, at least until you follow-up with Dr. Mayer ? Stop taking calcitriol, at least until you follow-up with your PCP ? Continue taking all other home medications as prescribed ? Follow-up with your PCP within 1-2 weeks of discharge ? Follow-up with your carton lettering machine operator within 1-2 weeks of discharge ? Return to ED if symptoms worsen or recur Time Spent with Patient Time attestation: Total time spent providing and/or coordinating discharge services: Time spent: Greater than 30 minutes Home Health Home Health Referral Orders: 08/11/24 14:44 Home Health Referral Routine Reason For Exam: Home PT Home-Bound The patient must either because of illness or injury, need the aid of supportive devices such as crutches, canes, wheelchairs, and walkers; the use of special transportation; or the assistance of another person in order to leave their place of residence; OR have a condition such that leaving his or her home is medically contraindicated. In addition, the patient also meets the following criteria: patient is normally unable to leave the home and leaving home requires considerable taxing effort. Addendum to Home Health Certification Practitioner's Certification: I certify that the patient has been under my care in the hospital and the care of attending physician (see below). We had a [id number] encounter on (see date below). My clinical findings indicate that the patient is home bound per the above criteria and the Home Health Services noted in these orders are medically necessary. The primary reason for the [id number] encounter is related to the fact that the patient requires home health services. Date Certifying [id number] Physician Encounter: 08/04/24 Physician's Name who will Assume Oversight for Services: Dorie Abraham Physician's Phone No.who will Assume Oversight for Service: TOLL SERVICE OBSERVER - Community Resources: Yes PT to Evaluate: Yes PT to evaluate and provide a treatmnet plan to increase patient's mobility and strength. Wound Care: No IV Therapy: No RN Safety Evaluation: Yes RN to evaluate and create a plan of care that will produce positive outcomes. Palliative Treatment: No Palliative treatment and evaluate the need for hospice. Home Health Aide - Personal Care: Yes Home Health Aide to assist with any ADL's. Exam Vital Signs Temp Pulse Resp BP Pulse Ox O2 Del Method O2 Flow Rate 97.8 F 83 26 H 141/94 H 93 L Nasal Cannula 35 08/11/24 12:00 08/11/24 13:44 08/11/24 13:44 08/11/24 12:00 08/11/24 13:44 08/11/24 12:00 08/11/24 13:44 FiO2 70 08/11/24 13:44 Narrative Exam General: AOx3, mild distress, able to speak full sentences HEENT: NC/AT, mucous membranes moist, bilateral sclera anicteric Cardiovascular: regular rate and rhythm, S1/S2 present, no murmurs appreciated Pulmonary: on CPAP, clear to auscultation bilaterally, no rales/rhonchi/wheezes Abdominal: obese, tympanitic, soft, no rebound/guarding, normal bowel sounds present Musculoskeletal: improved LLE ROM, no edema noted Skin: warm and dry, intact, no rashes Neuro: CN II-XII intact, no focal deficits Discharge Plan Plan Patient Disposition: Home w/HOME HEALTH Care Plan Goals: ? Stop taking labetolol and start taking metoprolol succinate 50 mg twice per day, at least until you follow-up with your carton lettering machine operator, Dr. Mayer ? Stop taking lasix, at least until you follow-up with Dr. Mayer ? Stop taking calcitriol, at least until you follow-up with your PCP ? Continue taking all other home medications as prescribed ? Follow-up with your PCP within 1-2 weeks of discharge ? Follow-up with your carton lettering machine operator within 1-2 weeks of discharge ? Return to ED if symptoms worsen or recur Prescriptions/Referrals Prescriptions/Med Rec: New metoprolol succinate 50 mg capsule,sprinkle,ER 24hr 50 mg PO BID 30 Days Qty: 60 0RF Continued simvastatin 40 MG tablet 40 mg PO HS Qty: 90 Creon 12,000-38,000 -60,000 unit Capsule,Delayed Release(Dr/Ec) 1 cap PO TID latanoprost 0.005 % drops 1 drp Both eyes HS Rx Instructions: Right eye at bedtime aspirin 81 mg Tablet,Delayed Release (Dr/Ec) 81 mg PO QDAY allopurinol 300 mg tablet 300 mg PO HS Patient Comments: TK 1 T PO QD IN THE MORNING losartan 50 mg Tablet 25 mg PO QDAY thyroid 30 mg Tablet 30 mg PO QDAY cinacalcet 90 mg Tablet 90 mg PO QDAY triamcinolone acetonide 0.1 % ointment 1 applic TOPICAL BID Patient Comments: APPLY TOPICALLY TO THE SKIN TWICE DAILY NEEDED clopidogrel [Plavix] 75 mg tablet 75 mg PO QDAY Qty: 30 5RF Magnesium Complex 300 mg magnesium tablet 250 mg PO TUTHSA Held furosemide 40 mg tablet 40 mg PO Q12H Hold Instructions: Resume on 08/25/24. labetalol 200 mg tablet 200 mg PO BID Hold Instructions: Resume on 08/25/24. Patient Comments: TK 1 T PO BID calcitriol 0.5 mcg capsule 0.5 mcg PO QDAY Hold Instructions: Resume on 08/25/24. No Action finasteride 5 mg Tablet 5 mg PO QDAY Referrals: Dorie Abraham MD [Primary Care Provider] - Patient/Caregiver Discharge Instructions Print Language: Malay Stand Alone Forms: Jenn Award Info., Patient Portal Info Letter Discharge Order Discharge Orders: Discharge (Routine); Ordered 08/11/24 Ordered By: Faustino Escamilla Cogiovanny Quality Discharge Quality Measures VTE prophylaxis Attestestation MD Attestation I reviewed labs, imaging, EKG, home medications and prior available records. Face to face evaluation was performed by me. I have personally examined the patient and discussed assessment and plan with the IM team. I reviewed the resident note and agree with the plan with exceptions as below. Acute hypoxic respiratory failure Hemoptysis Extensive right-sided pneumonia Coronary artery disease KIMBERLY on CKD Left knee effusion HFpEF Transaminitis Oxygen requirements improved but then went back to 10 L Ordered liver ultrasound that showed possible inferior vena cava thrombus. Discussed with cardiology: Too high for a filter but may order lower extremity ultrasound to rule out DVT. The ultrasound showed no acute DVT Discussed goals of care with the patient given the recurrence of the hypoxemia which is likely from the cough/mucus: Patient wants DNR/DNI. He is interested in going home with hospice. Discussed with aids social worker. Discussed with cardiology: Will talk to the patient prior to finalizing the decision Hemoptysis is likely in the setting of pneumonia/pulmonary edema on top of use of dual antiplatelet therapy and thrombocytopenia Continue antibiotics for the pneumonia Continue aspirin and Plavix per cardiology recommendations Held Lasix. Monitor kidney function Status post IR guided arthrocentesis of the left knee: The fluid appears inflammatory in etiology. Follow-up culture Avoid nephrotoxins. Renally dosed medications PT recommended SNF however patient wants to go home
--- NOTE | 2024-08-11 15:43 | PC.CC ---
Received order for , referral sent to [facility], no preferences noted on patient's chart
--- NOTE | 2024-08-11 16:09 | PC.SS ---
Patient was identified as a discharge. However, per Dr. Carreno, patient will remain hospitalized due to requiring high flow oxygen.
--- NOTE | 2024-08-11 17:10 | PD.RESEVENT ---
Documentation for date of: 08/11/24 Event Note Event Note: Patient initially planned for discharge today; however, he was placed on HFNC in the afternoon. Yesterday he was able to saturate well on oxymask, and this morning he was transitioned from CPAP to NC to HFNC shortly thereafter and so discharge cancelled. Additionally, had meeting with patient and at bedside as patient expressed his wishes regarding further care. Per , patient stated that he would not like to pursue further treatment. Spoke to psychiatric social worker and stated that home with hospice will not be able to accommodate HFNC and does not have additional support. However, patient does not want to go to a intermediate facility. At this time, will wait for further input from cardiology and touch base with patient tomorrow to see what best course of action to take is. ----- Plan discussed with attending physician Dr. Una Carreno MD PGY-1 Internal Medicine
--- NOTE | 2024-08-11 18:00 | PC.NURSE ---
Called Yuki and informed him that pt is mow having drops of blood coming from the urethra, this is a new condition for the pt.
[2024-08-11] MEDS: AZITHROMYCIN 250 MG TABLET 500 MG PO (21:37)
[2024-08-11] MEDS: ATORVASTATIN CALCIUM 20 MG TABLET PO (21:38)
[2024-08-11] MEDS: ZOLPIDEM 5 MG TABLET PO (22:24)
[2024-08-11] MEDS: ESCITALOPRAM OXALATE 10 MG TABLET PO (22:24)
[2024-08-11] MEDS: LATANOPROST OP SOL 0.005% 2.5 ML BTL 1 DROP RIGHT EYE (22:25)
[2024-08-12] VITALS (14 sets, daily range): BP systolic 129–148; BP diastolic 90–101; PULSE 73–117; RESP 19–29; TEMP 36.4–36.6; O2SAT 88–94; BMI 32.5
--- NOTE | 2024-08-12 00:26 | ESPR_ITS ---
RE: ROXANNE RODARTE : 1960 DATE OF SERVICE: 08/11/2024 Roxanne Rodarte is a 63-year-old male known to be with history of multiple medical problems, chronic medical issues including excessive bleeding tendency and history of multivessel CAD, stent placed in the LAD last year, now had stent to the RCA nearly 4 weeks ago. He came to the hospital with hemoptysis with initially blood-tinged sputum. The patient in the hospital was aggressively diuresed, developed KIMBERLY and prerenal azotemia requiring hydration. BUN is still elevated, but creatinine improved back to his baseline. 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 No left heart failure. Left ventricular function normal. The patient has multiple other problems including possibly some chronic lung disease or restrictive lung disease. He does take oxygen at home. He does have slight desaturations and the patient was placed on high flow oxygen, subsequently depressed breathing, CPAP and BiPAP was given. The patient is depressed, not eating well. The patient does not require although high flow or a BiPAP. All he needs is a OxyMask with slightly increased supplement. Maintained high 80s saturation, 87% to 89% range is good enough. The patient has chronic issues with pulmonary issues and mild chronic hypoxemia, takes oxygen supplements as necessary at home. The patient also complained of hematuria which is a new problem, which is concerning for him and he has been coming up in 4 weeks following stent placement. There are renal calculi shown on kidney ultrasound examination. Bilateral renal calculi were described, possibly responsible for hematuria, especially considering he has been on Plavix. There is also a 2.5 x 2.3 cm mass in the left kidney, which could also be addressed later on if his hematuria does not resolve. Clinically, I took the BiPAP off completely. He is saturating at 85% on room air with 2-liter nasal cannula. He is not able to breathe through the nasal cannula. OxyMask was placed, saturating quite well. OBJECTIVE: Vital Signs: Blood pressure 128/90. Pulse rate is 80. Neck: Supple. Lungs: Decreased breath sounds. Heart: Sounds S1, S2 regular. Systolic murmur is heard. Abdomen: Slightly distended, soft. Extremities: No edema. Genitourinary and Rectal: Not performed. IMPRESSION/ASSESSMENT: 1. Mild hemoptysis, now improving. 2. Hematuria, new finding, possibly from renal stones versus small renal mass. 3. Status post recent coronary artery stent placement of right coronary artery. 4. Chronic kidney disease stage IV. 5. Prerenal azotemia. RECOMMENDATIONS: Continue oral hydration. We will change the oxygen to OxyMask. Goal is only high 80s saturation. That is his baseline at home. No need to get aggressive. He has no acute respiratory failure. I looked at his chest x-ray. There is no pneumonia, no heart failure. We will discontinue aspirin and Plavix for the next couple of days. If his hematuria starts to resolve, we may discharge the patient home to have a urology consultation for hematuria. He may require cystoscopy, but at this time, we would wait for a couple of more weeks before having cystoscopy. We will reduce the Plavix and aspirin dose upon discharge, possibly to every other day of Plavix to reduce the signs of hematuria and hemoptysis. As far as the hypoxia is concerned, the patient has a history of mild chronic hypoxemia at home. No acute respiratory failure. No need to do BiPAP and high-flow oxygen, which possibly depressed his breathing as well. The patient also has clinical depression. Started on Lexapro 10 mg daily. Unable to sleep. We will give him Ambien. Recommended to increase his diet. He is not eating well as he is depressed. The patient thinks he is dying, unlikely since his coronary arteries are now patent, the patient is expected to do well. DT: 23:44:20 TT: 00:24:00 Ref: [id number] - TID: [id number]
[2024-08-12] MEDS: LEVALBUTEROL RT 1.25 MG/0.5 ML NEBU INH ×4 (01:55→19:44)
[2024-08-12] MEDS: SODIUM CHLORIDE RT SOL 0.9% 3 ML NEBU INH ×3 (01:55→19:43)
--- NOTE | 2024-08-12 02:27 | PD.RESEVENT ---
Documentation for date of: 08/12/24 Event Note Event Note: Rapid Response Room: 273 Time: around 2:15 AM Reason for Call: chest pain Patient presentation: No severe distress, anxious, on 5L oxy mask saturating 91%, no diaphoresis, AOx3. Assessment: RR called due to patient complaining of chest pain. Tele reviewed and was still in A fib , rate controlled 80-90. BP 135-140 systolic. Chest pain more in epigastric region as he winced to palpation. Pointed to RUQ as well. Pain 11/04. LE +1 edema, wheezing ausculated b/L. Per nurse, he had received Ambien around 10:30 pm. Appears to be more GI cause/anxiety vs cardiac etiology. Will consider repeating EKG, troponins if pain continues. However, would suspect mildly elevated troponins s/p cardiac cath. New orders: IV pantoprazole 40mg x1 Patient was discussed with the attending, Dr. Fabian. Kim Richter, PGY-1
[2024-08-12] MEDS: PANTOPRAZOLE INJ 40 MG VIAL IV (02:44)
[2024-08-12] MEDS: THYROID 30 MG TABLET PO (05:41)
[2024-08-12] MEDS: SENNA TABLET 1 TAB PO (07:34)
[2024-08-12] MEDS: HYDROcodone/APAP 5/325 TABLET 1 TAB PO ×2 (07:35→20:18)
[2024-08-12] MEDS: LACTULOSE SYRUP 20 GM/30 ML UDC PO (07:35)
[2024-08-12] MEDS: METOPROLOL SUCCINATE XL 25 MG TABCR 50 MG PO ×2 (07:35→20:18)
[2024-08-12] MEDS: ENOXAPARIN SOD INJ 40 MG/0.4 ML SYRINGE SC (07:35)
[2024-08-12] MEDS: LOSARTAN POTASSIUM 25 MG TABLET PO (07:35)
--- NOTE | 2024-08-12 07:39 | PD.RESDS ---
Planned Discharge Date 08/12/24 DS: Providers Provider Date of admission: 08/06/24 08:02 Primary care physician: Dorie Abraham MD Admitting Provider: Sanya Rosenbaum MD Attending Provider on Admission: Robert Heart MD Consults: 08/04/24 08:50 Consult to Cardiology Routine Comment: Consulting Provider: Kb Jiménez Instructions: Stent placed 06/2024 on ASA/plavix but now held given presenting with hemoptysis. 08/07/24 15:44 Referral Physical Therapy Routine Comment: Physician Instructions: 08/08/24 08:29 Consult to Nephrology Routine Comment: Consulting Provider: Dorie Abraham Attending Provider on DC: Faustino Carreno MD Discharging Provider: Faustino Carreno MD DS: Diagnosis Problem List Completed Was Problem List Reviewed/Reconciled?: Yes Hospital Course Hospital Course Hospital course: Augustin Rodarte is a 63-year-old male with a past medical history of A-fib status post Watchman device, CAD status post stents (06/2024), CHF, CVA, COPD, cirrhosis, history of HCV, hypothyroidism, hypertension, hyperlipidemia, and glaucoma who presented on 08/04 for acute onset hemoptysis s/p CAD a few weeks ago on aspirin and Plavix. He denied any hematemesis, melena, hematochezia, hematuria, or epistaxis but did note some bleeding when brushing his teeth. Otherwise, hemoglobin on admission was 11.6 and remained stable throughout hospitalization. He did endorse some additional episodes of hemoptysis but were not severe. Thus, after speaking with cardiology, decision was made to continue aspirin and plavix given significant risk of post-stent thrombosis. He has a history of tricuspid valve endocarditis and per echo reading showed severe, open tricuspid regurgitation and right atrial dilatation. In setting of being net positive with fluids, lasix dosage was increased but led to decreased renal function. Suspect that at baseline his venous system is congested due to above findings and after daily, intermittent IVF boluses and holding lasix, both creatinine and GFR improved but BUN continued to increase. Suspect to be due to possible dehydration; GI bleed was on differential but hemoglobin remained stable and no hematochezia or melena during hospitalization. Noted to go into a-fib with RVR though he has a known history and is status-post Watchman. Home labetalol discontinued and started on metoprolol succinate 50 mg twice daily and heart rate improved. Additionally, experienced left lower extremity pain in the knee and underwent IR guided joint aspiration that showed 10,000 WBC, 2000 RBC which indicated inflammatory arthritis but not septic arthritis and unlikely hemarthrosis. Due to increased LFTs, ALP and T. bili, abdominal ultrasound was obtained that incidentally showed suspicion for thrombus in IVC. Per cardio recommendations, Doppler ultrasound of lower extremities were obtained to see if extensive thrombi present. Doppler was negative and thus no indication for IVC filter. Had multiple conversations with patient regarding his clinical status and wishes regarding aggressive management. Diagnoses during admission: #? 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 #History of CAD #Pneumonia likely secondary to gram-negative organisms as demonstrated on CT chest #Cirrhosis #Thrombocytopenia #Transaminitis #Elevated ALP #History of COPD #History of CVA #Hypothyroidism #Hyperparathyroidism #Glaucoma #Constipation, resolved Discharge instructions: ? Stop taking labetolol and start taking metoprolol succinate 50 mg twice per day, at least until you follow-up with your collection systems technician, Dr. Mayer ? Stop taking lasix, at least until you follow-up with Dr. Mayer ? Stop taking calcitriol, at least until you follow-up with your PCP ? Continue taking all other home medications as prescribed ? Follow-up with your PCP within 1-2 weeks of discharge ? Follow-up with your collection systems technician within 1-2 weeks of discharge ? Return to ED if symptoms worsen or recur Time Spent with Patient Time attestation: Total time spent providing and/or coordinating discharge services: Time spent: Greater than 30 minutes Home Health Home Health Referral Orders: 08/11/24 14:44 Home Health Referral Routine Reason For Exam: Home PT Home-Bound The patient must either because of illness or injury, need the aid of supportive devices such as crutches, canes, wheelchairs, and walkers; the use of special transportation; or the assistance of another person in order to leave their place of residence; OR have a condition such that leaving his or her home is medically contraindicated. In addition, the patient also meets the following criteria: patient is normally unable to leave the home and leaving home requires considerable taxing effort. Addendum to Home Health Certification Practitioner's Certification: I certify that the patient has been under my care in the hospital and the care of attending physician (see below). We had a [id number] encounter on (see date below). My clinical findings indicate that the patient is home bound per the above criteria and the Home Health Services noted in these orders are medically necessary. The primary reason for the [id number] encounter is related to the fact that the patient requires home health services. Date Certifying Bnos-ez-Nolz Physician Encounter: 08/04/24 Physician's Name who will Assume Oversight for Services: Dorie Abraham Physician's Phone No.who will Assume Oversight for Service: S[employer]TER - Community Resources: Yes PT to Evaluate: Yes PT to evaluate and provide a treatmnet plan to increase patient's mobility and strength. Wound Care: No IV Therapy: No RN Safety Evaluation: Yes RN to evaluate and create a plan of care that will produce positive outcomes. Palliative Treatment: No Palliative treatment and evaluate the need for hospice. Home Health Aide - Personal Care: Yes Home Health Aide to assist with any ADL's. Exam Vital Signs Temp Pulse Resp BP Pulse Ox O2 Del Method O2 Flow Rate 97.9 F 75 24 H 130/93 H 90 L Oxy Mask 4 08/12/24 04:00 08/12/24 07:35 08/12/24 07:17 08/12/24 07:35 08/12/24 07:17 08/12/24 04:00 08/12/24 07:15 FiO2 70 08/11/24 20:00 Narrative Exam General: AOx3, mild distress, able to speak full sentences HEENT: NC/AT, mucous membranes moist, bilateral sclera anicteric Cardiovascular: regular rate and rhythm, S1/S2 present, no murmurs appreciated Pulmonary: on CPAP, clear to auscultation bilaterally, no rales/rhonchi/wheezes Abdominal: obese, tympanitic, soft, no rebound/guarding, normal bowel sounds present Musculoskeletal: improved LLE ROM, no edema noted Skin: warm and dry, intact, no rashes Neuro: CN II-XII intact, no focal deficits Discharge Plan Plan Patient Disposition: Home w/HOSPICE Care Plan Goals: ? Stop taking labetolol and start taking metoprolol succinate 50 mg twice per day, at least until you follow-up with your collection systems technician, Dr. Mayer ? Stop taking lasix, at least until you follow-up with Dr. Mayer ? Stop taking calcitriol, at least until you follow-up with your PCP ? Continue taking all other home medications as prescribed ? Follow-up with your PCP within 1-2 weeks of discharge ? Follow-up with your collection systems technician within 1-2 weeks of discharge ? Return to ED if symptoms worsen or recur Prescriptions/Referrals Prescriptions/Med Rec: New metoprolol succinate 50 mg capsule,sprinkle,ER 24hr 50 mg PO BID 30 Days Qty: 60 0RF Continued simvastatin 40 MG tablet 40 mg PO HS Qty: 90 Creon 12,000-38,000 -60,000 unit Capsule,Delayed Release(Dr/Ec) 1 cap PO TID latanoprost 0.005 % drops 1 drp Both eyes HS Rx Instructions: Right eye at bedtime aspirin 81 mg Tablet,Delayed Release (Dr/Ec) 81 mg PO QDAY allopurinol 300 mg tablet 300 mg PO HS Patient Comments: TK 1 T PO QD IN THE MORNING losartan 50 mg Tablet 25 mg PO QDAY thyroid 30 mg Tablet 30 mg PO QDAY cinacalcet 90 mg Tablet 90 mg PO QDAY triamcinolone acetonide 0.1 % ointment 1 applic TOPICAL BID Patient Comments: APPLY TOPICALLY TO THE SKIN TWICE DAILY NEEDED clopidogrel [Plavix] 75 mg tablet 75 mg PO QDAY Qty: 30 5RF Magnesium Complex 300 mg magnesium tablet 250 mg PO TUTHSA Held furosemide 40 mg tablet 40 mg PO Q12H Hold Instructions: Resume on 08/25/24. labetalol 200 mg tablet 200 mg PO BID Hold Instructions: Resume on 08/25/24. Patient Comments: TK 1 T PO BID calcitriol 0.5 mcg capsule 0.5 mcg PO QDAY Hold Instructions: Resume on 08/25/24. No Action finasteride 5 mg Tablet 5 mg PO QDAY Referrals: Dorie Abraham MD [Primary Care Provider] - Patient/Caregiver Discharge Instructions Print Language: Turkish Stand Alone Forms: Jenn Award Info., Patient Portal Info Letter Quality Discharge Quality Measures VTE prophylaxis MD Attestestation MD Attestation I reviewed labs, imaging, EKG, home medications and prior available records. Face to face evaluation was performed by me. I have personally examined the patient and discussed assessment and plan with the IM team. I reviewed the resident note and agree with the plan with exceptions as below. Acute hypoxic respiratory failure Hemoptysis Extensive right-sided pneumonia Coronary artery disease KIMBERLY on CKD Left knee effusion HFpEF Transaminitis Oxygen requirements improved Added DuoNebs as needed Ordered liver ultrasound that showed possible inferior vena cava thrombus. Discussed with cardiology: Too high for a filter but may order lower extremity ultrasound to rule out DVT. The ultrasound showed no acute DVT Discussed goals of care with the patient given the recurrence of the hypoxemia which is likely from the cough/mucus: Patient wants DNR/DNI. He was interested in home with hospice but changed his mind to home with home health after discussing with his family Hemoptysis is likely in the setting of pneumonia/pulmonary edema on top of use of dual antiplatelet therapy and thrombocytopenia Continue antibiotics for the pneumonia Continue aspirin and Plavix per cardiology recommendations Held Lasix. Monitor kidney function Status post IR guided arthrocentesis of the left knee: The fluid appears inflammatory in etiology. Follow-up culture Avoid nephrotoxins. Renally dosed medications PT recommended SNF however patient wants to go home
[2024-08-12 08:33] LABS: Alanine Aminotransferase 79 U/L (10-49); Albumin, Serum 3.8 gm/dL (3.4-4.8); Albumin/Globulin Ratio 1.5 (1.2-2.2); Alkaline Phosphatase 202 U/L (46-116); Anion Gap 11 (7-16); Aspartate Amino Transferase 60 U/L (0-34); BUN/Creatinine Ratio 62 Ratio (12-20); Blood Urea Nitrogen 124 mg/dL (9-23); Calcium 10.3 mg/dL (8.3-10.6); Calcium (Corrected) 10.5 mg/dL (8.5-10.1); Carbon Dioxide 24.7 mMol/L (20.0-31.0); Chloride 104 mMol/L (98-107); Estimated Creatinine Clearance 50.4 mL/min (>60); Globulin 2.5 gm/dL (2.3-3.5); Glucose 91 mg/dL (74-106); Osmolality,Calculated 319 (275-295); Phosphorous 4.4 mg/dL (2.4-5.1); Potassium 4.4 mMol/L (3.4-5.1); Sodium 140 mMol/L (136-145); Total Protein 6.3 gm/dL (5.7-8.2); eGFR 37 See Note
[2024-08-12 08:39] LABS: Basophils % (Auto) 0 % (0-2.5); Eosinophils # (Auto) 0.2 Thou/mm3 (0.0-0.5); Eosinophils % (Auto) 4 % (0-10); Hematocrit 36.6 % (41.0-53.0); Hemoglobin 12.5 g/dL (13.5-16.0); Immature Granulocytes % (Auto) 1 % (0-0); Immature Granulocytes Auto 0.05 Thou/mm3 (0.00-0.00); Lymphocytes # (Auto) 0.4 Thou/mm3 (1.0-4.8); Lymphocytes % (Auto) 6 % (10-50); Mean Corpuscular HGB Conc 34.2 g/dl (31.0-37.0); Mean Corpuscular Hemoglobin 35.9 pg (25.0-35.0); Mean Corpuscular Volume 105 fL (80-100); Monocytes # (Auto) 0.6 Thou/mm3 (0.0-0.8); Monocytes % (Auto) 9 % (0-12); Neutrophils # (Auto) 5.4 Thou/mm3 (1.8-7.7); Neutrophils % (Auto) 81 % (37-80); Nucleated Red Blood Cell % 0 /100 WBC (0); Platelet Count 145 Thou/mm3 (140-440); RDW Standard Deviation 57.6 fL (35.1-43.9); Red Blood Count 3.48 Miln/mm3 (4.50-5.90); White Blood Count 6.7 Thou/mm3 (3.8-10.6)
--- NOTE | 2024-08-12 08:43 | PD.RESPRO ---
Documentation for date of: 08/12/24 Subjective Subjective Interval history: Augustin Rodarte is a 63-year-old male with a past medical history of A-fib status post Watchman device, CAD status post stents (06/2024), CHF, CVA, COPD, cirrhosis, history of HCV, hypothyroidism, hypertension, hyperlipidemia, and glaucoma who presented on 08/04 for acute onset hemoptysis s/p CAD a few weeks ago on aspirin and Plavix. He denied any hematemesis, melena, hematochezia, hematuria, or epistaxis but did note some bleeding when brushing his teeth. Otherwise, hemoglobin on admission was 11.6 and remained stable throughout hospitalization. He did endorse some additional episodes of hemoptysis but were not severe. Thus, after speaking with cardiology, decision was made to continue aspirin and plavix given significant risk of post-stent thrombosis. He has a history of tricuspid valve endocarditis and per echo reading showed severe, open tricuspid regurgitation and right atrial dilatation. In setting of being net positive with fluids, lasix dosage was increased but led to decreased renal function. Suspect that at baseline his venous system is congested due to above findings and after daily, intermittent IVF boluses and holding lasix, both creatinine and GFR improved but BUN continued to increase. Suspect to be due to possible dehydration; GI bleed was on differential but hemoglobin remained stable and no hematochezia or melena during hospitalization. Noted to go into a-fib with RVR though he has a known history and is status-post Watchman. Home labetalol discontinued and started on metoprolol succinate 50 mg twice daily and heart rate improved. Additionally, experienced left lower extremity pain in the knee and underwent IR guided joint aspiration that showed 10,000 WBC, 2000 RBC which indicated inflammatory arthritis but not septic arthritis and unlikely hemarthrosis. Due to increased LFTs, ALP and T. bili, abdominal ultrasound was obtained that incidentally showed suspicion for thrombus in IVC. Per cardio recommendations, Doppler ultrasound of lower extremities were obtained to see if extensive thrombi present. Doppler was negative and thus no indication for IVC filter. Had multiple conversations with patient regarding his clinical status and wishes regarding aggressive management. Discharge failed today as patient requested to home tomorrow as he and his spouse live together and do not have other support. Diagnoses during admission: #? 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 #History of CAD #Pneumonia likely secondary to gram-negative organisms as demonstrated on CT chest #Cirrhosis #Thrombocytopenia #Transaminitis #Elevated ALP #History of COPD #History of CVA #Hypothyroidism #Hyperparathyroidism #Glaucoma #Constipation, resolved Discharge instructions: ? Stop taking labetolol and start taking metoprolol succinate 50 mg twice per day, at least until you follow-up with your [employer] [employer], Dr. Mayer ? Stop taking lasix, at least until you follow-up with Dr. Mayer ? Stop taking calcitriol, at least until you follow-up with your PCP ? Continue taking all other home medications as prescribed ? Follow-up with your PCP within 1-2 weeks of discharge ? Follow-up with your [employer] [employer] within 1-2 weeks of discharge ? Return to ED if symptoms worsen or recur Exam Vital Signs Temp Pulse Resp BP Pulse Ox O2 Del Method O2 Flow Rate 97.7 F 76 23 H 129/90 H 90 L Oxy Mask 4 08/12/24 08:00 08/12/24 08:00 08/12/24 08:00 08/12/24 08:00 08/12/24 08:00 08/12/24 08:00 08/12/24 08:00 FiO2 70 08/11/24 20:00 Narrative Exam General: AOx3, mild distress, able to speak full sentences HEENT: NC/AT, mucous membranes moist, bilateral sclera anicteric Cardiovascular: regular rate and rhythm, S1/S2 present, no murmurs appreciated Pulmonary: on CPAP, clear to auscultation bilaterally, no rales/rhonchi/wheezes Abdominal: obese, tympanitic, soft, no rebound/guarding, normal bowel sounds present Musculoskeletal: improved LLE ROM, no edema noted Skin: warm and dry, intact, no rashes Neuro: CN II-XII intact, no focal deficits Objective Labs 08/12/24 07:52 08/12/24 07:52 Labs: Laboratory Results - last 24 hr 08/12/24 07:52 Sodium 140 Potassium 4.4 Chloride 104 Carbon Dioxide 24.7 Anion Gap 11 BUN 124 H* Creatinine 2.0 H Estim Creat Clear Calc 50.4 L eGFR 37 L BUN/Creatinine Ratio 62 H Glucose 91 Calculated Osmolality 319 H Calcium 10.3 Corrected Calcium 10.5 H Phosphorus 4.4 Magnesium 2.0 Total Bilirubin 1.0 AST 60 H ALT 79 H Alkaline Phosphatase 202 H Total Protein 6.3 Albumin 3.8 Globulin 2.5 Albumin/Globulin Ratio 1.5 Quality Measures Quality Measures VTE prophylaxis Assessment & Plan Assessment Current Active Medications: Generic Name Dose Route Start Last Admin Trade Name Freq PRN Reason Stop Dose Admin Hydrocodone Bitart/Acetaminophen 1 tab 08/12/24 06:56 08/12/24 07:35 Hydrocodone/Apap 5/325 Tablet PO 08/17/24 06:55 1 tab Q6HR PRN Administration PAIN SCALE 4-10(Mod-Sev Atorvastatin Calcium 20 mg 08/04/24 21:00 08/11/24 21:38 Atorvastatin Calcium 20 Mg Tablet PO 09/03/24 20:59 20 mg HS JM Administration Protocol Azithromycin 500 mg 08/11/24 21:00 08/11/24 21:37 Azithromycin 250 Mg Tablet PO 08/12/24 20:59 500 mg HS JM Administration Cinacalcet 90 mg 08/04/24 09:00 08/11/24 09:53 Cinacalcet Hcl 30 Mg Tablet (Non-Form) PO 09/03/24 08:59 90 mg QDAY JM Administration Dextrose 25 ml 08/08/24 05:29 Dextrose 50%-Water Inj 50 Ml Syringe IV 09/07/24 05:28 Q15MIN PRN BG 50-70 responsive npo pt Dextrose 50 ml 08/08/24 05:29 Dextrose 50%-Water Inj 50 Ml Syringe IV 09/07/24 05:28 Q15MIN PRN BG <50 OR BG <70 & pt unresponsive Enoxaparin Sodium 40 mg 08/08/24 09:00 08/12/24 07:35 Enoxaparin Sod Inj 40 Mg/0.4 Ml Syringe SC 08/22/24 08:59 40 mg QDAY JM Administration Escitalopram Oxalate 10 mg 08/11/24 21:00 08/11/24 22:24 Escitalopram Oxalate 10 Mg Tablet PO 09/10/24 20:59 10 mg HS JM Administration Finasteride 5 mg 08/04/24 09:00 08/11/24 08:16 Finasteride 5 Mg Tablet PO 09/03/24 08:59 5 mg QDAY JM Administration Glucagon 1 mg 08/08/24 05:29 Glucagon Inj 1 Mg Vial IM Q15MIN PRN BG <70, and no IV access Guaifenesin 600 mg 08/07/24 20:55 08/07/24 21:59 Guaifenesin Er 600 Mg Tabcr PO 09/06/24 20:59 600 mg BID PRN Administration COUGH OR CONGESTION Ipratropium [place] 0.5 mg 08/07/24 06:19 08/10/24 12:55 Ipratropium Rt 0.5 Mg/ 2.5 Ml Nebu INH 09/06/24 06:18 0.5 mg Q6HR PRN Administration SHORTNESS OF BREATH Lactulose 20 gm 08/09/24 09:15 08/12/24 07:35 Lactulose Syrup 20 Gm/30 Ml Udc PO 09/08/24 09:14 20 gm BID JM Administration Protocol Latanoprost 1 drop 08/07/24 21:00 08/11/24 22:25 Latanoprost Op Marilyn 0.005% 2.5 Ml Btl RIGHT EYE 09/06/24 20:59 1 drop HS JM Administration Levalbuterol HCl 1.25 mg 08/08/24 13:00 08/12/24 07:14 Levalbuterol Rt 1.25 Mg/0.5 Ml Nebu INH 09/07/24 12:59 1.25 mg Q6HRRT JM Administration Losartan Potassium 25 mg 08/04/24 09:00 08/12/24 07:35 Losartan Potassium 25 Mg Tablet PO 09/03/24 08:59 25 mg QDAY JM Administration Melatonin 6 mg 08/06/24 22:44 08/07/24 21:59 Melatonin 3 Mg Tablet PO 09/06/24 20:59 6 mg HS PRN Administration insomnia Protocol Metoprolol Succinate 50 mg 08/08/24 21:00 08/12/24 07:35 Metoprolol Succinate Xl 25 Mg Tabcr PO 09/07/24 20:59 50 mg BID JM Administration Ondansetron HCl 4 mg 08/04/24 03:47 08/07/24 12:38 Ondansetron Inj 2 Mg/Ml Inj 2 Ml IV 09/03/24 03:46 4 mg Q6HR PRN Administration NAUSEA OR VOMITING Protocol Sennosides 1 tab 08/08/24 23:40 08/12/24 07:34 Senna Tablet PO 09/07/24 23:39 1 tab QDAY JM Administration Protocol Sodium Chloride 3 ml 08/08/24 02:11 08/12/24 07:14 Sodium Chloride Rt Marilyn 0.9% 3 Ml Nebu INH 09/07/24 02:10 3 ml PRN PRN Administration SOLN Thyroid 30 mg 08/08/24 09:15 08/12/24 05:41 Thyroid 30 Mg Tablet PO 09/07/24 09:14 30 mg DAILY@0630 JM Administration Zolpidem Tartrate 5 mg 08/11/24 22:02 08/11/24 22:24 Zolpidem 5 Mg Tablet PO 09/10/24 22:01 5 mg HS PRN Administration INSOMNIA Protocol Plan Augustin Rodarte is a 63-year-old male with a past medical history of A-fib status post Watchman device, CAD status post stents (06/2024), CHF, CVA, COPD, cirrhosis, history of HCV, hypothyroidism, hypertension, hyperlipidemia, and glaucoma who presented on 08/04 for acute onset hemoptysis s/p CAD a few weeks ago on aspirin and Plavix. #Acute on chronic kidney disease (around Stage G3B -> 4), improving #Hyperkalemia, resolved #Hypercalcemia #Hyperphosphatemia Admitted with Cr 2.3 (baseline 2.0-2.1), BUN 62; possibly volume responsive vs hepatorenal; not on SGLT2 inhibitor Renal US 08/08: benign right renal cyst, moderate bilateral parenchymal scarring, no hydronephrosis PTH elevated at 131, calcium elevated at 10.6 -> suggests primary hyperparathyroidism ? Nephrology consulted, appreciate recommendations ? Hold nephrotoxic agents ? 500 cc LR bolus #? Thrombus in IVC Given increasing LFTs and ALP, obtained abdominal ultrasound that showed borderline thickening gallbladder wall, hepatomegaly, and suspicion for thrombus in IVC. However, discussed images with cardiology and thrombus is too high for an IVC filter and will further evaluate with duplex US of lower extremities. If extensive thrombi seen, will consider placing IVC filter. CT A/P deferred at this time given renal function. ? US bilateral lower extremities negative #Hemoptysis likely secondary to pneumonia in the setting of aspirin and Plavix use #CAD s/p stent 06/2024 on aspirin and plavix Acute onset hemoptysis. Patient has also had stents placed couple years ago and was on Plavix at that time and was noted to have complications related to bleeding as well. States he coughed up about 2 tablespoons of blood but denies blood in stool, hematuria, hematemesis, epistaxis but does endorse some bleeding in gums when brushing teeth. Otherwise, hemoglobin stable at 11.9, platelets 83, INR 1.3. ? Cardiology consulted, appreciate recommendations ? Restarted aspirin and Plavix per recommendations given risk of stent thrombosis ? Monitor hemoglobin and other signs of significant bleeding, otherwise continue as above #Atrial fibrillation (s/p Watchman) History of AF with left atrial appendage occlusion; not currently anticoagulated. Noted to have HR 130s overnight 08/07. Will need to continue aspirin and Plavix daily for 30 days or at least until he can follow-up with his [employer] outpatient. Suspect component of dehydration due to overdiuresis to be contributor to tachycardia in addition to acute on chronic kidney disease. No current indication for anticoagulation post-Watchman unless additional thromboembolic risk factors present. ? Metoprolol succinate 50 mg twice daily ? Discontinued home labetalol ? K > 4 and Mg > 2 #Left lower extremity pain #Complex effusion, hemarthrosis vs septic joint CT left lower extremity showed large complex knee effusion No fevers, chills, or leukocytosis so septic joint unlikely. Has been on ASA and plavix and previously on eliquis, with known complications with Plavix and suspect hemarthrosis. Status-post IR-guided joint aspiration: 10,000 WBC, 2000 RBC, hazy yellow color ? 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 Lasix DC'd, monitor daily weights, I/Os, sodium-restricted diet ? Aspirin 81 mg daily, plavix, atorvastatin 20 mg daily ? CPAP at night #Pneumonia likely secondary to gram-negative organisms as demonstrated on CT chest Sputum culture 08/06: negative Blood culture: 08/08: pending ? Continue ceftriaxone (08/04-) and azithromycin (08/04-) #Cirrhosis #Thrombocytopenia #Transaminitis #Elevated ALP Known history; imaging confirms cirrhotic morphology; associated thrombocytopenia; elevated BUN/Cr concerning for hepatorenal physiology Platelets 84; likely multifactorial ? chronic liver disease (cirrhosis), medication effect (ASA/Plavix), possible infection-related Given increasing LFTs and ALP, obtained abdominal ultrasound that showed borderline thickening gallbladder wall, hepatomegaly, and suspicion for thrombus in IVC ? Monitor LFTs, ammonia, INR, and platelet count #History of COPD ? Duonebs discontinued due to tachycardia/a-fib #History of CVA ? Aspirin, plavix, and statin as above #Hypothyroidism TSH 9.55, free T4 1.06 ? Continue thyroid pill #Hyperparathyroidism ? Cinacalcet 90 mg p.o. daily #Glaucoma ? Latanoprost eye drops #Pulmonary embolism, ruled-out Atrial fibrillation in setting of hemoptysis and shortness of breath. V/Q scan: low probability of PE #Constipation, resolved Hospital management: Disposition: hemoptysis on ASA and plavix, likely DC tomorrow morning Diet: cardiac Lines: PIV DVT prophylaxis: plavix CODE STATUS: DNR/DNI ----- Plan discussed with attending physician Dr. Una Carreno MD PGY-1 Internal Medicine Attending Provider Attestation/Addendum I reviewed labs, imaging, EKG, home medications and prior available records. Face to face evaluation was performed by me. I have personally examined the patient and discussed assessment and plan with the IM team. I reviewed the resident note and agree with the plan with exceptions as below. Acute hypoxic respiratory failure Hemoptysis Extensive right-sided pneumonia Coronary artery disease KIMBERLY on CKD Left knee effusion HFpEF Transaminitis Oxygen requirements improved Added DuoNebs as needed Ordered liver ultrasound that showed possible inferior vena cava thrombus. Discussed with cardiology: Too high for a filter but may order lower extremity ultrasound to rule out DVT. The ultrasound showed no acute DVT Discussed goals of care with the patient given the recurrence of the hypoxemia which is likely from the cough/mucus: Patient wants DNR/DNI. He was interested in home with hospice but changed his mind to home with home health after discussing with his family Hemoptysis is likely in the setting of pneumonia/pulmonary edema on top of use of dual antiplatelet therapy and thrombocytopenia Continue antibiotics for the pneumonia Continue aspirin and Plavix per cardiology recommendations Held Lasix. Monitor kidney function Status post IR guided arthrocentesis of the left knee: The fluid appears inflammatory in etiology. Follow-up culture Avoid nephrotoxins. Renally dosed medications PT recommended SNF however patient wants to go home
[2024-08-12] MEDS: FINASTERIDE 5 MG TABLET PO (09:15)
[2024-08-12] MEDS: CINACALCET HCL 30 MG TABLET (NON-FORM) 90 MG PO (09:30)
[2024-08-12] MEDS: ALBUTEROL/IPRATROPIUM (Duoneb) RT SOL 3 ML NEBU INH (10:52)
--- NOTE | 2024-08-12 16:44 | PC.NURSE ---
[facility] 0900 [facility] 1600.
[2024-08-12] MEDS: LATANOPROST OP SOL 0.005% 2.5 ML BTL 1 DROP RIGHT EYE (20:17)
[2024-08-12] MEDS: ATORVASTATIN CALCIUM 20 MG TABLET PO (20:18)
[2024-08-12] MEDS: ESCITALOPRAM OXALATE 10 MG TABLET PO (20:18)
[2024-08-12] MEDS: ZOLPIDEM 5 MG TABLET PO (22:22)
[2024-08-13] VITALS (14 sets, daily range): BP systolic 132–163; BP diastolic 86–106; PULSE 71–103; RESP 18–26; TEMP 36.1–36.8; O2SAT 90–96; BMI 32.5
--- NOTE | 2024-08-13 01:09 | ESPR_ITS ---
RE: ROXANNE RODARTE : 1960 DATE OF SERVICE: 08/12/2024 SUBJECTIVE: Roxanne Rodarte appears to be doing a little better today. He is still quite depressed. Bleeding has stopped from the bladder. He is feeling a little better, but still very weak, poor appetite, has no interest. The patient is concerned about all his medical problems, but I am not that concerned at this point. Cardiac villegas stable. He is saturating quite well 95% on 3-4 L of the Ventimask only because of the nasal problem of the nose. It does not require high-flow oxygen. Clinically, he looks down and depressed. OBJECTIVE: Vital Signs: Blood pressure 132/90 and pulse rate is 78. Neck: Supple. No JVD. Chest and Lungs: Clear. Heart: S1 and S2 regular, atrial fibrillation. Abdomen: Thin and soft. Extremities: No edema. Genitourinary and Rectal: Not performed. Neurologic: Normal. LABORATORY DATA: White count normal and hemoglobin 12.5. The chemistry panel showed creatinine is still 2.0, improved significantly and BUN is 124, high. The GFR is 37, stable. The patient mostly had prerenal azotemia. IMPRESSION: 1. Status post stent placement in the right coronary artery. 2. Prerenal azotemia and chronic kidney disease stage III. 3. Bleeding tendency with hemoptysis, improving slowly. 4. Chronic right heart failure secondary to absent tricuspid valve with severe tricuspid regurgitation. 5. Possible small thrombus or some region of the inferior vena cava of no concern with negative pulmonary embolism scan, negative lower extremity venous duplex scan. 6. Atrial fibrillation, chronic with status post Watchman device. RECOMMENDATIONS: Recommended to increase his nutrition, physical therapy. We will probably discharge him home on home physical therapy as he does not like to go to SNF. His prognosis is fair. We will stop the Plavix for 2 days, resume Plavix every other day for the next 3 months and after 2-3 months, we will discontinue Plavix and go back to baby aspirin. This has worked well for the last time when he had LAD stent. I also expect it to do quite well. DT: 23:15:32 TT: 00:26:00 Ref: [id number] - TID: [id number]
[2024-08-13] MEDS: LEVALBUTEROL RT 1.25 MG/0.5 ML NEBU INH ×2 (01:46→07:34)
[2024-08-13] MEDS: SODIUM CHLORIDE RT SOL 0.9% 3 ML NEBU INH ×2 (01:46→07:34)
[2024-08-13] MEDS: THYROID 30 MG TABLET PO (06:02)
[2024-08-13] MEDS: HYDROcodone/APAP 5/325 TABLET 1 TAB PO (08:10)
[2024-08-13] MEDS: FINASTERIDE 5 MG TABLET PO (08:10)
[2024-08-13] MEDS: LOSARTAN POTASSIUM 25 MG TABLET PO ×2 (08:11→15:57)
[2024-08-13] MEDS: CINACALCET HCL 30 MG TABLET (NON-FORM) 90 MG PO (08:11)
[2024-08-13] MEDS: METOPROLOL SUCCINATE XL 25 MG TABCR 50 MG PO (08:11)
[2024-08-13] MEDS: LACTULOSE SYRUP 20 GM/30 ML UDC PO (08:11)
[2024-08-13] MEDS: ENOXAPARIN SOD INJ 40 MG/0.4 ML SYRINGE SC (08:12)
--- NOTE | 2024-08-13 08:15 | ESDS_ITS ---
Planned Discharge Date 08/13/24 DS: Providers Provider Date of admission: 08/06/24 08:02 Primary care physician: Dorie Abraham MD Admitting Provider: Sanya Rosenbaum MD Attending Provider on Admission: Robert Heart MD Consults: 08/04/24 08:50 Consult to Cardiology Routine Comment: Consulting Provider: Kb Jiménez Instructions: Stent placed 06/2024 on ASA/plavix but now held given presenting with hemoptysis. 08/07/24 15:44 Referral Physical Therapy Routine Comment: Physician Instructions: 08/08/24 08:29 Consult to Nephrology Routine Comment: Consulting Provider: Dorie Abraham Attending Provider on DC: Jerilyn Balbuena MD Discharging Provider: Jerilyn Balbuena MD DS: Diagnosis Problem List Completed Was Problem List Reviewed/Reconciled?: Yes Hospital Course Hospital Course Hospital course: Augustin Rodarte is a 63-year-old male with a past medical history significant for A-fib status post Watchman device, CAD status post stents (06/2024), CHF, CVA, COPD, cirrhosis, history of HCV, hypothyroidism, hypertension, hyperlipidemia, and glaucoma who presented on 08/04 for acute onset hemoptysis s/p CAD a few weeks ago on aspirin and Plavix. Patient was concerned with his mild bleeding when brushing his teeth, however since hemoglobin since admission had been stable with on and off hemoptysis, cardiology decided to continue aspirin and plavix given significant risk of post-stent thrombosis. Echo showed severe, open tricuspid regurgitation and right atrial dilatation. Despite initially diuresing and later increasing fluid intake, patient's BUN continued to increase despite improvement in Cr/GFR. GI bleed was of concern, but Hgb remained, and no signs of hematochezia or melena reported/endorsed. Patient's hospital stay also complicated with increase in O2 requirements and SOB as well as going into A-fib with RVR. V/Q scan performed and indicated low possibility for PE. Home labetalol discontinued and started on metoprolol succinate 50 mg twice daily and heart rate improved. Additionally, experienced left lower extremity pain in the knee and underwent IR guided joint aspiration that showed 10,000 WBC, 2000 RBC which indicated inflammatory arthritis but not septic arthritis and unlikely hemarthrosis. Due to increased LFTs, ALP and T. bili, abdominal ultrasound was obtained that incidentally showed suspicion for thrombus in IVC. Per cardio recommendations, Doppler ultrasound of lower extremities were obtained to see if extensive thrombi present. Doppler was negative and thus no indication for IVC filter. Had multiple conversations with patient regarding his clinical status and wishes regarding aggressive management. Patient would like to return home with home health to regain his strength further despite PT recommending SNF placement at this time. Pt seen and examined at bedside. Pt denies any complaints. Pt is medically cleared to be discharged today with the following instructions: ? Stop taking labetolol and start taking metoprolol succinate 50 mg twice per day, at least until you follow-up with your sales service promoter, Dr. Mayer ? Start taking Plavix every other day, for a total of three times a week for 2-3 months. ? Use Xopenex for SOB/Wheezing, 2 inhalations every 6 hours as needed ? Stop taking lasix, at least until you follow-up with Dr. Mayer ? Stop taking calcitriol, at least until you follow-up with your PCP ? Continue taking all other home medications as prescribed ? Follow-up with your PCP within 1-2 weeks of discharge ? Follow-up with your sales service promoter within 1-2 weeks of discharge ? Return to ED if symptoms worsen or recur Diagnoses during admission: #? 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 #History of CAD #Pneumonia likely secondary to gram-negative organisms as demonstrated on CT chest #Cirrhosis #Thrombocytopenia #Transaminitis #Elevated ALP #History of COPD #History of CVA #Hypothyroidism #Hyperparathyroidism #Glaucoma #Constipation, resolved Status at Discharge Cognitive/behavioral status at discharge: stable Functional status at discharge: uses cane/walker Time Spent with Patient Time attestation: Total time spent providing and/or coordinating discharge services: 35 Time spent: Greater than 30 minutes Home Health Home Health Referral Orders: 08/11/24 14:44 Home Health Referral Routine Reason For Exam: Home PT Home-Bound The patient must either because of illness or injury, need the aid of supportive devices such as crutches, canes, wheelchairs, and walkers; the use of special transportation; or the assistance of another person in order to leave their place of residence; OR have a condition such that leaving his or her home is medically contraindicated. In addition, the patient also meets the following criteria: patient is normally unable to leave the home and leaving home requires considerable taxing effort. Addendum to Home Health Certification Practitioner's Certification: I certify that the patient has been under my care in the hospital and the care of attending physician (see below). We had a vqia-ig-[id number] encounter on (see date below). My clinical findings indicate that the patient is home bound per the above criteria and the Home Health Services noted in these orders are medically necessary. The primary reason for the leuh-rq-[id number] encounter is related to the fact that the patient requires home health services. Date Certifying Vgxo-fb-Ppup Physician Encounter: 08/04/24 Physician's Name who will Assume Oversight for Services: Dorie Abraham Physician's Phone No.who will Assume Oversight for Service: [employer]ER - Community Resources: Yes PT to Evaluate: Yes PT to evaluate and provide a treatmnet plan to increase patient's mobility and strength. Wound Care: No IV Therapy: No RN Safety Evaluation: Yes RN to evaluate and create a plan of care that will produce positive outcomes. Palliative Treatment: No Palliative treatment and evaluate the need for hospice. Home Health Aide - Personal Care: Yes Home Health Aide to assist with any ADL's. 08/13/24 08:03 Home Health Referral Routine Reason For Exam: Home PT, refused SNF Home-Bound The patient must either because of illness or injury, need the aid of supportive devices such as crutches, canes, wheelchairs, and walkers; the use of special transportation; or the assistance of another person in order to leave their place of residence; OR have a condition such that leaving his or her home is medically contraindicated. In addition, the patient also meets the following criteria: patient is normally unable to leave the home and leaving home requires considerable taxing effort. Addendum to Home Health Certification Practitioner's Certification: I certify that the patient has been under my care in the hospital and the care of attending physician (see below). We had a zixz-of-pevf encounter on (see date below). My clinical findings indicate that the patient is home bound per the above criteria and the Home Health Services noted in these orders are medically necessary. The primary reason for the axhx-gc-[id number] encounter is related to the fact that the patient requires home health services. Date Certifying Ubbr-kf-Vuzu Physician Encounter: 08/04/24 Physician's Name who will Assume Oversight for HH Services: Dorie Abraham Physician's Phone No.who will Assume Oversight for Service: [employer] OFF[employer]ER - Community Resources: Yes PT to Evaluate: Yes PT to evaluate and provide a treatmnet plan to increase patient's mobility and strength. Wound Care: No IV Therapy: No RN Safety Evaluation: Yes RN to evaluate and create a plan of care that will produce positive outcomes. Palliative Treatment: No Palliative treatment and evaluate the need for hospice. Home Health Aide - Personal Care: Yes Home Health Aide to assist with any ADL's. Exam Vital Signs Temp Pulse Resp BP Pulse Ox O2 Del Method O2 Flow Rate 97.7 F 73 23 H 163/99 H 93 L Oxy Mask 4 08/13/24 07:57 08/13/24 08:11 08/13/24 07:57 08/13/24 08:11 08/13/24 07:57 08/13/24 07:57 08/13/24 07:57 FiO2 70 08/13/24 07:57 Narrative Exam General: AOx3, in no apparent distress on NC, able to speak full sentences HEENT: NC/AT, mucous membranes moist, bilateral sclera anicteric Cardiovascular: regular rate and rhythm, S1/S2 present, no murmurs appreciated Pulmonary: b/l wheezing noted, clear to auscultation bilaterally Abdominal: obese, tympanitic, soft, no rebound/guarding, normal bowel sounds present Musculoskeletal: improved LLE ROM, no edema noted Skin: warm and dry, intact, no rashes Neuro: CN II-XII intact, no focal deficits Discharge Plan Plan Patient Disposition: Home w/HOME HEALTH Care Plan Goals: ? Stop taking labetolol and start taking metoprolol succinate 50 mg twice per day, at least until you follow-up with your sales service promoter, Dr. Mayer ? Start taking Plavix every other day, for a total of three times a week for 2-3 months. ? Use Xopenex for SOB/Wheezing, 2 inhalations every 6 hours as needed ? Stop taking lasix, at least until you follow-up with Dr. Mayer ? Stop taking calcitriol, at least until you follow-up with your PCP ? Continue taking all other home medications as prescribed ? Follow-up with your PCP within 1-2 weeks of discharge ? Follow-up with your sales service promoter within 1-2 weeks of discharge ? Return to ED if symptoms worsen or recur Prescriptions/Referrals Prescriptions/Med Rec: New metoprolol succinate 50 mg capsule,sprinkle,ER 24hr 50 mg PO BID 30 Days Qty: 60 0RF levalbuterol tartrate [Xopenex HFA] 45 mcg/actuation HFA aerosol inhaler 2 inh inhalation Q6H Qty: 15 0RF Continued simvastatin 40 MG tablet 40 mg PO HS Qty: 90 Creon 12,000-38,000 -60,000 unit Capsule,Delayed Release(Dr/Ec) 1 cap PO TID latanoprost 0.005 % drops 1 drp Both eyes HS Rx Instructions: Right eye at bedtime aspirin 81 mg Tablet,Delayed Release (Dr/Ec) 81 mg PO QDAY allopurinol 300 mg tablet 300 mg PO HS Patient Comments: TK 1 T PO QD IN THE MORNING losartan 50 mg Tablet 25 mg PO QDAY thyroid 30 mg Tablet 30 mg PO QDAY cinacalcet 90 mg Tablet 90 mg PO QDAY triamcinolone acetonide 0.1 % ointment 1 applic TOPICAL BID Patient Comments: APPLY TOPICALLY TO THE SKIN TWICE DAILY NEEDED Magnesium Complex 300 mg magnesium tablet 250 mg PO TUTHSA Held furosemide 40 mg tablet 40 mg PO Q12H Hold Instructions: Resume on 08/25/24. labetalol 200 mg tablet 200 mg PO BID Hold Instructions: Resume on 08/25/24. Patient Comments: TK 1 T PO BID calcitriol 0.5 mcg capsule 0.5 mcg PO QDAY Hold Instructions: Resume on 08/25/24. clopidogrel [Plavix] 75 mg tablet 75 mg PO QDAY Qty: 30 5RF Hold Instructions: Resume on 08/14/24. Resume tomorrow, and take it every other day, for a total of three times a week, for 2-3 months Discontinued finasteride 5 mg Tablet 5 mg PO QDAY Referrals: Niall Mayer MD [Physician] - Dorie Abraham MD [Primary Care Provider] - Patient/Caregiver Discharge Instructions Print Language: Djiboutian Stand Alone Forms: Jenn Award Info., Patient Portal Info Letter Quality Discharge Quality Measures VTE prophylaxis MD Attestestation MD Attestation I reviewed labs, imaging, EKG, home medications and prior available records. Face to face evaluation was performed by me. I have personally examined the patient and discussed assessment and plan with the IM team. I reviewed the resident note and agree with the plan with exceptions as below. Acute hypoxic respiratory failure Hemoptysis Extensive right-sided pneumonia Coronary artery disease KIMBERLY on CKD Left knee effusion HFpEF Transaminitis Oxygen requirements improved. Ordered home oxygen Will discharge on albuterol as needed. Possible baseline COPD in the history of ex tobacco use versus asthma Ordered liver ultrasound that showed possible inferior vena cava thrombus. Discussed with cardiology: Too high for a filter but may order lower extremity ultrasound to rule out DVT. The ultrasound showed no acute DVT Discussed goals of care with the patient given the recurrence of the hypoxemia which is likely from the cough/mucus: Patient wants DNR/DNI. He was interested in home with hospice but changed his mind to home with home health after discussing with his family Hemoptysis is likely in the setting of pneumonia/pulmonary edema on top of use of dual antiplatelet therapy and thrombocytopenia Received a course of antibiotics for the pneumonia Continue aspirin daily. Changed Plavix to every 48 hours per cardiology recommendations Held Lasix. Monitor kidney function: Creatinine improved Status post IR guided arthrocentesis of the left knee: The fluid appears inflammatory in etiology. Follow-up culture Avoid nephrotoxins. Renally dosed medications PT recommended SNF however patient wants to go home Time spent is 40 minutes. More than 50% of the time was spent on patient education and coordination of care.
--- NOTE | 2024-08-13 11:15 | PC.SS ---
SS follow up note; Patient will discharge back home with HH, no preference in HH agency. Discharge home today.
--- NOTE | 2024-08-13 11:56 | PC.SS ---
Addendum entered by Hallie Mclaughlin 08/13/24 12:29: SS follow up note; SS was contacted by patient's , Xochitl. She informed SS that she is not able to transport patient. Xochitl informed SS she is not able to provide payment and if it would be possible for patient to be transported via ambulance do to stairs in the entrance. SS informed patient's that SS would submit KANG form this time, however need to be aware that next time patient gets admitted they would be responsible for payment. Patient's verbalized understanding. Original Note: SS follow up note; SS followed up with PT notes and patient is able to ambulate. SS contacted patient's to inform her that patient was discharging today. Per patient's nurse patient is ambulatory.
--- NOTE | 2024-08-13 12:57 | PC.SS ---
OXYGEN Pt is discharged in a chronic stable state and has been treated optimally and has other respiratory needs. Oxygen has been ordered due to Covid and acute hypoxic respiratory failure. To secure a safe discharge for the pt home oxygen is needed. The pt is mobile within the home and will need continuous, portable O2 via nasal cannula. Pt is discharged in a chronic stable state and has been treated optimally and has other respiratory needs.? Oxygen has been ordered due to Covid and acute hypoxic respiratory failure.
--- NOTE | 2024-08-13 12:57 | PC.NURSE ---
Patient's SP02 86% on room air 86%, patient's SPO2 92% on 5Liter O2.
--- NOTE | 2024-08-13 13:16 | PC.SS ---
SS set up transportation with [facility] for 1600. Patient will discharge back home on home 02.
--- NOTE | 2024-08-13 13:25 | PC.SS ---
SS follow up note; SS set up transportation with [facility] for 1600. SS contacted patients to update her on ETA and [facility] SS will update patient and patient's nurse, Cherry.
--- NOTE | 2024-08-13 15:45 | PC.SS ---
SS follow up note; SS was contacted by patient's nurse Cherry requesting to change transportation time. ETA is for 1800. SS also updated patient's .
--- NOTE | 2024-08-15 16:20 | PC.CC ---
HH referral sent out on 08/11 by transfer center, [facility] accepted and booked. SOC with [facility] is 08/15
== END 2024-08-13 18:03 | disposition home health service (06) | DRG 193 ==
LOC: SERX 08-04 01:49 → SERHOLD 08-04 02:34 → S2NX 08-06 08:02 → SERHOLD 08-06 08:04 → S2NX 08-06 08:05 → S2SX 08-06 08:05
PROVIDERS: Internal Medicine Nephrology; Student in an Organized Health Care Education/Training Program; Admitting Provider Internal Medicine; Emergency Provider Emergency Medicine; PCP Internal Medicine; Visit Provider Student in an Organized Health Care Education/Training Program
DX: J18.9 Pneumonia, unspecified organism (principal); I82.220 Acute embolism and thrombosis of inferior vena cava; J96.01 Acute respiratory failure with hypoxia; D84.9 Immunodeficiency, unspecified; I13.0 Hypertensive heart and chronic kidney disease with heart failure and stage 1 through stage 4 chronic kidney disease, or unspecified chronic kidney disease; R04.2 Hemoptysis; J44.0 Chronic obstructive pulmonary disease with (acute) lower respiratory infection; I48.20 Chronic atrial fibrillation, unspecified; I50.30 Unspecified diastolic (congestive) heart failure; I31.39 Other pericardial effusion (noninflammatory); N17.9 Acute kidney failure, unspecified; E03.9 Hypothyroidism, unspecified; I48.91 Unspecified atrial fibrillation; D69.59 Other secondary thrombocytopenia; K74.60 Unspecified cirrhosis of liver; D63.1 Anemia in chronic kidney disease; E21.3 Hyperparathyroidism, unspecified; E78.5 Hyperlipidemia, unspecified; B18.2 Chronic viral hepatitis C; E87.5 Hyperkalemia; F41.1 Generalized anxiety disorder; I48.0 Paroxysmal atrial fibrillation; N20.0 Calculus of kidney; I25.10 Atherosclerotic heart disease of native coronary artery without angina pectoris; N28.1 Cyst of kidney, acquired; N18.30 Chronic kidney disease, stage 3 unspecified; E86.0 Dehydration; I27.29 Other secondary pulmonary hypertension; F32.A Depression, unspecified; M06.4 Inflammatory polyarthropathy; N28.89 Other specified disorders of kidney and ureter; H40.9 Unspecified glaucoma; Z86.73 Personal history of transient ischemic attack (TIA), and cerebral infarction without residual deficits; Z87.891 Personal history of nicotine dependence; B19.20 Unspecified viral hepatitis C without hepatic coma; K59.00 Constipation, unspecified; Z66 Do not resuscitate; Z79.02 Long term (current) use of antithrombotics/antiplatelets; Z79.82 Long term (current) use of aspirin; Z79.899 Other long term (current) drug therapy; Z95.818 Presence of other cardiac implants and grafts; Z96.649 Presence of unspecified artificial hip joint; Z95.5 Presence of coronary angioplasty implant and graft; Z86.79 Personal history of other diseases of the circulatory system; M25.462 Effusion, left knee
CPT/HCPCS: 36415; 71045; 71250; 73700; 76700; 76770; 78582; 80048; 80053; 80069; 80074; 82270; 82306; 82340; 82570; 83605; 83735; 83970; 84100; 84300; 84550; 85014; 85018; 85025; 85379; 85610; 85730; 86331; 86635; 87040; 87070; 87205; 87811; 89051; 93005; 93306; 93970; 94640; 94660; 94664; 96361; 96365; 96367; 97162; 99285; A9539; A9540; G0378; J0456; J0604; J0696; J1650; J1815; J1938; J2405; J2470; J2919; J3475; J3490; J7030; J7050; J7120; A9270